=== PATIENT | male | born 1990 | race Caucasian/White ===

== ENCOUNTER 2023-05-04 14:18 | Outpatient (OUT) | payer OTHER, SELFPAY ==
[2023-05-04 14:46] LABS: Basophils Absolute Auto 0.1 10^3/uL (0.0-0.1); Basophils Percent Auto 0.8 % (0.2-2.0); Eosinophils Absolute Auto 0.2 10^3/uL (0.0-0.7); Eosinophils Percent Auto 1.7 % (0.9-7.0); Hematocrit 41.7 % (42.0-54.0); Hemoglobin 14.1 g/dL (14.0-18.0); Immature Granulocytes Abs Auto 0.03 10^3/uL (0.00-0.03); Immature Granulocytes Pct Auto 0.3 % (0.0-0.5); Lymphocytes Absolute Auto 2.2 10^3/uL (1.2-3.8); Lymphocytes Percent Auto 22.5 % (20.5-60.0); Mean Corpuscular HGB Conc 33.8 g/dL (29.9-35.2); Mean Corpuscular Hemoglobin 29.1 pg (25.9-34.0); Mean Corpuscular Volume 86.2 fL (80.0-94.0); Mean Platelet Volume 11.4 fL (9.5-13.5); Monocytes Percent Auto 10.7 % (1.7-12.0); Neutrophils Absolute Auto 6.2 10^3/uL (1.4-6.5); Platelet Count 219 10^3/uL (150-450); Red Blood Count 4.84 10^6/uL (4.70-6.10); Red Cell Distribution Width 12.9 % (11.0-15.0); White Blood Count 9.7 10^3/uL (4.0-11.0)
[2023-05-04 14:55] LABS: Erythrocyte Sedimentation Rate 13 mm/hr (<=15)
[2023-05-04 15:05] LABS: Alanine Aminotransferase 34 U/L (16-63); Albumin Globulin Ratio 0.8; Albumin Level 3.6 g/dL (3.4-5.0); Alkaline Phosphatase 72 U/L (46-116); Anion Gap 12.3; Aspartate Amino Transferase 44 U/L (15-37); BUN Creatinine Ratio 17.2; Bilirubin Total 0.9 mg/dL (0.2-1.0); Calcium 9.1 mg/dL (8.5-10.1); Carbon Dioxide 24.9 mmol/L (21.0-32.0); Chloride 104 mmol/L (98-107); Estimated GFR (African America >60 (>=60); Estimated GFR (Non-African Ame >60 (>=60); Globulin 4.3 g/dL; Glucose 94 mg/dL (74-106); Potassium 4.2 mmol/L (3.5-5.1); Sodium 137 mmol/L (136-145); Total Protein 7.9 g/dL (6.4-8.2)
[2023-05-05 07:08] LABS: C-Reactive Protein, Cardiac 5.55 mg/L (0.00-3.00)
== END 2023-05-04 14:19 ==
LOC: LAB 14:18
PROVIDERS: PCP Family Medicine
DX: K52.9 Noninfective gastroenteritis and colitis, unspecified (principal)
CPT/HCPCS: 36415; 80053; 85025; 85652; 86140

== ENCOUNTER 2024-08-22 08:57 | Outpatient (OUT) | payer OTHER, SELFPAY ==
[2024-08-22 09:38] LABS: Basophils Absolute Auto 0.1 10^3/uL (0.0-0.1); Basophils Percent Auto 0.7 % (0.2-2.0); Eosinophils Absolute Auto 0.2 10^3/uL (0.0-0.7); Eosinophils Percent Auto 3.2 % (0.9-7.0); Hematocrit 42.5 % (42.0-54.0); Immature Granulocytes Abs Auto 0.01 10^3/uL (0.00-0.03); Immature Granulocytes Pct Auto 0.1 % (0.0-0.5); Lymphocytes Absolute Auto 1.8 10^3/uL (1.2-3.8); Mean Corpuscular HGB Conc 32.9 g/dL (29.9-35.2); Mean Corpuscular Hemoglobin 28.7 pg (25.9-34.0); Mean Corpuscular Volume 87.1 fL (80.0-94.0); Mean Platelet Volume 10.5 fL (9.5-13.5); Monocytes Absolute Auto 0.6 10^3/uL (0.3-0.8); Monocytes Percent Auto 8.7 % (1.7-12.0); Neutrophils Absolute Auto 4.5 10^3/uL (1.4-6.5); Neutrophils Percent Auto 62.3 % (43.0-75.0); Platelet Count 200 10^3/uL (150-450); Red Blood Count 4.88 10^6/uL (4.70-6.10); Red Cell Distribution Width 13.1 % (11.0-15.0); White Blood Count 7.2 10^3/uL (4.0-11.0)
[2024-08-22 10:20] LABS: Alanine Aminotransferase 53 U/L (16-63); Albumin Globulin Ratio 0.9; Albumin Level 3.5 g/dL (3.4-5.0); Alkaline Phosphatase 62 U/L (46-116); Aspartate Amino Transferase 40 U/L (15-37); BUN Creatinine Ratio 10.2; Calcium 8.9 mg/dL (8.5-10.1); Carbon Dioxide 23.8 mmol/L (21.0-32.0); Chloride 103 mmol/L (98-107); Estimated GFR (African America >60 (>=60 mL/min/1.73m^2); Estimated GFR (Non-African Ame >60 (>=60 mL/min/1.73m^2); Globulin 3.7 g/dL; Glucose 90 mg/dL (74-106); Potassium 3.8 mmol/L (3.5-5.1); Sodium 136 mmol/L (136-145); Total Protein 7.2 g/dL (6.4-8.2)
[2024-08-22 10:36] LABS: Erythrocyte Sedimentation Rate 26 mm/hr (<=15)
[2024-08-23 05:12] LABS: HBsAg Screen Negative (Negative); Hep B Core Ab, Tot Negative (Negative)
[2024-08-24 10:09] LABS: QuantiFERON-TB Gold Plus Negative (Negative)
== END 2024-08-22 08:58 | disposition home or self-care (01) ==
LOC: LAB 09:00
PROVIDERS: PCP Family Medicine
DX: K50.90 Crohn's disease, unspecified, without complications (principal)
CPT/HCPCS: 36415; 80053; 85025; 85652; 86140; 86480; 86704; 87340

== ENCOUNTER 2025-06-13 16:00 | Outpatient (OUT) | payer OTHER, SELFPAY ==
--- OUTSIDE RECORDS SUMMARY | 2024-08-22 16:49 | XMS_ITS ---
Author Organization The [facility] in [place] Address [address] [place] [address] Care Team Providers Care Seasonal Clerk Name Role Phone José Miguel Bynum Primary Care Provider REASON FOR VISIT review labs Encounters Encounter Location Date Provider Diagnosis [address] [address] 08/22/2024 José Miguel Bynum Plan Of Treatment No Information Progress Notes * Kvng RICHMONDDOB:[birth year] (34 yo M)Acc No.[id number]:08/22/2024 Patient: Robyn Kvng DOVE :1990 A ge:34 Y S ex:Male Address:[facility] [place] [address] [address] * true * Date: Generated for Printi ng/Faxing/eTransmitting on: 0 06/13/2025 04:03 PM EDT
--- OUTSIDE RECORDS SUMMARY | 2024-08-24 17:34 | XMS_ITS ---
Author Organization The [facility] in [place] Address [address] [place] [address] Care Team Providers Care Hospital Technician Name Role Phone José Miguel Bynum Primary Care Provider REASON FOR VISIT labs Encounters Encounter Location Date Provider Diagnosis [address] [address] 08/24/2024 José Miguel Byunm Plan Of Treatment No Information Progress Notes * Kvng RICHMONDDOB:[birth year] (34 yo M)Acc No.[id number]:08/24/2024 Patient: Kvng SALCIDO :1990 A ge:34 Y S ex:Male Address:[facility] [address] * true * Date: Generated for Printi ng/Faxing/eTransmitting on: 0 06/13/2025 04:03 PM EDT
--- OUTSIDE RECORDS SUMMARY | 2025-06-13 16:03 | XMS_ITS | Encounter Summary ---
Author Organization [facility] Address [address] [place], [place] [id number] Care Team Providers Care Railroad Car Loader Name Role Phone Celestine Bynum MD Primary Care Provider [phone] Source Comments In the event this information is protected by the Federal Confidentiality of Alcohol and Drug AbusePatient Records regulations: The Federal rules restrict any use of the information to criminally investigate or prosecute any alcohol or drug abuse patient.[facility] Encounter Details Date Type Department Care Team (Late st Contact Info) Description 01/21/2024 Get Medical Advice Gastroenterology [address] [place] [address] [place] [address] [place] [address] Persistent Chron s symptoms Social History Tobacco Use Types Packs/Day Years Used Date Smoking Tobacco: Former Cigarettes Smokeless Tobacco: Never Alcohol Use Standard Drinks/Week Comments Yes 0 (1 standard drink = 0.6 oz pur e alcohol) social Area Deprivation Index Answer Date Lui rded National Score (1-100), lower number is lower ri sk 64 07/31/2023 State Score (1-10), lower number is lower risk 4 07/31/2023 Data from: https://www.neighborhoodatlas.medicine.[facility].edu/. Last address used for calculation [address] 07/31/2023 Sex and Gender Information Value Date Recorded Sex Assigned at Not on file Legal Sex Male 2:39 PM EDT Gender Identity Not on file Sexual Orientation Straight 07/31/2023 2: 31 PM EDT documented as of this encounter Plan of Treatment Not on file documented as of this encounter Visit Diagnoses Not on filedocumented in this encounter Care Teams Railroad Car Loader Relationship Specialty Start Date End Date Celestine Bynum MD [address] [id number] PCP - General Family Medicine 05/02/23 documented as of this encounter
--- OUTSIDE RECORDS SUMMARY | 2025-06-13 16:03 | XMS_ITS | Patient Health Record ---
Author Organization The [facility] in [place] Address [address] [place] [address] Care Team Providers Care Mechanical Process Engineer Name Role Phone José Miguel Bynum Primary Care Provider [phone] Results Component Value Reference Range Notes CBC AUTO DIFF Reviewed date:08/22/2024 08:51:47 PM Interpretation: Performing Lab: Notes/Report: [facility] [place] , White Blood Count 7.2 4.0-11.0 10 3/uL Red Blood Count 4.88 4.70-6.10 10 6/uL Hemoglobin 14.0 14.0-18.0 g/dL Hematocrit 42.5 42.0-54.0 % Mean Corpuscular Volume 87.1 80.0-94.0 fL Mean Corpuscular Hemoglobin 28.7 25.9-34.0 pg Mean Corpuscular HGB Conc 32.9 29.9-35.2 g/dL Red Cell Distribution Width 13.1 11.0-15.0 % Platelet Count 200 150-450 10 3/uL Mean Platelet Volume 10.5 9.5-13.5 fL Neutrophils Percent Auto 62.3 43.0-75.0 % Lymphocytes Percent Auto 25.0 20.5-60.0 % Monocytes Percent Auto 8.7 1.7-12.0 % Eosinophils Percent Auto 3.2 0.9-7.0 % Basophils Percent Auto 0.7 0.2-2.0 % Immature Granulocytes Pct Auto 0.1 0.0-0.5 % Neutrophils Absolute Auto 4.5 1.4-6.5 10 3/uL Lymphocytes Absolute Auto 1.8 1.2-3.8 10 3/uL Monocytes Absolute Auto 0.6 0.3-0.8 10 3/uL Eosinophils Absolute Auto 0.2 0.0-0.7 10 3/uL Basophils Absolute Auto 0.1 0.0-0.1 10 3/uL Immature Granulocytes Abs Auto 0.01 0.00-0.03 10 3/uL Performing Lab: see note - [facility] CRP Reviewed date:08/22/2024 08:51:47 PM Interpretation: Performing Lab: Notes/Report: [facility] , C Reactive Protein 0.50 <=0.50 mg/dL Performing Lab: see note - [facility] PROF 14(COMP METB) Reviewed date:08/22/2024 08:51:47 PM Interpretation: Performing Lab: Notes/Report: [facility] [place] , Sodium 136 136-145 mmol/L Potassium 3.8 3.5-5.1 mmol/L Chloride 103 98-107 mmol/L Carbon Dioxide 23.8 21.0-32.0 mmol/L Anion Gap 13.0 Glucose 90 74-106 mg/dL Blood Urea Nitrogen 9.0 7.0-18.0 mg/dL Creatinine 0.88 0.70-1.30 mg/dL Estimated GFR ( Keira >60 >=60 mL/mi n/1.73m 2 Estimated GFR (Non- Licha >60 >=60 mL/mi n/1.73m 2 BUN Creatinine Ratio 10.2 Calcium 8.9 8.5-10.1 mg/dL Bilirubin Total 1.0 0.2-1.0 mg/dL Aspartate Amino Transferase 40 15-37 U/L Alanine Aminotransferase 53 16-63 U/L Alkaline Phosphatase 62 46-116 U/L Total Protein 7.2 6.4-8.2 g/dL Albumin Level 3.5 3.4-5.0 g/dL Globulin 3.7 Albumin Globulin Ratio 0.9 Performing Lab: see note - [facility] Erythrocyte Sedimentation Ra te Reviewed date:08/22/2024 08:51:47 PM Interpretation: Performing Lab: Notes/Report: [facility] , Erythrocyte Sedimentation Rate 26 <=15 mm/hr Performing Lab: see note - [facility] HBsAg Screen Reviewed date:08/24/2024 09:35:49 PM Interpretation: Performing Lab: Notes/Report: [facility] , HBsAg Screen Negative Negative Performing Lab: see note LC - [facility] QuantiFERON-TB Gold Plus Reviewed date:08/24/2024 09:35:49 PM Interpretation: Performing Lab: Notes/Report: [facility] , QuantiFERON Incubation . Incubation performed. Reference Range: . QuantiFERON-TB Gold Plus Negative Negative Performed at: [facility] individuals should be considered for additional testing IU/mL. Infection with M tuberculosis is unlikely, but high risk (ATS/IDSA/CDC Clinical Practice Guidelines, 2017). The [address] [place] [id number] Shear Helper: Phi Jessica PhD, Phone: [phone] Chemiluminescence immunoassay methodology No response to M tuberculosis antigens detected. reference range is an Antigen minus Nil result of <0.35 QuantiFERON Criteria Comment . intended for use in conjunction with risk assessment, subtracting the Nil value from either TB antigen (Ag) radiography, and other medical and diagnostic evaluations. QuantiFERON-TB Gold Plus is a qualitative indirect test for value. The Mitogen tube serves as a control for the test. M tuberculosis infection (including disease) and is The QuantiFERON-TB Gold Plus result is determined by QuantiFERON TB1 Ag Value 0.03 . IU/mL QuantiFERON TB2 Ag Value 0.05 . IU/mL QuantiFERON Nil Value 0.02 . IU/mL QuantiFERON Mitogen Value >10.00 . IU/mL Performing Lab: see note - [facility] Hep B Core Ab, Tot Reviewed date:08/24/2024 09:35:49 PM Interpretation: Performing Lab: Notes/Report: [facility] , Hep B Core Ab, Tot Negative Negative [address] [place] [id number] Performed at: [facility] Shear Helper: Phi Jessica PhD, Phone: [phone] Performing Lab: see note - [facility] Reason For Referral No Information Encounters Encounter Location Date Provider Diagnosis [facility] [address] [place] [address] 08/22/2024 José Miguel Bynum [facility] [address] [place] [address] 08/24/2024 José Miguel Bynum Plan Of Treatment No Information
--- OUTSIDE RECORDS SUMMARY | 2025-06-13 16:03 | XMS_ITS | Encounter Summary ---
Author Organization [facility] Address [address] [place], [place] [id number] Care Team Providers Care Temperature Inspector Name Role Phone Celestine Bynum MD Primary Care Provider [phone] Source Comments In the event this information is protected by the Federal Confidentiality of Alcohol and Drug AbusePatient Records regulations: The Federal rules restrict any use of the information to criminally investigate or prosecute any alcohol or drug abuse patient.[facility] Reason for Visit * Reason Comments Orders Inflectra renewal an d SHANTI Kit Encounter Details Date Type Department Care Team (Late Contact Info) Description 06/12/2025 Telephone Gastroenterology [address] [place] [address] [place] [address] [place] [address] Orders (Inflectra renewal and SHANTI Kit) Social History Tobacco Use Types Packs/Day Years Used Date Smoking Tobacco: Former Cigarettes Smokeless Tobacco: Never Alcohol Use Standard Drinks/Week Comments Yes 0 (1 standard drink = 0.6 oz pur e alcohol) social Area Deprivation Index Answer Date Lui rded National Score (1-100), lower number is lower ri 64 07/31/2023 State Score (1-10), lower number is lower risk 4 07/31/2023 Data from: https://www.neighborhoodatlas.medicine.[facility].edu/. Last address used for calculation [address] 07/31/2023 Sex and Gender Information Value Date Recorded Sex Assigned at Not on file Legal Sex Male 2:39 PM EDT Gender Identity Not on file Sexual Orientation Straight 07/31/2023 2: 31 PM EDT documented as of this encounter Miscellaneous Notes * Telephone Encounter - Eleanor Fofana RN - 06/13/2025 3:34 PM EDT Fecal Renny was faxed (stool study) as well. Thanks, Eleanor Fofana RN * Telephone Encounter - Violeta Gaston - 06/13/2025 3:25 PM EDT Please confirm the Shanti Kit was also faxed over. Thank you, * Telephone Encounter - Eleanor Fofana RN - 06/13/2025 9:14 AM EDT Lab Requisites faxed to [phone] [facility] per pt request. Confirmation fax received. Thanks, Eleanor Fofana RN * Telephone Encounter - Cassie Mello MD - 06/12/2025 2:15 PM EDT Patient has TB test that was negative and scanned in Aug 2024 Why does he need a repeated one? Normal labs at that time I don't see hep B I'm sure all were done at the same time Please try to get before you ask the patient to repeat * Telephone Encounter - Eleanor Fofana RN - 06/12/2025 12:11 PM EDT Received paperwork yesterday evening, Will complete and fax to [facility], Explained to rep yesterday that this would need completed/ prescriber signature- and pt has incomplete labs. Dr. Mello, Please review and sign labs for TB hep, Other labs active. Thanks, Eleanor Fofana RN * Telephone Encounter - Ingris Hernández RN - 06/12/2025 12:04 PM EDT Beth Geovanny from [facility] is calling. She would like to know if orders were received for Inflectra renewal and SHANTI Kit. She needs the orders faxed back to [phone]. Please call her back at [phone]. Thank you, Ingris Hernández RN documented in this encounter Plan of Treatment Scheduled Orders Name Type Priority Associated Diagnoses Orde r Schedule BLOOD TB SCREEN Lab Routine Crohn's disease without complication, unspecified gastrointestinal tract location (HCC) Expected: 06/12/2025 (Approximate), Expires: 09/11/2025 HEPATITIS B CORE ANTIBODY TOTAL Lab Routine Crohn's disease without complication, unspecified gastrointestinal tract location (HCC) Expected: 06/12/2025 (Approximate), Expires: 09/11/2025 HEPATITIS B SURFACE ANTIGEN Lab Routine Crohn's disease without complication, unspecified gastrointestinal tract location (HCC) Expected: 06/12/2025 (Approximate), Expires: 09/11/2025 HEPATITIS B SURFACE ANTIBODY Lab Routine Crohn's disease without complication, unspecified gastrointestinal tract location (HCC) Expected: 06/12/2025 (Approximate), Expires: 09/11/2025 documented as of this encounter Visit Diagnoses Diagnosis Crohn's disease without complication, unspecified gastrointestinal tract location (HCC)- Primary documented in this encounter Care Teams Temperature Inspector Relationship Specialty Start Date End Date Celestine Bynum MD [address] [place] [address] PCP - General Family Medicine 05/02/23 documented as of this encounter
--- OUTSIDE RECORDS SUMMARY | 2025-06-13 16:03 | XMS_ITS | Clinical Summary ---
Author Organization [facility] Address [address] [place] [address] Care Team Providers Care Ship Self Defense System Mk1 Operator Name Role Phone Celestine Bynum MD Primary Care Provider [phone] Allergies No known active allergies Medications predniSONE (DELTASONE) 20 mg tablet Take 20 mg by mouth once daily. Active methocarbamol (ROBAXIN) 500 mg tablet Take 500 mg by mouth four times daily. Active Active Problems No known active problems Encounters Date Type Department Care Team Description 06/12/2025 Telephone Gastroenterology [address] [place] [address] Cassie Mello MD Orders (Inflectra renewal and SHANTI Kit) 06/06/2025 Patient Msg HOSP MAIN H060 [address] [place] [address] Provider, [facility] Sign up to manage your digestive symptoms in between visits, covered by insurance 05/02/2025 Telephone [facility] C [address] [place] [id number] Cassie Mello MD from Last 3 Months Family History Medical History Relation Comments Colon Cancer Maternal Grandfather Relation Status Comments Maternal Grandfather Social History Tobacco Use Types Packs/Day Years Used Date Smoking Tobacco: Former Cigarettes Smokeless Tobacco: Never Tobacco Cessation:Counseling Given: Not Answered Alcohol Use Standard Drinks/Week Comments Yes 0 (1 standard drink = 0.6 oz pur e alcohol) social Area Deprivation Index Answer Date Lui rded National Score (1-100), lower number is lower [facility] 64 07/31/2023 State Score (1-10), lower number is lower risk 4 07/31/2023 Data from: https://www.neighborhoodatlas.medicine.[facility].edu/. Last address used for calculation [address] 07/31/2023 Sex and Gender Information Value Date Recorded Sex Assigned at Not on file Legal Sex Male 2:39 PM EDT Gender Identity Not on file Sexual Orientation Straight 07/31/2023 2: 31 PM EDT Last Filed Vital Signs Vital Sign Reading Time Taken Comments Blood Pressure 116/75 07/31/2023 11:08 AM EDT Pulse 71 07/31/2023 11:08 AM EDT Temperature - - Respiratory Rate - - Oxygen Saturation - - Inhaled Oxygen Concentration - - Weight 143.8 kg (317 lb) 07/31/2023 11:08 AM EDT Height - - Body Mass Index - - Plan of Treatment Health Maintenance Due Date Last Done Comments Anxiety Screening 2009 Depression Screening 2009 HIV Screening 2009 Hepatitis C Screening 2009 DTaP,Tdap,Td Vaccine (7 - Td or Tdap) 04/14/2020 04/14/2010, 05/11/2007, 07/21/1995, Additional history exists Influenza Vaccine (#1) 2025 09/03/2019 Hepatitis B Vaccine Completed 11/15/2007, 06/15/2007, 05/11/2007 [facility] [place] [address] Care Teams Ship Self Defense System Mk1 Operator Relationship Specialty Start Date End Date Celestine Bynum MD [address] [place] [address] PCP - General Family Medicine 05/02/23
--- OUTSIDE RECORDS SUMMARY | 2025-06-13 16:03 | XMS_ITS | Clinical Summary ---
Author Organization [facility] [employer] Address [id number] [address] [place] [address] Care Team Providers Care Mig Welder Name Role Phone Celestine Bynum MD Primary Care Provider [phone] Allergies Active Allergy Reactions Criticality Noted Date Comments Hydrocodone-Acetaminophen Nausea 03/11/2021 Medications No known medications Social History Tobacco Use Types Packs/Day Years Used Date Smoking Tobacco: Some Days Vaping/E-cigarettes Smokeless Tobacco: Never Alcohol Use Standard Drinks/Week Comments Yes 0 (1 standard drink = 0.6 oz pur e alcohol) Childcare Answer Date Recorded Childcare Unknown 05/01/2019 Employment Answer Date Recorded Employment Unknown 05/01/2019 Sex and Gender Information Value Date Recorded Sex Assigned at Not on file Legal Sex Male 12:01 PM EDT Gender Identity Not on file Sexual Orientation Not on file Last Filed Vital Signs Vital Sign Reading Time Taken Comments Blood Pressure 128/74 03/11/2021 5:00 PM EDT Pulse 79 03/11/2021 5:00 PM EDT Temperature 37.1 C (98.7 F) 03/11/2021 4:56 PM EDT Respiratory Rate 17 03/11/2021 4:56 PM EDT Oxygen Saturation 100% 03/11/2021 5:00 PM EDT Inhaled Oxygen Concentration - - Weight 133.8 kg (295 lb) 03/11/2021 4:56 PM EDT Height 185.4 cm (6' 1 ) 03/11/2021 4:56 PM EDT Body Mass Index 38.92 03/11/2021 4:56 PM EDT Plan of Treatment Not on file Medical Devices Not on file Insurance [facility] Care Teams Mig Welder Relationship Specialty Start Date End Date Celestine Bynum MD PCP - General Family Medicine 03/11/21
[2025-06-13 16:32] LABS: Hematocrit 42.5 % (42.0-54.0); Hemoglobin 14.5 g/dL (14.0-18.0); Immature Granulocytes Abs Auto 0.02 10^3/uL (0.00-0.03); Immature Granulocytes Pct Auto 0.2 % (0.0-0.5); Lymphocytes Absolute Auto 2.3 10^3/uL (1.2-3.8); Mean Corpuscular HGB Conc 34.1 g/dL (29.9-35.2); Mean Corpuscular Hemoglobin 29.8 pg (25.9-34.0); Mean Corpuscular Volume 87.4 fL (80.0-94.0); Platelet Count 218 10^3/uL (150-450); Red Blood Count 4.86 10^6/uL (4.70-6.10); White Blood Count 8.3 10^3/uL (4.0-11.0)
[2025-06-13 17:41] LABS: Alanine Aminotransferase 93 U/L (16-63); Albumin Globulin Ratio 0.7; Albumin Level 3.3 g/dL (3.4-5.0); Alkaline Phosphatase 74 U/L (46-116); Anion Gap 8.1; Aspartate Amino Transferase 36 U/L (15-37); Blood Urea Nitrogen 11.0 mg/dL (7.0-18.0); Calcium 9.5 mg/dL (8.5-10.1); Carbon Dioxide 31.1 mmol/L (21.0-32.0); Chloride 104 mmol/L (98-107); Estimated GFR (African America >60 (>=60 mL/min/1.73m^2); Estimated GFR (Non-African Ame >60 (>=60 mL/min/1.73m^2); Globulin 4.8 g/dL; Glucose 111 mg/dL (74-106); Potassium 4.2 mmol/L (3.5-5.1); Sodium 139 mmol/L (136-145); Total Protein 8.1 g/dL (6.4-8.2)
== END 2025-06-13 16:01 | disposition home or self-care (01) ==
LOC: LAB 16:00
PROVIDERS: PCP Family Medicine
DX: K50.90 Crohn's disease, unspecified, without complications (principal)
CPT/HCPCS: 36415; 80053; 85025; 85652; 86140; 86317; 86704; 87340

== ENCOUNTER 2025-06-20 18:16 | Outpatient (REF) | payer OTHER, SELFPAY ==
--- OUTSIDE RECORDS SUMMARY | 2024-08-22 16:49 | XMS_ITS ---
Author Organization The [facility] in [place] Address [address] [place] [address] Care Team Providers Care Master Ocean Yacht Name Role Phone José Miguel Bynum Primary Care Provider REASON FOR VISIT review labs Encounters Encounter Location Date Provider Diagnosis [address] [address] 08/22/2024 José Miguel Bynum Plan Of Treatment No Information Progress Notes * Kvng RICHMONDDOB:[birth year] (34 yo M)Acc No.[id number]:08/22/2024 Patient: Robyn Kvng DOVE :1990 A ge:34 Y S ex:Male Address:[facility] [place] [address] * true * Date: Generated for Victorianoi ng/Falanceg/eTransmitting on: 0 06/21/2025 06:51 AM EDT
--- OUTSIDE RECORDS SUMMARY | 2024-08-24 17:34 | XMS_ITS ---
Author Organization The [facility] in [place] Address [address] [place] [address] Care Team Providers Care Aviation Operations Specialist Name Role Phone José Miguel Bynum Primary Care Provider REASON FOR VISIT labs Encounters Encounter Location Date Provider Diagnosis [address] [address] 08/24/2024 José Miguel Bynum Plan Of Treatment No Information Progress Notes * Kvng RICHMONDDOB:[birth year] (34 yo M)Acc No.[id number]:08/24/2024 Patient: Kvng SALCIDO :1990 A ge:34 Y S ex:Male Address:[facility] [place] [address] [address] * true * Date: Generated for Printi ng/Faxing/eTransmitting on: 0 06/21/2025 06:51 AM EDT
--- OUTSIDE RECORDS SUMMARY | 2025-06-21 06:51 | XMS_ITS | Patient Health Record ---
Author Organization [facility] in [place] Address [address] [place] [address] Care Team Providers Care Accountant Property Name Role Phone José Miguel Bynum Primary Care Provider Results Component Value Reference Range Notes CBC AUTO DIFF Reviewed date:08/22/2024 08:51:47 PM Interpretation: Performing Lab: Notes/Report: [facility] , White Blood Count 7.2 4.0-11.0 10 [...] 10 3/uL Performing Lab: see note - [facility] LB QuantiFERON-TB Gold Plus Reviewed date:08/24/2024 09:35:49 PM Interpretation: Performing Lab: Notes/Report: [facility] , QuantiFERON Incubation . Incubation performed. Reference Range: . QuantiFERON-TB Gold Plus Negative Negative No response to M tuberculosis antigens detected. Infection with M tuberculosis is unlikely, but high risk individuals should be considered for additional testing (ATS/IDSA/CDC Clinical Practice Guidelines, 2017). The reference range is an Antigen minus Nil result of <0.35 IU/mL. Chemiluminescence immunoassay methodology Performed at: [facility] [employer] [id number] Roping Machine Tender: Phi Jessica PhD, Phone: [phone] QuantiFERON Criteria Comment . QuantiFERON-TB Gold Plus is a qualitative indirect test for M tuberculosis infection (including disease) and is intended for use in conjunction with risk assessment, radiography, and other medical and diagnostic evaluations. The QuantiFERON-TB Gold Plus result is determined by subtracting the Nil value from either TB antigen (Ag) value. The Mitogen tube serves as a control for the test. QuantiFERON TB1 Ag Value 0.03 . IU/mL QuantiFERON TB2 Ag Value 0.05 . IU/mL QuantiFERON Nil Value 0.02 . IU/mL QuantiFERON Mitogen Value >10.00 . IU/mL Performing Lab: see note - [facility] LB CBC AUTO DIFF Reviewed date:06/15/2025 06:17:15 PM Interpretation: Performing Lab: Notes/Report: [facility] , White Blood Count 8.3 4.0-11.0 10 3/uL Red Blood Count 4.86 4.70-6.10 10 6/uL Hemoglobin 14.5 14.0-18.0 g/dL Hematocrit 42.5 42.0-54.0 % Mean Corpuscular Volume 87.4 80.0-94.0 fL Mean Corpuscular Hemoglobin 29.8 25.9-34.0 pg Mean Corpuscular HGB Conc 34.1 29.9-35.2 g/dL Red Cell Distribution Width 13.2 11.0-15.0 % Platelet Count 218 150-450 10 3/uL Mean Platelet Volume 11.6 9.5-13.5 fL Neutrophils Percent Auto 60.5 43.0-75.0 % Lymphocytes Percent Auto 27.7 20.5-60.0 % Monocytes Percent Auto 8.7 1.7-12.0 % Eosinophils Percent Auto 2.3 0.9-7.0 % Basophils Percent Auto 0.6 0.2-2.0 % Immature Granulocytes Pct Auto 0.2 0.0-0.5 % Neutrophils Absolute Auto 5.0 1.4-6.5 10 3/uL Lymphocytes Absolute Auto 2.3 1.2-3.8 10 3/uL Monocytes Absolute Auto 0.7 0.3-0.8 10 3/uL Eosinophils Absolute Auto 0.2 0.0-0.7 10 3/uL Basophils Absolute Auto 0.1 0.0-0.1 10 3/uL Immature Granulocytes Abs Auto 0.02 0.00-0.03 10 3/uL Performing Lab: see note ML - [facility] LB CRP Reviewed date:06/15/2025 06:17:15 PM Interpretation: Performing Lab: Notes/Report: [facility] , C Reactive Protein <0.50 <=0.50 mg/dL Performing Lab: see note ML - [facility] LB PROF 14(COMP METB) Reviewed date:06/15/2025 06:17:15 PM Interpretation: Performing Lab: Notes/Report: [facility] , Sodium 139 136-145 mmol/L Potassium 4.2 3.5-5.1 mmol/L Chloride 104 98-107 mmol/L Carbon Dioxide 31.1 21.0-32.0 mmol/L Anion Gap 8.1 Glucose 111 74-106 mg/dL Blood Urea Nitrogen 11.0 7.0-18.0 mg/dL Creatinine 0.75 0.70-1.30 mg/dL Estimated GFR ( Keira >60 >=60 mL/mi n/1.73m 2 Estimated GFR (Non- Licha >60 >=60 mL/mi n/1.73m 2 BUN Creatinine Ratio 14.7 Calcium 9.5 8.5-10.1 mg/dL Bilirubin Total 0.6 0.2-1.0 mg/dL Aspartate Amino Transferase 36 15-37 U/L Alanine Aminotransferase 93 16-63 U/L Alkaline Phosphatase 74 46-116 U/L Total Protein 8.1 6.4-8.2 g/dL Albumin Level 3.3 3.4-5.0 g/dL Globulin 4.8 Albumin Globulin Ratio 0.7 Performing Lab: see note ML - [facility] Erythrocyte Sedimentation Ra te Reviewed date:06/15/2025 06:17:15 PM Interpretation: Performing Lab: Notes/Report: [facility] , Erythrocyte Sedimentation Rate 19 <=15 mm/hr Performing Lab: see note - [facility] LB HBsAg Screen Reviewed date:06/15/2025 06:17:15 PM Interpretation: Performing Lab: Notes/Report: [facility] , HBsAg Screen Negative Negative Performing Lab: see note - [facility] LB Hepatitis B Surf Ab Quant Reviewed date:06/15/2025 06:17:15 PM Interpretation: Performing Lab: Notes/Report: [facility] , Hepatitis B Surf Ab Quant <3.5 Immunity>10 mIU /mL Status of Immunity Anti-HBs Level Inconsistent with Immunity 0.0 - 10.0 Consistent with Immunity >10.0 Performing Lab: see note - [facility] LB Hep B Core Ab, Tot Reviewed date:06/15/2025 06:17:15 PM Interpretation: Performing Lab: Notes/Report: [facility] , Hep B Core Ab, Tot Negative Negative Performed at: [address] [id number] Roping Machine Tender: Phi Jessica PhD, Phone: [phone] Performing Lab: see note - [facility] Hep B Core Ab, Tot Reviewed date:08/24/2024 09:35:49 PM Interpretation: Performing Lab: Notes/Report: [facility] , Hep B Core Ab, Tot Negative Negative Performed at: [address] [id number] Roping Machine Tender: Phi Jessica PhD, Phone: [phone] [facility]forming [facility] H[facility] Reviewed date:08/24/2024 09:35:49 PM Interpretation: Performing Lab: Notes/Report: [facility] , HBsAg Screen Negative Negative Performing Lab: see note LC - [facility] LB Erythrocyte Sedimentation Ra te Reviewed date:08/22/2024 08:51:47 PM Interpretation: Performing Lab: Notes/Report: [facility] , Erythrocyte Sedimentation Rate 26 <=15 mm/hr Performing Lab: see note ML - [facility] PROF 14(COMP METB) Reviewed date:08/22/2024 08:51:47 PM Interpretation: Performing Lab: Notes/Report: [facility] , Sodium 136 136-145 mmol/L Potassium 3.8 [...] Globulin Ratio 0.9 Performing Lab: see note ML - [facility] CRP Reviewed date:08/22/2024 08:51:47 PM Interpretation: Performing Lab: Notes/Report: [facility] , C Reactive Protein 0.50 <=0.50 mg/dL Performing Lab: see note ML - [facility] Reason For Referral No Information Encounters Encounter Location Date Provider Diagnosis [facility] [address] [place] [address] 08/22/2024 José Miguel Bynum [facility] [address] [place] [address] 08/24/2024 José Miguel Bynum [facility] [address] [facility] [place] [address] 06/15/2025 José Miguel Bynum Plan Of Treatment No Information
--- OUTSIDE RECORDS SUMMARY | 2025-06-21 06:51 | XMS_ITS | Encounter Summary ---
Author Organization [facility] Address [address] [place], [place] [id number] Care Team Providers Care Prefitter Doors Name Role Phone Celestine Bynum MD Primary Care Provider [phone] Source Comments In the event this information is protected by the Federal Confidentiality of Alcohol and Drug AbusePatient Records regulations: The Federal rules restrict any use of the information to criminally investigate or prosecute any alcohol or drug abuse patient.[facility] Reason for Visit * Reason Comments Orders Inflectra renewal an d SHANTI Kit Encounter Details Date Type Department Care Team (Late Contact Info) Description 06/12/2025 Telephone Gastroenterology [address] [place] [address] [place] [address] [place] [id number] Orders (Inflectra renewal and SHANTI Kit) Social [...] is lower risk 4 07/31/2023 Data from: https://www.neighborhoodatlas.medicine.[facility]/. Last address used for calculation [address] 07/31/2023 Sex and Gender Information Value Date Recorded Sex Assigned at Not on file Legal Sex Male 2:39 PM EDT Gender Identity Not on file Sexual Orientation Straight 07/31/2023 2: 31 PM EDT documented as of this encounter Miscellaneous Notes * Telephone Encounter - Ingris Hernández RN - 06/19/2025 3:59 PM EDT Orders received, signed by Dr. Mello and faxed to [facility]. Ingris Hernández RN * Telephone Encounter - Ana Dinh LPN - 06/19/2025 3:46 PM EDT Bonnie CASILLAS from [facility] calling regarding SHANTI kit orders. Bonnie states SHANTI orders were faxed to the office a few days ago. Patient is scheduled to have infusion on Saturday 06/23. Bonnie CASILLAS states if SHANTI orders are not received by tomorrow patient will need to be cancelled for Mondays infusion. Bonnie CASILLAS will refax SHANTI kit orders to the office today. Bonnie CASILLAS # [phone] Fax # [phone] Please see Ingris CASILLAS message from 06/12/25. Thank You Ana Dinh LPN * Addendum Note - Cassie Mello MD - 06/17/2025 3:57 PM EDTAddended by: CASSIE MELLO on: 06/17/2025 03:57 PM Modules accepted: Orders * Telephone Encounter - Cassie Mello MD - 06/17/2025 3:57 PM EDT Thanks * Addendum Note - Eleanor Fofana RN - 06/17/2025 1:36 PM EDTAddended by: ELEANOR FOFANA on: 06/17/2025 01:36 PM Modules accepted: Orders * Telephone Encounter - Eleanor Fofana RN - 06/17/2025 1:33 PM EDT Images from the original note were not included. TB up to date in scanned docs Reviewed previously- Awaiting up dated TB, pt stated he may wait until next lab work is due for completion. Eleanor Miller RN * Telephone Encounter - Cassie Mello MD - 06/17/2025 1:26 PM EDT Noted I don't see TB? Repeat labs in 6 months Hepatitis B and TB in one year * Telephone Encounter - Eleanor Fofana RN - 06/17/2025 10:04 AM EDT Lab results received via fax from [facility] DOS 06-13-25 Dr. Mello please review and sign abnormal results, Full doc submitted for scan in Eleanor Miller RN CBC WNL CMP GLUC 111 H ALT 93 H ALBUMIN 3.3 L ESR 19 H HEP B SURG <3.5 L HEP B CORE NEG HBsAG SCRN NEG * Telephone Encounter - Eleanor Fofana RN - 06/13/2025 3:34 PM EDT Fecal Renny was faxed (stool study) as well. Thanks, Eleanor Fofana RN * Telephone Encounter - Violeta Gaston - 06/13/2025 3:25 PM EDT Please confirm the Shanti Kit was also faxed over. Thank you, * Telephone Encounter - Eleanor Fofana RN - 06/13/2025 9:14 AM EDT Lab Requisites faxed to [phone] [facility] per pt request. Confirmation fax [...] yesterday evening, Will complete and fax to [facility], Explained to rep yesterday that this would need completed/ prescriber signature- and pt has incomplete labs. Dr. Mello, Please review and sign labs for TB hep, Other labs active. Thanks, Eleanor Fofana RN * Telephone Encounter - Ingris Hernández RN - 06/12/2025 12:04 PM EDT Beth Small from [facility] is calling. She would like to know if orders were received for Inflectra renewal and SHANTI Kit. She needs the orders faxed back to [phone]. Please call her back at [phone]. Thank you, Ingris Hernández, RN documented in this encounter Plan of [...] location (HCC) Expected: 06/12/2025 (Approximate), Expires: 09/11/2025 C-REACTIVE PROTEIN Lab Routine Crohn's disease without complication, unspecified gastrointestinal tract location (HCC) Expected: 12/18/2025 (Approximate), Expires: 03/19/2026 COMPREHENSIVE METABOLIC PANEL Lab Routine Crohn's disease without complication, unspecified gastrointestinal tract location (HCC) Expected: 12/18/2025 (Approximate), Expires: 03/19/2026 COMPLETE BLOOD COUNT AND DIFFERENTIAL Lab Routine Crohn's disease without complication, unspecified gastrointestinal tract location (HCC) Expected: 12/18/2025 (Approximate), Expires: 03/19/2026 SEDIMENTATION RATE, WESTERGREN Lab Routine Crohn's disease without complication, unspecified gastrointestinal tract location (HCC) Expected: 12/18/2025 (Approximate), Expires: 03/19/2026 documented as of this encounter Visit Diagnoses Diagnosis Crohn's disease without complication, unspecified gastrointestinal tract location (HCC)- Primary documented in this encounter Care Teams Prefitter Doors Relationship Specialty Start Date End Date Celestine Bynum MD [address] [place] [address] PCP - General Family Medicine 05/02/23 documented as of this encounter
--- OUTSIDE RECORDS SUMMARY | 2025-06-21 06:51 | XMS_ITS | Encounter Summary ---
Author Organization [facility] Address [address] [place] [address] Care Team Providers Care Movie Operator Name Role Phone Celestine Bynum MD Primary Care Provider [phone] Source Comments In the event this information is protected by the Federal Confidentiality of Alcohol and Drug AbusePatient Records regulations: The Federal rules restrict any use of the information to criminally investigate or prosecute any alcohol or drug abuse patient.[facility] Encounter Details Date Type Department Care Team (Late st Contact Info) Description 06/06/2025 Patient Msg HOSP MAIN H060 [address] [place] [address] Provider, [facility] Sign up to manage your digestive symptoms in between visits, covered by insurance Social History Tobacco Use Types Packs/Day Years Used Date Smoking Tobacco: Former Cigarettes Smokeless Tobacco: Never Alcohol Use Standard Drinks/Week Comments Yes 0 (1 standard drink = 0.6 oz pur e alcohol) social Area Deprivation Index Answer Date Lui rded National Score (1-100), lower number is lower ri sk 64 07/31/2023 State Score (1-10), lower number is lower risk 4 07/31/2023 Data from: https://www.neighborhoodatlas.medicine.[facility].edu/. Last address used for calculation [address] 07/31/2023 Sex and Gender Information Value Date Recorded Sex Assigned at Not on file Legal Sex Male 2:39 PM EDT Gender Identity Not on file Sexual Orientation Straight 07/31/2023 2 :31 PM EDT documented as of this encounter Plan of Treatment Not on file documented as of this encounter Visit Diagnoses Not on filedocumented in this encounter Care Teams Movie Operator Relationship Specialty Start Date End Date Celestine Bynum MD [address] [place] [address] PCP - General Family Medicine 05/02/23 documented as of this encounter
--- OUTSIDE RECORDS SUMMARY | 2025-06-21 06:52 | XMS_ITS | Encounter Summary ---
Author Organization [facility] Address [address] [place], [place] [id number] Care Team Providers Care Flatbed Company Driver Name Role Phone Celestine Bynum MD Primary Care Provider [phone] Source Comments In the event this information is protected by the Federal Confidentiality of Alcohol and Drug AbusePatient Records regulations: The Federal rules restrict any use of the information to criminally investigate or prosecute any alcohol or drug abuse patient.[facility] Encounter Details Date Type Department Care Team (Late st Contact Info) Description 01/21/2024 Get Medical Advice Gastroenterology [address] [place] [address] [place] [address] [place] [phone] Persistent Chron s symptoms Social History Tobacco [...] is lower risk 4 07/31/2023 Data from: https://www.neighborhoodatlas.medicine.[facility].edu/. Last address used for calculation [...] on filedocumented in this encounter Care Teams Flatbed Company Driver Relationship Specialty Start Date End Date Celestine Bynum MD [address] [place] [id number] PCP - General Family Medicine 05/02/23 documented as of this encounter
--- OUTSIDE RECORDS SUMMARY | 2025-06-21 06:52 | XMS_ITS | CCD ---
Author Organization [facility] Providers Care Visual Designer Name Role Phone Elkin Dial Unavailable [phone] MD Elkin Dial Attending Provider [phone] MD Julio César Bynum Primary Care Provider [phone] IMANI, DR GUTIERREZ Attending Unavailable NILL, DR GUTIERREZ Admitting Unavailable ALVIN, LENNY Consulting Unavailable LENNY ESQUIVEL Attending Unavailable LENNY ESQUIVEL Admitting Unavailable YIN, DR ANGELA Primary Care Unavailable YIN, DR ANGELA Primary Care Unavailable YIN, DR AGNELA Attending Unavailable HOJaye, DR ANGELA Admitting Unavailable NILL, DR GUTIERREZ Attending Unavailable NILL, DR GUTIERREZ Admitting Unavailable KERMITY, DR ANGELA Primary Care Unavailable NILL, DR GUTIERREZ Consulting Unavailable NILL, DR GUTIERREZ Attending Unavailable NILL, DR GUTIERREZ Admitting Unavailable ROJELIO GUZMAN Consulting Unavailable DIANA TRINH Consulting Unavailable GAUTAM DOS SANTOS Attending Unavailable GAUTAM DOS SANTOS Admitting Unavailable YIN, DR ANGELA Primary Care Unavailable JUDD EPSTEIN Consulting Unavailable YIN, DR ANGELA Consulting Unavailable YIN, DR ANGELA Primary Care Unavailable YIN, DR ANGELA Attending Unavailable YIN, DR ANGELA Admitting Unavailable ZIEBER, DR MONO Pereyra Consulting Unavailable YIN, DR ANGELA Consulting Unavailable YIN, DR ANGELA Primary Care Unavailable YIN, DR ANGELA Attending Unavailable YIN, DR ANGELA Admitting Unavailable NILL, DR GUTIERREZ Consulting Unavailable YIN, DR ANGELA Primary Care Unavailable NILL, DR GUTIERREZ Attending Unavailable NILL, DR GUTIERREZ Admitting Unavailable JAYA, DR Des Pereyra Consulting Unavailable YIN, DR ANGELA Primary Care Unavailable JAYA, DR Des Pereyra Attending Unavailable JAYA, DR Des Pereyra Admitting Unavailable JAYA, DR Des Pereyra Consulting Unavailable YIN, DR ANGELA Primary Care Unavailable JAYA, DR Des Pereyra Attending Unavailable JAYA, DR Des Pereyra Admitting Unavailable YIN, DR ANGELA Consulting Unavailable YIN, DR ANGELA Attending Unavailable YIN, DR ANGELA Admitting Unavailable JAYA, DR Des Pereyra Consulting Unavailable YIN, DR ANGELA Primary Care Unavailable JAYA, DR Des Pereyra Attending Unavailable JAYA, DR Des Pereyra Admitting Unavailable YIN, DR ANGELA Primary Care Unavailable JAYA, DR Des Pereyra Attending Unavailable JAYA, DR Des Pereyra Admitting Unavailable JAYA, DR Des Pereyra Attending Unavailable JAYA, DR Des Pereyra Admitting Unavailable JAYA, DR Des Pereyra Attending Unavailable JAYA, DR Des Pereyra Admitting Unavailable Julio César Bynum MD Primary Care Provider [phone] MD Mario Mello Attending Provider [phone] Mario Mello Attending Unavailable Mar, Metzger Admitting Unavailable NO FAMILY, PHYSICIAN Primary Care Unavailable JULIO CÉSAR BYNUM Primary Care Unavailable ROSELINE MELLOA Referring Unavailable JULIO CÉSAR BYNUM Primary Care Unavailable MAR, NOMKamran Referring Unavailable ROSELINE MELLOA Referring Unavailable JULIO CÉSAR BYNUM Primary Care Unavailable Julio César Bynum MD Primary Care Provider [phone] JULIO CÉSAR BYNUM Primary Care Unavailable MARIO MELLO Attending Unavailable Allergies Allergy Classification Reported Allergen(s) Allergy Type Date of Onset Reaction(s) Facility (6 sources) Acetaminophen / HYDROcodone Drug Allergy stomach upset [facility] Other (2 sources) HYDROcodone Drug Allergy [facility] Repository Medications Current Medications Medication Drug Class(es) Dates Sig (Normalized) Sig (Original) acetaminophen 325 mg / oxyCODONE hydrochloride 5 mg oral tablet (3 sources) Opioid Agonist Start: 07-11-2022 take 1 tablet by mouth every six hours Oxycodone-Acetami nophen Active 1 TAB PO Q6H July 11, 2022 12:00am Start: 07-11-2022 take 1 tablet by troy th every six hours Oxycodone-Acetaminophen Active 1 TAB PO Q6H July 11, 2022 12:00am balsalazide disodium 750 mg oral capsule (9 sources) Aminosalicylate Start: 07-11-2022 take 2250 mg by mouth three times daily Balsalazide Active 2250 MG PO Three times daily July 11, 2022 12:00am Start: 07-11-2022 take 2250 mg by mout h three times daily Balsalazide Active 2250 MG PO Three times daily July 11, 2022 12:00am Start: 03-03-2022 take 3 capsules by m outh every eight hours Balsalazide Disodium 750 MG 3 capsules Orally tid for 30 day(s) Feb, Active dicyclomine hydrochloride 20 mg oral tablet (6 sources) Anticholinergic Start: 07-11-2022 take 20 mg by mouth four times daily Dicyclomine Active 20 MG PO Four times daily July 11, 2022 12:00am Start: 07-11-2022 take 20 mg by mouth four times daily Dicyclomine Active 20 MG PO Four times daily July 11, 2022 12:00am Start: 07-11-2022 take 20 mg by mouth four times daily Dicyclomine Active 20 MG PO Four times daily 120 July 11, 2022 12:00am enteric contrast (will be provided with radiology test) (1 source) Start: 07-31-2023 End: 08-01-2023 enteric contrast (will be provided with radiology test) Indications: Crohn's disease without complication, unspecified gastrointestinal tract location (HCC) For CT ENTEROGRAPHY W IVCON order Administer, As Directed One Time Only, via Oral, Rectal, both Oral and Rectal, Enteric Tube, Stoma or Indwelling Catheter, Enteric Contrast as designated per enteric contrast guidelines. 1 Each 0 07/31/2023 08/01/2023 Active Comment on above: For CT ENTEROGRAPHY W IVCON order Administer, As Directed One Time Only, via Oral, Rectal, both Oral and Rectal, Enteric Tube, Stoma or Indwelling Catheter, Enteric Contrast as designated per enteric contrast guidelines. iv contrast (will be provided with radiology test) (1 source) Start: 07-31-2023 End: 08-01-2023 iv contrast (will be provided with radiology test) Indications: Crohn's disease without complication, unspecified gastrointestinal tract location (HCC) CT Enterography W Inject, intravenously, once for 1 dose.No IV access, insert saline lock prior to the beginning of sedation, infusion, injection of imaging exam. Discontinue saline lock post exam. If Pt. has a central line or IVAD, may access for administration according to line specific nursing protocol. Once exam is complete flush line and de-access according to line specific nursing protocol in the CT contrast administration guidelines link. 1 Each 0 07/31/2023 08/01/2023 Active Comment on above: CT Enterography W In ject, intravenously, once for 1 dose.No IV access, insert saline lock prior to the beginning of sedation, infusion, injection of imaging exam. Discontinue saline lock post exam. If Pt. has a central line or IVAD, may access for administration according to line specific nursing protocol. Once exam is complete flush line and de-access according to line specific nursing protocol in the CT contrast administration guidelines link. methocarbamol 750 mg oral tablet (20 sources) Muscle Relaxant Start: 07-11-2022 take 750 mg by mouth once daily Methocarbamol Active 750 MG PO Daily July 11, 2022 12:00am Start: 07-11-2022 take 750 mg by mouth once daily Methocarbamol Active 750 MG PO Daily July 11, 2022 12:00am take 1 tablet by troy th four times daily methocarbamol (ROBAXIN) 500 mg tablet Take 500 mg by mouth four times daily. Active take 1 tablet by troy th once daily Methocarbamol 750 MG take 1 tablet by mouth once daily Oral for 30 Days Active Comment on above: Take 500 mg by mouth four times daily. Multivitamin preparation (6 sources) Multivitamin Act yehuda predniSONE 10 mg oral tablet (20 sources) Start: 07-11-2022 take 10 mg by mouth once daily Prednisone Active 10 MG PO Daily July 11, 2022 12:00am Start: 07-11-2022 take 40 mg by mouth once daily Prednisone Active 40 MG PO Daily 180 90 July 11, 2022 12:00am Start: 07-11-2022 take 10 mg by mouth once daily Prednisone Active 10 MG PO Daily July 11, 2022 12:00am Start: 07-11-2022 take 40 mg by mouth once daily Prednisone Active 40 MG PO Daily 180 90 July 11, 2022 12:00am Start: 06-17-2022 predniSONE 10 MG 8 tabs day one then decrease by 1 tablet until finished. Orally Once a day for 8 days May, Not-Taking take 1 tablet by troy th once daily predniSONE (DELTASONE) 20 mg tablet Take 20 mg by mouth once daily. Active Comment on above: Take 20 mg by mouth once daily. Completed/Discontinued Medications Medication Drug Class(es) Dates Sig (Normalized) Sig (Original) hydrocortisone acetate 25 mg rectal suppository (3 sources) Corticosteroid Start: 07-13-2022 Hydrocortisone Acetate 25 MG 1 suppository Rectal Twice a day for 14 day(s) Jun, Not-Taking hydrocortisone acetate 10 mg/ml / pramoxine hydrochloride 10 mg/ml rectal cream (2 sources) Corticosteroid Start: 07-26-2022 Analpram-HC 1-1 % 1 application Externally two times a day for 14 days Jul, Not-Taking pramoxine hydrochloride 10 mg/ml rectal foam (2 sources) Start: 07-22-2022 Proctofoam 1 % as directed Externally TWICE A DAY for 21 DAYS Jul, Not-Taking Problems Active Problems Problem Classification Problem Date Documented Da te Episodic/Chronic Abdominal pain (6 sources) Abdominal pain; Translations: [Unspecified abdominal pain] Onset: 06-16-2022 Resolved: 06-16-2022 Episodic Acute bronchitis (4 sources) Acute bronchitis, unspecified; Translations: [ACUTE BRONCHITIS UNSPECIFIED] Onset: 09-28-2022 Episodic Anal and rectal conditions (4 sources) Rectal pain; Translations: [Other specified diseases of anus and rectum] Onset: 09-07-2022 Episodic Gastrointestinal hemorrhage (11 sources) Rectal hemorrhage; Translations: [Hemorrhage of anus and rectum] Onset: 06-16-2022 Resolved: 06-16-2022 Episodic Noninfectious gastroenteritis (4 sources) Eosinophilic colitis; 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: 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-2022 Chronic Noninfectious gastroenteritis (19 sources) Colitis; Translations: [Noninfective gastroenteritis and colitis, unspecified] Onset: 03-03-2022 Resolved: 03-03-2022 Episodic Other gastrointestinal disorders (5 sources) Diarrhea; Translations: [Diarrhea, unspecified] Episodic Other nutritional; endocrine; and metabolic disorders (1 source) Morbid (severe) obesity due to excess calories; Translations: [MORBID SEVERE OBES D/T EXCESS SIDNEY] Onset: 12-19-2021 Chronic Other nutritional; endocrine; and metabolic disorders (1 source) Body mass index (BMI) 40.0-44.9, adult; Translations: [BODY MASS INDEX BMI 40.0-44.9 ADULT] Onset: 12-19-2021 Chronic Regional enteritis and ulcerative colitis (7 sources) Crohn's disease; Translations: [Crohn's disease, unspecified, without complications] Onset: 07-31-2023 07-31-2023 Chronic Residual codes; unclassified (1 source) Sleep apnea, unspecified; Translations: [SLEEP APNEA UNSPECIFIED] Onset: 12-19-2021 Chronic Spondylosis; intervertebral disc disorders; other back problems (4 sources) Other intervertebral disc displacement, lumbar region; Translations: [OTH IV DISC DISPLACEMENT LUMBAR RGN] Onset: 05-27-2022 Chronic Unclassified (3 sources) CONTACT W/AND (SUSP) EXPOS COVID-19; Translations: [CONTACT W/AND (SUSP) EXPOS COVID-19] Onset: 10-23-2021 Unclassified (3 sources) LOW BACK PAIN, UNSPECIFIED; Translations: [LOW BACK PAIN, UNSPECIFIED] Onset: 06-07-2022 Viral infection (1 source) COVID-19; Translations: [COVID-19] Onset: 10-23-2021 Past or Other Problems Problem Classification Problem Date Documented Da te Episodic/Chronic Other aftercare (1 source) Other petroleum terminal plant operator (current) drug therapy; Translations: [OT CORRUGATOR HELPER CURRENT DRUG THERAPY] Onset: 06-29-2022 Episodic Other gastrointestinal disorders (1 source) Diarrhea, unspecified Onset: 06-16-2022 Resolved: 06-16-2022 Episodic Other gastrointestinal disorders (4 sources) Change in bowel habit; Translations: [CHANGE IN BOWEL HABIT] Onset: 12-07-2021 Episodic Other nervous system disorders (3 sources) Anesthesia of skin; Translations: [ANESTHESIA OF SKIN] Onset: 04-23-2022 Episodic Screening and history of mental health and substance abuse codes (1 source) Personal history of nicotine dependence; Translations: [PERSONAL HISTORY OF NICOTINE DEPEND] Onset: 12-19-2021 Episodic Spondylosis; intervertebral disc disorders; other back problems (1 source) Lumbago with sciatica, right side; Translations: [LUMBAGO WITH SCIATICA RIGHT SIDE] Onset: 04-26-2022 Episodic Unclassified (1 source) LOW BACK PAIN, UNSPECIFIED; Translations: [LOW BACK PAIN, UNSPECIFIED] Onset: 06-06-2022 Unclassified (1 source) CONTACT W/AND (SUSP) EXPOS COVID-19; Translations: [CONTACT W/AND (SUSP) EXPOS COVID-19] Onset: 10-19-2021 Results Test Name Value Interpretation Reference Range Facility Shannan 06-12-2025 CNPN Telephone ([facility]) BASILIOLATRICE ([id number]) 1990 M Date Time Provider Department 06/12/25 MARIO MELLO During your visit today, we recorded the following information about you: Ingris Hernández RN 06/12/2025 12:09 PM Signed Beth Small from [facility] is calling. She would like to know if orders were received for Inflectra renewal and SHANTI Kit. She needs the orders faxed back to [phone]. Please call her back at [phone]. Thank you, SONJA Rosario Kaytee, RN 06/12/2025 12:20 PM Signed Received paperwork yesterday evening, Will complete and fax to [facility], Explained to rep yesterday that this would need completed/ prescriber signature- and pt has incomplete labs. Dr. Mello, Please review and sign labs for TB hep, Other labs active. Thanks, SONJA Ramsey Noma, MD 06/12/2025 2:18 PM Signed Patient has TB test that was negative and scanned in Aug 2024 Why does he need a repeated one? Normal labs at that time I don't see hep B I'm sure all were done at the same time Please try to get before you ask the patient to repeat Eleanor Fofana RN 06/13/2025 9:17 AM Signed Lab Requisites faxed to [phone] [facility] per pt request. Confirmation fax received. Thanks, Eleanor Fofana RN Violeta Gaston 06/13/2025 3:26 PM Signed Please confirm the Shanti Kit was also faxed over. Thank you, Eleanor Fofana RN 06/13/2025 3:34 PM Signed Fecal Sidney was faxed (stool study) as well. Eleanor Miller RN Callahan, Kaytee, RN 06/17/2025 10:08 AM Signed Lab results received via fax from [facility] DOS 06-13-25 Dr. eMllo please review and sign abnormal results, Full doc submitted for scan in Eleanor Miller RN CBC WNL CMP GLUC 111 H ALT 93 H ALBUMIN 3.3 L ESR 19 H HEP B SURG <3.5 L HEP B CORE NEG HBsAG SCRN NEG Mario Mello MD 06/17/2025 1:27 PM Signed Noted I don't see TB? Repeat labs in 6 months Hepatitis B and TB in one year Eleanor Fofana RN 06/17/2025 1:35 PM Signed TB up to date in scanned docs Reviewed previously- Awaiting up dated TB, pt stated he may wait until next lab work is due for completion. Thanks, SONJA Ramsey Kaytee, RN 06/17/2025 1:36 PM Signed Addended by: ELEANOR FOFANA on: 06/17/2025 01:36 PM Modules accepted: Orders Mario Mello MD 06/17/2025 3:57 PM Signed Mario Mccray MD 06/17/2025 3:57 PM Signed Addended by: MARIO MELLO on: 06/17/2025 03:57 PM Modules accepted: Orders Allergies As of Date: 06/12/2025 (No Known Allergies) Date Reviewed: 08/18/2023 Reviewed by: Orquidea Grady RN - Fully Assessed Reason for Visit: Orders [681] Cmt: Inflectra renewal and SHANTI Kit Primary Visit Diagnosis:Crohn's disease without complication, unspecified gastrointestinal tract location (HCC) [K50.90] Order(s):BLOOD TB SCREEN [SQINFTBP] Order #: [id number] FUTURE HEPATITIS B CORE ANTIBODY TOTAL [SQAHBCOT] Order #: [id number] FUTURE HEPATITIS B SURFACE ANTIGEN [SQHBSAG] Order #: [id number] FUTURE HEPATITIS B SURFACE ANTIBODY [SQAHBSAG] Order #: [id number] FUTURE C-REACTIVE PROTEIN [SQCRP] Order #: [id number] FUTURE COMPREHENSIVE METABOLIC PANEL [SQCMP] Order #: [id number] FUTURE COMPLETE BLOOD COUNT AND DIFFERENTIAL [SQCBCDIF] Order #: [id number] FUTURE SEDIMENTATION RATE, WESTERGREN [SQWSR] Order #: [id number] FUTURE Prescriptions as of 06/18/2025 - predniSONE (DELTASONE) 20 mg tablet Take 20 mg by mouth once daily. - methocarbamol (ROBAXIN) 500 mg tablet Take 500 mg by mouth four times daily. Problem List As Of Date: 06/12/2025 (None) Encounter Status:Closed by ELEANOR FOFANA on 06/12/25 [facility] 05-02-2025 [facility] Telephone ([facility]) LATRICE RICHMOND ([id number]) 1990 M Date Time Provider Department 05/02/25 MARIO MELLO [facility] During your visit today, we recorded the following information about you: Eleanor Fofana RN 05/02/2025 2:40 PM Signed [facility] called in Pt Due for Inflectra on 05-15-25 Pt having breakthrough symptoms, Asking to Infuse early on 05-05-25 Direct call back to approve request [phone] Attempted to call pt, M to c/b out office to discuss symptoms further, Eleanor Miller RN Callahan, Kaytee, RN 05/05/2025 10:26 AM Signed Called received from [facility], Asking for update regarding pt req of early infusion d/t breakthrough symptoms, Notified that the pt was attempted to be reached to discuss symptoms, MYC message was also sent. Need to triage pt first for SS Rep stated that they will also prompt the pt to call into the office. Attempted to call pt, Second attempt, LVM to c/b the office to discuss symptoms. Eleanor Miller RN Callahan, Kaytee, RN 05/05/2025 12:11 PM Signed Pt currently on Inflectra, Crohn's disease without complication, unspecified gastrointestinal tract location (HCC) Past due for labs, Increased symptoms per incoming call from [facility] nurse, however nurse could not give details to what symptoms other than the pt stated severe breakthrough symptoms. Second incoming call received today from [facility], requesting earlier infusion for pt, Declined at this time as Pt needs triaged for specifity of symptoms and is due for labs. Second attempt to call pt, LVM. Dr. Mello, Added orders for INFLMB Serum, Fecal sidney, and routine labs. If agree, Please review and sign./ Eleanor Miller RN Callahan, Kaytee, RN 05/05/2025 12:11 PM Signed Addended by: ELEANOR FOFANA on: 05/05/2025 12:11 PM Modules accepted: Orders Mario Mello MD 05/06/2025 3:38 PM Signed Will not change treatment plan until patient return RN call an get ordered labs and stool studies done Mario Mello MD 05/06/2025 3:38 PM Signed Addended by: AMRIO MELLO on: 05/06/2025 03:38 PM Modules accepted: Eleanor Hinds RN 05/07/2025 10:06 AM Signed Third attempt to call pt, Phone number left for call back. Eleanor Miller RN Allergies As of Date: 05/02/2025 (No Known Allergies) Date Reviewed: 08/18/2023 Reviewed by: Orquidea Grady RN - Fully Assessed Primary Visit Diagnosis:Crohn's disease without complication, unspecified gastrointestinal tract location (HCC) [K50.90] Order(s):C-REACTIVE PROTEIN [SQCRP] Order #: [id number] FUTURE COMPREHENSIVE METABOLIC PANEL [SQCMP] Order #: [id number] FUTURE COMPLETE BLOOD COUNT AND DIFFERENTIAL [SQCBCDIF] Order #: [id number] FUTURE SEDIMENTATION RATE, WESTERGREN [SQWSR] Order #: [id number] FUTURE CALPROTECTIN,FECAL [SQCALPRO] Order #: [id number] FUTURE INFLIXIMAB, SERUM [SQINFLIX] Order #: [id number] FUTURE CLOSTRIDIUM DIFFICILE TOXIN BY PCR [SQCDPCR] Order #: [id number]. #:[id number] Prescriptions as of 05/07/2025 - predniSONE (DELTASONE) 20 mg tablet Take 20 mg by mouth once daily. - methocarbamol (ROBAXIN) 500 mg tablet Take 500 mg by mouth four times daily. Problem List As Of Date: 05/02/2025 (None) Encounter Status:Closed by ELEANOR FOFANA on 05/02/25 [address] [facility] [address] ENTEROGRAPHY W IVCONon CT ENTEROGRAPHY W IVCON * * *Final Report* * * DATE OF EXAM: Aug 18 2023 4:18PM [facility] 0545 - CT ENTEROGRAPHY W IVCON / PROCEDURE REASON: multiple diagnoses * * * * Physician Interpretation * * * * EXAM: CT ENTEROGRAPHY W IVCON (ABDOMEN AND PELVIS CT WITH INTRAVENOUS CONTRAST; ORAL CONTRAST WITH NEGATIVE ORAL CONTRAST) EXAM DATE: 08/18/2023 4:18 PM CLINICAL HISTORY: Crohn's disease COMPARISON: None. TECHNIQUE: CT scan of the abdomen and pelvis was performed with contrast as below. The data was reformatted into coronal and sagittal projections. CT imaging was performed after administration of following contrast: 1) IV 100 ml of Omnipaque 350 2) Oral [address] Dose-Length Product (DLP): 1361 mGy*cm CT Dose Reduction Employed: Yes RESULT: GI Tract: There is good distention of most of the small bowel by oral contrast material. Small Bowel: There is no bowel dilatation or abnormal bowel wall thickening. No abnormal enhancing mucosa is seen. The terminal ileum is visualized and is normal in appearance. Colon: Colon is normal in caliber. No abnormal enhancing mucosa is seen. Strictures: No areas of stricture identified. Fistulae/Sinus Tracts: No fistula or sinus tract is identified. Abscesses: No abnormal fluid collection is identified to suggest abscess. Abdomen and Pelvis: The visualized portions of the liver and spleen are normal. No pancreatic lesion is seen. No adrenal mass is present. Punctate bilateral peripelvic renal calculi without hydronephrosis. There is no intrahepatic biliary dilatation. The common bile duct is normal in course and caliber. The visualized portions of the pancreatic duct are normal. The gallbladder is normal in appearance. There is no abnormal mass or lymphadenopathy. No abnormal fluid collection is present. There is no ascites. Laborer Livestock (topogram) images: Unremarkable. IMPRESSION: Normal CT enterography. Punctate nonobstructing bilateral renal calculi. First Helper: AIME Transcribe Date/Time: Aug 21 2023 4:22P Dictated by : SHWETHA EDUARDO MD This examination was interpreted and the report reviewed and electronically signed by: SHWETHA EDUARDO MD on Aug 21 2023 4:24PM EST [id number] Normal [facility] NURSING PROGon 08-18-2023 NURSING PROG HNO ID: [id number] Author: Orquidea Grady RN Service: Nursing Author Type: Registered Nurse Type: Nursing Progress Note Filed: 08/18/2023 3:25 PM Note Text: Radiology Service Progress Note DATE OF SERVICE: August 18, 2023 TIME: 3:05 PM PATIENT WEIGHT: 317LBS PATIENT IDENTITY VERIFICATION COMPLETED USING TWO (2) STANDARD IDENTIFIERS: Name and Date of confirmed by patient verbally and Name and Date of confirmed by identification band. FALL SCREENING: Has the patient had 2 falls in the last year or 1 fall with injury or currently using an Ambulatory Assistive Device (Walker, Cane, Wheelchair, Crutches, etc.)? No PATIENT GENDER DATA: Male ALLERGIES: Reviewed and unchanged CONTRAST ALLERGY: No EXAM: CT -CONTRAST INDUCED NEPHROPATHY RISK FACTORS: Not applicable CREATININE: Creatinine Date Value Ref Range Status 07/31/2023 0.74 0.73 - 1.22 mg/dL Final Estimated Glomerular Filtration Rate Date Value Ref Range Status 07/31/2023 123 >=60 mL/min/1.73m? Final Comment: Estimated Glomerular Filtration Rate (eGFR) is calculated using the 2020 CKD-EPI creatinine equation. This equation utilizes serum creatinine, sex, and age as parameters. The creatinine assay has traceable calibration to isotope dilution-mass spectrometry. Refer to KDIGO guidelines for clinical interpretation. In patients with unstable renal function, e.g. those with acute kidney injury, the eGFR may not accurately reflect actual GFR. P.O.C.T. RESULTS: N/A August 18, 2023 TREATMENT: N/A and No Hydration needed. IV SITE: Ambulatory: A peripheral IV was started in the Left forearm with a Angio cath: 22 gauge. IV SITE APPEARANCE: Clean,Dry and Intact SIGNATURE: Orquidea Grady RN PATIENT NAME: Latrice Richmond DATE: August 18, 2023 TIME: 3:05 PM [facility] Calprotectin, Fecalon 2022 Calprotectin, Fecal 861 High 0-120 [facility] Comment on above: Result Comment: Re sults verified by repeat testing Concentration Interpretation Follow-Up < 5 - 50 ug/g Normal None >50 -120 ug/g Borderline Re-evaluate in 4-6 weeks >120 ug/g Abnormal Repeat as clinically indicated Performed at: [facility] [id number] Professor Of Pathology: Cierra Bell MD, Phone: [phone] PERFORMED BY: [place] [address] PATHOLOGIST [employer]GERS AND ACQUISITIONS MANAGER KURT TONG M.D. Performed By: #### C DT #### [address] #### CALPROTECT #### [facility] , Clostridioides difficile tox in B tcdB gene [Presence] in Stool by ZEESHAN with probe deteOrdered By: Mario Mello on 08-03-2023 C. difficile toxin B tcdB gene ZEESHAN+probe Ql (Stl) Negative Negative [facility] Comment on above: Testing performed by RT-PCR Clostridium Difficileon 07-21 Clostridium Difficile Negative Normal Negative [facility] Comment on above: Result Comment: Test ing performed by RT-PCR PERFORMED BY: [place] [address] PATHOLOGIST [employer] MANAGER KURT TONG M.D. Performed By: #### C DT #### [address] [place] [address] [place] #### CALPROTECT #### [facility] , BLOOD TB SCREENon 07-31-2023 M. tuberculosis tuberculin stim IFN-g Ql (Bld) Negative Normal [facility] Comment on above: Order Comment: Speci myron Type: BLOOD SPECIMEN Ordering Facility: [facility] Address: [address] [place] [address] Performed By: #### I NFTBP #### [facility] CLIA [id number] [address] MITOGEN MINUS NIL >9.99 Normal >=0.50 [facility] Comment on above: Order Comment: Perlai myron Type: BLOOD SPECIMEN Ordering Facility: [facility] Address: [address] [place] [address] Performed By: #### I NFTBP #### [facility] CLIA [id number] [address] [place] [address] TB GAMMA INTERPRETATION Infection with M. tuberculosis complex is unlikely. If latent tuberculosis infection is highly suspected, a negative result does not rule out the infection. Specimens from immunocompromised patients and those <5 years of age may show false negative results. In case of a contact investigation, please repeat 8-12 weeks after a known exposure. Normal [facility] Comment on above: Order Comment: Speci myron Type: BLOOD SPECIMEN Ordering Facility: [facility] Address: [address] [place], [place] [address] Performed By: #### I NFTBP #### [facility] CLIA [id number] [address] TB NIL 0.01 IU/mL Normal <=8.00 [facility] Comment on above: Order Comment: Gerardo sanches Type: BLOOD SPECIMEN Ordering Facility: [facility] Address: [address] [place] [address] Performed By: #### I NFTBP #### [facility] CLIA [id number] [address] [place] [address] [place] TB1 AG MINUS NIL 0.01 IU/mL Normal <0.35 [facility] Comment on above: Order Comment: Speci men Type: BLOOD SPECIMEN Ordering Facility: [facility] Address: [address] [address] Performed By: #### I NFTBP #### [facility] CLIA [id number] [address] [place] [address] [place] TB2 AG MINUS NIL 0.00 IU/mL Normal <0.35 [facility] Comment on above: Order Comment: Speci men Type: BLOOD SPECIMEN Ordering Facility: [facility] Address: [address] [address] Performed By: #### I NFTBP #### [facility] CLIA [id number] [facility] [place] C-REACTIVE PROTEIN (CRP)on 0 07-31-2023 CRP [Mass/Vol] 1.0 mg/dL High <0.9 mg/dL [facility] CBC W Auto Differential pane l (Bld)on 07-31-2023 Basophils (Bld) [#/Vol] 0.06 10*3/uL Normal <0.11 [facility] Comment on above: Order Comment: Speci men Type: BLOOD SPECIMEN Ordering Facility: [facility] Address: [address] Performed By: #### 5 7021-8 #### [facility] CLIA [id number] [address] [place] [address] [place] Basophils/100 WBC (Bld) 0.6 % Normal [facility] Comment on above: Order Comment: Speci men Type: BLOOD SPECIMEN Ordering Facility: [facility] Address: [address] Performed By: #### 5 7021-8 #### [facility] CLIA [id number] [address] [place] [address] [place] Differential cell count method Nom (Bld) Auto Normal [facility] Comment on above: Order Comment: Speci men Type: BLOOD SPECIMEN Ordering Facility: [facility] Address: [address] [address] Performed By: #### 5 7021-8 #### [facility] CLIA [id number] [address] [place] [address] [place] Eosinophils (Bld) [#/Vol] 0.14 10*3/uL Normal <0.46 [facility] Comment on above: Order Comment: Speci men Type: BLOOD SPECIMEN Ordering Facility: [facility] Address: [address] [address] Performed By: #### 5 7021-8 #### [facility] [place] [id number] [address] [place] Eosinophils/100 WBC (Bld) 1.4 % Normal [facility] Comment on above: Order Comment: Speci men Type: BLOOD SPECIMEN Ordering Facility: [facility] Address: [address] [address] Performed By: #### 5 7021-8 #### [facility] IA [id number] [address] [place] [address] [place] Erythrocyte distribution width (RBC) [Ratio] 13.3 % Normal 11.5-15.0 [facility] Comment on above: Order Comment: Speci men Type: BLOOD SPECIMEN Ordering Facility: [facility] Address: [address] Performed By: #### 5 7021-8 #### [facility] CLIA [id number] [place] Hematocrit (Bld) [Volume fraction] 40.5 % Normal 39.0-51.0 [facility] Comment on above: Order Comment: Speci men Type: BLOOD SPECIMEN Ordering Facility: [facility] Address: [address] [address] Performed By: #### 5 7021-8 #### [facility] CLIA [id number] [address] [address] [id number] [place] Hemoglobin (Bld) [Mass/Vol] 12.7 g/dL Low 13.0-17.0 [facility] Comment on above: Order Comment: Speci men Type: BLOOD SPECIMEN Ordering Facility: [facility] Address: [address] [address] Performed By: #### 5 7021-8 #### [facility] CLIA [id number] [address] [place] [address] [place] Immature granulocytes (Bld) [#/Vol] 0.05 10*3/uL Normal <0.10 [facility] Comment on above: Order Comment: Speci men Type: BLOOD SPECIMEN Ordering Facility: [facility] Address: [address] [address] Performed By: #### 5 7021-8 #### [facility] CLIA [id number] [address] [place] Immature granulocytes/100 WBC (Bld) 0.5 % Normal [facility] Comment on above: Order Comment: Speci men Type: BLOOD SPECIMEN Ordering Facility: [facility] Address: [address] [address] Performed By: #### 5 7021-8 #### [facility] IA [id number] [address] [place] [address] [place] Lymphocytes (Bld) [#/Vol] 2.35 10*3/uL Normal 1.00-4.00 [facility] Comment on above: Order Comment: Speci men Type: BLOOD SPECIMEN Ordering Facility: [facility] Address: [address] [address] Performed By: #### 5 7021-8 #### [facility] CLIA [id number] [address] [place] [address] [place] Lymphocytes/100 WBC (Bld) 23.7 % Normal [facility] Comment on above: Order Comment: Speci men Type: BLOOD SPECIMEN Ordering Facility: [facility] Address: [address] [address] Performed By: #### 5 7021-8 #### [facility] IA [id number] [address] [place] [address] [place] MCH (RBC) [Entitic mass] 28.1 pg Normal 26.0-34.0 [facility] Comment on above: Order Comment: Speci men Type: BLOOD SPECIMEN Ordering Facility: [facility] Address: [address] [address] Performed By: #### 5 7021-8 #### [facility] IA [id number] [place] [address] [place] MCHC (RBC) [Mass/Vol] 31.4 g/dL Normal 30.5-36.0 [facility] Comment on above: Order Comment: Speci men Type: BLOOD SPECIMEN Ordering Facility: [facility] Address: [address] [place] [address] Performed By: #### 5 7021-8 #### [facility] IA [id number] [address] [place] [address] [place] MCV (RBC) [Entitic vol] 89.6 fL Normal 80.0-100.0 [facility] Comment on above: Order Comment: Speci men Type: BLOOD SPECIMEN Ordering Facility: [facility] Address: [address] [place] [address] Performed By: #### 5 7021-8 #### [facility] IA [id number] [address] [place] [address] [place] Monocytes (Bld) [#/Vol] 1.00 10*3/uL High <0.87 [facility] Comment on above: Order Comment: Speci men Type: BLOOD SPECIMEN Ordering Facility: [facility] Address: [address] [place], [place] [address] Performed By: #### 5 7021-8 #### [facility] IA [id number] [place] [address] [place] Monocytes/100 WBC (Bld) 10.1 % Normal [facility] Comment on above: Order Comment: Speci men Type: BLOOD SPECIMEN Ordering Facility: [facility] Address: [address] [address] Performed By: #### 5 7021-8 #### [facility] IA [id number] [address] [place] [address] [place] Neutrophils (Bld) [#/Vol] 6.33 10*3/uL Normal 1.45-7.50 [facility] Comment on above: Order Comment: Speci men Type: BLOOD SPECIMEN Ordering Facility: [facility] Address: [address] [address] Performed By: #### 5 7021-8 #### [facility] IA [id number] [address] [place] [address] [place] Neutrophils/100 WBC (Bld) 63.7 % Normal [facility] Comment on above: Order Comment: Speci men Type: BLOOD SPECIMEN Ordering Facility: [facility] Address: [address] [address] Performed By: #### 5 7021-8 #### [facility] IA [id number] [address] [place] [address] [place] Nucleated RBC (Bld) [#/Vol] 10*3/uL Normal <0.01 [facility] Comment on above: Order Comment: Speci men Type: BLOOD SPECIMEN Ordering Facility: [facility] Address: [address] [address] Performed By: #### 5 7021-8 #### [facility] IA [id number] [address] [place] [address] [place] Nucleated RBC/100 WBC (Bld) [Ratio] 0.0 /100 WBC Normal [facility] Comment on above: Order Comment: Speci men Type: BLOOD SPECIMEN Ordering Facility: [facility] Address: [address] [address] Performed By: #### 5 7021-8 #### [facility] IA [id number] [address] [place] [address] [place] Platelet mean volume (Bld) [Entitic vol] 11.1 fL Normal 9.0-12.7 [facility] Comment on above: Order Comment: Speci men Type: BLOOD SPECIMEN Ordering Facility: [facility] Address: [address] [address] Performed By: #### 5 7021-8 #### [facility] CLIA [id number] [address] [place] [address] [place] Platelets (Bld) [#/Vol] 241 10*3/uL Normal 150-400 [facility] Comment on above: Order Comment: Speci men Type: BLOOD SPECIMEN Ordering Facility: [facility] Address: [address] [address] Performed By: #### 5 7021-8 #### [facility] IA [id number] [address] [place] [address] [place] RBC (Bld) [#/Vol] 4.52 10*6/uL Normal 4.20-6.00 [facility] Comment on above: Order Comment: Speci men Type: BLOOD SPECIMEN Ordering Facility: [facility] Address: [address] [address] Performed By: #### 5 7021-8 #### [facility] IA [id number] [address] [place] [address] [place] WBC (Bld) [#/Vol] 9.93 10*3/uL Normal 3.70-11.00 [facility] Comment on above: Order Comment: Speci men Type: BLOOD SPECIMEN Ordering Facility: [facility] Address: [address] Performed By: #### 5 7021-8 #### [facility] CLIA [id number] [address] [place] [address] [place] Basophils (Bld) [#/Vol] 0.06 10*3/uL <0.11 k/uL [facility] Basophils/100 WBC (Bld) 0.6 % [facility] Differential cell count method Nom (Bld) Auto [facility] Eosinophils (Bld) [#/Vol] 0.14 10*3/uL <0.46 k/uL [facility] Eosinophils/100 WBC (Bld) 1.4 % [facility] Erythrocyte distribution width (RBC) [Ratio] 13.3 % 11.5 - 15.0 % [facility] Hematocrit (Bld) [Volume fraction] 40.5 % 39.0 - 51.0 % [facility] Hemoglobin (Bld) [Mass/Vol] 12.7 g/dL Low 13.0 - 17.0 g/dL [facility] Immature granulocytes (Bld) [#/Vol] 0.05 10*3/uL <0.10 k/uL [facility] Immature granulocytes/100 WBC (Bld) 0.5 % [facility] Lymphocytes (Bld) [#/Vol] 2.35 10*3/uL 1.00 - 4.00 k/uL [facility] Lymphocytes/100 WBC (Bld) 23.7 % [facility] MCH (RBC) [Entitic mass] 28.1 pg 26.0 - 34.0 pg [facility] MCHC (RBC) [Mass/Vol] 31.4 g/dL 30.5 - 36.0 g/dL [facility] MCV (RBC) [Entitic vol] 89.6 fL 80.0 - 100.0 fL [facility] Monocytes (Bld) [#/Vol] 1.00 10*3/uL High <0.87 k/uL [facility] Monocytes/100 WBC (Bld) 10.1 % [facility] Neutrophils (Bld) [#/Vol] 6.33 10*3/uL 1.45 - 7.50 k/uL [facility] Neutrophils/100 WBC (Bld) 63.7 % [facility] Nucleated RBC (Bld) [#/Vol] <0.01 k/uL [facility] Nucleated RBC/100 WBC (Bld) [Ratio] 0.0 /100 WBC [facility] Platelet mean volume (Bld) [Entitic vol] 11.1 fL 9.0 - 12.7 fL [facility] Platelets (Bld) [#/Vol] 241 10*3/uL 150 - 400 k/uL [facility] RBC (Bld) [#/Vol] 4.52 10*6/uL 4.20 - 6.0 0 m/uL [facility] WBC (Bld) [#/Vol] 9.93 10*3/uL 3.70 - 11. 00 k/uL [facility] CRP SerPl-mCncon 07-31-2023 CRP [Mass/Vol] 1.0 mg/dL High <0.9 [facility] Comment on above: Order Comment: Speci men Type: BLOOD SPECIMEN Ordering Facility: [facility] Address: [address] [address] Performed By: #### 2 4323-06, 1988-03 #### [facility] CLIA [id number] [address] [place] [address] [facility] Comprehensive metabolic 2000 panelon 07-31-2023 Albumin [Mass/Vol] 4.0 g/dL Normal 3.9-4.9 [facility] Comment on above: Order Comment: Speci men Type: BLOOD SPECIMEN Ordering Facility: [facility] Address: [address] [address] Performed By: #### 2 4323-06, 1988-03 #### [facility] CLIA [id number] [address] [place] [address] [place] ALP [Catalytic activity/Vol] 63 U/L Normal 38-113 [facility] Comment on above: Order Comment: Speci men Type: BLOOD SPECIMEN Ordering Facility: [facility] Address: [address] [address] Performed By: #### 2 4323-06, 1988-03 #### [facility] CLIA [id number] [address] [place] [address] [place] [facility] ALT [Catalytic activity/Vol] 19 U/L Normal 10-54 [facility] Comment on above: Order Comment: Speci men Type: BLOOD SPECIMEN Ordering Facility: [facility] Address: [address] Performed By: #### 2 4323-06, 1988-03 #### [facility] CLIA [id number] [address] [place] [address] [place] Anion gap [Moles/Vol] 8 mmol/L Low 9-18 [facility] Comment on above: Order Comment: Speci men Type: BLOOD SPECIMEN Ordering Facility: [facility] Address: [address] Performed By: #### 2 4323-06, 1988-03 #### [facility] CLIA [id number] [address] [place] [address] [place] AST [Catalytic activity/Vol] 21 U/L Normal 14-40 [facility] Comment on above: Order Comment: Speci men Type: BLOOD SPECIMEN Ordering Facility: [facility] Address: [address] Performed By: #### 2 4323-06, 1988-03 #### [facility] CLIA [id number] [address] [place] [address] [place] Bilirubin [Mass/Vol] 0.5 mg/dL Normal 0.2-1.3 [facility] Comment on above: Order Comment: Speci men Type: BLOOD SPECIMEN Ordering Facility: [facility] Address: [address] [place] [address] Performed By: #### 2 4323-06, 1988-03 #### [facility] CLIA [id number] [address] [place] [address] [place] Calcium [Mass/Vol] 9.3 mg/dL Normal 8.5-10.2 [facility] Comment on above: Order Comment: Speci men Type: BLOOD SPECIMEN Ordering Facility: [facility] Address: [address] [place] [address] Performed By: #### 2 4323-06, 1988-03 #### [facility] CLIA [id number] [address] [place] [address] [place] Chloride [Moles/Vol] 106 mmol/L High 97-105 [facility] Comment on above: Order Comment: Speci men Type: BLOOD SPECIMEN Ordering Facility: [facility] Address: [address] [place] [address] Performed By: #### 2 4323-06, 1988-03 #### [facility] CLIA [id number] [address] [place] [address] [place] CO2 [Moles/Vol] 26 mmol/L Normal 22-30 [facility] Comment on above: Order Comment: Speci men Type: BLOOD SPECIMEN Ordering Facility: [facility] Address: [address] [address] Performed By: #### 2 4323, 1988-03 #### [facility] CLIA [id number] [address] [place] [address] [place] Creatinine [Mass/Vol] 0.74 mg/dL Normal 0.73-1.22 [facility] Comment on above: Order Comment: Speci men Type: BLOOD SPECIMEN Ordering Facility: [facility] Address: [address] Performed By: #### 2 4323, 1988-03 #### [facility] CLIA [id number] STATES OF [facility] Creatinine and Glomerular filtration rate.predicted panel (S/P/Bld) 123 mL/min/1.73m??? Normal >=60 [facility] Comment on above: Order Comment: Speci men Type: BLOOD SPECIMEN Ordering Facility: [facility] Address: [address] [place] [address] Result Comment: Bri mated Glomerular Filtration Rate (eGFR) is calculated using the 2020 CKD-EPI creatinine equation. This equation utilizes serum creatinine, sex, and age as parameters. The creatinine assay has traceable calibration to isotope dilution-mass spectrometry. Refer to KDIGO guidelines for clinical interpretation. In patients with unstable renal function, e.g. those with acute kidney injury, the eGFR may not accurately reflect actual GFR. Performed By: #### 2 4323, 1988-03 #### [facility] CLIA [id number] [address] [place] [address] [place] Glucose [Mass/Vol] 87 mg/dL Normal 74-99 [facility] Comment on above: Order Comment: Speci men Type: BLOOD SPECIMEN Ordering Facility: [facility] Address: [address] Result Comment: The [place] [employer] (ADA) provides guidance for cutoff values for fasting glucose and random glucose. The ADA defines fasting as no caloric intake for at least 8 hours. Fasting plasma glucose results between 100 to 125 mg/dL indicate increased risk for diabetes (prediabetes). Fasting plasma glucose results greater than or equal to 126 mg/dL meet the criteria for diagnosis of diabetes. In the absence of unequivocal hyperglycemia, results should be confirmed by repeat testing. In a patient with classic symptoms of hyperglycemia or hyperglycemic crisis, random plasma glucose results greater than or equal to 200 mg/dL meet the criteria for diagnosis of diabetes. Reference: Standards of Medical Care in Diabetes 2016, [place] [employer]. Diabetes Care. 2016.39(Suppl 1). Performed By: #### 2 4323-06, 1988-03 #### [facility] CLIA [id number] [address] [place] [address] [place] Potassium [Moles/Vol] 3.9 mmol/L Normal 3.7-5.1 [facility] Comment on above: Order Comment: Gerardo sanches Type: BLOOD SPECIMEN Ordering Facility: [facility] Address: [address] [place] [address] Performed By: #### 2 4323-06, 1988-03 #### [facility] CLIA [id number] [address] [place] [address] [place] Protein [Mass/Vol] 7.2 g/dL Normal 6.3-8.0 [facility] Comment on above: Order Comment: Gerardo sanches Type: BLOOD SPECIMEN Ordering Facility: [facility] Address: [address] [place] [address] Performed By: #### 2 4323-06, 1988-03 #### [facility] CLIA [id number] [address] [place] [address] [place] Sodium [Moles/Vol] 140 mmol/L Normal 136-144 [facility] Comment on above: Order Comment: Gerardo sanches Type: BLOOD SPECIMEN Ordering Facility: [facility] Address: [address] [place] [address] Performed By: #### 2 4323-06, 1988-03 #### [facility] CLIA [id number] [address] [facility] [place] [address] [place] Urea nitrogen [Mass/Vol] 13 mg/dL Normal 9-24 [facility] Comment on above: Order Comment: Speci men Type: BLOOD SPECIMEN Ordering Facility: [facility] Address: [facility] [place] [address] Performed By: #### 2 4323-8, 1988-03 #### [facility] CLIA [id number] [address] [facility]. [address] [place] Albumin [Mass/Vol] 4.0 g/dL 3.9 - 4.9 g/dL [facility] ALP [Catalytic activity/Vol] 63 U/L 38 - 113 U/L [facility] ALT [Catalytic activity/Vol] 19 U/L 10 - 54 U/L [facility] Anion gap [Moles/Vol] 8 mmol/L Low 9 - 18 mmol/L [facility] AST [Catalytic activity/Vol] 21 U/L 14 - 40 U/L [facility] Bilirubin [Mass/Vol] 0.5 mg/dL 0.2 - 1 .3 mg/dL [facility] Calcium [Mass/Vol] 9.3 mg/dL 8.5 - 10. 2 mg/dL [facility] Chloride [Moles/Vol] 106 mmol/L High 97 - 10 5 mmol/L [facility] CO2 [Moles/Vol] 26 mmol/L 22 - 30 mmol/L [facility] Creatinine [Mass/Vol] 0.74 mg/dL 0.73 - 1.22 mg/dL [facility] Estimated Glomerular Filtration Rate 123 mL/min/1.73m >=60 mL/min/1.73m [facility] Glucose [Mass/Vol] 87 mg/dL 74 - 99 mg/dL [facility] [facility] Potassium [Moles/Vol] 3.9 mmol/L 3.7 - 5.1 mmol/L [facility] Protein [Mass/Vol] 7.2 g/dL 6.3 - 8.0 g/dL [facility] Sodium [Moles/Vol] 140 mmol/L 136 - 144 mmol/L [facility] Urea nitrogen [Mass/Vol] 13 mg/dL 9 - 24 mg/dL [facility] ESR Westergren method (Bld) [Velocity]on 07-31-2023 ESR (Bld) [Velocity] 32 mm/h High 0 - 15 mm/hr [facility] ESR (Bld) [Velocity] 32 mm/h High 0-15 [facility] Comment on above: Order Comment: Speczaki sanches Type: BLOOD SPECIMEN Ordering Facility: [facility] Address: [address] [place] [address] Performed By: #### 4 537-7 #### [facility] CLIA [id number] [facility] [place] [address] [place] HBV core Ab Ser Qlon 023 HBV core Ab Ql (S) Negative Normal Negative [facility] Comment on above: Order Comment: Speczaki sanches Type: BLOOD SPECIMEN Ordering Facility: [facility] Address: [address] [place] [address] Result Comment: No e vidence of current or past infection with Hepatitis B virus. Should recent infection be suspected, repeat testing may be considered 3-4 weeks after this draw. Performed By: #### 5 195-3, 85815-7, 90848-4 #### [facility] CLIA [id number] [address] [place] [address] [place] HBV surface Ab Ql (S)on 07-21 HBV surface Ab Qn (S) [facility] HBV surface Ab Qn (S) <8.00 Normal [facility] Comment on above: Order Comment: Speci men Type: BLOOD SPECIMEN Ordering Facility: [facility] Address: [address] [place] [address] Result Comment: <8 m IU/mL: No serological evidence of immunity to Hepatitis B Virus. >/= 8 to <12 mIU/mL: No serological evidence of immunity to Hepatitis B Virus. >/= 12 mIU/mL: Consistent with serological evidence of immunity to Hepatitis B Virus. Performed By: #### 5 195-3, 48455-6, 24300-8 #### [facility] CLIA [id number] [facility] [place] [address] [place] HBV surface Ab Ser Qlon 07-21 HBV surface Ab Ql (S) Negative Normal [facility] Comment on above: Order Comment: Speci men Type: BLOOD SPECIMEN Ordering Facility: [facility] Address: [address] [place], [place] [id number] Result Comment: No s erological evidence of immunity to Hepatitis B Virus. Performed By: #### 5 195-3, 96926-8, 02201-0 #### [facility] CLIA [id number] [address] [place] [address] HBV surface Ag Ser Qlon 07-21 HBV surface Ag Ql (S) Negative Normal Negative [facility] Comment on above: Order Comment: Speci men Type: BLOOD SPECIMEN Ordering Facility: [facility] Address: [address] [place], [place] [id number] Performed By: #### 5 195-3, 61030-0, 46941-9 #### [facility] CLIA [id number] [address] [place] [address] HEP B CORE AB TOTALon 2022 HBV core Ab Ql (S) Negative Negative [facility] HEP B SURF ABon 07-31-2023 HBV surface Ab Ql (S) Negative [facility] HEP B SURF AG SCRNon 023 HBV surface Ag Ql (S) Negative Negative [facility] Covid-19 PCR (CVDTB)on SARS-CoV-2 (COVID-19) RNA ZEESHAN+probe Ql (Unsp spec) Not detected Normal NOT DETECTED [facility] Comment on above: Result Comment: This test is not yet approved or cleared by the [place] FDA. When there are no FDA-approved or cleared tests available, and other criteria are met, FDA can make tests available under an emergency access mechanism called an Emergency Use Authorization (EUA). The EUA for this test is supported by the [place] of Health and Human Service's (HHS's) declaration that circumstances exist to justify the emergency use of in vitro diagnostics for the detection and/or diagnosis of the virus that causes COVID-19. This EUA will remain in effect (meaning this test can be used) for the duration of the COVID-19 declaration justifying emergency of IVDs, unless it is terminated or revoked by FDA (after which the test may no longer be used). When diagnostic testing is negative, the possibility of a false negative should be considered in the context of a patient's recent exposures and the presence of clinical signs and symptoms consistent with SARS-CoV-2. Performed By: #### O VAPE #### [facility] [address] [place] [address] Dr. Flaquita Hernandez INFLUENZA A AND B AGon 09-28 INFLUANE SEE BELOW Normal [facility] Comment on above: Result Comment: Nega tive for Flu A protein angiten. Infection due to Flu A cannot be ruled out. Flu A angiten in the sample may be below the detection limit of the test. Performed By: #### I NFLUAB #### [facility] [address] [place] [address] Dr. Flaquita Hernandez INFLUBNEGH SEE BELOW Normal [facility] Comment on above: Result Comment: Nega tive for Flu B protein antigen. Infection due to Flu B cannot be ruled out. Flu B antigen in the sample may be below the detection limit of the test. Performed By: #### I NFLUAB #### [facility] [address] [place] [address] Dr. Flaquita Hernandez INFLUENZA A AG Negative Normal NEGATIVE SEE COMMENT [facility] Comment on above: Performed By: #### I NFLUAB #### [facility] [address] [place] [address] Dr. Flaquita Hernandez INFLUENZA B AG Negative Normal NEGATIVE SEE COMMENT [facility] Comment on above: Performed By: #### I NFLUAB #### [facility] [address] [place] [address] Dr. Flaquita Hernandez INTERNAL CONTROLS Within Normal Limits Normal Wi thin Normal Limits [facility] Comment on above: Performed By: #### I NFLUAB #### [facility] [address] [place] [address] Dr. Flaquita Hernandez QUANTIFERON TB GOLD PLUSon 1 QuantiFERON Criteria Comment Normal [facility] Comment on above: Result Comment: Miko tiFERON-TB Gold Plus is a qualitative indirect test for M tuberculosis infection (including disease) and is intended for use in conjunction with risk assessment, radiography, and other medical and diagnostic evaluations. The QuantiFERON-TB Gold Plus result is determined by subtracting the Nil value from either TB antigen (Ag) value. The Mitogen tube serves as a control for the test. Performed By: #### Q NTTB #### [facility] [address] [place] [address] Dr. Flaquita Hernandez QuantiFERON Incubation Incubation performed. Normal [facility] Comment on above: Performed By: #### Q NTTB #### [facility] [address] [place] [address] Dr. Flaquita Hernandez QuantiFERON Mitogen Value >10.00 Normal [facility] Comment on above: Performed By: #### Q NTTB #### [facility] [address] [place] [address] Dr. Flaquita Hernandez QuantiFERON Nil Value 0.02 IU/mL Normal [facility] Comment on above: Performed By: #### Q NTTB #### [facility] [address] [place] [address] Dr. Flaquita Hernandez QuantiFERON TB1 Ag Value 0.02 IU/mL Normal [facility] Comment on above: Performed By: #### Q NTTB #### [facility] [address] [place] [address] Dr. Flaquita Hernandez QuantiFERON TB2 Ag Value 0.03 IU/mL Normal [facility] Comment on above: Performed By: #### Q NTTB #### [facility] [address] [place] [address] Dr. Flaquita Hernandez QuantiFERON-TB Gold Plus Negative Normal Negative [facility] Comment on above: Result Comment: No r esponse to M tuberculosis antigens detected. Infection with M tuberculosis is unlikely, but high risk individuals should be considered for additional testing (ATS/IDSA/CDC Clinical Practice Guidelines, 2017). The reference range is an Antigen minus Nil result of <0.35 IU/mL. Chemiluminescence immunoassay methodology Performed By: #### Q NTTB #### [facility] [address] [address] [address] Flaquita Hernandez HEP B SURFACE AGon 2 HBsAg Screen Negative Normal Negative [facility] Comment on above: Performed By: #### H EPBSUR #### [facility] [address] [address] [address] Flaquita Hernandez BOWEL DISORDERS EVALUATION R ULE-OUT CASCon 07-11-2022 Atypical pANCA Negative Normal Negative [facility] Comment on above: Performed By: #### O VAPE #### [facility] [address] [address] [address] Flaquita Hernandez Note: Comment Normal [facility] Comment on above: Result Comment: Sugg estive of Crohn's disease. Subsequent testing with the Crohn's Disease Prognostic Profile (327308) that includes antiglycan antibodies AMCA, ALCA, ACCA, and Manda may aid in the differentiation of clinical forms of CD and prognosis of disease progression. Performed By: #### O VAPE #### [facility] [address] [address] [address] Flaquita Hernandez Saccharomyces Cer. IgG 43.0 Units Critically high 0.0-24.9 [facility] Comment on above: Result Comment: Nega tive <20.0 Equivocal 20.1 - 24.9 Positive >or= 25.0 Performed By: #### O VAPE #### [facility] [address] [address] [address] Flaquita Hernandez tTG/DGP SCR Negative Normal Negative [facility] Comment on above: Performed By: #### O VAPE #### [facility] [address] [place] [address] Dr. Flaquita Hernandez LACTOFERRIN FECAL QUANTon Lactoferrin, Fecal, Quant. 33.88 ug/mL(g) Critically high 0.00-7.24 [facility] Comment on above: Result Comment: Re sults verified by repeat testing . Baseline (normal) 0.00 - 7.24 Elevated >7.24 . An elevated result is indicative of the presence of fecal lactoferrin, a marker of intestinal inflammation. A normal result does not exclude the presence of intestinal inflammation. The test can be used as an in vitro diagnostic aid to distinguish patients with active inflammatory bowel disease (IBD) from those with non-inflammatory irritable bowel syndrome (IBS). Performed By: #### E RUR #### [facility] [address] [address] [address] Flaquita Hernandez COVID-19 SOFIAOrdered By: Bettye Dial on 07-07-2022 SARS-CoV+SARS-CoV-2 (COVID-19) Ag IA.rapid Ql (Resp) Negative Negative [facility] Comment on above: This is a duplicate [place] SARS Antigen (XIN) result to be used for statistical tracking purpose only. No Panel InformationOrdered By: Elkin Dial on 07-07-2022 SARS Antigen (LFIA) [facility] CRPon 2022 CRP 0.5 mg/dL Normal <=1.0 [facility] Comment on above: Performed By: #### O VAPE #### [facility] [address] [address] [address] Flaquita Hernandez PROF 14(COMP METB)on 022 Albumin [Mass/Vol] 3.6 g/dL Normal 3.4-5.0 [facility] Comment on above: Performed By: #### O VAPE #### [facility] [address] [place] [address] Dr. Flaquita Hernandez Albumin/Globulin [Mass ratio] 0.9 {ratio} Normal [facility] Comment on above: Performed By: #### O VAPE #### [facility] [address] [place] [address] Dr. Flaquita Hernandez ALP [Catalytic activity/Vol] 61 U/L Normal 46-116 [facility] Comment on above: Performed By: #### O VAPE #### [facility] [address] [place] [address] Dr. Flaquita Hernandez ALT [Catalytic activity/Vol] 18 U/L Normal 16-63 [facility] Comment on above: Performed By: #### O VAPE #### [facility] [address] [address] [address] Flaquita Hernandez Anion gap [Moles/Vol] 12.6 mmol/L Normal [facility] Comment on above: Performed By: #### O VAPE #### [facility] [address] [place] [address] Dr. Flaquita Hernandez AST [Catalytic activity/Vol] 6 U/L Critically low 15-37 [facility] Comment on above: Performed By: #### O VAPE #### [facility] [address] [address] [address] Flaquita Hernandez Bilirubin [Mass/Vol] 0.7 mg/dL Normal 0.2-1.0 [facility] Comment on above: Performed By: #### O VAPE #### [facility] [address] [place] [address] Dr. Flaquita Hernanedz Calcium [Mass/Vol] 9.0 mg/dL Normal 8.5-10.1 [facility] Comment on above: Performed By: #### O VAPE #### [facility] [address] [place] [address] Dr. Flaquita Hernandez Chloride [Moles/Vol] 102 mmol/L Normal 98-107 [facility] Comment on above: Performed By: #### O VAPE #### [facility] [address] [place] [address] Dr. Flaquita Hernandez CO2 [Moles/Vol] 27.2 mmol/L Normal 21.0-32.0 [facility] Comment on above: Performed By: #### O VAPE #### [facility] [address] [place] [address] Dr. Flaquita Hernandez Creatinine [Mass/Vol] 0.83 mg/dL Normal 0.70-1.30 [facility] Comment on above: Performed By: #### O VAPE #### [facility] [address] [place] [address] Dr. Flaquita Hernanedz EGFR-AF MONTSERRATIAN Normal >=60 [facility] Comment on above: Performed By: #### O VAPE #### [facility] [address] [place] [address] Dr. Flaquita Hernandez EGFR-NON AF MONTSERR[place]IAN Normal >=60 [facility] Comment on above: Performed By: #### O VAPE #### [facility] [address] [place] [address] Dr. Flaquita Hernandez Globulin (S) [Mass/Vol] 3.9 g/dL Normal [facility] Comment on above: Performed By: #### O VAPE #### [facility] [address] [place] [address] Dr. Flaquita Hernandez Glucose [Mass/Vol] 90 mg/dL Normal 74-106 [facility] Comment on above: Performed By: #### O VAPE #### [facility] [address] [place] [address] Dr. Flaquita Hernandez Potassium [Moles/Vol] 3.8 mmol/L Normal 3.5-5.1 [facility] Comment on above: Performed By: #### O VAPE #### [facility] [address] [place] [address] Dr. Flaquita Hernandez Protein [Mass/Vol] 7.5 g/dL Normal 6.4-8.2 [facility] Comment on above: Performed By: #### O VAPE #### [facility] [address] [place] [address] Dr. Flaquita Hernandez Sodium [Moles/Vol] 138 mmol/L Normal 136-145 [facility] Comment on above: Performed By: #### O VAPE #### [facility] [address] [place] [address] Dr. Flaquita Hernandez Urea nitrogen [Mass/Vol] 15.0 mg/dL Normal 7.0-18.0 [facility] Comment on above: Performed By: #### O VAPE #### [facility] [address] [place] [address] Dr. Flaquita Hernandez Urea nitrogen/Creatinine [Mass ratio] 18.1 mg/mg Normal [facility] Comment on above: Performed By: #### O VAPE #### [facility] [address] [place] [address] Dr. Flaquita Hernandez SED RATE [facility] 2021 SED RATE 41 mm/hr Critically high <=15 [facility] Comment on above: Performed By: #### S EDR #### [facility] [address] [place] [address] Dr. Flaquita Hernandez CBC AUTO DIFFon 06-27-2022 BASO # 0.1 103/ul Normal 0.0-0.1 [facility] Comment on above: Performed By: #### E RUR #### [facility] [address] [place] [address] Dr. Flaquita Hernandez Basophils/100 WBC (Bld) 0.5 % Normal 0.2-2.0 [facility] Comment on above: Performed By: #### E RUR #### [facility] [address] [place] [address] Dr. Flaquita Hernandez EO # 0.2 103/ul Normal 0.0-0.7 [facility] Comment on above: Performed By: #### E RUR #### [facility] [address] [place] [address] Dr. Flaquita Hernandez Eosinophils/100 WBC (Bld) 1.5 % Normal 0.9-7.0 [facility] Comment on above: Performed By: #### E RUR #### [facility] [address] [place] [address] Dr. Flaquita Hernandez Erythrocyte distribution width (RBC) [Ratio] 15.1 % Critically high 11.0-15.0 [facility] Comment on above: Performed By: #### E RUR #### [facility] [address] [place] [address] Dr. Flaquita Hernandez Hematocrit (Bld) [Volume fraction] 41.9 % Critically low 42.0-54.0 [facility] Comment on above: Performed By: #### E RUR #### [facility] [address] [place] [address] Dr. Flaquita Hernandez Hemoglobin (Bld) [Mass/Vol] 13.4 g/dL Critically low 14.0-18.0 [facility] Comment on above: Performed By: #### E RUR #### [facility] [address] [place] [address] Dr. Flaquita Hernandez IG # 0.06 10e3/ul Critically high 0.00-0.[address] [facility] Comment on above: Performed By: #### E RUR #### [facility] [address] [place] [address] Dr. Flaquita Hernandez IG % 0.5 % Normal 0.0-0.5 [facility] Comment on above: Performed By: #### E RUR #### [facility] [address] [place] [address] Dr. Flaquita Hernandez LYMPH # 2.0 103/ul Normal 1.2-3.8 [facility] Comment on above: Performed By: #### E RUR #### [facility] [address] [place] [address] Dr. Flaquita Hernandez Lymphocytes/100 WBC (Bld) 15.0 % Critically low 20.5-60.0 [facility] Comment on above: Performed By: #### E RUR #### [facility] [address] [place] [address] Dr. Flaquita Hernandez MANUAL DIFF REQ NO Normal [facility] Comment on above: Performed By: #### E RUR #### [facility] [address] [place] [address] Dr. Flaquita Hernandez MCH (RBC) [Entitic mass] 27.1 pg Normal 25.9-34.0 [facility] Comment on above: Performed By: #### E RUR #### [facility] [address] [place] [address] Dr. Flaquita Hernandez MCHC (RBC) [Mass/Vol] 32.0 g/dL Normal 29.9-35.2 [facility] Comment on above: Performed By: #### E RUR #### [facility] [address] [place] [address] Dr. Flaquita Hernandez MCV (RBC) [Entitic vol] 84.6 fL Normal 80.0-94.0 [facility] Comment on above: Performed By: #### E RUR #### [facility] [address] [address] [address] Flaquita Hernandez MONO # 1.2 103/ul Critically high 0.3-0.8 [facility] Comment on above: Performed By: #### E RUR #### [facility] [address] [place] [address] Dr. Flaquita Hernandez Monocytes/100 WBC (Bld) 9.0 % Normal 1.7-12.0 [facility] Comment on above: Performed By: #### E RUR #### [facility] [address] [place] [address] Dr. Flaquita Hernandez NEUT # 9.6 103/ul Critically high 1.4-6.5 [facility] Comment on above: Performed By: #### E RUR #### [facility] [address] [place] [address] Dr. Flaquita Hernandez Neutrophils/100 WBC (Bld) 73.5 % Normal 43.0-75.0 [facility] Comment on above: Performed By: #### E RUR #### [facility] [address] [place] [address] Dr. Flaquita Hernandez Platelet mean volume (Bld) [Entitic vol] 10.9 fL Normal 9.5-13.5 [facility] Comment on above: Performed By: #### E RUR #### [facility] [address] [place] [address] Dr. Flaquita Hernandez PLT 265 103/ul Normal 150-450 [facility] Comment on above: Performed By: #### E RUR #### [facility] [address] [place] [address] Dr. Flaquita Hernandez RBC 4.95 106/ul Normal 4.70-6.10 [facility] Comment on above: Performed By: #### E RUR #### [facility] [address] [place] [address] Dr. Flaquita Hernandez WBC 13.1 103/ul Critically high 4.0-11.0 [facility] Comment on above: Performed By: #### E RUR #### [facility] [address] [place] [address] Dr. Flaquita Hernandez CRPon 06-27-2022 CRP 1.2 mg/dL Critically high <=1.0 [facility] Comment on above: Performed By: #### C RP #### [facility] [address] [place] [address] ABD/PELV W CONon 06-27-[address] ABD/PELV W CON EXAMINATION: CT ABD/PELV W CON HISTORY: Colitis COMPARISON: None. TECHNIQUE: Images of the abdomen and pelvis obtained with IV contrast. Dose reduction techniques were achieved by using automated exposure control and/or adjustment of mA and/or kV according to patient size and/or use of iterative reconstruction technique. FINDINGS: Lung bases are clear. No adrenal mass or adenopathy. No obstructive uropathy. Gallbladder is decompressed. Portal vein is patent. Aorta is normal caliber. No bowel obstruction or inflammation. No pneumatosis or pneumoperitoneum. Normal appendix. No pelvic adenopathy or ascites. Prostate and bladder are age-appropriate. No significant inguinal hernia. No acute bony abnormality. IMPRESSION: Negative study. Electronically authenticated by: JUDD EPSTEIN Date: 2022-06-27 19:26 Normal [facility] URINE PROFILEon 2 Bilirubin Ql (U) Negative Normal NEGATIVE [facility] Comment on above: Performed By: #### E RUR #### [facility] [address] [place] [address] Dr. Flaquita Hernandez Clarity (U) CLEAR Normal CLEAR [facility] Comment on above: Performed By: #### E RUR #### [facility] [address] [place] [address] Dr. Flaquita Hernandez Color (U) YELLOW Normal YELLOW [facility] Comment on above: Performed By: #### E RUR #### [facility] [address] [place] [address] Dr. Flaquita BORJAS A micrscopic examination will be performed if indicated. Normal [facility] Comment on above: Performed By: #### E RUR #### [facility] [address] [place] [address] Dr. Flaquita Hernandez Glucose Ql (U) Negative Normal NEGATIVE [facility] Comment on above: Performed By: #### E RUR #### [facility] [address] [place] [address] Dr. Flaquita Hernandez Hemoglobin Ql (U) Negative Normal NEGATIVE [facility] Comment on above: Performed By: #### E RUR #### [facility] [address] [place] [address] Dr. Flaquita Hernandez Ketones Ql (U) Negative Normal NEGATIVE [facility] Comment on above: Performed By: #### E RUR #### [facility] [address] [place] [address] Dr. Flaquita Hernandez LEUKOCYTES Negative Normal NEGATIVE [facility] Comment on above: Performed By: #### E RUR #### [facility] [address] [place] [address] Dr. Flaquita Hernandez Nitrite Ql (U) Negative Normal NEGATIVE [facility] Comment on above: Performed By: #### E RUR #### [facility] [address] [place] [address] Dr. Flaquita Hernandez pH (U) 6.5 [pH] Normal 5-9 [facility] [facility] Comment on above: Performed By: #### E RUR #### [facility] [address] [place] [address] Dr. Flaquita Hernandez SPEC GRAVITY 1.015 Normal 1.005-<=1.025 [facility] Comment on above: Performed By: #### E RUR #### [facility] [address] [place] [address] Dr. Flaquita Hernandez UA PROTEIN Negative Normal NEGATIVE/ TRACE [facility] Comment on above: Performed By: #### E RUR #### [facility] [address] [place] [address] Dr. Flaquita Hernandez UR MICRO IND NOT INDICATED Normal [facility] Comment on above: Performed By: #### E RUR #### [facility] [address] [place] [address] Dr. Flaquita Hernandez Urobilinogen Qn (U) 0.2 {Marcellus'U}/dL Normal 0.2 - 1. 0 [facility] Comment on above: Performed By: #### E RUR #### [facility] [address] [place] [address] Dr. Flaquita Hernandez LACTATE/LACTIC ACIDon 2021 Lactate [Moles/Vol] 0.9 mmol/L Normal 0.4-1.9 [facility] Comment on above: Performed By: #### O VAPE #### [facility] [address] [place] [address] Dr. Flaquita Hernandez PROF 14(COMP METB)on 022 Albumin [Mass/Vol] 3.6 g/dL Normal 3.4-5.0 [facility] Comment on above: Performed By: #### E RUR #### [facility] [address] [place] [address] Dr. Flaquita Hernandez Albumin/Globulin [Mass ratio] 0.9 {ratio} Normal [facility] Comment on above: Performed By: #### E RUR #### [facility] [address] [place] [address] Dr. Flaquita Hernandez ALP [Catalytic activity/Vol] 68 U/L Normal 46-116 [facility] Comment on above: Performed By: #### E RUR #### [facility] [address] [place] [address] Dr. Flaquita Hernandez ALT [Catalytic activity/Vol] 17 U/L Normal 16-63 [facility] Comment on above: Performed By: #### E RUR #### [facility] [address] [place] [address] Dr. Flaquita Hernandez Anion gap [Moles/Vol] 12.0 mmol/L Normal [facility] Comment on above: Performed By: #### E RUR #### [facility] [address] [place] [address] Dr. Flaquita Hernandez AST [Catalytic activity/Vol] 8 U/L Critically low 15-37 [facility] Comment on above: Performed By: #### E RUR #### [facility] [address] [place] [address] Dr. Flaquita Hernandez Bilirubin [Mass/Vol] 0.7 mg/dL Normal 0.2-1.0 [facility] Comment on above: Performed By: #### E RUR #### [facility] [address] [place] [address] Dr. Flaquita Hernandez Calcium [Mass/Vol] 8.7 mg/dL Normal 8.5-10.1 [facility] Comment on above: Performed By: #### E RUR #### [facility] [address] [place] [address] Dr. Flaquita Hernandez Chloride [Moles/Vol] 103 mmol/L Normal 98-107 [facility] Comment on above: Performed By: #### E RUR #### [facility] [address] [place] [address] Dr. Flaquita Hernandez CO2 [Moles/Vol] 26.9 mmol/L Normal 21.0-32.0 [facility] Comment on above: Performed By: #### E RUR #### [facility] [address] [place] [address] Dr. Flaquita Hernandez Creatinine [Mass/Vol] 0.75 mg/dL Normal 0.70-1.30 [facility] Comment on above: Performed By: #### E RUR #### [facility] [address] [place] [address] Dr. Flaquita Hernandez EGFR-AF MONTSERRATIAN >60 Normal >=60 [facility] Comment on above: Performed By: #### E RUR #### [facility] [address] [place] [address] Dr. Flaquita Hernandez EGFR-NON AF MONTSERRATIAN >60 Normal >=60 [facility] Comment on above: Performed By: #### E RUR #### [facility] [address] [place] [address] Dr. Flaquita Hernandez Globulin (S) [Mass/Vol] 3.9 g/dL Normal [facility] Comment on above: Performed By: #### E RUR #### [facility] [address] [place] [address] Dr. Flaquita Hernandez Glucose [Mass/Vol] 103 mg/dL Normal 74-106 [facility] Comment on above: Performed By: #### E RUR #### [facility] [address] [address] [address] Flaquita Hernandez Potassium [Moles/Vol] 3.9 mmol/L Normal 3.5-5.1 [facility] Comment on above: Performed By: #### E RUR #### [facility] [address] [address] [address] Flaquita Hernandez Protein [Mass/Vol] 7.5 g/dL Normal 6.4-8.2 [facility] Comment on above: Performed By: #### E RUR #### [facility] [address] [address] [address] Flaquita Hernandez Sodium [Moles/Vol] 138 mmol/L Normal 136-145 [facility] Comment on above: Performed By: #### E RUR #### [facility] [address] [address] [address] Flaquita Hernandez Urea nitrogen [Mass/Vol] 11.0 mg/dL Normal 7.0-18.0 [facility] Comment on above: Performed By: #### E RUR #### [facility] [address] [address] [address] Flaquita Hernandez Urea nitrogen/Creatinine [Mass ratio] 14.7 mg/mg Normal [facility] Comment on above: Performed By: #### E RUR #### [facility] [address] [address] [address] Flaquita Hernandez PROTIMEon 06-27-2022 INR Coag (PPP) [Relative time] 0.95 {INR} Normal [facility] Comment on above: Performed By: #### E RUR #### [facility] [address] [address] [address] Flaquita Hernandez INR GUIDELINES SEE BELOW Normal [facility] Comment on above: Result Comment: ÁNGEL RED INR: 2.0 - 3.0 CONDITIONS NOT LISTED BELOW 2.5 - 3.5 FOR PROSTHETIC HEART VALVE REPLACEMENT 2.5 - 3.5 RECURRENT THROMBOSIS Performed By: #### E RUR #### [facility] [address] [place], [place] [id number] Dr. Flaquita Hernandez PT Coag (PPP) [Time] 10.3 s Normal 9.0-11.6 [facility] Comment on above: Performed By: #### E RUR #### [facility] [address] [place] [address] Dr. Flaquita Hernandez PTTon 06-27-2022 aPTT Coag (Bld) [Time] 26.5 s Normal 22.3-36.2 [facility] Comment on above: Performed By: #### E RUR #### [facility] [address] [place] [address] Dr. Flaqu[facility] mm/hr Critically high <=15 [facility] Comment on above: Performed By: #### E RUR #### [facility] [address] [place] [address] Dr. Flaquita Hernandez MRI LSPINE WO CONon 05-27-20 MRI LSPINE WO CON EXAMINATION: MRI LSPINE WO CON HISTORY: Prolapsed lumbar intervertebral disc ; chronic lumbar pain with new onset right leg pain and left leg pain and numbness COMPARISON: No relevant comparison available. TECHNIQUE: A variety of imaging planes and parameters were utilized for visualization of suspected pathology. FINDINGS: For the purposes of numbering, sagittal T2 image # 8 extends from the T11 vertebral body superiorly to the S2-S3 level inferiorly. PARASPINAL AREA: Normal with no visible mass. BONES: No fracture, pars defect, or osseous lesion. CORD/CAUDA EQUINA: Normal caliber, contour, and signal intensity. DISC LEVELS: 12-L1: No significant disc/facet abnormality, spinal stenosis, or foraminal stenosis. L1-L2: Early degenerative disc disease is present without focal protrusion or neural impingement. L2-L3: No significant disc/facet abnormality, spinal stenosis, or foraminal stenosis. L3-L4: No significant disc/facet abnormality, spinal stenosis, or foraminal stenosis. L4-L5: No significant disc/facet abnormality, spinal stenosis, or foraminal stenosis. L5-S1: No significant disc/facet abnormality, spinal stenosis, or foraminal stenosis. IMPRESSION: 1. No significant central canal or foraminal narrowing, more suspicious findings to account for patient's symptoms. 2. L1-L2 mild degenerative disc disease. Electronically authenticated by: MONO TAN Date: 2022-05-27 16:15 Normal [facility] CBC AUTO DIFFon 04-23-2022 BASO # 0.1 103/ul Normal 0.0-0.1 [facility] Comment on above: Performed By: #### C BC #### [facility] [address] [place] [address] Dr. Flaquita Hernandez Basophils/100 WBC (Bld) 0.6 % Normal 0.2-2.0 [facility] Comment on above: Performed By: #### C BC #### [facility] [address] [place] [address] Dr. Flaquita Hernandez EO # 0.2 103/ul Normal 0.0-0.7 [facility] Comment on above: Performed By: #### C BC #### [facility] [address] [place] [address] Dr. Flaquita Hernandez Eosinophils/100 WBC (Bld) 2.1 % Normal 0.9-7.0 [facility] Comment on above: Performed By: #### C BC #### [facility] [address] [place] [address] Dr. Flaquita Hernandez Erythrocyte distribution width (RBC) [Ratio] 14.2 % Normal 11.0-15.0 [facility] Comment on above: Performed By: #### C BC #### [facility] [address] [place] [address] Dr. Flaquita Hernandez Hematocrit (Bld) [Volume fraction] 39.1 % Critically low 42.0-54.0 [facility] Comment on above: Performed By: #### C BC #### [facility] [address] [place] [address] Dr. Flaquita Hernandez Hemoglobin (Bld) [Mass/Vol] 12.6 g/dL Critically low 14.0-18.0 [facility] Comment on above: Performed By: #### C BC #### [facility] [address] [place] [address] Dr. Flaquita Hernandez IG # 0.03 10e3/ul Normal 0.00-0.03 [facility] Comment on above: Performed By: #### C BC #### [facility] [address] [place] [address] Dr. Flaquita Hernandez IG % 0.3 % Normal 0.0-0.5 [facility] Comment on above: Performed By: #### C BC #### [facility] [address] [place] [address] Dr. Flaquita Hernandez LYMPH # 2.3 103/ul Normal 1.2-3.8 [facility] Comment on above: Performed By: #### C BC #### [facility] [address] [place] [address] Dr. Flaquita Hernandez Lymphocytes/100 WBC (Bld) 21.4 % Normal 20.5-60.0 [facility] Comment on above: Performed By: #### C BC #### [facility] [address] [place] [address] Dr. Flaquita Hernandez MANUAL DIFF REQ NO Normal [facility] Comment on above: Performed By: #### C BC #### [facility] [address] [place] [address] Dr. Flaquita Hernandez MCH (RBC) [Entitic mass] 27.2 pg Normal 25.9-34.0 [facility] Comment on above: Performed By: #### C BC #### [facility] [address] [place] [address] Dr. Flaquita Hernandez MCHC (RBC) [Mass/Vol] 32.2 g/dL Normal 29.9-35.2 [facility] Comment on above: Performed By: #### C BC #### [facility] [address] [place] [address] Dr. Flaquita Hernandez MCV (RBC) [Entitic vol] 84.4 fL Normal 80.0-94.0 [facility] Comment on above: Performed By: #### C BC #### [facility] [address] [place] [address] Dr. Flaquita Hernandez MONO # 0.9 103/ul Critically high 0.3-0.8 [facility] Comment on above: Performed By: #### C BC #### [facility] [address] [address] [address] Flaquita Hernandez Monocytes/100 WBC (Bld) 8.3 % Normal 1.7-12.0 [facility] Comment on above: Performed By: #### C BC #### [facility] [address] [address] [address] Flaquita Hernandez NEUT # 7.1 103/ul Critically high 1.4-6.5 [facility] Comment on above: Performed By: #### C BC #### [facility] [address] [address] [address] Flaquita Hernandez Neutrophils/100 WBC (Bld) 67.3 % Normal 43.0-75.0 [facility] Comment on above: Performed By: #### C BC #### [facility] [address] [place] [address] Dr. Flaquita Hernandez Platelet mean volume (Bld) [Entitic vol] 10.9 fL Normal 9.5-13.5 [facility] Comment on above: Performed By: #### C BC #### [facility] [address] [place] [address] Dr. Flaquita Hernandez PLT 290 103/ul Normal 150-450 [facility] Comment on above: Performed By: #### C BC #### [facility] [address] [place] [address] Dr. Flaquita Hernandez RBC 4.63 106/ul Critically low 4.70-6.10 [facility] Comment on above: Performed By: #### C BC #### [facility] [address] [place] [address] Dr. Flaquita Hernandez WBC 10.6 103/ul Normal 4.0-11.0 [facility] Comment on above: Performed By: #### C BC #### [facility] [address] [place] [address] Dr. Flaquita Hernandez CRPon 04-23-2022 CRP 1.8 mg/dL Critically high <=1.0 [facility] Comment on above: Performed By: #### O VAPE #### [facility] [address] [place] [address] Dr. Flaquita Hernandez ER URINE PROFILEon 2 Bilirubin Ql (U) Negative Normal NEGATIVE [facility] Comment on above: Performed By: #### E RUR #### [facility] [address] [place] [address] Dr. Flaquita Hernandez Clarity (U) CLEAR Normal CLEAR [facility] Comment on above: Performed By: #### E RUR #### [facility] [address] [place] [address] Dr. Flaquita Hernandez Color (U) YELLOW Normal YELLOW [facility] Comment on above: Performed By: #### E RUR #### [facility] [address] [place] [address] Dr. Flaquita BORJAS A micrscopic examination will be performed if indicated. Normal [facility] Comment on above: Performed By: #### E RUR #### [facility] [address] [place] [address] Dr. Flaquita Hernandez Glucose Ql (U) Negative Normal NEGATIVE [facility] Comment on above: Performed By: #### E RUR #### [facility] [address] [place] [address] Dr. Flaquita Hernandez Hemoglobin Ql (U) Negative Normal NEGATIVE [facility] Comment on above: Performed By: #### E RUR #### [facility] [address] [place] [address] Dr. Flaquita Hernandez Ketones Ql (U) Negative Normal NEGATIVE [facility] Comment on above: Performed By: #### E RUR #### [facility] [address] [place] [address] Dr. Flaquita Hernandez LEUKOCYTES Negative Normal NEGATIVE [facility] Comment on above: Performed By: #### E RUR #### [facility] [address] [place] [address] Dr. Flaquita Hernandez Nitrite Ql (U) Negative Normal NEGATIVE [facility] Comment on above: Performed By: #### E RUR #### [facility] [address] [place] [address] Dr. Flaquita Hernandez pH (U) 5.5 [pH] Normal 5-9 [facility] Comment on above: Performed By: #### E RUR #### [facility] [address] [place] [address] Dr. Flaquita Hernandez SPEC GRAVITY 1.030 Abnormal 1.005-<=1.025 [facility] Comment on above: Performed By: #### E RUR #### [facility] [address] [place] [address] Dr. Flaquita Hernandez UA PROTEIN Negative Normal NEGATIVE/ TRACE [facility] Comment on above: Performed By: #### E RUR #### [facility] [address] [place] [address] Dr. Flaquita Hernandez UR MICRO IND NOT INDICATED Normal [facility] Comment on above: Performed By: #### E RUR #### [facility] [address] [place] [address] Dr. Flaquita Hernandez Urobilinogen Qn (U) 0.2 {Marcellus'U}/dL Normal 0.2 - 1. 0 [facility] Comment on above: Performed By: #### E RUR #### [facility] [address] [place] [address] Dr. Flaquita Hernandez PROF 14(COMP METB)on 022 Albumin [Mass/Vol] 3.5 g/dL Normal 3.4-5.0 [facility] Comment on above: Performed By: #### O VAPE #### [facility] [address] [place] [address] Dr. Flaquita Hernandez Albumin/Globulin [Mass ratio] 0.8 {ratio} Normal [facility] Comment on above: Performed By: #### O VAPE #### [facility] [address] [place] [address] Dr. Flaquita Hernandez ALP [Catalytic activity/Vol] 62 U/L Normal 46-116 [facility] Comment on above: Performed By: #### O VAPE #### [facility] [address] [place] [address] Dr. Flaquita Hernandez ALT [Catalytic activity/Vol] 20 U/L Normal 16-63 [facility] Comment on above: Performed By: #### O VAPE #### [facility] [address] [address] [address] Flaquita Hernandez Anion gap [Moles/Vol] 14.4 mmol/L Normal [facility] Comment on above: Performed By: #### O VAPE #### [facility] [address] [address] [address] Flaquita Hernandez AST [Catalytic activity/Vol] 11 U/L Critically low 15-37 [facility] Comment on above: Performed By: #### O VAPE #### [facility] [address] [place] [address] Dr. Flaquita Hernandez Calcium [Mass/Vol] 8.8 mg/dL Normal 8.5-10.1 [facility] Comment on above: Performed By: #### O VAPE #### [facility] [address] [address] [address] Flaquita Hernandez Chloride [Moles/Vol] 103 mmol/L Normal 98-107 [facility] Comment on above: Performed By: #### O VAPE #### [facility] [address] [place] [address] Dr. Flaquita Hernandez CO2 [Moles/Vol] 25.5 mmol/L Normal 21.0-32.0 [facility] Comment on above: Performed By: #### O VAPE #### [facility] [address] [place] [address] Dr. Flaquita Hernandez Creatinine [Mass/Vol] 0.87 mg/dL Normal 0.70-1.30 [facility] Comment on above: Performed By: #### O VAPE #### [facility] [address] [place] [address] Dr. Flaquita Hernandez EGFR-AF MONTSERRATIAN >60 Normal >=60 [facility] Comment on above: Performed By: #### O VAPE #### [facility] [address] [place] [address] Dr. Flaquita Hernandez EGFR-NON AF MONTSERRATIAN >60 Normal >=60 [facility] Comment on above: Performed By: #### O VAPE #### [facility] [address] [address] [address] Flaquita Hernandez Globulin (S) [Mass/Vol] 4.6 g/dL Normal [facility] Comment on above: Performed By: #### O VAPE #### [facility] [address] [address] [address] Flaquita Hernandez Glucose [Mass/Vol] 88 mg/dL Normal 74-106 [facility] Comment on above: Performed By: #### O VAPE #### [facility] [address] [address] [address] Flaquita Hernandez Potassium [Moles/Vol] 3.9 mmol/L Normal 3.5-5.1 [facility] Comment on above: Performed By: #### O VAPE #### [facility] [address] [place] [address] Dr. Flaquita Hernandez Protein [Mass/Vol] 8.1 g/dL Normal 6.4-8.2 [facility] Comment on above: Performed By: #### O VAPE #### [facility] [address] [place] [address] Dr. Flaquita Hernandez Sodium [Moles/Vol] 139 mmol/L Normal 136-145 [facility] Comment on above: Performed By: #### O VAPE #### [facility] [address] [address] [address] Flaquita Hernandez Urea nitrogen [Mass/Vol] 7.0 mg/dL Normal 7.0-18.0 [facility] Comment on above: Performed By: #### O VAPE #### [facility] [address] [address] [address] Falquita Hernandez Urea nitrogen/Creatinine [Mass ratio] 8.0 mg/mg Normal [facility] Comment on above: Performed By: #### O VAPE #### [facility] [address] [address] [address] Flaquita Hernandez SED RATE [facility] 2021 SED RATE 59 mm/hr Critically high <=15 [facility] Comment on above: Performed By: #### S EDR #### [facility] [address] [address] [address] Flaquita Hernandez Consultation Noteon 03-25-20 Consultation Note [id number] Normal [facility] General Surgery Office/Clini c Noteon 01-10-2022 General Surgery Office/Clinic Note Chief Complaint post operative follow up HPI Staff 9 day post operative follow up post colonoscopy with multiple biopsies. 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 Review of Systems ROS - Provider Constitutional: no fever, no sweats, no weight loss. Eyes: no glasses, no blurred vision, no visual loss. ENMT: no dentures, no hoarseness, no swallowing difficulties, no hearing loss, no ear infection(s), no nose bleeds. Cardiovascular: normal blood pressure, no chest pain, regular heartbeat, no heart murmur. Respiratory: no shortness of breath, no cough, no asthma, no wheezing. Gastrointestinal: no nausea, no vomiting, yes diarrhea, no constipation, no blood in stool, no change in bowel habits, yes abdominal pain, no hepatitis. Genitourinary: no kidney stones, no urine infection, no dysuria. Musculoskeletal: no pain, no weakness. Skin: no changing moles, no rash, no skin lumps. Neurologic: no seizures, no epilepsy, no headache. Psychiatric: no emotional or psychiatric problem. Heme/Lymph: no bleeding problems, no anemia, no blood clots, no transfusions. Allergy/Immunologic: no swollen lymph nodes/glands, no IV drug abuse. Other: Additional ROS info: Except as noted in the above Review of Systems and in the History of Present Illness, all other systems have been reviewed and are negative or noncontributory. Physical Exam Vitals & Measurements T: 36.4 ?C(Temporal Artery) Assessment/Plan 1. 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 Follow-up No qualifying data available Problem List/Past Medical History Ongoing BMI 40.0-44.9, adult Change in bowel habits Eosinophilic colitis Hematochezia Irritable bowel syndrome with diarrhea Lumbar disc herniation Rectal bleeding Historical No qualifying data Procedure/Surgical History Colonoscopy (12/08/2021), Extraction of wisdom tooth, Tonsillectomy and adenoidectomy, Wedge resection of ingrown toenail. Medications Bentyl 10 mg Cap, 10 mg= 1 cap(s), Oral, q6hr, PRN, 1 refills Naprosyn 500 mg Tab, 500 mg= 1 tab(s), Oral, BID, PRN Allergies HYDROcodone (Stomach upset) Social History Alcohol Current, Beer, 1-2 times per week, 11/23/2021 Substance Abuse - Denies Substance Abuse, 11/23/2021 Tobacco Former smoker, quit more than 30 days ago Tobacco Use:. Smokeless tobacco user within last 30 days Smokeless Tobacco Use:. Cigarettes, Vaping, Started age 17.0 Years., 11/23/2021 Family History Bipolar: Sister. Hypertension: Mother. Irritable bowel syndrome: Mother. Normal [facility] Comment on above: Result Comment: Elec tronically Signed By: IMANI SEARS, Matt Newberry\Date and Time Signed: 01/10/22 16:58 EST Lab Reportson 01-10-2022 Lab Reports [id number]:127 Normal [facility] OVA AND PARASITE EXAMINATION on 01-07-2022 Ova + Parasite Exam Final report Normal [facility] Comment on above: Result Comment: Thes e results were obtained using wet preparation(s) and trichrome stained smear. This test does not include testing for Cryptosporidium parvum, Cyclospora, or Microsporidia. Performed By: #### O VAPE #### [facility] [address] [place] [address] Dr. Flaquita Hernandez Result 1 Comment Normal [facility] Comment on above: Result Comment: No o va, cysts, or parasites seen. . One negative specimen does not rule out the possibility of a parasitic infection. Performed By: #### O VAPE #### [facility] [address] [place] [address] Dr. Flaquita Hernandez Lab Reportson 01-05-2022 Lab Reports [id number]:127 Normal [facility] GI PANEL (PCR)on 01-01-2022 Adenovirus F 40/41 Not detected Normal NOT DETECTED [facility] Comment on above: Performed By: #### O VAPE #### [facility] [address] [place] [address] Dr. Flaquita Hernandez Astrovirus Not detected Normal NOT DETECTED [facility] Comment on above: Performed By: #### O VAPE #### [facility] [address] [place] [address] Dr. Flaquita Hernandez C. Diff toxin A/B Not detected Normal NOT DETECTED [facility] Comment on above: Performed By: #### O VAPE #### [facility] [address] [place] [address] Dr. Flaquita Hernandez Campylobacter Not detected Normal NOT DETECTED [facility] Comment on above: Performed By: #### O VAPE #### [facility] [address] [place] [address] Dr. Flaquita Hernandez Cryptosporidium Not detected Normal NOT DETECTED [facility] Comment on above: Performed By: #### O VAPE #### [facility] [address] [place] [address] Dr. Flaquita Hernandez Cyclos. Cayetanensis Not detected Normal NOT DETECTED [facility] Comment on above: Performed By: #### O VAPE #### [facility] [address] [place] [address] Dr. Flaquita Hernandez E. Coli O157 Not Applicable Normal Not Applicable [facility] Comment on above: Performed By: #### O VAPE #### [facility] [address] [place] [address] Dr. Flaquita Hernandez E. histolytica Not detected Normal NOT DETECTED [facility] Comment on above: Performed By: #### O VAPE #### [facility] [address] [place] [address] Dr. Flaquita Hernandez EAEC Not detected Normal NOT DETECTED [facility] Comment on above: Performed By: #### O VAPE #### [facility] [address] [place] [address] Dr. Flaquita Hernandez EIEC Not detected Normal NOT DETECTED [facility] Comment on above: Performed By: #### O VAPE #### [facility] [address] [place] [address] Dr. Flaquita Hernandez EPEC Not detected Normal NOT DETECTED [facility] Comment on above: Performed By: #### O VAPE #### [facility] [address] [place] [address] Dr. Flaquita Hernandez ETEC Not detected Normal NOT DETECTED [facility] Comment on above: Performed By: #### O VAPE #### [facility] [address] [place] [address] Dr. Flaquita Hernandez G. Lamblia Not detected Normal NOT DETECTED [facility] Comment on above: Performed By: #### O VAPE #### [facility] [address] [place] [address] Dr. Flaquita GIRON CONTROLS PASSED Normal [facility] Comment on above: Performed By: #### O VAPE #### [facility] [address] [place] [address] Dr. Flaquita CROOKS EMILIE HEADER GI PANEL BACTERIA Normal [facility] Comment on above: Performed By: #### O VAPE #### [facility] [address] [place] [address] Dr. Flaquita KAY ECOLI GI PANEL DIARRHEAGENIC E.COLI / SHIGELLA Normal [facility] Comment on above: Performed By: #### O VAPE #### [facility] [address] [place] [address] Dr. Flaquita KAY INFO SEE BELOW Normal [facility] Comment on above: Result Comment: EAEC - Enteroaggregative E. Coli EPEC- Enteropathogenic E. Coli ETEC- Enterotoxigenic E. Coli lt/st STEC- Shigella-like toxin-producing E. Coli stx1/stx2 EIEC- Shigella/Enteroinvasive E. Coli Performed By: #### O VAPE #### [facility] [address] [place] [address] Dr. Flaquita KAY PARASITES GI PANEL PARASITES Normal [facility] Comment on above: Performed By: #### O VAPE #### [facility] [address] [place] [address] Dr. Flaquita KAY VIRUS GI PANEL VIRUSES Normal [facility] Comment on above: Performed By: #### O VAPE #### [facility] [address] [place] [address] Dr. Flaquita Hernandez Norovirus GI/GII Not detected Normal NOT DETECTED [facility] Comment on above: Performed By: #### O VAPE #### [facility] [address] [place] [address] Dr. Flaquita Hernandez P. Shigelloides Not detected Normal NOT DETECTED [facility] Comment on above: Performed By: #### O VAPE #### [facility] [address] [place] [address] Dr. Flaquita Hernandez Rotavirus A Not detected Normal NOT DETECTED [facility] Comment on above: Performed By: #### O VAPE #### [facility] [address] [place] [address] Dr. Flaquita Hernandez Salmonella Not detected Normal NOT DETECTED [facility] Comment on above: Performed By: #### O VAPE #### [facility] [address] [place] [address] Dr. Flaquita Hernandez Sapovirus Not detected Normal NOT DETECTED [facility] Comment on above: Performed By: #### O VAPE #### [facility] [address] [place] [address] Dr. Flaquita Hernandez STEC Not detected Normal NOT DETECTED [facility] Comment on above: Performed By: #### O VAPE #### [facility] [address] [place] [address] Dr. Flaquita Hernandez Vibrio Not detected Normal NOT DETECTED [facility] Comment on above: Performed By: #### O VAPE #### [facility] [address] [address] [address] Flaquita Hernandez Vibrio Cholera Not detected Normal NOT DETECTED [facility] Comment on above: Performed By: #### O VAPE #### [facility] [address] [address] [address] Flaquita Hernandez Y. Enterocolitica Not detected Normal NOT DETECTED [facility] Comment on above: Performed By: #### O VAPE #### [facility] [address] [address] [address] Flaquita Hernandez Ambulatory Visit Summaryon 0 12-17-2021 Ambulatory Visit Summary LATRICE RICHMOND :1990 Visit Date:12/17/2021 Ambulatory Visit Instructions Your Diagnosis Eosinophilic colitis Your Care Team Attending Physician - IMANI SEARS, Matt Pereyra Primary Care Physician - Yin SEARS, Julio César This Is Your Medications List naproxen (Naprosyn 500 mg Tab) Procedures Performed Colonoscopy (12/08/2021), Extraction of wisdom tooth, Tonsillectomy and adenoidectomy, Wedge resection of ingrown toenail. Discharge Vitals Temperature (Temporal Artery) 36.4 ?C Medications What How Much When Instructions Unchanged naproxen (Naprosyn 500 mg Tab) 1 Tablets By Mouth 2 times a day as needed for Pain Allergies HYDROcodone (Stomach upset) Problems Ongoing - Any problem that you are currently receiving treatment for. BMI 40.0-44.9, adult Change in bowel habits Eosinophilic colitis Hematochezia Irritable bowel syndrome with diarrhea Lumbar disc herniation Rectal bleeding Normal [facility] Outside Colonoscopyon 2021 Outside Colonoscopy [id number]:127 Normal [facility] Pathology Noteon 12-17-2021 Pathology Note [id number] .[id number]:127 Normal [facility] November 26, 2021 Julio César Bynum, [address] [address] [address] [place] [address] Re: LATRICE RICHMOND Date of : 1990 Thank you for your referral of Latrice Richmond who was seen on consultation on 11/23/2021 for diarrhea with mucus and blood. A colonoscopy is planned for further evaluation. I have enclosed my consultation letter for your review. I will be happy to follow Latrice. Sincerely, Matt Claudio MD General Surgery Normal [facility] Consent for Procedure/Surger yon 11-24-2021 Consent for Procedure/Surgery [id number] .[id number]:127 Normal [facility] Ambulatory Clinical Summaryo n 11-23-2021 Ambulatory Clinical Summary {[id number]}CD:[id number] Normal [facility] Physician Referralon 021 Physician Referral [id number] .[id number]:127 Normal [facility]22 SARS-CoV-2 (COVID-19) RNA ZEESHAN+probe Ql (Unsp spec) Detected Critically abnormal NOT DETECTED [facility] Comment on above: Result Comment: This test is not yet approved or cleared by the [place] FDA. When there are no FDA-approved or cleared tests available, and other criteria are met, FDA can make tests available under an emergency access mechanism called an Emergency Use Authorization (EUA). The EUA for this test is supported by the [place] of Health and Human Service's (HHS's) declaration that circumstances exist to justify the emergency use of in vitro diagnostics for the detection and/or diagnosis of the virus that causes COVID-19. This EUA will remain in effect (meaning this test can be used) for the duration of the COVID-19 declaration justifying emergency of IVDs, unless it is terminated or revoked by FDA (after which the test may no longer be used). Performed By: #### C VDTB #### [facility] [address] [place] [address] Dr. Flaquita Hernandez Vital Signs Date Time Vital Sign Value Performing Clinician Facility 07-31-2023 11:08-0400 Body weight 143.79 kg Mario Mello MD Work Phone: [facility] 07-31-2023 11:08-0400 Diastolic blood pressure 75 mm[Hg] Mario Mello MD Work Phone: [facility] 07-31-2023 11:08-0400 Heart rate 71 /min Mario Mello MD Work Phone: [facility] 07-31-2023 11:08-0400 Systolic blood pressure 116 mm[Hg] Mario Mello MD Work Phone: [facility] 05-04-2023 13:00-0400 Body height 185.42 cm Elkin Dial Other [employer] Other 05-04-2023 13:00-0400 Body mass index (BMI) [Ratio] 42.21 kg/m2 Elkin Dial Other [employer] Other 05-04-2023 13:00-0400 Body weight 145.15 kg Elkin Dial Other [employer] Other 05-04-2023 13:00-0400 Diastolic blood pressure 74 mm[Hg] Elkin Dial Other [employer] Other 05-04-2023 13:00-0400 Systolic blood pressure 129 mm[Hg] Elkin Dial Other [employer] Other 07-11-2022 13:54-0400 Diastolic blood pressure 66 mm[Hg] MD Elkin Dial Work Phone: [facility] 07-11-2022 13:54-0400 Heart rate 79 /min MD Elkin Dial Work Phone: [facility] 07-11-2022 13:54-0400 Respiratory rate 16 /min MD Elkin Dial Work Phone: [facility] 07-11-2022 13:54-0400 SaO2% (BldA) [Mass fraction] 97 % MD Elkin Dial Work Phone: [facility] 07-11-2022 13:54-0400 Systolic blood pressure 103 mm[Hg] MD Elkin Dila Work Phone: [facility] 07-11-2022 11:59-0400 Body height 185.42 cm MD Elkin Dial Work Phone: [facility] 07-11-2022 11:59-0400 Body temperature 99.5 [degF] MD Elkin Dial Work Phone: [facility] 07-11-2022 11:59-0400 Body weight 136.07 kg MD Elkin Dial Work Phone: [facility] 03-03-2022 16:15-0400 Body height 185.42 cm Elkin Dial Other [employer] [facility] [employer] Other 03-03-2022 16:15-0400 Body mass index (BMI) [Ratio] 40.9 kg/m2 Elkin Dial Other [employer] Other 03-03-2022 16:15-0400 Body weight 140.62 kg Elkin Dial Other [facility] [employer] Other Encounters Encounter Date Encounter Type Care Provider Facility Start: 06-12-2025 End: 06-12-2025 Telephone encounter Mario Mello MD Work Phone: Gastroenterology Comment on above: Orders (Inflectra re newal and SHANTI Kit) Start: 05-02-2025 End: 05-02-2025 Telephone encounter Mario Mello MD Work Phone: [facility] Start: 08-28-2024 End: 08-29-2024 Get Medical Advice Mario Mello MD Work Phone: Gastroenterology Comment on above: Lab Results / Infusi on orders Start: 08-23-2024 End: 08-23-2024 ambulatory Mario Mello MD Work Phone: Gastroenterology Comment on above: Crohn's disease with out complication, unspecified gastrointestinal tract location (HCC) (Primary Dx) Start: 08-23-2024 End: 08-23-2024 Telemedicine consultation with patient Mario Mello MD Work Phone: Gastroenterology Start: 08-01-2024 End: 08-01-2024 ambulatory Mario Mello MD Work Phone: Gastroenterology Comment on above: Need to reschedule Start: 04-29-2024 Telephone encounter Mario dumont MD Work Phone: Gastroenterology Comment on above: Orders Start: 01-04-2024 Telephone encounter Mario dumont MD Work Phone: Gastroenterology Comment on above: Patient Update (Pt n eeds to reschedule Inflectra infusion for one week out) Start: 08-22-2023 Telephone encounter Mario dumont MD Work Phone: Gastroenterology Comment on above: Results Start: 08-18-2023 ambulatory MARIO MELLO Facility:[facility] Start: 08-18-2023 End: 08-18-2023 Subsequent hospital visit by physician [facility] Work Phone: [facility] Radiology CT Scan Start: 08-03-2023 End: 08-03-2023 ambulatory Mario Mello Facility:[facility] Start: 08-03-2023 End: 08-03-2023 ambulatory MD Mario eMllo Work Phone: [facility] Work Phone: Start: 08-03-2023 End: 08-03-2023 Departed Referred MD Mario Mello Work Phone: [facility] [place] Work Phone: Start: 07-31-2023 End: 08-01-2023 ambulatory Mario Mello MD Work Phone: [facility] Start: 07-31-2023 End: 07-31-2023 Patient encounter procedure Mario Mello MD Work Phone: Gastroenterology Comment on above: Crohn's disease with out complication, unspecified gastrointestinal tract location (HCC) (Primary Dx); Crohn's disease with complication, unspecified gastrointestinal tract location (HCC) CT Enterography appo intment Start: 07-03-2023 Telephone encounter Mario dumont MD Work Phone: Gastroenterology Comment on above: Appointment Start: 05-04-2023 End: 05-04-2023 ambulatory Elkin Dial Other [employer] Other Start: 05-04-2023 Office outpatient vi sit 15 minutes Elkin Dial [facility] Start: 09-28-2022 End: 09-28-[address] JULIO CÉSAR BYNUM Facility:[facility] Start: 09-03-2022 End: 09-04-[address] Des DIAL Facility:[facility] Start: 07-16-[address] JULIO CÉSAR BYNUM Facility :[facility] Start: 07-12-2022 End: 07-12-2022 ambulatory Elkin Dial Other [employer] Other Start: 07-12-2022 Telephone encounter Elkin almonte [facility] Start: 07-11-2022 End: 07-11-2022 Admission to same day surgery center MD Elkin Dial Work Phone: [facility] Start: 07-07-2022 End: 07-07-2022 Patient encounter procedure MD Elkin Dial Work Phone: [facility] Start: 07-05-2022 End: 08-16-[address] Des DIAL Facility:[facility] Start: 2022 End: 07-05-[address] Des DIAL Facility:[facility] Start: 06-27-2022 End: 06-27-2022 ambulatory DIANA TRINH Facility:[facility] Start: 06-23-2022 End: 06-23-2022 ambulatory Elkin Dial Other [employer] Other Start: 06-23-2022 Telephone encounter Elkin almonte [facility] Start: 06-16-2022 End: 06-16-2022 ambulatory Eklin Dial Other [employer] Other Start: 06-16-2022 Telephone encounter Elkin almonte [facility] Start: 06-06-2022 End: 08-23-[address] JULIO CÉSAR BYNUM Facility:[facility] Start: 05-27-2022 End: 05-28-[address] JULIO CÉSAR BYNUM Facility:[facility] Start: 04-23-2022 End: 04-23-2022 ambulatory LENNY ESQUIVEL Facility:[facility] Start: 04-20-[address] Des DIAL Facili ty:[facility] Start: 03-08-[address] Des DIAL Facilzaki ty:[facility] Start: 03-03-2022 End: 03-03-2022 ambulatory Elkin Dial Other [employer] Other Start: 03-03-2022 Office outpatient ne w 45 minutes Elkin Dial [facility] Start: 01-01-2022 End: 01-02-[address] MATT CLAUDIO Facility:[facility] Start: 12-07-2021 End: 12-08-[address] JULIO CÉSAR BYNUM Facility:[facility] Start: 12-04-[address] MATT CLAUDIO Facilit y:[facility] Start: 11-30-[address] MATT CLAUDIO Facilit y:[facility] Start: 10-19-2021 End: 10-19-[address] JULIO CÉSAR BYNUM Facility:[facility] Procedures Date Procedure Procedure Detail Performing Clinician Start: 07-11-2022 Diagnostic endoscopi c examination on colon MD Elkin Dial Work Phone: SARS Antigen (LFIA) MD Aviva Dial Work Phone: Plan of Treatment Date Care Activity Detail Author Start: 2051 HEPATITIS B (1 of 3 - Risk 3-dose series) HEPATITIS B (1 of 3 - Risk 3-dose series) [facility] Start: 2051 Hepatitis B Vaccine (1 of 3 - Risk 3-dose series) Hepatitis B Vaccine (1 of 3 - Risk 3-dose series) [facility] Start: 07-21-2025 Influenza vaccination [facility] Start: 06-12-2025 End: 09-11-2025 BLOOD TB SCREEN BLOOD TB SCREEN Lab Routine Crohn's disease without complication, unspecified gastrointestinal tract location (HCC) Expected: 06/12/2025 (Approximate), Expires: 09/11/2025 [facility] Work Phone: Comment on above: Expected: 06/12/2025 (Approximate), Expi res: 09/11/2025 Start: 06-12-2025 End: 09-11-2025 Hepatitis B virus core Ab [Presence] in Serum HEPATITIS B CORE ANTIBODY TOTAL Lab Routine Crohn's disease without complication, unspecified gastrointestinal tract location (HCC) Expected: 06/12/2025 (Approximate), Expires: 09/11/2025 [facility] Comment on above: Expected: 06/12/2025 (Approximate), Expi res: 09/11/2025 Start: 06-12-2025 End: 09-11-2025 Hepatitis B virus surface Ab [Presence] in Serum HEPATITIS B SURFACE ANTIBODY Lab Routine Crohn's disease without complication, unspecified gastrointestinal tract location (HCC) Expected: 06/12/2025 (Approximate), Expires: 09/11/2025 [facility] Comment on above: Expected: 06/12/2025 (Approximate), Expi res: 09/11/2025 Start: 06-12-2025 End: 09-11-2025 Hepatitis B virus surface Ag [Presence] in Serum HEPATITIS B SURFACE ANTIGEN Lab Routine Crohn's disease without complication, unspecified gastrointestinal tract location (HCC) Expected: 06/12/2025 (Approximate), Expires: 09/11/2025 [facility] Comment on above: Expected: 06/12/2025 (Approximate), Expi res: 09/11/2025 Start: 08-23-2024 End: 08-23-2024 ambulatory 08/23/2024 9:[address] [facility] [address] [place] [address] [place] [address] [place] [id number] f/u Gastroenterology Comment on above: f/u Start: 07-21-2024 Covid-19 Vaccine () Covid-19 Vaccine () [facility] Start: 07-21-2024 Covid-19 Vaccine () Covid-19 Vaccine () [facility] Start: 07-21-2024 Influenza vaccination [facility] Start: 11-20-2023 Behavioral Health Screening Behavioral Health Screening [facility] Start: 11-20-2023 Depression Assessment Depression Assessment [facility] Start: 07-31-2023 End: 09-30-2023 BLOOD TB SCREEN [facility] Work Phone: Comment on above: Expected: 07/31/2023, Expires: 3 Start: 07-21-2023 Covid-19 Vaccine ( season) Covid-19 Vaccine () [facility] Start: 07-21-2023 Influenza vaccination [facility] Start: 11-20-2022 DEPRESSION ASSESSMENT DEPRESSION ASSESSMENT [facility] Start: 07-11-2022 Diagnostic endoscopic examination on colon [facility] Colonoscopy Diagnostic (Not Applicable) [facility] Start: 07-11-2022 [facility] Work Phone: Start: 07-11-2022 End: 07-11-2022 Admission to same day surgery center [facility] Start: 04-14-2020 Urine microalbumin profile DTaP,Tdap,Td Vaccine (7 - Td or Tdap) [facility] Start: 2010 HEPATITIS A (1 of 2 - Risk 2-dose series) HEPATITIS A (1 of 2 - Risk 2-dose series) [facility] Start: 2010 Hepatitis A Vaccine (1 of 2 - Risk 2-dose series) Hepatitis A Vaccine (1 of 2 - Risk 2-dose series) [facility] Start: 2010 Urine microalbumin profile [facility] Start: 2009 Anxiety Screening Anxiety Screening [facility] Start: 2009 Depression Screening Depression Screening [facility] Start: 2009 HEPATITIS C SCREENING HEPATITIS C SCREENING [facility] Start: 2009 Hepatitis C screening Hepatitis C Screening [facility] Start: 2009 HIV SCREENING HIV SCREENING [facility] Start: 2009 HIV screening HIV Screening [facility] Start: 2009 MMR (1 of 2 - Risk 2-dose series) MMR (1 of 2 - Risk 2-dose series) [facility] Start: 2009 MMR Vaccine (1 of 2 - Risk 2-dose series) MMR Vaccine (1 of 2 - Risk 2-dose series) [facility] Start: 2001 Meningococcal B Vaccine: Consider Based On Risk (1 of 4 - Increased Risk) Meningococcal B Vaccine: Consider Based On Risk (1 of 4 - Increased Risk) [facility] Start: 2001 MENINGOCOCCAL B: Consider based on risk (1 of 4 - Increased Risk) MENINGOCOCCAL B: Consider based on risk (1 of 4 - Increased Risk) [facility] Start: 1997 Pneumococcal vaccination Pneumococcal Vaccine (1 of 2 - PCV) [facility] Start: 01-04-1992 COVID-19 VACCINE (#1) COVID-19 VACCINE (#1) [facility] Start: 1991 HEPATITIS B (1 of 3 - 3-dose series) HEPATITIS B (1 of 3 - 3-dose series) [facility] Calprotectin [Mass/mass] in Stool CALPROTECTIN,FECAL Lab Routine Crohn's disease without complication, unspecified gastrointestinal tract location (HCC) Ordered: 07/31/2023 [facility] Work Phone: Comment on above: Ordered: 07/31/2023 Clostridioides difficile toxin genes [Presence] in Stool by ZEESHAN with probe detection C. DIFFICILE PCR Lab Routine Crohn's disease without complication, unspecified gastrointestinal tract location (HCC) Ordered: 07/31/2023 [facility] Work Phone: Comment on above: Ordered: 07/31/2023 End: 08-29-2024 Ct abdomen & pelvis w/contrast material CT ENTEROGRAPHY W IVCON Radiology Routine Crohn's disease without complication, unspecified gastrointestinal tract location (HCC) Crohn's disease with complication, unspecified gastrointestinal tract location (HCC) 1 Occurrences starting 07/31/2023 until 08/29/2024 [facility] Work Phone: Comment on above: 1 Occurrences starting 07/31/2023 until 08/29/2024 Patient Education Colon Polyps C rohn's Disease (DC) [facility] Work Phone: [place] [facility] [facility] Immunizations Immunization Date Immunization Notes Care Provider Fa cili 09-03-2019 influenza virus vacc ine, unspecified formulation Mario Mello MD Work Phone: [facility] Payers Date Payer Category Payer Private Health Insurance [id number] 1991 Unknown [id number] 2.16.84 [id number] 1991 Unknown [id number] 2.16.84 [id number] 1991 Unknown [id number] 2.16.84 0.1.365022.3.579.2.593 1991 Unknown [id number] 2.16.84 0.1.238681.3.579.2.593 1991 Unknown [id number] 2.16.84 0.1.921896.3.579.2.593 1991 Unknown [id number] 2.16.84 0.1.509670.3.579.2.593 1991 Unknown [id number] 2.16.84 0.1.743444.3.579.2.593 1991 Unknown [id number] 2.16.84 0.1.600646.3.579.2.593 1991 Unknown [id number] 2.16.84 0.1.040199.3.579.2.593 1991 Unknown [id number] 2.16.84 0.1.982923.3.579.2.593 1991 Unknown [id number] 2.16.84 0.1.715125.3.579.2.593 1991 Unknown [id number] 2.16.84 0.1.108157.3.579.2.593 1991 Unknown [id number] 2.16.84 0.1.475775.3.579.2.593 1991 Unknown [id number] 2.16.84 0.1.952816.3.579.2.593 1991 Unknown [id number] 2.16.84 0.1.637190.3.579.2.593 1991 Unknown [id number] 2.16.84 0.1.145869.3.579.2.593 1959 Private Health Insurance [id number] 1959 Self-pay Unknown [id number] 2.16.8 [id number] Social History Date Type Detail Facility Start: 07-31-2023 Sex Assigned At [employer] Other Start: 07-11-2022 End: 07-31-2023 Tobacco smoking status WAIS Ex-smoker (finding) [facility] Start: 1990 Sex Assigned At Male [facility] Tobacco smoking stat [facility] Tobacco smoking consumption unknown [facility] Start: 1990 Sex Assigned At Not on file [facility] History of tobacco use Current smoker [facility] History of tobacco use Cigarette Smoker [facility] Start: 07-31-2023 Tobacco use and exposure Smokeless tobacco non-user [facility] Start: 07-31-2023 Alcohol intake Current drinker of alcohol (finding) [facility] Start: 07-31-2023 History of Social function [facility] National Score (1-10 0), lower number is lower risk 64 [facility] Start: 07-31-2023 Alcohol Comment social [facility] Start: 07-31-2023 Sexual orientation Heterosexual (finding) [facility] Goals Date Patient Goal Desired Activity /State Clinical Notes 11-23-2021 to 06-12-2025 Telephone Encounter - Mario Mello MD - 06/12/2025 2:15 PM EDTTelephone Encounter - Mario Mello MD - 06/12/2025 2:15 PM EDTTelephone Encounter - Eleanor Fofana RN - 06/12/2025 12:11 PM EDT Note Date & Type Note Facility 06-12-2025 Telephone encounter Note Patient has TB test that was negative and scanned in Aug 2024 Why does he need a repeated one? Normal labs at that time I don't see hep B I'm sure all were done at the same time Please try to get before you ask the patient to repeat [facility] 06-12-2025 Miscellaneous Notes Patient has TB test that was negative and scanned in Aug 2024 Why does he need a repeated one? Normal labs at that time I don't see hep B I'm sure all were done at the same time Please try to get before you ask the patient to repeat Received paperwork yesterday evening, Will complete and fax to [facility], Explained to rep yesterday that this would need completed/ prescriber signature- and pt has incomplete labs. Dr. Mello, Please review and sign labs for TB hep, Other labs active. Thanks, Eleanor Fofana RN Beth Small from [facility] is calling. She would like to know if orders were received for Inflectra renewal and SHANTI Kit. She needs the orders faxed back to [phone]. Please call her back at [phone]. Thank you, Ingris Hernández RN documented in this encounter [facility] 06-12-2025 Telephone encounter Note Received paperwork yesterday evening, Will complete and fax to [facility], Explained to rep yesterday that this would need completed/ prescriber signature- and pt has incomplete labs. Dr. Mello, Please review and sign labs for TB hep, Other labs active. Thanks, Eleanor Fofana RN [facility] 06-12-2025 Telephone encounter Note Beth michael [facility] is calling. She would like to know if orders were received for Inflectra renewal and SHANTI Kit. She needs the orders faxed back to [phone]. Please call her back at [phone]. Thank you, Ingris Hernández RN [facility] Work Phone: 05-02-2025 Telephone encounter Note [facility] called in Pt Due for Inflectra on 05-15-25 Pt having breakthrough symptoms, Asking to Infuse early on 05-05-25 Direct call back to approve request [phone] Attempted to call pt, LVM to c/b out office to discuss symptoms further, Thanks, Eleanor Fofana RN [facility] 05-02-2025 Miscellaneous Notes [facility] called in Pt Due for Inflectra on 05-15-25 Pt having breakthrough symptoms, Asking to Infuse early on 05-05-25 Direct call back to approve request [phone] Attempted to call pt, LVM to c/b out office to discuss symptoms further, Eleanor Miller RN documented in this encounter [facility] 08-29-2024 Telephone encounter Note Called and spoke with patient Assured orders were sent to [facility], and will reach out to [facility] for update. Called Rep at [facility] and verbalized that orders were received, and Rep stated that will call pt to schedule, Eleanor Mliler RN [facility] 08-29-2024 Miscellaneous Notes Called and spoke with patient Assured orders were sent to [facility], and will reach out to [facility] for update. Called Rep at [facility] and verbalized that orders were received, and Rep stated that will call pt to schedule, Eleanor Miller RN documented in this encounter [facility] 08-23-2024 History of Presen t illness Narrative Images from the original note were not included. VIRTUAL VISIT FOLLOW UP I had a virtual visit with Mr. Richmond today for follow up of Crohn's disease. UPDATED HISTORY: Last infliximab infusion was 8 weeks ago Was supposed to get infusion on Aug 15 This was put on hold due to lack of follow up and no labs are done for a year Baseline 1-2 bowel movements a day Currently he is having up to 6 bowel movements a day Mucous Increased gas No rectal bleeding Abdominal discomfort Low energy currently Patient got the labs done yesterday Past Clinical Work-up: 07-31-2023 ABELARDO ASSESSMENT/PLAN: 1. Crohn's disease without complication, unspecified gastrointestinal tract location (HCC) - ICD9: 555.9, ICD10: K50.90 (primary diagnosis) See above Start inflectra induction then 5mg/kg every 6 weeks if insurance approves - COMP METABOLIC PANEL - CBC + DIFF - C-REACTIVE PROTEIN (CRP) - SED RATE WESTERGREN - HEP B SURF AG SCRN - HEP B SURF AB - BLOOD TB SCREEN - HEP B CORE AB TOTAL - CT ENTEROGRAPHY W IVCON - IV CONTRAST (RADIOLOGY PROCEDURE) - ENTERIC CONTRAST (RADIOLOGY PROCEDURE) - CALPROTECTIN,FECAL - C. DIFFICILE PCR - Dermatology consult to evaluate the skin rash and for annual exam Get records from previous GI including labs and Colonoscopy with pathology Mario Mello MD [facility] CTE RESULT: GI Tract: There is good distention of most of the small bowel by oral contrast material. Small Bowel: There is no bowel dilatation or abnormal bowel wall thickening. No abnormal enhancing mucosa is seen. The terminal ileum is visualized and is normal in appearance. Colon: Colon is normal in caliber. No abnormal enhancing mucosa is seen. Strictures: No areas of stricture identified. Fistulae/Sinus Tracts: No fistula or sinus tract is identified. Abscesses: No abnormal fluid collection is identified to suggest abscess. (PT NEEDS UPDATED LABS- ORDERS ARE ACTIVE) Latest Ref Rng 07/31/2023 WBC 3.70 - 11.00 k/uL 9.93 RBC 4.20 - 6.00 m/uL 4.52 Hemoglobin 13.0 - 17.0 g/dL 12.7 (L) Hematocrit 39.0 - 51.0 % 40.5 MCV 80.0 - 100.0 fL 89.6 MCH 26.0 - 34.0 pg 28.1 MCHC 30.5 - 36.0 g/dL 31.4 RDW-CV 11.5 - 15.0 % 13.3 Platelet Count 150 - 400 k/uL 241 MPV 9.0 - 12.7 fL 11.1 Neut% % 63.7 Abs Neut (ANC) 1.45 - 7.50 k/uL 6.33 Lymph% % 23.7 Abs Lymph 1.00 - 4.00 k/uL 2.35 Audrain% % 10.1 Abs Audrain <0.87 k/uL 1.00 (H) Eosin% % 1.4 Abs Eosin <0.46 k/uL 0.14 Baso% % 0.6 Abs Baso <0.11 k/uL 0.06 Immature Gran % % 0.5 IMMATURE GRANS (ABS) <0.10 k/uL 0.05 NRBC /100 WBC 0.0 Absolute nRBC <0.01 k/uL <0.01 DTYPE Auto Protein, Total 6.3 - 8.0 g/dL 7.2 Albumin 3.9 - 4.9 g/dL 4.0 Calcium 8.5 - 10.2 mg/dL 9.3 Bilirubin, Total 0.2 - 1.3 mg/dL 0.5 Alkaline Phosphatase 38 - 113 U/L 63 AST 14 - 40 U/L 21 ALT 10 - 54 U/L 19 Glucose 74 - 99 mg/dL 87 BUN 9 - 24 mg/dL 13 Creatinine 0.73 - 1.22 mg/dL 0.74 Sodium 136 - 144 mmol/L 140 Potassium 3.7 - 5.1 mmol/L 3.9 Chloride 97 - 105 mmol/L 106 (H) CO2 22 - 30 mmol/L 26 Anion Gap 9 - 18 mmol/L 8 (L) eGFR >=60 mL/min/1.73m 123 TB Nil <=8.00 IU/mL 0.01 TB1 Ag minus Nil <0.35 IU/mL 0.01 TB2 Ag minus Nil <0.35 IU/mL 0.00 TB Result Negative Mitogen minus Nil >=0.50 IU/mL >9.99 TB Interpretation Infection with M. tuberculosis complex is unlikely. If latent tuberculosis infection is highly suspected, a negative result does not rule out the infection. Specimens from immunocompromised patients and those <5 years of age may show false negative results. In case of a contact investigation, please repeat 8-12 weeks after a known exposure. Hep B Surface Ab, Qual Negative Hep B Surf Ab Quant mIU/mL <8.00 CRP <0.9 mg/dL 1.0 (H) WSR 0 - 15 mm/hr 32 (H) Hep B Surface Ag Negative Negative Hep B Core Ab, Total Negative Negative No past medical history on file. PAST SURGICAL HISTORY Procedure Laterality Date COLONOSCOPY SCREENING EXTRACTION ERUPTED TOOTH/EXR TONSILLECTOMY & ADENOIDECTOMY <AGE 13 FAMILY HISTORY Problem Relation Age of Onset Colon Cancer Maternal Grandfather Social History Tobacco Use Smoking status: Former Types: Cigarettes Smokeless tobacco: Never Vaping Use Vaping status: current everyday user Substances: Nicotine Substance Use Topics Alcohol use: Yes Comment: social Drug use: Not Currently Current Outpatient Medications Medication Sig Dispense Refill predniSONE (DELTASONE) 20 mg tablet Take 20 mg by mouth once daily. methocarbamol (ROBAXIN) 500 mg tablet Take 500 mg by mouth four times daily. No current facility-administered medications for this visit. ALLERGIES No Known Allergies REVIEW OF SYSTEMS: Review of Systems: PAIN ASSESSMENT: Negative for pain, history of chronic pain, or current treatment for a chronic pain condition. GENERAL: positive for malaise new symptoms since missed the infusion HEENT: Negative for frequent or significant headaches, No changes in hearing or vision, no nose bleeds or other nasal problems NECK: Negative for goiter, pain or significant neck swelling RESPIRATORY: Negative for cough, hemoptysis, wheezing, COPD, dyspnea or shortness of breath CARDIOVASCULAR: Negative for chest pain, leg swelling, hypertension, CHF or palpitations GI: See HPI MUSCULOSKELETAL: joint pain or swelling and back pain PSYCH: Negative for sleep disturbance, mood disorder and recent psychosocial stressors. HEMATOLOGY/LYMPHOLOGY: Negative for prolonged bleeding, bruising easily or swollen nodes. ENDOCRINE: Positive for cold intolerance: NEURO: No history of headaches, syncope, paralysis, seizures or tremors The remainder of the review of systems is negative. PHYSICAL FINDINGS OF NOTE: General - Normal, healthy, cooperative, in no acute distress Able to interact verbally by video conference Psych - ORIENTATION: normal to time place, person and situation Mood/Affect: AFFECT AND MOOD: Normal Head/Neuro - Normal size and shape Facial appearance normal Pulmonary - respiratory effort normal Cardiovascular - patient describes extremities normal, warm, no cyanosis,no clubbing, and no edema Abdominal - Flat, Visible protrusions or hernias: No Incisions/scars: None, Areas of pain/tenderness: denies Skin - abnormal lesions not visualized Motor - patient seen sitting with Normal appearing strength and coordination REVIEWED ITEMS I reviewed the following available records: CTE 08/12 IMPRESSION: Normal CT enterography. Punctate nonobstructing bilateral renal calculi. ASSESSMENT/PLAN: 1. Crohn's disease without complication, unspecified gastrointestinal tract location (HCC) - ICD9: 555.9, ICD10: K50.90 diagnosed with Crohn's disease in [facility] about 3 years ago At that time, his main issues were fatigue, cold like symptoms, abdominal cramps, diarrhea 6-10 a day, rectal bleeding, nausea Had 3-4 colonoscopies since end of 2020 On inflectra every 8 weeks which was started Nov 2022 this was changed to every 6 weeks due to recurrent of symptoms by week 6 Missed his last infusion which was supposed to be on Aug 15 due to noncpliance with labs and was a no show for appointments Labs were done yesterday and all within normal Await Hep B and TB Will sign an order to resume infliximab Discussed the importance of having labs done twice a year while on biologics. Importance of compliance He showed understanding Mario Mello MD documented in this encounter [facility] 08-23-2024 Note HNO ID: [id number] Author: MARIO MELLO MD Service: ? Author Type: Physician Type: Progress Notes Filed: 08/23/2024 09:14 Note Text: VIRTUAL VISIT FOLLOW UP I had a virtual visit with Mr. Richmond today for follow up of Crohn's disease. UPDATED HISTORY: Last infliximab infusion was 8 weeks ago Was supposed to get infusion on Aug 15 This was put on hold due to lack of follow up and no labs are done for a year Baseline 1-2 bowel movements a day Currently he is having up to 6 bowel movements a day Mucous Increased gas No rectal bleeding Abdominal discomfort Low energy currently Patient got the labs done yesterday Past Clinical Work-up: 07-31-2023 ABELARDO ASSESSMENT/PLAN: 1. Crohn's disease without complication, unspecified gastrointestinal tract location (HCC) - ICD9: 555.9, ICD10: K50.90 (primary diagnosis) See above Start inflectra induction then 5mg/kg every 6 weeks if insurance approves - COMP METABOLIC PANEL - CBC + DIFF - C-REACTIVE PROTEIN (CRP) - SED RATE WESTERGREN - HEP B SURF AG SCRN - HEP B SURF AB - BLOOD TB SCREEN - HEP B CORE AB TOTAL - CT ENTEROGRAPHY W IVCON - IV CONTRAST (RADIOLOGY PROCEDURE) - ENTERIC CONTRAST (RADIOLOGY PROCEDURE) - CALPROTECTIN,FECAL - C. DIFFICILE PCR - Dermatology consult to evaluate the skin rash and for annual exam Get records from previous GI including labs and Colonoscopy with pathology Mario Mello MD [facility] CTE RESULT: GI Tract: There is good distention of most of the small bowel by oral contrast material. Small Bowel: There is no bowel dilatation or abnormal bowel wall thickening. No abnormal enhancing mucosa is seen. The terminal ileum is visualized and is normal in appearance. Colon: Colon is normal in caliber. No abnormal enhancing mucosa is seen. Strictures: No areas of stricture identified. Fistulae/Sinus Tracts: No fistula or sinus tract is identified. Abscesses: No abnormal fluid collection is identified to suggest abscess. (PT NEEDS UPDATED LABS- ORDERS ARE ACTIVE) Latest Ref Rng 07/31/2023 WBC 3.70 - 11.00 k/uL 9.93 RBC 4.20 - 6.00 m/uL 4.52 Hemoglobin 13.0 - 17.0 g/dL 12.7 (L) Hematocrit 39.0 - 51.0 % 40.5 MCV 80.0 - 100.0 fL 89.6 MCH 26.0 - 34.0 pg 28.1 MCHC 30.5 - 36.0 g/dL 31.4 RDW-CV 11.5 - 15.0 % 13.3 Platelet Count 150 - 400 k/uL 241 MPV 9.0 - 12.7 fL 11.1 Neut% % 63.7 Abs Neut (ANC) 1.45 - 7.50 k/uL 6.33 Lymph% % 23.7 Abs Lymph 1.00 - 4.00 k/uL 2.35 Audrain% % 10.1 Abs [place] <0.87 k/uL 1.00 (H) Eosin% % 1.4 Abs Eosin <0.46 k/uL 0.14 Baso% % 0.6 Abs Baso <0.11 k/uL 0.06 Immature Gran % % 0.5 IMMATURE GRANS (ABS) <0.10 k/uL 0.05 NRBC /100 WBC 0.0 Absolute nRBC <0.01 k/uL <0.01 DTYPE Auto Protein, Total 6.3 - 8.0 g/dL 7.2 Albumin 3.9 - 4.9 g/dL 4.0 Calcium 8.5 - 10.2 mg/dL 9.3 Bilirubin, Total 0.2 - 1.3 mg/dL 0.5 Alkaline Phosphatase 38 - 113 U/L 63 AST 14 - 40 U/L 21 ALT 10 - 54 U/L 19 Glucose 74 - 99 mg/dL 87 BUN 9 - 24 mg/dL 13 Creatinine 0.73 - 1.22 mg/dL 0.74 Sodium 136 - 144 mmol/L 140 Potassium 3.7 - 5.1 mmol/L 3.9 Chloride 97 - 105 mmol/L 106 (H) CO2 22 - 30 mmol/L 26 Anion Gap 9 - 18 mmol/L 8 (L) eGFR >=60 mL/min/1.73m? 123 TB Nil <=8.00 IU/mL 0.01 TB1 Ag minus Nil <0.35 IU/mL 0.01 TB2 Ag minus Nil <0.35 IU/mL 0.00 TB Result Negative Mitogen minus Nil >=0.50 IU/mL >9.99 TB Interpretation Infection with M. tuberculosis complex is unlikely. If latent tuberculosis infection is highly suspected, a negative result does not rule out the infection. Specimens from immunocompromised patients and those <5 years of age may show false negative results. In case of a contact investigation, please repeat 8-12 weeks after a known exposure. Hep B Surface Ab, Qual Negative Hep B Surf Ab Quant mIU/mL <8.00 CRP <0.9 mg/dL 1.0 (H) WSR 0 - 15 mm/hr 32 (H) Hep B Surface Ag Negative Negative Hep B Core Ab, Total Negative Negative No past medical history on file. PAST SURGICAL HISTORY Procedure Laterality Date COLONOSCOPY SCREENING EXTRACTION ERUPTED TOOTH/EXR TONSILLECTOMY AND ADENOIDECTOMY FAMILY HISTORY Problem Relation Age of Onset Colon Cancer Maternal Grandfather Social History Tobacco Use Smoking status: Former Types: Cigarettes Smokeless tobacco: Never Vaping Use Vaping status: current everyday user Substances: Nicotine Substance Use Topics Alcohol use: Yes Comment: social Drug use: Not Currently Current Outpatient Medications Medication Sig Dispense Refill predniSONE (DELTASONE) 20 mg tablet Take 20 mg by mouth once daily. methocarbamol (ROBAXIN) 500 mg tablet Take 500 mg by mouth four times daily. No current facility-administered medications for this visit. ALLERGIES No Known Allergies REVIEW OF SYSTEMS: Review of Systems: PAIN ASSESSMENT: Negative for pain, history of chronic pain, or current treatment for a chronic pain condition. GENERAL: positiv (more content not included)... [facility] 08-01-2024 Telephone encounter Note LVM for patient to contact [facility] to schedule. Thank you Haydee Smiley PSS [facility] 08-01-2024 Miscellaneous Notes LVM for patient to contact [facility] to schedule. Thank you Haydee Smiley PSS Schedulers, Pt needs scheduled with Felicia ORTIZ, Did not attend VV this morning with Dr. Mello, Pt informed needs labs completed (fax number to [facility] needed and pt stated that he will call the office with info or send via MY[facility]) And F/U OV needs completed Both criteria needs completed prior to renewing biologic, Pt non-compliant with follow up criteria to date. Eleanor Miller RN documented in this encounter [facility] 08-01-2024 Telephone encounter Note Schedulers, Pt needs scheduled with Felicia ORTIZ, Did not attend VV this morning with Dr. Mello, Pt informed needs labs completed (fax number to [facility] needed and pt stated that he will call the office with info or send via [facility]C) And F/U OV needs completed Both criteria needs completed prior to renewing biologic, Pt non-compliant with follow up criteria to date. Eleanor Miller RN [facility] 04-29-2024 Telephone encounter Note Received form/ order, Needs signed by Dr. Mello, When she returns from [facility], will send back via fax Eleanor Miller RN [facility] 04-29-2024 Miscellaneous Notes Received form/ order, Needs signed by Dr. Mello, When she returns from [employer], will send back via fax Eleanor Miller RN [facility] and were calling to confirm orders were received and requesting they be signed and faxed back to [phone]. Rep states if orders have not been received requesting a call back to [phone]. Gris Rae LPN documented in this encounter [facility] 04-29-2024 Telephone encounter Note Call received from Kina at [facility] stating they faxed over order and were calling to confirm orders were received and requesting they be signed and faxed back to [phone]. Rep states if orders have not been received requesting a call back to [phone]. Gris Rae LPN [facility] 01-04-2024 Miscellaneous Notes Pt called. He is due for his 3rd Inflectra infusion today. 2 hours ago he started having massive chills, body aches, headache, fatigue and a little difficulty breathing. Discussed with Dr. Mello. Pt to rescheduled for 1 week out and reassess. Pt notified of recommendations. Advised to call in 1 week if still having symptoms. Also advised to call his PCP. Pt verbalized understanding and agreed. Ingris Hernández, SONJA documented in this encounter [facility] 09-14-2023 Miscellaneous Notes [facility] appealing infusion denial. Letter signed and faxed back 07-11-[address] Elkin Dial Postoperative Dx- Granulomatous colitis. Path- Chronic active colitis with acute crypt abscess No dysplasia Sigmoid polyp= pseudopolyp ----- Message from Mario Mello MD sent at 08/22/2023 11:00 AM EDT ----- Hi Latrice, your CT enterography didn't show any inflammation in the small bowels or the colon No stricture No fistula No abscess Overall no active disease per this CT scan Small bilateral kidney stones Please Sana get me patient's last colonoscopy with path report to review documented in this encounter [facility] 08-18-2023 Note HNO ID: [id number] Author: Rubia Johnson RT(R) Service: Radiology Author Type: Technologist Type: Progress Notes Filed: 08/18/2023 4:14 PM Note Text: Radiology Service Progress Note PATIENT NAME: Latrice Richmond DATE OF SERVICE: August 18, 2023 TIME: 4:14 PM PATIENT IDENTITY VERIFICATION COMPLETED USING TWO (2) IDENTIFIERS: Name and Date of confirmed by patient verbally. FALL SCREENING: Has the patient had 2 falls in the last year or 1 fall with injury or currently using an Ambulatory Assistive Device (Walker, Cane, Wheelchair, Crutches, etc.)? No PATIENT GENDER DATA: Male PATIENT RELEVANT IMPLANT DATA REVIEWED: Not Applicable RADIOLOGY DEPARTMENT: CT; Exam(s) Completed: Abdomen/Pelvis PERIPHERAL IV DATA: Site assessment: Clean,Dry and Intact, Site disposition Discontinued SIGNED BY: RT Luli(R) August 18, 2023 4:14 PM [facility] 07-31-2023 History of Presen t illness Narrative Chief Compliant: Latrice Richmond, 33 year old male, presents in the office today at the request of Julio César Bynum for Crohns and IBD Flare. My final recommendations will be communicated back to the requesting physician by the way of the shared medical record, fax, or via US Mail. HPI: Latrice Richmond is a 33 year old male who presents for Crohn's disease Patient was diagnosed with Crohn's disease in [facility] about 1-2 years ago At that time, his main issues were fatigue, cold like symptoms, abdominal cramps, diarrhea 6-10 a day, rectal bleeding, nausea No weight loss Had 3-4 colonoscopies since end 2020 Last one was a year ago Patient is not sure if CD is large or small intestine or both Was initially treated with prednisone balsalazide without great improvement in his symptoms Insurance denied Humira and Entyvio and finally approved inflectra every 8 weeks which was started Nov 2022 Did great with infelctra All symptoms almost resolved Diarrhea resolved, rectal bleeding stopped, oral ulcers resolved all after the first infusion Finished the induction and once went to every 8 weeks Symptoms started recurring by week 6 Last infusion was in February Insurance required an updated office visit but he couldn't get in to see his GI on time Previous OV Previous Procedures: Previous Imaging: ALLERGIES Not on File No prescriptions on file. HISTORIES: No family history on file. No past medical history on file. No past surgical history on file. REVIEW OF SYSTEMS: General:Fatigue Respiratory: Negative for cough, hemoptysis, wheezing or shortness of breath Cardiovascular: Negative for chest pain, leg swelling or palpitations Gastrointestinal: See HPI Genitourinary: No history of dysuria, frequency or incontinence Musculoskeletal: Negative for joint pain or swelling, back pain or muscle pain Neurologic:Negative for focal numbness or weakness, headaches and dizziness or syncope. Skin:erythematous skin rash on face and scalp Psychiatric: Negative for sleep disturbance, mood disorder and recent psychosocial stressors. Hematologic/Lymph:Negative for prolonged bleeding, bruising easily or swollen nodes Endocrine: Negative for cold or heat intolerance, polyuria, polydipsia and goiter PHYSICAL EXAMINATION: There were no vitals taken for this visit. General appearance: Well appearing, alert, in no acute distress, well-hydrated, well nourished. Skin: Skin color, texture, turgor normal, no suspicious rashes or lesions Head: Normocephalic, no masses, lesions, tenderness or abnormalities Eyes: Anicteric sclera. Pupils are equally round and reactive to light. Extraocular movements are intact. Ears: External ears normal, canals clear Nose/Sinuses: Nares normal, septum midline, mucosa normal, no drainage or sinus tenderness Neck: Supple, no adenopathy; thyroid symmetric, normal size, no bruits Lungs: Lungs clear to auscultation. No wheezing, rhonchi, rales Heart: RRR without murmur, gallop, or rubs. No ectopy Abdomen: Normal abdominal exam, Abdomen soft, non-tender. Bowel sounds normal. No masses, organomegaly Extremities: No deformities, edema, skin discoloration, clubbing or cyanosis. Good capillary refill. Musculoskeletal: Negative Neuro: Negative. ASSESSMENT/PLAN: 1. Crohn's disease without complication, unspecified gastrointestinal tract location (HCC) - ICD9: 555.9, ICD10: K50.90 (primary diagnosis) See above Start inflectra induction then 5mg/kg every 6 weeks if insurance approves - COMP METABOLIC PANEL - CBC + DIFF - C-REACTIVE PROTEIN (CRP) - SED RATE WESTERGREN - HEP B SURF AG SCRN - HEP B SURF AB - BLOOD TB SCREEN - HEP B CORE AB TOTAL - CT ENTEROGRAPHY W IVCON - IV CONTRAST (RADIOLOGY PROCEDURE) - ENTERIC CONTRAST (RADIOLOGY PROCEDURE) - CALPROTECTIN,FECAL - C. DIFFICILE PCR - Dermatology consult to evaluate the skin rash and for annual exam Get records from previous GI including labs and Colonoscopy with pathology Mario Mello MD Follow Up: No follow-ups on file. documented in this encounter [facility] 07-03-2023 Miscellaneous Notes LVM to call to reschedule O/V with Dr. Mello that was cx'd on 08/21/2023. There are slots on hold for 08/07/23 1 José Miguel Hampton documented in this encounter [facility] 05-04-2023 Evaluation note Encounter Date Diagnosis Assessment Notes Apr, Colitis (ICD-10 - K52.9) Pt is currently on entyvio and will change to every 6 weeks to help control flare up, he is having bouts of diarrhea wiht blood labs ordered today [employer] [facility] Encounter Date Diagnosis Assessment Notes Treatment Notes Treatment Clinical Notes May, Abdominal pain (ICD-10 - R10.9) May, Rectal bleeding (ICD-10 - K62.5) May, Diarrhea (ICD-10 - R19.7) [employer] Other 04-14-2022 Evaluation note* Encounter Date Diagnosis Assessment Notes Treatment Notes Treatment Clinical Notes Feb, Colitis (ICD-10 - K52.9) Obtain images from colonoscopy performed by Dr. 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 POSTOPERATIVE DIAGNOSIS: Mild, diffuse colitis with small serrations throughout the colon. No bleeding. There was rectal sparing. PROCEDURE: Colonoscopy to cecum with multiple biopsies of the ascending, transverse, descending and sigmoid colon. ESTIMATED BLOOD LOSS: Less than 1 mL. INDICATIONS AND CONSENT: The patient is a 31-year-old male with history of bowel changes with frequent loose stools and some abdominal cramping as well as intermittent rectal bleeding. Indications, risks, benefits and alternatives of colonoscopy were explained, the risk of bleeding, colon perforation and anesthetic complications and all his questions were answered and informed consent obtained. PROCEDURE: The patient was brought to the operating room and placed in the left lateral decubitus position. Anesthesia was provided. Rectal exam was done with no masses or blood. The scope was then inserted into the anal canal under direct visualization and advanced with the aid of abdominal compression and advanced to the cecum. The cecum markings were clearly identified. There was noted to be good prep. upon withdrawal of the scope, mucosal surfaces were carefully examined. Within the ascending colon there was noted to be some small ulcerations, and also throughout the colon. Some were just small punctate dots. Multiple biopsies were obtained. These were noted diffusely throughout the colon with no significant rectal involvement. Multiple biopsies were obtained throughout the colon with cold biopsy forceps with good hemostasis. No mass, lesions or polyps. No significant diverticulosis. The scope was retroflexed in the anal canal, revealing some prominent rectal veins, no significant hemorrhoidal disease. The scope was then withdrawn. The patient tolerated the procedure well and was sent to the recovery room in good condition. CC: Family physician Electronically Authenticated and Edited by: Matt Claudio MD on 12/15/2021 06:03 PM [facility] Signed and Approved by: DR MATT CLAUDIO . 12/15/2021 18:03:00[facility]01-04-2022 NoteChief Complaint consultation for diarrhea HPI Staff 31 year old male presents on consultation from Dr. Bynum for diarrhea with mucus and blood for 1-2 years. Prescribed Xifaxan with decreased frequency of stools, not currently taking this. Stool is formed at this time but concerned that it is flat in shape. Intermittent rectal pain. Intermittent nausea, no vomiting. Never had stools studies. No previous colonoscopy. No family history of colon cancer. History of Present Illness 31 [address] male referred by Dr Bynum for rectal bleeding, change in bowel habits; 2 year h/o bowel problems, was loose up to 5 x /day, diagnosed as IBS; trial of Xifaxan with improvement in loose stools; now with decreased caliber of stools, episode of dark blood and clots with bm, intermittent episodes of hematochezia, usually once per week, no triggering events; no N/V; no abdominal pain or wt loss; no previous colonoscopy or abdominal operations; no asa, takes Naprosyn prn; no fmhx of GI malignancyor IBD. Review of Systems PHQ Score Initial Depression Screen Score: 0 ROS - Provider Constitutional: no fever, no sweats, no weight loss. Eyes: no glasses, no blurred vision, no visual loss. ENMT: no dentures, no hoarseness, no swallowing difficulties, no hearing loss, no ear infection(s),no nose bleeds. Cardiovascular: normal blood pressure, no chest pain, regular heartbeat, no heart murmur. Respiratory: no shortness of breath, no cough, no asthma, no wheezing. Gastrointestinal: no nausea, no vomiting, no diarrhea, no constipation, yes blood in stool, yes change in bowel habits, no abdominal pain, no hepatitis. Genitourinary: no kidney stones, no urine infection, no dysuria. Musculoskeletal: no pain, no weakness. Skin: no changing moles, no rash, no skin lumps. Neurologic: no seizures, no epilepsy, no headache. Psychiatric: no emotional or psychiatric problem. Heme/Lymph: no bleeding problems, no anemia, no blood clots, no transfusions. Allergy/Immunologic: no swollen lymph nodes/glands, no IV drug abuse. Other: Additional ROS info: Except as noted in the above Review of Systems and in the History of Present Illness, all other systems have been reviewed and are negative or noncontributory. Physical Exam Vitals & Measurements T: 36.7 ?C(Temporal Artery) HR: 76(Peripheral) RR: 16 BP: 112/70 HT: 185.42 cm HT: 185.4 cm WT: 138.9 kg WT: 138.9 kg BMI: 40.4 HEENT: normal conjunctiva, sclera clear, no scleral icterus, EOM intact, PERRLA, oral mucosa moist without lesions. Neck: trachea midline, no mass, symmetric, no thyromegaly or nodules, no adenopathy Respiratory: lungs CTA, respirations non labored. Cardiovascular: regular rate and rhythm, no murmur, no pedal edema or varicosities. Gastrointestinal: obese, soft, non distended, no tenderness, no masses, no palpable hernias, diastasis recti no, no hepatosplenomegaly; normal bs Lymphatic: no cervical adenopathy, Musculoskeletal: normal gait, digits and nails without infection, nodes, cyanosis, clubbing. Skin: no rashes, no lesions, no ulcers, no subcutaneous nodules, induration. Psychiatric/Neuro: oriented to time, place, person, judgement normal, affect appropriate for age, insight intact, no focal deficits. Tests: review of old records completed, Discussed surgical options, risks, and possible complications with patient. Assessment/Plan 1. Hematochezia (K92.1: Melena) plan colonoscopy under anesthesia for further evaluation, informed consent obtained. 2. Change in bowel habits (R19.4: Change in bowel habit) see # 1 3. Rectal bleeding (K62.5: Hemorrhage of anus and rectum) see # 1 4. BMI 40.0-44.9, adult (Z68.41: Body mass index [BMI] 40.0-44.9, adult) recommend diet and exercise Follow-up No qualifying data available Problem List/Past Medical History Ongoing BMI 40.0-44.9, adult Change in bowel habits Hematochezia Irritable bowel syndrome with diarrhea Lumbar disc herniation Rectal bleeding Historical No qualifying data Procedure/Surgical History Extraction of wisdom tooth, Tonsillectomy and adenoidectomy, Wedge resection of ingrown toenail. Medications Naprosyn 500 mg Tab, 500 mg= 1 tab(s), Oral, BID, PRN Allergies HYDROcodone (Stomach upset) Social History Alcohol Current, Beer, 1-2 times per week, 11/23/2021 Substance Abuse - Denies Substance Abuse, 11/23/2021 Tobacco Former smoker, quit more than 30 days ago Tobacco Use:. Smokeless tobacco user within last 30 days Smokeless Tobacco Use:. Cigarettes, Vaping, Started age 16.0 Years., 11/23/2021 Family History Bipolar: Sister. Hypertension: Mother. Irritable bowel syndrome: Mother.[facility]: Result Comment: Electronically Signed By: IMANI SEARS, Matt Umanzor.albin\Date and Time Signed: 11/23/21 16:23 ESTEvaluation noteNo InformationNosaint francis hospital & [facility] [employer] Other Evaluation note* Diagnosis Onset Date Resolution Status Colitis acute [facility] Work Phone: Evaluation note* Diagnosis Crohn's disease without complication, unspecified gastrointestinal tract location (HCC)- Primary Crohn's disease with complication, unspecified gastrointestinal tract location (HCC) documented in this encounter [facility] noteNo assessment information [facility] Work Phone: Evaluation note* Diagnosis Crohn's disease without complication, unspecified gastrointestinal tract location (HCC)- Primary [facility] Crohn's disease without complication, unspecified gastrointestinal tract location (HCC)- Primary documented in this encounter [facility] general Narrative - Reported* Type Description Date Surgical History wisdom teeth extraction Surgical History ingrown toe nail removal [employer] Other Summary Purpose Family History No Family History Records Found Relationship Condition Age at Onset Recorded Date/T tamia Not Specified Seizures Unknown Migraine headache Unknown Advance Directives No Advanced Directives Records Found Advance Directive Response Recorded Date/ Time Advance Directives No July 06, 2022 4:19pm Chief Complaint and Reason for Visit Chief Complaint Abdominal Pain, Diar diana, Rectal Pain Abdominal Pain, Diarrhea, Rectal Pain Reason for Visit Colitis Reason for Referral Specialty Diagnoses / Procedures Referred By Linda william Referred To Contact Dermatology Diagnoses Crohn's disease without complication, unspecified gastrointestinal tract location (HCC) Procedures [place] [address] [place] [address] Referral ID Status Reason Start Date Expiration Date Visits Requested Visits Authorized [id number] Ref Not Required PCP Requested Referral 07/31/2023 07/30/2024 1 1 Specialty Diagnoses / Procedures Referred By Linda william Referred To Contact CT IMAGING Diagnoses Crohn's disease without complication, unspecified gastrointestinal tract location (HCC) Crohn's disease with complication, unspecified gastrointestinal tract location (HCC) Procedures CT ENTEROGRAPHY W IVCON CT ABD & PEL[place] [address] [place] [address] Ct Imaging [facility] Referral ID Status Reason Start Date Expiration Date Visits Requested Visits Authorized [id number] Authorized Auto-Generat ed Referral 07/31/2023 08/29/2024 1 1 Additional Source Comments (unrecognized sect ion and content) No Status Records FoundNo Status Records FoundNo Status Records FoundNo Status Records FoundNo Status Records Found INFORMATION SOURCE (unrecogn ized section and content) DATE CREATED AUTHOR [facility]/20[facility] DATE CREATED AUTHOR 'S ORGANIZ ATION 10/02/2022 [facility] DATE CREATED AUTHOR AUTHOR'S ORGANIZ ATION 08/12/2023 [facility] DATE CREATED AUTHOR AUTHOR'S ORGANIZ ATION 08/25/2023 [facility] DATE CREATED AUTHOR AUTHOR'S ORGANIZ ATION 06/18/2025 [facility] REASON FOR VISIT (unrecogniz ed section and content) Reason Comments Appointment Reason Comments Crohns IBD Flare Reason Comments Results Specialty Diagnoses / Procedures Referred By Contac t Referred To Contact CT IMAGING Diagnoses Crohn's disease without complication, unspecified gastrointestinal tract location (HCC) Crohn's disease with complication, unspecified gastrointestinal tract location (HCC) Procedures CT ENTEROGRAPHY W IVCON CT ABD & PELVIS W/[place] [address] [place] [address] [place] [address] Referral ID Status Reason Start Date Expiration Date V isits Requested Visits Authorized [id number] Closed Auto-Generate d Referral 07/31/2023 08/29/2024 1 1 Reason Comments Patient Update Pt needs to reschedu le Inflectra infusion for one week out Reason Comments Recheck Reason Comments Orders Reason Comments Orders Inflectra renewal an d SHANTI Kit Care Teams (unrecognized sec tion and content) Team Status: Inactive Member Role Status Elkin Dial MD Attending Provider Active Julio César Bynum MD Primary Care Provider Active Team Status: Active Member Role Status Dates Julio César Bynum MD Primary Care Provider Active Visual Designer Relationship Specialty Start Date End Date Julio César Bynum MD [address] [place] [address] PCP - General Family Medicine 05/02/23 Visual Designer Relationship Specialty Start Date End Date Julio César Bynum MD [address] [place] [address] PCP - General Family Medicine 05/02/23 Visual Designer Relationship Specialty Start Date End Date Julio César Bynum MD [address] [place] [address] PCP - General Family Medicine 05/02/23 Team Status: Inactive Member Role Status Dates Mario Mello MD Attending Provider Active Visual Designer Relationship Specialty Start Date End Date Julio César Bynum MD [address] [facility] [place] [address] PCP - General Family Medicine 05/02/23 Visual Designer Relationship Specialty Start Date End Date Julio César Bynum MD [address] [facility] [place] [address] PCP - General Family Medicine 05/02/23 Visual Designer Relationship Specialty Start Date End Date Julio César Bynum MD [address] [place] [address] PCP - General Family Medicine 05/02/23 Visual Designer Relationship Specialty Start Date End Date Julio César Bynum MD [address] [place] [facility] [place] [address] PCP - General Family Medicine 05/02/23 Visual Designer Relationship Specialty Start Date End Date Julio César Bynum MD [address] [place] [facility] [place] [address] PCP - General Family Medicine 05/02/23 Visual Designer Relationship Specialty Start Date End Date Julio César Bynum MD [address] [place] [facility] [place] [address] PCP - General Family Medicine 05/02/23 Visual Designer Relationship Specialty Start Date End Date Julio César Bynum MD [address] [place] [address] PCP - General Family Medicine 05/02/23 Source Comments (unrecognize d section and content) In the event this informatio n is protected by the Federal Confidentiality of Alcohol and Drug Abuse Patient Records regulations: The Federal rules restrict any use of the information to criminally investigate or prosecute any alcohol or drug abuse patient.[facility] the event this information is protected by the Federal Confidentiality of Alcohol and Drug Abuse Patient Records regulations: The Federal rules restrict any use of the information to criminally investigate or prosecute any alcohol or drug abuse patient.[facility] the event this information is protected by the Federal Confidentiality of Alcohol and Drug Abuse Patient Records regulations: The Federal rules restrict any use of the information to criminally investigate or prosecute any alcohol or drug abuse patient.[facility] the event this information is protected by the Federal Confidentiality of Alcohol and Drug Abuse Patient Records regulations: The Federal rules restrict any use of the information to criminally investigate or prosecute any alcohol or drug abuse patient.[facility] Hospital[facility] the event this information is protected by the Federal Confidentiality of Alcohol and Drug Abuse Patient Records regulations: The Federal rules restrict any use of the information to criminally investigate or prosecute any alcohol or drug abuse patient.[facility] Hospital[facility] the event this information is protected by the Federal Confidentiality of Alcohol and Drug Abuse Patient Records regulations: The Federal rules restrict any use of the information to criminally investigate or prosecute any alcohol or drug abuse patient.[facility] Hospital[facility] the event this information is protected by the Federal Confidentiality of Alcohol and Drug Abuse Patient Records regulations: The Federal rules restrict any use of the information to criminally investigate or prosecute any alcohol or drug abuse patient.[facility] Hospital[facility] the event this information is protected by the Federal Confidentiality of Alcohol and Drug Abuse Patient Records regulations: The Federal rules restrict any use of the information to criminally investigate or prosecute any alcohol or drug abuse patient.[facility] Hospital[facility] the event this information is protected by the Federal Confidentiality of Alcohol and Drug Abuse Patient Records regulations: The Federal rules restrict any use of the information to criminally investigate or prosecute any alcohol or drug abuse patient.[facility] Hospital[facility] the event this information is protected by the Federal Confidentiality of Alcohol and Drug Abuse Patient Records regulations: The Federal rules restrict any use of the information to criminally investigate or prosecute any alcohol or drug abuse patient.[facility] Hospital[facility] the event this information is protected by the Federal Confidentiality of Alcohol and Drug Abuse Patient Records regulations: The Federal rules restrict any use of the information to criminally investigate or prosecute any alcohol or drug abuse patient.[facility] Hospital[facility] the event this information is protected by the Federal Confidentiality of Alcohol and Drug Abuse Patient Records regulations: The Federal rules restrict any use of the information to criminally investigate or prosecute any alcohol or drug abuse patient.[facility] Goals (unrecognized section and content) Goals may be documented in a n alternate section FOR RECORDS PERTAINING TO PATIENTS WHO ARE OR HAVE BEEN ENROLLED IN A CHEMICAL DEPENDENCY/SUBSTANCEABUSE PROGRAM, SOME INFORMATION MAY BE OMITTED. This clinical summary was aggregated from multiple sources. Caution should be exercised in using it in the provision of clinical care. This summary normalizes information from multiple sources, and as a consequence, information in this document may materially change the coding, format and clinical context of patient data. In addition, data may be omitted in some cases. CLINICAL DECISIONS SHOULD BE BASED ON THE PRIMARY CLINICAL RECORDS. [facility]. provides no warranty or guarantee of the accuracy or completeness of information in this document.
--- OUTSIDE RECORDS SUMMARY | 2025-06-21 06:52 | XMS_ITS | Clinical Summary ---
Author Organization [facility] Address [address] [place] [address] Care Team Providers Care Business Analysis Professional Name Role Phone Celestine Bynum MD Primary Care Provider [phone] Allergies No known active allergies Medications predniSONE (DELTASONE) 20 mg tablet Take 20 mg by mouth once daily. Active methocarbamol (ROBAXIN) 500 mg tablet Take 500 mg by mouth four times daily. Active Active Problems No known active problems Encounters Date Type Department Care Team Description 06/12/2025 Telephone Gastroenterology [address] [place] [address] Cassie Mello MD Orders (Inflectra renewal and SHANTI Kit) 06/06/2025 Patient Msg HOSP MAIN H060 [address] [place] [address] Provider, [facility]cf Sign up to manage your digestive symptoms in between visits, covered by insurance 05/02/2025 Telephone [facility] C [address] [place] [id number] Cassie Mello MD from Last 3 Months [...] National Score (1-100), lower number is [facility] 64 07/31/2023 State Score (1-10), lower number is lower risk 4 07/31/2023 Data from: https://[email or web address] Last address used for calculation [address] [...] B Vaccine Completed 11/15/2007, 06/15/2007, 05/11/2007 Insurance [facility] Care Teams Business Analysis Professional Relationship Specialty Start Date End Date Celestine Bynum MD [address] [place] [address] PCP - General Family Medicine 05/02/23
--- OUTSIDE RECORDS SUMMARY | 2025-06-21 06:52 | XMS_ITS | Clinical Summary ---
Author Organization [facility] Address [id number] [address] [place] [address] Care Team Providers Care Library Page Name Role Phone Celestine Bynum MD Primary Care Provider [phone] Allergies Active Allergy Reactions Criticality Noted Date [...] file Medical Devices Not on file Insurance [facility] Care Teams Library Page Relationship Specialty Start Date End Date Celestine Bynum MD PCP - General Family Medicine 03/11/21
[2025-06-24 08:08] LABS: Calprotectin, Fecal 59 ug/g (0-120)
== END 2025-06-20 18:17 | disposition home or self-care (01) ==
LOC: LAB 18:16
PROVIDERS: PCP Family Medicine
DX: K50.90 Crohn's disease, unspecified, without complications (principal)
CPT/HCPCS: 83993; 87493

== ENCOUNTER 2025-06-23 09:10 | Outpatient (OUT) | payer OTHER, SELFPAY ==
--- OUTSIDE RECORDS SUMMARY | 2025-06-23 09:12 | XMS_ITS | Encounter Summary ---
Author Organization [facility] Address [address] [place], [place] [id number] Care Team Providers Care Clothespin Drier Operator Name Role Phone Celestine Bynum MD Primary Care Provider [phone] Source Comments In the event this information is protected by the Federal Confidentiality of Alcohol and Drug AbusePatient Records regulations: The Federal rules restrict any use of the information to criminally investigate or prosecute any alcohol or drug abuse patient.[facility] Reason for Visit * Reason Comments Orders Inflectra renewal an d SHANTI Kit Encounter Details Date Type Department Care Team (Late Contact Info) Description 06/12/2025 Telephone Gastroenterology [address] [place] [address] [place] [address] [place] [phone] Orders (Inflectra renewal and SHANTI Kit) Social [...] risk 4 07/31/2023 Data from: https://www.neighborhoodatlas.medicine.[facility]/. Last address used for calculation [address] [...] signed by Dr. Mello and faxed to [facility]. Ingris Hernández RN * Telephone Encounter - Ana Dinh LPN - 06/19/2025 3:46 PM EDT Bonnie CASILLAS from [facility] calling regarding SHANTI kit orders. Bonnie states SHANTI orders were faxed to the office a few days ago. Patient is scheduled to have infusion on Saturday 06/23. Bonnie CASILLAS states if SHANTI orders are not received by tomorrow patient will need to be cancelled for Mondays infusion. Bonnie CASILLAS will refax SHANTI kit orders to the office today. Bonnie CASILLAS # [phone] Fax # [phone] Please see Ingris CASILLAS message from 06/12/25. [...] Lab results received via fax from [facility] DOS 06-13-25 Dr. Mello please review and [...] 9:14 AM EDT Lab Requisites faxed to [phone] [facility] per pt request. Confirmation fax received. Thanks, [...] yesterday evening, Will complete and fax to [facility], Explained to rep yesterday that this would need completed/ prescriber signature- and pt has incomplete labs. Dr. Mello, Please review and sign labs for TB hep, Other labs active. Thanks, Eleanor Fofana RN * Telephone Encounter - Ingris Hernández RN - 06/12/2025 12:04 PM EDT Beth Small from [facility] is calling. She would like to know if orders were received for Inflectra renewal and SHANTI Kit. She needs the orders faxed back to [phone]. Please call her back at [phone]. Thank you, Ingris Hernández, RN documented in [...] Primary documented in this encounter Care Teams Clothespin Drier Operator Relationship Specialty Start Date End Date Celestine Bynum MD [address] [place] [address] PCP - General Family Medicine 05/02/23 documented as of this encounter
--- OUTSIDE RECORDS SUMMARY | 2025-06-23 09:12 | XMS_ITS | Clinical Summary ---
Author Organization [facility] Address [address] [place] [address] Care Team Providers Care Algologist Name Role Phone Celestine Bynum MD Primary Care Provider [phone] Allergies No known active allergies Medications predniSONE (DELTASONE) 20 mg tablet Take 20 mg by mouth once daily. Active methocarbamol (ROBAXIN) 500 mg tablet Take 500 mg by mouth four times daily. Active Active Problems No known active problems Encounters Date Type Department Care Team Description 06/12/2025 Telephone Gastroenterology [address] [place] [address] Cassie Mello MD Orders (Inflectra renewal and SHANTI Kit) 06/06/2025 Patient Msg HOSP MAIN H060 [address] [place] [address] Provider, [facility] Sign up to manage your digestive symptoms in between visits, covered by insurance 05/02/2025 Telephone [facility] [address] [place] [id number] Cassie Mello MD from Last 3 Months [...] National Score (1-100), lower number is lower [facility] 64 07/31/2023 State Score (1-10), lower number is lower risk 4 07/31/2023 Data from: https://www.neighborhoodatlas.medicine.[facility].edu/. Last address used for calculation [...] B Vaccine Completed 11/15/2007, 06/15/2007, 05/11/2007 Insurance [facility] Care Teams Algologist Relationship Specialty Start Date End Date Celestine Bynum MD [address] [place] [address] PCP - General Family Medicine 05/02/23
--- OUTSIDE RECORDS SUMMARY | 2025-06-23 09:12 | XMS_ITS | Encounter Summary ---
Author Organization [facility] Address [address] [place], [place] [id number] Care Team Providers Care Warehouse Shipper Name Role Phone Celestine Bynum MD Primary Care Provider [phone] Source Comments In the event this information is protected by the Federal Confidentiality of Alcohol and Drug AbusePatient Records regulations: The Federal rules restrict any use of the information to criminally investigate or prosecute any alcohol or drug abuse patient.[facility] Encounter Details Date Type Department Care Team (Late st Contact Info) Description 01/21/2024 Get Medical Advice Gastroenterology [address] [place] [address] [place] [address] [place] [phone] Persistent Chron s symptoms Social History Tobacco [...] is lower risk 4 07/31/2023 Data from: https://www.neighborhoodatlas.medicine.[facility].edu/. Last address used for calculation [address] [...] on filedocumented in this encounter Care Teams Warehouse Shipper Relationship Specialty Start Date End Date Celestine Bynum MD [address] [place] [id number] PCP - General Family Medicine 05/02/23 documented as of this encounter
--- OUTSIDE RECORDS SUMMARY | 2025-06-23 09:12 | XMS_ITS | Clinical Summary ---
Author Organization [employer] [facility] [employer] Address [id number] [address] [place] [address] Care Team Providers Care Seismograph Computer Name Role Phone Celestine Bynum MD Primary Care Provider [phone] Allergies Active Allergy Reactions Criticality Noted Date [...] file Medical Devices Not on file Insurance [facility] Care Teams Seismograph Computer Relationship Specialty Start Date End Date Celestine Bynum MD PCP - General Family Medicine 03/11/21
== END 2025-06-23 09:11 | disposition home or self-care (01) ==
LOC: LAB 09:10
PROVIDERS: PCP Family Medicine
DX: K50.90 Crohn's disease, unspecified, without complications (principal)
CPT/HCPCS: 36415; 80230; 82397

== ENCOUNTER 2025-09-19 17:07 | Emergency (ER) | payer OTHER, SELFPAY ==
[2025-09-19 17:14] VITALS: BP 115/66; PULSE 84; TEMP 37.2; O2SAT 96; BMI 48.8
--- OUTSIDE RECORDS SUMMARY | 2025-09-19 17:53 | XMS_ITS | CCD ---
Author Organization [facility]ini[facility] Care Team Providers Care Chief I Dispatcher Name Role Phone [place] Unavailable MD El[place] Attending Provider [phone] MD Julio César Esqueda Primary Care Provider [phone] IMANI, DR GUTIERREZ Attending Unavailable NILL, DR GUTIERREZ Admitting Unavailable LENNY ESQUIVEL Consulting Unavailable LENNY ESQUIVEL Attending Unavailable LENNY [...] DR ANGELA Attending Unavailable YIN, DR ANGELA Admpushpa Unavailable ZIEBER, DR MONO Pereyra Consulting Unavailable [...] DR Des Pereyra Admitting Unavailable Julio César Esqueda MD Primary Care Provider [phone] MD Mario Manuel Attending Provider [phone] Mario Manuel Attending Unavailable Mario Manuel Admitting Unavailable NO FAMILY, PHYSICIAN Primary Care Unavailable Julio César Esqueda MD Primary Care Provider [phone] JULIO CÉSAR ESQUEDA Primary Care Unavailable MARIO MANUEL Referring Unavailable NO FAMILY, PHYSICIAN Primary Care Provider Unava Amy Jones APRN Attending Provider MARIO MANUEL Referring Unavailable JULIO CÉSAR ESQUEDA Primary Care Unavailable LORENA WILKES Referring Unavailable JULIO CÉSAR ESQUEDA Primary Care Unavailable JULIO CÉSAR ESQUEDA Primary Care Unavailable LORENA WILKES Attending Unavailable JULIO CÉSAR ESQUEDA Primary Care Unavailable Allergies Allergy ClassificationReported Allergen(s)Allergy TypeDate of OnsetReaction(s) Facility (6 sources)Acetaminophen / HYDROcodoneDrug AllergyCommunity Hospital [facility] Other (3 sources)HYDROcodoneDrug Pkpbodg24-87-6455shojgbqReg[facility] Rep[facility] (1 source)AcetaminophenDrug Vwjsmfa87-91-4156euhiwlbOur Lady of [facility] Medications Current Medications MedicationDrug Class(es)DatesSig (Normalized)Sig (Original)[id number] 200 actuat albuterol 0.09 mg/actuat metered dose inhaler (1 source)beta2-Adrenergic AgonistStart: 28-62-2029stny 1 puff(s) by inhalation every four hours as needed for wheezingAlbuterol Sulfate 90 mcg/actuation HFA aerosol inhaler Active 2 PUFF INHALATION Every 4 hours as needed for shortness of breath or wheezing 6.7 August 26, 2025 12:00am Complies with drug therapy amoxicillin 875 mg / clavulanate 125 mg oral tablet (1 source)Penicillin-class AntibacterialStart: 72-68-7642dpzp 1 tablet by mouth every twelve hoursAmoxicillin-Pot Clavulanate 875-125 mg tablet Active 1 TAB PO Every 12 hours 14 August 26, 2025 12:00am Complies with drug therapy calcium/magnesium/vit B comp (BPRNIEX-QUMFXOCPN-V COMPLEX ORAL) (5 sources)calcium/magnesium/vit B comp (VKTPROQ-AULYRVYIE-X COMPLEX ORAL) Take by mouth. Activeenteric contrast (will be provided with radiology test) (1 source)Start: 07-31-2023 End: 49-32-7567znqyrni contrast (will be provided with radiology test) Indications: Crohn's disease without complication, unspecified gastrointestinal tract location (HCC) For CT ENTEROGRAPHY W IVCON order Administer, As Directed One Time Only, via Oral, Rectal, both Oral and Rectal, Enteric Tube, Stoma or Indwelling Catheter, Enteric Contrast as designated per enteric contrast guidelines. 1 Each 0 07/31/2023 08/01/2023 ActiveComment on above:For CT ENTEROGRAPHY W IVCON order Administer, As Directed One Time Only, via Oral, Rectal, both Oral and Rectal, Enteric Tube, Stoma or Indwelling Catheter, Enteric Contrast as designated per entericcontrast guidelines.inFLIXimab-dyyb 100 mg injection (6 sources)Tumor Necrosis Factor BlockerStart: 04-12-6837Xjmzsodama-Dyyb (Inflectra) 100 mg recon soln Active IV August 26, 2025 12:00am Complies with drug therapyinFLIXimab-dyyb (INFLECTRA) 100 mg injection Inject intravenously. Activeiv contrast (will be provided with radiology test) (1 source)Start: 07-31-2023 End: 75-42-5754bh contrast (will be provided with radiology test) Indications: Crohn's disease without complication, unspecified gastrointestinal tract location (HCC) CT Enterography W Inject, intravenously, once for 1 dose.No IV access, insert saline lock prior to the beginning of sedation, infusion, injection of imaging exam. Discontinue saline lock post exam. If Pt. has a central line or IVAD, may access foradministration according to line specific nursing protocol. Once exam is complete flush line and de-access according to line specific nursing protocol in the CT contrast administration guidelines link . 1 Each 0 07/31/2023 08/01/2023 ActiveComment on above:CT Enterography W Inject, intravenously, once for 1 [...] protocol in the CT contrast administration guidelines link.Multivitamin preparation (6 sources)Multivitamin Activepolyethylene glycol 3350 952187 mg / potassium chloride 2970 mg / sodium bicarbonate 6740 mg / sodium chloride 5860 mg / sodium sulfate 20563 mg powder for oral solution (5 sources)Osmotic LaxativeStart: 25-92-2063kaw 3350-Electrolytes (GOLYTELY) 236-22.74-6.74 -5.86 gram suspension Refer to printed prep instructions from your provider. 4000 mL 07/09/2025 Active Completed/Discontinued Medications MedicationDrug Class(es)DatesSig (Normalized)Sig (Original)acetaminophen 325 mg / oxyCODONE hydrochloride 5 mg oral tablet (4 sources)Opioid AgonistStart: 07-11-2022 End: 35-14-3444xtdz 1 tablet by mouth every six hours as needed for pain Oxycodone-Acetaminophen 5-325 mg tablet Discontinued 1 TAB PO Q6H as needed for Pain July 11, 2022 12:00am December 04, 2024 7:48pmStart: 56-58-0791kuuq 1 tablet by mouth every six hoursOxycodone-Acetaminophen Active 1 TAB PO Q6H July 11, 2022 12:00amamoxicillin 500 mg oral tablet (1 source)Penicillin-class AntibacterialStart: 12-04-2024 End: 20-99-5790yumm 1 tablet by mouth three times dailyAmoxicillin 500 mg tablet Discontinued 500 MG PO Three times daily 09 06December 04, 2024 1:00am August 26, 2025 1:49pmbalsalazide disodium 750 mg oral capsule (10 sources)AminosalicylateStart: 07-11-2022 End: 40-21-0738rnky 1 capsule by mouth three times dailyBalsalazide 750 mg capsule Discontinued 2250 MG PO Three times daily July 11, 2022 12:00am August 26, 2025 1:56pmStart: 15-45-4678mfyd 2250 mg by mouth three times daily Balsalazide Active 2250 MG PO Three times daily July 11, 2022 12:00amStart: 30-24-4478cjtz 2250 mg by mouth three times dailyBalsalazide Active 2250 MG PO Three times daily July 11, 2022 12:00amStart: 80-67-8977cppn 3 capsules by mouth every eight hoursBalsalazide Disodium 750 MG 3 capsules Orally tid for 30 day(s) Feb, Activeciprofloxacin 2 mg/ml / hydrocortisone 10 mg/ml otic suspension (1 source)Corticosteroid, Quinolone AntimicrobialStart: 12-04-2024 End: 65-54-3910Oimlejznzkiem-Hydrocortisone 0.2-1 % drops,suspension Discontinued 3 DROPS OTIC Twice daily 08 26December 04, 2024 1:00am August 26, 2025 1:49pm left eardicyclomine hydrochloride 20 mg oral tablet (8 sources)AnticholinergicStart: 07-11-2022 End: 96-70-3396jgap 1 tablet by mouth four times daily as needed for pain Dicyclomine 20 mg tablet Discontinued 20 MG PO Four times daily as needed for Pain July 11, 2022 12:00am December 04, 2024 7:47pmStart: 76-63-1270gkzm 20 mg by mouth four times dailyDicyclomine Active 20 MG PO Four times daily July 11, 2022 12:00amStart: 87-45-1170oziv 20 mg by mouth four times daily Dicyclomine Active 20 MG PO Four times daily 120 July 11, 2022 12:00am hydrocortisone acetate 25 mg rectal suppository (3 sources)CorticosteroidStart: 49-36-1496Tqyttxaumtfknb Acetate 25 MG 1 suppository Rectal Twice a day for 14 day(s) Jun, Not-Taking hydrocortisone acetate 10 mg/ml / pramoxine hydrochloride 10 mg/ml rectal cream (2 sources)CorticosteroidStart: 79-17-3132Reblibsy-HC 1-1 % 1 application Externally two times a day for 14 days Jul, Not-Takingmethocarbamol 750 mg oral tablet (20 sources)Muscle RelaxantStart: 07-11-2022 End: 70-90-9466gjwb 1 tablet by mouth once dailyMethocarbamol 750 mg tablet Discontinued 750 MG PO Daily July 11, 2022 12:00am December 04, 2024 7:48pm Start: 45-17-1735lnjs 750 mg by mouth once dailyMethocarbamol Active 750 MG PO Daily July 11, 2022 12:00amtake 1 tablet by mouth four times daily methocarbamol (ROBAXIN) 500 mg tablet Take 500 mg by mouth four times daily. Activetake 1 tablet by mouth once dailyMethocarbamol 750 MG take 1 tablet by mouth once daily Oral for 30 Days ActiveComment on above:Take 500 mg by mouth four times daily.pramoxine hydrochloride 10 mg/ml rectal foam (2 sources)Start: 06-75-4580Awbthujltz 1 % as directed Externally TWICE A DAY for 21 DAYS Jul, Not-TakingpredniSONE 20 mg oral tablet (20 sources)Start: 37-63-9905kkcw 40 mg by mouth once dailyPrednisone Active 40 MG PO Daily 180 90 July 11, 2022 12:00amStart: 07-11-2022 End: 83-80-2231zttv 1 tablet by mouth once dailyPrednisone 10 mg tablet Discontinued 10 MG PO Daily July 11, 2022 12:00am December 04, 2024 7:48pm Start: 69-22-1132gjqx 10 mg by mouth once dailyPrednisone Active 10 MG PO Daily July 11, 2022 12:00amStart: 07-11-2022 End: 81-27-0679fogn 2 tablets by mouth once dailyPrednisone 20 mg tablet Discontinued 40 MG PO Daily 180 90 July 11, 2022 12:00am December 04, 2024 7:48pmStart: 04-86-5928yzvp 40 mg by mouth once dailyPrednisone Active 40 MG PO Daily 180 90 July 11, 2022 12:00amStart: 58-32-3300nsoiilTTLP 10 MG 8 tabs day one then decrease by 1 tablet until finished. Orally Once a day for 8 days May, Not-Takingtake 1 tablet by mouth once dailypredniSONE (DELTASONE) 20 mg tablet Take 20 mg by mouth once daily. ActiveComment on above:Take 20 mg by mouth once daily. Problems Active Problems Problem ClassificationProblemDateDocumented DateEpisodic/ChronicAbdominal pain (6 sources)Abdominal pain; Translations: [Unspecified abdominal pain]Onset: 06-16-2022 Resolved: 18-78-0016MnqiqasiJysgq bronchitis (4 sources)Acute bronchitis, unspecified; Translations: [ACUTE BRONCHITIS UNSPECIFIED]Onset: 74-70-9253AjoguuupWkbi and rectal conditions (4 sources)Rectal pain; Translations: [Other specified diseases of anus and rectum]Onset: 28-59-5972BmrdttrbLtiuhkshtqpuckco hemorrhage (11 sources)Rectal hemorrhage; Translations: [Hemorrhage of anus and rectum] Onset: 06-16-2022 Resolved: 50-22-4954KrwqcvwzEqjpbsvifphnx gastroenteritis (4 sources)Eosinophilic colitis; 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]Onset: 30-28-3491TdjiypjZcsrpnxskhpah gastroenteritis (20 sources)Colitis; Translations: [Noninfective gastroenteritis and colitis, unspecified]Onset: 03-03-2022 Resolved: 27-73-1530OtvwfbxeHnvrj gastrointestinal disorders (5 sources)Diarrhea; Translations: [Diarrhea, unspecified]EpisodicOther liver diseases (4 sources)ALT (SGPT) level raised; Translations: [Elevated ALT measurement] 11-04-1348NeaxpircNywxm nutritional; endocrine; and metabolic disorders (1 source)Morbid (severe) obesity due to excess calories; Translations: [MORBID SEVERE OBES D/T EXCESS SIDNEY]Onset: 41-37-4574PwmbecwJdfwt nutritional; endocrine; and metabolic disorders (1 source)Body mass index (BMI) 40.0-44.9, adult; Translations: [BODY MASS INDEX BMI 40.0-44.9 ADULT]Onset: 38-51-9172KpilbbnEpvnlg media and related conditions (1 source)Acute left otitis media; Translations: [Otitis media, unspecified, left ear]51-32-1736WsclukwsEyubqgkh enteritis and ulcerative colitis (10 sources)Crohn's disease; Translations: [Crohn's disease, unspecified, without complications]Onset: 404601-52-9685MlpxytfUleefkdm codes; unclassified (1 source)Sleep apnea, unspecified; Translations: [SLEEP APNEA UNSPECIFIED] Onset: 02-77-6912HquxbwkDpcreucazlp; intervertebral disc disorders; other back problems (4 sources)Other intervertebral disc displacement, lumbar region; Translations: [OTH IV DISC DISPLACEMENT LUMBAR RGN]Onset: 45-68-1439YnexphmSvmzgwgjrjnr (3 sources)CONTACT W/AND (SUSP) EXPOS COVID-19; Translations: [CONTACT W/AND (SUSP) EXPOS COVID-19]Onset: 78-31-4916Jqslofpgrnvn (3 sources)LOW BACK PAIN, UNSPECIFIED; Translations: [LOW BACK PAIN, UNSPECIFIED]Onset: 42-53-2613Yyhtlqrlpzhn (1 source)Elevated ALT measurement; Translations: [Elevated ALT measurement] Onset: 06-28-4841Dgxic infection (1 source)COVID-19; Translations: [COVID-19]Onset: 10-23-2021 Past or Other Problems Problem ClassificationProblemDateDocumented DateEpisodic/ChronicOther aftercare (1 source)Other medical terminologist (current) drug therapy; Translations: [OTH BEHAVIOR SUPPORT SPECIALIST CURRENT DRUG THERAPY]Onset: 39-97-8501KqdczzrvBscgd gastrointestinal disorders (1 source)Diarrhea, unspecifiedOnset: 06-16-2022 Resolved: 08-98-3821MwfwfcnuEvjpz gastrointestinal disorders (4 sources)Change in bowel habit; Translations: [CHANGE IN BOWEL HABIT]Onset: 16-31-6802PqsrpiorEjwdf nervous system disorders (3 sources)Anesthesia of skin; Translations: [ANESTHESIA OF SKIN]Onset: 82-72-7237XulzgbxbIncvxehvl and history of mental health and substance abuse codes (1 source)Personal history of nicotine dependence; Translations: [PERSONAL HISTORY OF NICOTINE DEPEND]Onset: 65-95-1040HjbatzmcHabhgsxhzkp; intervertebral disc disorders; other back problems (1 source)Lumbago with sciatica, right side; Translations: [LUMBAGO WITH SCIATICA RIGHT SIDE]Onset: 07-64-1097ZennlerqIfqwcndoozmc (1 source)LOW BACK PAIN, UNSPECIFIED; Translations: [LOW BACK PAIN, UNSPECIFIED] Onset: 06-21-6866Cugzcrxojxjg (1 source)CONTACT W/AND (SUSP) EXPOS COVID-19; Translations: [CONTACT W/AND (SUSP) EXPOS COVID-19]Onset: 10-19-2021 Results Test NameValueInterpretationReference RangeFacilityC diff Tox gens Stl Ql ZEESHAN+probeon 09-17-2025. difficile toxin genes ZEESHAN+probe Ql (Stl)NegativeNormal Negative for C. difficile toxin by PCRAdena Regional Medical Center on above:Order Comment: Specimen Type: STOOL SPECIMEN Ordering Facility: [facility] Address: [address] [place], [place] [address]Performed By: #### 61279-4 #### [facility] CLIA [id number] [address] [place] [address] [place] AMERICACB W Auto Differential panel (Bld) on 34-65-4197Iojzugsdk (Bld) [#/Vol]0.06 10*3/uLNormal<0.11COhioHealth on above:Order Comment: Specimen Type: BLOOD SPECIMEN Ordering Facility: [facility] Address: [address] [place], [place] [address]Performed By: #### 07939-2, 4537-7 #### [facility] CLIA [id number] [address] [place] [address] [place] AMERICABasophils/100 WBC (Bld)0.7 %Normal [facility] on above:Order Comment: Specimen Type: BLOOD SPECIMEN Ordering Facility: [facility] Address: [address] [place], [place] [address]Performed By: #### 83479-2, 4537-7 #### [facility] CLIA [id number] [address] [place] [address] [place] AMERICADifferential cell count method Nom (Bld)AutoNormalClevelProvidence Hospital on above:Order Comment: Specimen Type: BLOOD SPECIMEN Ordering Facility: [facility] Address: [address] [place], [place] [address]Performed By: #### 59569-5, 7 #### [facility] CLIA [id number] [address] [place] [address] [place] AMERICAEosinophils (Bld) [#/Vol]0.21 10*3/uLNormal<0.46[facility] on above:Order Comment: Specimen Type: BLOOD SPECIMEN Ordering Facility: [facility] Address: [address] [place], [place] [address]Performed By: #### 67617-8, 4537-05 #### [facility] CLIA [id number] [address] [place] [address] [place] AMERICAEosinophils/100 WBC (Bld)2.4 %Normal [facility] on above:Order Comment: Specimen Type: BLOOD SPECIMEN Ordering Facility: [facility] Address: [address] [place], [place] [address]Performed By: #### 10576-2, 4537-05 #### [facility] CLIA [id number] [address] [place] [address] [place] AMERICAErythrocyte distribution width (RBC) [Ratio]13.2 %Cxhvbf20.5-15.0[facility] on above:Order Comment: Specimen Type: BLOOD SPECIMEN Ordering Facility: [facility] Address: [address] [place], [place] [address]Performed By: #### 96441-9, 4537-05 #### [facility] CLIA [id number] [address] [place] [address] [place] AMERICAHematocrit (Bld) [Volume fraction] 43.3 %Albjrk38.0-51.0[facility] on above:Order Comment: Specimen Type: BLOOD SPECIMEN Ordering Facility: [facility] Address: [address] [place], [place] [address]Performed By: #### 76748-1, 4537-05 #### [facility] CLIA [id number] [address] [place] [address] [place] AMERICAHemoglobin (Bld) [Mass/Vol]14.3 g/dL Vlyjih50.0-17.0[facility] on above:Order Comment: Specimen Type: BLOOD SPECIMEN Ordering Facility: [facility] Address: [address] [place], [place] [address]Performed By: #### 46482-7, 4537-7 #### [facility] CLIA [id number] [address] [place] [address] [place] AMERICAImmature granulocytes (Bld) [#/Vol] 10*3/uLNormal<0.10[facility] on above:Order Comment: Specimen Type: BLOOD SPECIMEN Ordering Facility: [facility] Address: [address] [place], [place] [address]Performed By: #### 13975-0, 453-7 #### [facility] CLIA [id number] [address] [place] [address] [place] AMERICAImmature granulocytes/100 WBC (Bld) 0.2 %NormalAdena Regional Medical Center on above:Order Comment: Specimen Type: BLOOD SPECIMEN Ordering Facility: [facility] Address: [address] [place], [place] [address]Performed By: #### 70177-3, 453-7 #### [facility] CLIA [id number] [address] [place] [address] [place] AMERICALymphocytes (Bld) [#/Vol]2.22 10*3/uLNormal1.00-4.00[facility] on above:Order Comment: Specimen Type: BLOOD SPECIMEN Ordering Facility: [facility] Address: [address] [place], [place] [address]Performed By: #### 27535-6, 4537-7 #### [facility] CLIA [id number] [address] [place] [address] [place] AMERICALymphocytes/100 WBC (Bld)25.3 % NormalAdena Regional Medical Center on above:Order Comment: Specimen Type: BLOOD SPECIMEN Ordering Facility: [facility] Address: [address] [place], [place] [address]Performed By: #### 39082-2, 4536-7 #### [facility] CLIA [id number] [address] [place], [place] [address]MCH (RBC) [Entitic mass]29.4 pg Pmqrep74.0-34.0[facility] on above:Order Comment: Specimen Type: BLOOD SPECIMEN Ordering Facility: [facility] Address: [address] [place], [place] [address]Performed By: #### 51028-2, 453-7 #### [facility] CLIA [id number] [address] [place], [place] [address]MCHC (RBC) [Mass/Vol]33.0 g/dLNormal 30.5-36.0[facility] on above:Order Comment: Specimen Type: BLOOD SPECIMEN Ordering Facility: [facility] Address: [address] [place], [place] [address]Performed By: #### 69162-7, 4536-7 #### [facility] CLIA [id number] [address] [place], [place] [address]V (RBC) [Entitic vol]89.1 fLNormal 80.0-100.0[facility] on above:Order Comment: Specimen Type: BLOOD SPECIMEN Ordering Facility: [facility] Address: [address] [place], [place] [address]Performed By: #### 58978-6, 4536-7 #### [facility] CLIA [id number] [address] [place] [address] [facility] HOSPITALMonocytes (Bld) [#/Vol]1.13 10*3/uL High<0.87[facility] on above:Order Comment: Specimen Type: BLOOD SPECIMEN Ordering Facility: [facility] Address: [address] [place], [place] [id number] By: #### 69689-4, 4536-7 #### [facility] CLIA [id number] [address] [place] [address] [place] AMERICAMonocytes/100 WBC (Bld)12.9 %Normal [facility] on above:Order Comment: Specimen Type: BLOOD SPECIMEN Ordering Facility: [facility] Address: [address] [place], [place] [address]Performed By: #### 34590-5, 4537-05 #### [facility] CLIA [id number] [address] [place] [address] [place] AMERICANeutrophils (Bld) [#/Vol]5.14 10*3/uLNormal1.45-7.50[facility] on above:Order Comment: Specimen Type: BLOOD SPECIMEN Ordering Facility: [facility] Address: [address] [place], [place] [address]Performed By: #### 30568-1, 4537-05 #### [facility] CLIA [id number] [address] [place] [address] [place] AMERICANeutrophils/100 WBC (Bld)58.5 % NormalAdena Regional Medical Center on above:Order Comment: Specimen Type: BLOOD SPECIMEN Ordering Facility: [facility] Address: [address] [place], [place] [address]Performed By: #### 41021-6, 4537-05 #### [facility] CLIA [id number] [address] [place] [address] [place] AMERICANucleated RBC (Bld) [#/Vol]10*3/uL Normal<0.01[facility] on above:Order Comment: Specimen Type: BLOOD SPECIMEN Ordering Facility: [facility] Address: [address] [place], [place] [address]Performed By: #### 12263-5, 7 #### [facility] CLIA [id number] [address] [place] [address] [place] AMERICANucleated RBC/100 WBC (Bld) [Ratio] 0.0 /100 WBCNormalCOhioHealth on above:Order Comment: Specimen Type: BLOOD SPECIMEN Ordering Facility: [facility] Address: [address] [place], [place] [address]Performed By: #### 93404-8, 4537-7 #### [facility] CLIA [id number] [address] [place] [address] [place] AMERICAPlatelet mean volume (Bld) [Entitic vol]11.9 fLNormal9.0-12.7COhioHealth on above:Order Comment: Specimen Type: BLOOD SPECIMEN Ordering Facility: [facility] Address: [address] [place], [place] [address]Performed By: #### 17687-1, 453-7 #### [facility] CLIA [id number] [address] [place] [address] [place] AMERICAPlatelets (Bld) [#/Vol]231 10*3/uL Nmkwui509-747GpymhitqwAdena Regional Medical Center on above:Order Comment: Specimen Type: BLOOD SPECIMEN Ordering Facility: [facility] Address: [address] [place], [place] [address]Performed By: #### 58114-1, 7 #### [facility] CLIA [id number] [address] [place] [address] [place] AMERICARBC (Bld) [#/Vol]4.86 10*6/uLNormal 4.20-6.00[facility] on above:Order Comment: Specimen Type: BLOOD SPECIMEN Ordering Facility: [facility] Address: [address] [place], [place] [address]Performed By: #### 48607-6, 4536-7 #### [facility] CLIA [id number] [address] [place] [address] [place] AMERICAWBC (Bld) [#/Vol]8.78 10*3/uLNormal 3.70-11.00[facility] on above:Order Comment: Specimen Type: BLOOD SPECIMEN Ordering Facility: [facility] Address: [address] [place], [place] [address]Performed By: #### 64670-8, 4537-7 #### [facility] CLIA [id number] [address] [place], [place] [address]CNPNon [id number] ([facility]) LATRICE RICHMOND ([id number]) 1990 M Date Time Provider Department 09/16/25 MARIO MANUEL [facility] During your visit today, we recorded the following information about you: Allergies As of Date: 09/16/2025 (No Known Allergies) Date Reviewed: 07/09/2025 Reviewed by: Luh Liu MA - Fully Assessed Prescriptions as of 09/17/2025 - inFLIXimab-dyyb (INFLECTRA) 100 mg injection Inject intravenously. - calcium/magnesium/vit B comp (TMDJNTO-KQLSFANKU-E COMPLEX ORAL) Take by mouth. - peg 3350-Electrolytes (GOLYTELY) 236-22.74-6.74 -5.86 gram suspension Refer to printed prep instructions from your provider. - predniSONE (DELTASONE) 20 mg tablet Take 20 mg by mouth once daily. - methocarbamol (ROBAXIN) 500 mg tablet Take 500 mg by mouth four times daily. Problem List As Of Date: 09/16/2025 (None) Encounter Status:Closed by ELIN SAEZ on 09/16/25NormalCProtestant Deaconess HospitalCR Tracyl-Luison 29-79-4332YZA [Mass/Vol]0.6 mg/dLNormal<0.9COhioHealth on above:Order Comment: Specimen Type: BLOOD SPECIMEN Ordering Facility: [facility] Address: [address], [place] [address]Performed By: #### #### [facility] CLIA [id number] [address] [place] [address] [place] OF AMERICAComprehensive metabolic 2000 panelon [id number] [Mass/Vol]4.2 g/dLNormal3.9-4.9CProtestant Deaconess Hospital Comment on above:Order Comment: Specimen Type: BLOOD SPECIMEN Ordering Facility: [facility] Address: [address] [place], [place] [address]Performed By: #### #### [facility] CLIA [id number] [address] [place] [address] [place] OF AMERICAALP [Catalytic activity/Vol]61 U/L Vchtyp71-194GsrojxdjiMount Carmel Health SystemComascension [facility] on above:Order Comment: Specimen Type: BLOOD SPECIMEN Ordering Facility: [facility] Address: [address] [place], [place] [address]Performed By: #### #### [facility] CLIA [id number] [address] [place] [address] [place] AMERICAALT [Catalytic activity/Vol]52 U/L Axkxap90-56XceygcovoMount Carmel Health SystemComment on above:Order Comment: Specimen Type: BLOOD SPECIMEN Ordering Facility: [facility] Address: [address] [place], [place] [address]Performed By: #### #### [facility] CLIA [id number] [address] [place] [address] [place] AMERICAAnion gap [Moles/Vol]10 mmol/LNormal 8-15Mount [facility] SystemComascension [facility] on above:Order Comment: Specimen Type: BLOOD SPECIMEN Ordering Facility: [facility] Address: [address] [place], [place] [address]Performed By: #### #### [facility] CLIA [id number] [address] [place] [address] [place] OF AMERICAAST [Catalytic activity/Vol]28 U/L Gkdhxo39-03UwottqcexAdena Regional Medical Center on above:Order Comment: Specimen Type: BLOOD SPECIMEN Ordering Facility: [facility] Address: [address] [place], [place] [address]Performed By: #### 1988-03, #### [facility] CLIA [id number] [address] [place] [address] [place] OF AMERICABilirubin [Mass/Vol]0.4 mg/dLNormal 0.2-1.3COhioHealth on above:Order Comment: Specimen Type: BLOOD SPECIMEN Ordering Facility: [facility] Address: [address] [place], [place] [address]Performed By: #### 1988-03, #### [facility] CLIA [id number] [address] [place] [address] [place] OF AMERICACalcium [Mass/Vol]9.2 mg/dLNormal 8.5-10.2COhioHealth on above:Order Comment: Specimen Type: BLOOD SPECIMEN Ordering Facility: [facility] Address: [address] [place], [place] [address]Performed By: #### 1988-03, #### [facility] CLIA [id number] [address] [place] [address] [place] AMERICAChloride [Moles/Vol]105 mmol/LNormal 98-107[facility] on above:Order Comment: Specimen Type: BLOOD SPECIMEN Ordering Facility: [facility] Address: [address] [place], [place] [address]Performed By: #### 1988-03, #### [facility] CLIA [id number] [address] [place] [address] [place] AMERICACO2 [Moles/Vol]24 mmol/ITemkin65-15 [facility] on above:Order Comment: Specimen Type: BLOOD SPECIMEN Ordering Facility: [facility] Address: [address] [place], [place] [address]Performed By: #### 1988-03, #### [facility] CLIA [id number] [address] [place] [address] [place] AMERICACreatinine [Mass/Vol]0.71 mg/dLLow 0.73-1.22[facility] on above:Order Comment: Specimen Type: BLOOD SPECIMEN Ordering Facility: [facility] Address: [address] [place], [place] [address]Performed By: #### 1988-03, #### [facility] CLIA [id number] [address] [place] [address] [place] OF AMERICAeGFRcr SerPlBld CKD-EPI [id number] mL/min/1.73m???Normal>=60[facility] on above:Order Comment: Specimen Type: BLOOD SPECIMEN Ordering Facility: [facility] Address: [address] [place], [place] [address]Result Comment: Estimated Glomerular Filtration Rate (eGFR) is calculated using the 2020 CKD-EPI cre atinine equation. This equation utilizes serum creatinine, sex, and age as parameters. The creatinine assay has traceable calibration to isotope dilution- mass spectrometry. Refer to KDIGO guidelines for clinical interpretation. In patients with unstable renal function, e.g. those with acute kidney injury, the eGFR may not accurately reflect actual GFR.Performed By: #### 1988-03, #### [facility] CLIA [id number] [address] [place] [address] [place] AMERICAGlucose [Mass/Vol]76 mg/dLNormal 74-99[facility] on above:Order Comment: Specimen Type: BLOOD SPECIMEN Ordering Facility: [facility] Address: [address] [place], [place] [address]Result Comment: The Canadian Diabetes Association (ADA) provides guidance for cutoff [...] Standards of Medical Care in Diabetes 2016, Canadian Diabetes Association. Diabetes Care. 2016.39(Suppl 1).Performed By: #### 1988-03, #### [facility] CLIA [id number] [address] [place] [address] [place] AMERICAPotassium [Moles/Vol]4.1 mmol/L Normal3.7-5.1COhioHealth on above:Order Comment: Specimen Type: BLOOD SPECIMEN Ordering Facility: [facility] Address: [address] [place], [place] [address]Performed By: #### #### [facility] CLIA [id number] [address] [place] [address] [place] AMERICAProtein [Mass/Vol]7.1 g/dLNormal 6.3-8.0[facility] on above:Order Comment: Specimen Type: BLOOD SPECIMEN Ordering Facility: [facility] Address: [address] [place], [place] [address]Performed By: #### #### [facility] CLIA [id number] [address] [place] [address] [place] AMERICASodium [Moles/Vol]139 mmol/LNormal 136-144[facility] on above:Order Comment: Specimen Type: BLOOD SPECIMEN Ordering Facility: [facility] Address: [address] [place], [place] [address]Performed By: #### #### [facility] CLIA [id number] [address] [place] [address] [place] AMERICAUrea nitrogen [Mass/Vol]11 mg/dL Normal9-24[facility] on above:Order Comment: Specimen Type: BLOOD SPECIMEN Ordering Facility: [facility] Address: [address] [place], [place] [address]Performed By: #### 1988-5, 40006-3 #### [facility] CLIA [id number] [address] [place] [address] Westergren method (Bld) [Velocity]on 96-84-0548JWZ (Bld) [Velocity]15 mm/hNormal0-15[facility]el Health SystemComment on above:Order Comment: Specimen Type: BLOOD SPECIMEN Ordering Facility: [facility] Address: [address] [place], [place] [address]Performed By: #### 42744-1, 4537-7 #### [facility] CLIA [id number] [address] [place] [address] ultrasound attenuation by transient elastographyon 37-51-3088Qhxjadsdl Report Date performed: July 15, 2025 Indication : Elevated alt measurement (primary encounter diagnosis) Patient fasted 3 hours:Yes Performed by Gris Rae LPN Result-Findings Technical difficulties: None. Result: The reading was adequate. Please refer to get images report for individual readings Number of readings: 10 IQR %: 17 E (kpa): 5.9 CAP: 291 Impression The liver stiffness is 5.9 kPa which corresponds to 97% chance of stage 0-2 fibrosis. The CAP analysis showed grade S3 of liver steatosis. Stage of liver fibrosis based on above kPa: A 97% chance of stage 0-2 fibrosis A 3% chance of stage 3-4 fibrosis (advanced fibrosis) A <1% chance of stage 4 fibrosis (cirrhosis). A kPa >20 indicates a high likelihood of stage 4 fibrosis/cirrhosis, consider further testing to confirm and refer to hepatology. Recommendations If kPa <8.0, reassess periodically Fib-4 score every 1-2 years if T2DM/Pre-T2DM OR with 2 or more metabolic risk factors Fib-4 score 2-3 years if no T2DM and <2 metabolic risk factors If kPa >8.0, refer to hepatology for further evaluation Interpreted by: Meño HARMON Fibroscan Fibrosis Risk <7 kPA = F0-F2 97%, F3+F4 3%, F4 <1% <10 kPA = F0-F2 91%, F3+F4 9%, F4 1.3% 10-15 kPA = F0-F2 56%, F3+F4 43%, F4 14% >15 kPA = F0-F2 26%, F3+F4 74%, F4 46% Grade CAP value up to 237 dB/M corresponds to S0 (< 10 % Fat) CAP value between (238 - 258 dB/M) corresponds to S1 (>/= 11 % Fat) CAP value between (259 - 289 dB/M) corresponds to S2 (>/= 33 % Fat) CAP value > 290dB/M corresponds to S3 (>/= 67 % Fat) stage 0 ( S0:< 10 % steatosis) stage 1 (>/= S1: 11%-33% steatosis) stage 2 (>/= S2: 34%-66% steatosis) stage 3 (>/= S3: > 66% steatosis) References Robinson Y, Dario Q, Robinson T, Roxie J, Robinson H, Dennis T. Controlled attenuation parameter for assessment of hepatic steatosis grades: a diagnostic meta-analysis. Int J Clin Exp Med. 2015 Aug 15;8(10):18869-76.PMID: 32355601; PMCID: [id number]. Sloan M, Robert STAN, Karolr-Sarai M, Emelia F, Kayce J, Mark O, Rhina F, Rosalia M, Rodo G, Fransico A, Germán E, Cali L, Brock G, Dinorah A, Daniel U, Pacheco S, CalesP, Katyo V, de Mikeinghen V, Jill M, Chema BROOKS. Refining the Baveno elastography criteria for the definition of compensated advanced chronic liver disease. J Hepatol. 2020;74(5):4081-3079. doi: 10.1016/j.jhep.2020.11.050. Epub 2019Oct 28. PMID: 05292452. Arturo Limon, Daniel Garcia, Frankie Limon, Martha Limon, Lu S, Antonia Cannon, Reema Cannon, Irene Pereyra.AASLD practice guidance on the clinical assessment and management of nonalcoholic fatty liver disease. Hepatology. 2022;77(5):1797- 1835. doi:10.1097/[facility].2750732135383563ZgzbuprvnHighland District HospitalRadiology Study observation (narrative)[facility] Medical CenterCNSupriya 31-14-7001HFFFTdmpficby (GASTDESI) BASILIOLATRICE ([id number]) 1990 M Date Time Provider Department 07/10/25 LORENA WILKES During your visit today, we recorded the following information about you: Sigrid Degroot 07/10/2025 9:57 AM Signed Rhonda (Pharmacist) from [facility] in [place], [place] ([phone]) calls stating that in order for patient's insurance to cover Golytely prep they need Golytely instructions for upcoming procedure. Asked if she needed the faxed and she said no. She just needs to speak with someone in the office. Attempted to transfer to nurse line; line rang busy. Please call Rhonda at the above #. Thanks. Dea Dinh LPN 07/10/2025 3:22 PM Signed I did call [facility]. I spoke with the pharmacist. Pharmacist requesting directions for the Golytely prep. Pharmacist states she needs to know how the patient is taking the prep so they will not get audited. Explained to pharmacist the evening before colonoscopy the patient will drink one 8 ounce glass of prep every 15 minutes until prep is completely gone. Pharmacist verbalized good understanding. VENKATESH Chester Melissa L RN 07/11/2025 11:34 AM Signed Per anesthesia, pt is over 350 lbs, therefore requires hospital setting for procedures. Please call pt to notify and send to schedulers for reschedule/ thanks. Dea Dinh LPN 07/11/2025 12:16 PM Signed Patient aware colonoscopy needs to be done at [facility] with Dr. Riaz murray [place] [facility] Patient verbalized good understanding. Schedulers please help reschedule patients colonoscopy. Thank You VENKATESH Chester Adm NoahtPat II 07/11/2025 4:09 PM Signed Spoke to patient, he lives over an hour away in [place], [place] but advised that we need to reschedule his colonoscopy to [place] with Dr. Manuel. Advised patient he can keep the Fibroscan here in [place] on Monday, 07/15 and I rescheduled his colon at on 10/01/25, will get a phone call the day before with arrival time. Patient verbalized understanding and has no further questions. Just FAWN Duarte and Dr. Manuel, Fibroscan to be completed next week, colon in September. Thank you, Pat Sam Admin Assist II Lety More 07/11/2025 4:14 PM Signed Patient is scheduled for 10/01 at Allergies As of Date: 07/10/2025 (No Known Allergies) Date Reviewed: 07/09/2025 Reviewed by: Luh Liu MA - Fully Assessed Reason for Visit: Golytely prep [Other] Prescriptions as of 07/14/2025 - inFLIXimab-dyyb (INFLECTRA) 100 mg injection Inject intravenously. - calcium/magnesium/vit B comp (YOEEHXO-MOHVPDNZC-Z COMPLEX ORAL) Take by mouth. - peg 3350-Electrolytes (GOLYTELY) 236-22.74-6.74 -5.86 gram suspension Refer to printed prep instructions from your provider. - predniSONE (DELTASONE) 20 mg tablet Take 20 mg by mouth once daily. - methocarbamol (ROBAXIN) 500 mg tablet Take 500 mg by mouth four times daily. Problem List As Of Date: 07/10/2025 (None) Encounter Status:Closed by DEA DINH on 07/10/25NoBlanchard Valley Health System Bluffton HospitalDane 59-18-7900FCJNLkhork Visit (GASTNO) LATRICE RICHMOND ([id number]) 1990 M Date Time Provider Department 07/09/25 1:00 PM LORENA WILKES During your visit today, we recorded the following information about you: Pulse Blood pressure Weight 67/minute 102/66 161 kg Lorena Wilkes PA-C 07/09/2025 1:22 PM Signed DEPARTMENT OF GASTROENTEROLOGY - FOLLOW UP REASON FOR VISIT Latrice Richmond is a 35 year old male who is scheduled for follow up of Crohns on IFX HISTORY OF PRESENT ILLNESS Latrice Richmond is a 35 year old male who presents today for follow up of Crohns on IFX. The patient is a 35-year-old male with Crohn?s disease, presenting for follow-up. He has been receiving Inflectra infusions every 6 weeks since November 2022, with 2 missed doses in August 2023. Since resuming regular infusions, he reports significant improvement, with resolution of rectal bleeding, abdominal pain, and cramping. He experiences occasional mild flare-ups, typically triggered by spicy foods, fresh green peppers, certain types of beer, and greasy or fatty foods. These episodes occur 1-2 times every 3 months and are characterized by increased bowel frequency (lasting 2-4 days), mild cramping, chills, lethargy, and occasionally very light rectal bleeding, all of which resolve quickly with dietary modification. Between flare-ups, he has 1-2 formed bowel movements daily without blood or pain. He denies nausea or vomiting. He reports a weight gain of approximately 50 lbs since starting Inflectra, which he attributes to decreased physical activity due to school and work, spending 12-15 hours daily at a desk. He notes that within the first week after each infusion, he experiences a single day of profound fatigue, requiring several hours of sleep, but otherwise tolerates the medication well. He denies any new rashes, vision changes, or joint pain beyond baseline from old football injuries. He reports intermittent eczema on his hands and face, which improves with infusions. He has noticed an increase in moles and skin tags. He underwent colonoscopy in August 2023 and is due for repeat colonoscopy in August. Pertinent Workup to Date: VV Dr. Manuel 08/2024 ASSESSMENT/PLAN: 1. Crohn's disease without complication, unspecified gastrointestinal tract location (HCC) - ICD9: 555.9, ICD10: K50.90 diagnosed with Crohn's disease in [facility] about 3 years ago At that [...] biologics. Importance of compliance He showed understanding COLON [facility] CTE RESULT: GI Tract: There is [...] fluid collection is identified to suggest abscess. I have personally reviewed labs, current medication, allergies, PMH, PSH, family history and social history. Pertinent information has been listed above. History reviewed. No pertinent past medical history. PAST SURGICAL HISTORY Procedure Laterality Date COLONOSCOPY SCREENING 06/2022 EXTRACTION ERUPTED TOOTH/EXR TONSILLECTOMY AND ADENOIDECTOMY Allergies: No Known Allergies Current Outpatient Medications Medication Sig Dispense Refill inFLIXimab-dyyb (INFLECTRA) 100 mg injection Inject intravenously. calcium/magnesium/vit B comp (WDEUBYK-PZLFQOCGJ-L COMPLEX ORAL) Take by mouth. peg 3350-Electrolytes (GOLYTELY) 236-22.74-6.74 -5.86 gram suspension Refer to printed prep instructions from your provider. 4000 mL 0 predniSONE (DELTASONE) 20 mg tablet Take 20 mg by mouth once daily. methocarbamol (ROBAXIN) 500 mg tablet Take 500 mg by mouth four times daily. No current facility-administered medications for this visit. SOCIAL HISTORY[1] FAMILY HISTORY Problem Relation Age of Onset Colon Cancer Maternal Grandfather REVIEW OF SYSTEMS Cardiovascular: No chest pain Respiratory: Negative for cough, wheezing and shortness of breath Gastrointest (more content not included)...NormalDayton Children's HospitalPN on 73-63-5494KTYUNiteazamh (GASTNO) BASILIOLATRICE ([id number]) 1990 M Date Time Provider Department 07/09/25 MARIO MANUEL During your visit today, we recorded the following information about you: Eleanor Reich RN 07/09/2025 9:42 AM Addendum Fax Rec from [facility] Collected 06-20-2025 Fecal Sidney 59 Inflix + Antibody Inflix drug level 5.0 Quant limit <0.4 ug/mL Anti-inflix antibibody 80 ( The above results is low antibody titer; quantitation limit <22 ng/ ml 22-200 low titer) Full documents submitted for scan in for further review Dr. Manuel please review and advise. Thanks, SONJA Ramsey Noma, MD 07/11/2025 1:48 PM Signed + neutralizing antibodies and subtherapeutic infliximab level We can add mercaptopurine pending TPMT level vs changing to skyrizi Will make a better decision after the colonoscopy which is scheduled next week Eleanor Reich RN 07/15/2025 10:43 AM Addendum Called and spoke to pt, Discussed POC, Will await Colonoscopy per Dr. Manuel to evaluate next steps in medication regimen/ change Pt demonstrated understanding No further questions at this time. Thanks, Eleanor Reich RN Allergies As of Date: 07/09/2025 (No Known Allergies) Date Reviewed: 07/09/2025 Reviewed by: Luh Liu MA - Fully Assessed Reason for Visit: Results [95] Prescriptions as of 07/15/2025 - inFLIXimab-dyyb (INFLECTRA) 100 mg injection Inject intravenously. - calcium/magnesium/vit B comp (CFKRTPV-TXLCBULGU-B COMPLEX ORAL) Take by mouth. - peg 3350-Electrolytes (GOLYTELY) 236-22.74-6.74 -5.86 gram suspension Refer to printed prep instructions from your provider. - predniSONE (DELTASONE) 20 mg tablet Take 20 mg by mouth once daily. - methocarbamol (ROBAXIN) 500 mg tablet Take 500 mg by mouth four times daily. Problem List As Of Date: 07/09/2025 (None) Encounter Status:Closed by ELEANOR REICH on 07/09/25NoBlanchard Valley Health System Bluffton HospitalTPMT PHENOTYPE/ENZYME ACTIVITYon 68-38-4795GKVV RKQIMVQI03.8 U/mLNormal 24.0-44.0Avon HospitalComment on above:Order Comment: Specimen Type: BLOOD SPECIMEN Ordering Facility: [facility] Address: [address] [place] [address] Comment: INTERPRETIVE INFORMATION: Thiopurine Methyltransferase, RBC Normal TPMT activity: 24.0-44.0 U/mL................Individuals are predicted to be at low risk of bone marrow toxicity (myelosuppression) as a consequence of standard thiopurine therapy; no dose adjustment is recommended. Intermediate TPMT activity: 17.0-23.9 U/mL................Individuals are predicted to be at intermediate risk of bone marrow toxicity (myelosuppression) as a consequence of standard thiopurine therapy; a dose reduction and therapeutic drug management is recommended. Low TPMT activity: less than 17.0 U/mL...........Individuals are predicted to be at high risk of bone marrow toxicity (myelosuppression) as a consequence of standard thiopurine dosing. It is recommended to avoid the use of thiopurine drugs. High TPMT activity: greater than 44.0 U/mL........Individuals are not predicted to be at risk for bone marrow toxicity (myelosuppression) as a consequence of standard thiopurine dosing, but may be at risk for therapeutic failure due to excessive inactivation of thiopurine drugs. Individuals may require higher than the normal standard dose. Therapeutic drug management is recommended. The TPMT, RBC assay is used as a screen to detect individuals with low and intermediate TPMT activity who may be at risk for myelosuppression when exposed to standard doses of thiopurines, including azathioprine (Imuran) and 6-mercaptopurine (Purinethol). TPMT is the primary metabolic route for inactivation of thiopurine drugs in the bone marrow. When TPMT activity is low, it is predicted that proportionately more 6-mercaptopurine can be converted into the cytotoxic 6-thioguanine nucleotides that accumulate in the bone marrow causing excessive toxicity. The activity of TPMT is measured by the nanomoles of 6-methylmercaptopurine (inactive metabolite) produced per 1 mL of packed red blood cells, (U/mL). TPMT phenotype testing does not replace the need for clinical monitoring of patients treated with thiopurine drugs. Genotype for TPMT cannot be inferred from TPMT activity (phenotype). Phenotype testing should not be requested for patients currently treated with thiopurine drugs. Current TPMT phenotype may not reflect future TPMT phenotype, particularly in patients who received blood transfusion within 30-60 days of testing. TPMT enzyme activity can be inhibited by several drugs such as: naproxen (Aleve), ibuprofen (Advil, Motrin), ketoprofen (Orudis), furosemide (Lasix), sulfasalazine (Azulfidine), mesalamine (Asacol), olsalazine (Dipentum), mefenamic acid (Ponstel), thiazide diuretics, and benzoic acid inhibitors. TPMT inhibitors may contribute to falsely low results; patients should abstain from these drugs for at least 48 hours prior to TPMT testing. Falsely low results may also occur as a result of inappropriate specimen handling and hemolysis. This test was developed and its performance characteristics determined by [facility]. It has not been cleared or approved by the US Food and Drug Administration. This test was performed in a CLIA certified laboratory and is intended for clinical purposes. Performed By: [facility] [address] [place] [id number] Ultrasonic Cleaner: Logan Randhawa MD, PhD CLIA Number: [id number] By: #### PPRENZ #### [facility] CLIA [id number] [address] [place], [place] [address]FPQVxs [id number] (GASTNO) BASILIOLATRICE ([id number]) 1990 M Date Time Provider Department 06/12/25 MARIO AMNUEL During your visit today, we recorded the following information about you: Ingris Hernández RN 06/12/2025 12:09 PM Signed Beth Geovanny from [facility] is calling. She would like to know if orders were received for Inflectra renewal and SHANTI Kit. She needs the orders faxed back to [phone]. Please call her back at [phone]. Thank you, SONJA Rosario Kaytee, RN 06/12/2025 12:20 PM Signed Received paperwork yesterday evening, Will complete and fax to [facility], Explained to rep yesterday that this would need completed/ prescriber signature- and pt has incomplete labs. Dr. Manuel, Please review and sign labs for TB [...] you ask the patient to repeat Eleanor Reich RN 06/13/2025 9:17 AM Signed Lab Requisites faxed to [phone] [facility] per pt request. Confirmation fax received. Thanks, SONJA Ramsey Debra 06/13/2025 3:26 PM Signed Please confirm the Shanti Kit was also faxed over. Thank you, Eleanor Reich RN 06/13/2025 3:34 PM Signed Fecal Sidney was faxed (stool study) as well. Eleanor Miller RN Callahan, Kaytee, RN 06/17/2025 10:08 AM Signed Lab results received via fax from [facility] DOS 06-13-25 Dr. Manuel please review and sign abnormal results, Full doc submitted for scan in Eleanor Miller RN CBC WNL CMP GLUC 111 H ALT 93 H ALBUMIN 3.3 L ESR 19 H HEP B SURG <3.5 L HEP B CORE NEG HBsAG SCRN NEG Mario Manuel MD 06/17/2025 1:27 PM Signed Noted I don't see TB? Repeat labs in 6 months Hepatitis B and TB in one year Eleanor Reich RN 06/17/2025 1:35 PM Signed TB up to date in scanned docs Reviewed previously- Awaiting up dated TB, pt stated he may wait until next lab work is due for completion. Eleanor Miller RN Callahan, Kaytee, RN 06/17/2025 1:36 PM Signed Addended by: ELEANOR REICH on: 06/17/2025 01:36 PM Modules accepted: Orders Mario Manuel MD 06/17/2025 3:57 PM Signed Mario Mccray MD 06/17/2025 3:57 PM Signed Addended by: MARIO MANUEL on: 06/17/2025 03:57 PM Modules accepted: Dea Tate LPN 06/19/2025 3:58 PM Addendum Bonnie CASILLAS from [facility] regarding SHANTI kit orders. Bonnie states SHANTI orders were faxed to the office a few days ago. Patient is scheduled to have infusion on Saturday 06/23. Bonnie CASILLAS states if SHANTI orders are not received by tomorrow patient will need to be cancelled for Mondays infusion. Bonnie CASILLAS will refax SHANTI kit orders to the office today. Bonnie CASILLAS # [phone] Fax # [phone] Please see Ingris CASILLAS message from 06/12/25. Thank You VENKATESH Chester Dawn, RN 06/19/2025 3:59 PM Signed Orders received, signed by Dr. Manuel and faxed to [facility] [place]. SONJA Rosario Doreen 06/23/2025 10:29 AM Addendum Patient wanted scheduled before August. Scheduled with Lorena on 07/09. Please advise if patient needs to be scheduled with Eleanor Ambriz RN 06/23/2025 11:14 AM Signed Ok to schedule with Lorena for Follow up, Pt has been stable. Thanks, Eleanor Reich RN Allergies As of Date: 06/12/2025 (No Known Allergies) Date Reviewed: 08/18/2023 Reviewed by: Orquidea Grady RN - Fully Assessed Reason for Visit: Orders [681] Cmt: Inflectra renewal and SHANTI Kit Primary Visit Diagnosis:Crohn's disease without complication, unspecified gastrointestinal tract location (HCC) [K50.90] Order(s):BLOOD TB SCREEN [SQINFTBP] Order #: [id number] FUTURE HEPATITIS B CORE ANTIBODY TOTAL [SQAHBCOT] Order #: [id number] FUTURE HEPATITIS B SURFACE ANTIGEN [SQHBSAG] Order #: [id number] FUTURE HEPATITIS B SURFACE ANTIBODY [SQAHBSAG] Order #: [id number] FUTURE C-REACTIVE PROTEIN [SQCRP] Order #: [id number] FUTURE COMPREHENSIVE METABOLIC PANEL [SQCMP] Order #: [id number] FUTURE COMPLETE BLOOD COUNT AND DIFFERENTIAL [SQCBCDIF] Order #: [id number] FUTURE SEDIMENTATION RATE, WESTERGREN [SQWSR] Order #: [id number] FUTURE Prescriptions as of 06/23/2025 - predniSONE (DELTASONE) 20 mg tablet Take 20 mg by mouth once daily. - methocarbamol (ROBAXIN) 500 mg tablet Take 500 mg by mouth four times daily. Problem List As Of Date: 06/12/2025 (None) Encounter Status:Closed by ELEANOR REICH on 06/12/25NoElyria Memorial HospitalSupriya [id number] ([facility]) CADYLATRICE DORADO ([id number]) 1990 M Date Time Provider Department 05/02/25 MRAIO MANUEL During your visit today, we recorded the following information about you: Eleanor Reich RN 05/02/2025 2:40 PM Signed [facility] called in Pt Due for Inflectra on 05-15-25 Pt having breakthrough symptoms, Asking to Infuse early on 05-05-25 Direct call back to approve request [phone] Attempted to call pt, LVM to c/b out office to discuss symptoms further, Eleanor Miller RN Callahan, Kaytee, RN 05/05/2025 10:26 AM Signed Called received from [facility] [place], Asking for update regarding pt req of [...] labs, Increased symptoms per incoming call from [facility] nurse, however nurse could not give details to what symptoms other than the pt stated severe breakthrough symptoms. Second incoming call received today from [facility] [place] [facility], requesting earlier infusion for pt, Declined at this time as Pt needs triaged for specifity of symptoms and is due for labs. Second attempt to call pt, LVM. Dr. Manuel, Added orders for INFLMB Serum, Fecal sidney, and routine labs. If agree, Please review and sign./ Eleanor Miller RN Callahan, Kaytee, RN 05/05/2025 12:11 PM Signed Addended by: ELEANOR REICH on: 05/05/2025 12:11 PM Modules accepted: Orders Mario Manuel MD 05/06/2025 3:38 PM Signed Will not change treatment plan until patient return RN call an get ordered labs and stool studies done Mario Manuel MD 05/06/2025 3:38 PM Signed Addended by: MARIO MANUEL on: 05/06/2025 03:38 PM Modules accepted: Orders Eleanor Reich RN 05/07/2025 10:06 AM Signed Third attempt to call pt, Phone number left for call back. Eleanor Miller RN Kasubinski, Paige 09/17/2025 4:49 PM Signed Addended by: DORIE VEGA on: 09/17/2025 04:49 PM Modules accepted: Orders Allergies As of Date: 05/02/2025 (No Known Allergies) Date Reviewed: 08/18/2023 Reviewed by: Orquidea Grady RN - Fully Assessed Primary Visit Diagnosis:Crohn's disease without complication, unspecified gastrointestinal tract location (HCC) [K50.90] Order(s):EXTRA ECOFIX CONTAINER PERFORMABLE [[id number]] Order #: [id number] FUTURE EXTRA LAUREL-PRANAY CONTAINER PERFORMABLE [[id number]] Order #: [id number] FUTURE EXTRA ECOFIX CONTAINER PERFORMABLE [[id number]] Order #: [id number]. #:[id number] EXTRA LAUREL-PRANAY CONTAINER PERFORMABLE [[id number]] Order #: [id number]. #:[id number] Prescriptions as of 09/17/2025 - inFLIXimab-dyyb (INFLECTRA) 100 mg injection Inject intravenously. - calcium/magnesium/vit B comp (HDVGMDO-BOIYUZKCM-I COMPLEX ORAL) Take by mouth. - peg 3350-Electrolytes (GOLYTELY) 236-22.74-6.74 -5.86 gram suspension Refer to printed prep instructions from your provider. - predniSONE (DELTASONE) 20 mg tablet Take 20 mg by mouth once daily. - methocarbamol (ROBAXIN) 500 mg tablet Take 500 mg by mouth four times daily. Problem List As Of Date: 05/02/2025 (None) Encounter Status:Closed by ELEANOR REICH on 05/02/25NoBlanchard Valley Health System Bluffton HospitalCalprotectin, Fecalon 00-59-6153Sqohuplqlbhm, [id number] Newark HospitalComment on above:Result Comment: Results verified by repeat testing Concentration Interpretation Follow-Up < 5 - 50 ug/g Normal None >50 -120 ug/g Borderline Re-evaluate in 4-6 weeks >120 ug/g Abnormal Repeat as clinically indicated Performed at: [facility] [id number] Flight Attendant Inflight Services: Cierra Bell MD, Phone: [phone] PERFORMED BY: [place] [address] PATHOLOGIST LEAD DENTAL ASSISTANT KURT TONG M.D.Performed By: #### CDT #### [facility] [address] [place] [address] #### CALPROTECT #### [facility] ,Clostridioides difficile toxin B tcdB gene [Presence] in Stool by ZEESHAN with probe deteOrdered By: Mario Manuel on 08-03-2023. difficile toxin B tcdB gene ZEESHAN+probe Ql (Stl)NegativeNegativeNewark HospitalComment on above:Testing performed by RT-PCRClostridium Difficileon 33-29-5951Ffhfuwtbiid DifficileNegativeNormalNegativeNewark HospitalComment on above:Result Comment: Testing performed by RT-PCR PERFORMED BY: [place] [address] PATHOLOGIST LEAD DENTAL ASSISTANT KURT TONG M.D.Performed By: #### CDT #### [facility] [address] [place] [address] #### CALPROTECT #### [facility] ,C-REACTIVE PROTEIN (CRP)on 11-06-5741CSM [Mass/Vol]1.0 mg/dLHigh<0.9 mg/dL [facility] W Auto Differential panel (Bld)on 68-39-0207Pbrvefuxe (Bld) [#/Vol]0.06 10*3/uL<0.11 k/uLKettering Health Behavioral Medical CenterBasophils/100 WBC (Bld)0.6 % [facility] CenterDifferential cell count method Nom (Bld)AutoClevelMercy Memorial Hospital Eosinophils (Bld) [#/Vol]0.14 10*3/uL<0.46 k/uLKettering Health Behavioral Medical CenterEosinophils/100 WBC (Bld)1.4 %[facility] Medical CenterErythrocyte distribution width (RBC) [Ratio]13.3 % 11.5 - 15.0 %[facility] Medical CenterHematocrit (Bld) [Volume fraction]40.5 %39.0 - 51.0 %[facility] CenterHemoglobin (Bld) [Mass/Vol]12.7 g/dLLow13.0 - 17.0 g/dL [facility] CenterImmature granulocytes (Bld) [#/Vol]0.05 10*3/uL<0.10 k/uL [facility] CenterImmature granulocytes/100 WBC (Bld)0.5 %[facility] Lymphocytes (Bld) [#/Vol]2.35 10*3/uL1.00 - 4.00 k/uLKettering Health Behavioral Medical Center Lymphocytes/100 WBC (Bld)23.7 %[facility] CenterH (RBC) [Entitic mass]28.1 pg 26.0 - 34.0 pgCGerman HospitalMCHC (RBC) [Mass/Vol]31.4 g/dL30.5 - 36.0 g/dL [facility] Health CenterV (RBC) [Entitic vol]89.6 fL80.0 - 100.0 fLCGerman Hospital Monocytes (Bld) [#/Vol]1.00 10*3/uLHigh<0.87 k/uLKettering Health Behavioral Medical CenterMonocytes/100 WBC (Bld)10.1 %[facility] Medical CenterNeutrophils (Bld) [#/Vol]6.33 10*3/uL1.45 - 7.50 k/uLKettering Health Behavioral Medical CenterNeutrophils/100 WBC (Bld)63.7 %[facility] CenterNucleated RBC (Bld) [#/Vol]<0.01 k/uLKettering Health Behavioral Medical CenterNucleated RBC/100 WBC (Bld) [Ratio]0.0 /100 WBCKettering Health Behavioral Medical CenterPlatelet mean volume (Bld) [Entitic vol]11.1 fL9.0 - 12.7 fLCleveland ClinicPlatelets (Bld) [#/Vol]241 10*3/uL150 - 400 k/uLSouth Williamson ClinicRBC (Bld) [#/Vol]4.52 10*6/uL4.20 - 6.00 m/uLSouth Williamson ClinicWBC (Bld) [#/Vol]9.93 10*3/uL3.70 - 11.00 k/uLKettering Health Behavioral Medical CenterComprehensive metabolic 2000 panelon 50-14-4704Dozbovi [Mass/Vol]4.0 g/dL3.9 - 4.9 g/dLSouth Williamson ClinicALP [Catalytic activity/Vol]63 U/L38 - 113 U/LCleveland ClinicALT [Catalytic activity/Vol]19 U/L10 - 54 U/LCleveland ClinicAnion gap [Moles/Vol]8 mmol/LLow9 - 18 mmol/LCleveland ClinicAST [Catalytic activity/Vol]21 U/L14 - 40 U/L [facility] CenterBilirubin [Mass/Vol]0.5 mg/dL0.2 - 1.3 mg/dLKettering Health Behavioral Medical Center Calcium [Mass/Vol]9.3 mg/dL8.5 - 10.2 mg/dLKettering Health Behavioral Medical CenterChloride [Moles/Vol] 106 mmol/LHigh97 - 105 mmol/LCleveland ClinicCO2 [Moles/Vol]26 mmol/L22 - 30 mmol/LCleveland ClinicCreatinine [Mass/Vol]0.74 mg/dL0.73 - 1.22 mg/dLKettering Health Behavioral Medical CenterEstimated Glomerular Filtration Zqia205 mL/min/1.73m>=60 mL/min/1.73m [facility] CenterGlucose [Mass/Vol]87 mg/dL74 - 99 mg/dLKettering Health Behavioral Medical CenterPotassium [Moles/Vol]3.9 mmol/L3.7 - 5.1 mmol/LCleveland ClinicProtein [Mass/Vol]7.2 g/dL 6.3 - 8.0 g/dLSouth Williamson ClinicSodium [Moles/Vol]140 mmol/L136 - 144 mmol/L [facility] CenterUrea nitrogen [Mass/Vol]13 mg/dL9 - 24 mg/dLKettering Health Behavioral Medical CenterESR Westergren method (Bld) [Velocity]on 59-66-2820AMY (Bld) [Velocity]32 mm/hHigh0 - 15 mm/hrCleMarietta Osteopathic ClinicHBV surface Ab Ql (S)on 38-25-7428MKP surface Ab Qn (S)JavierSt. Francis Hospital B CORE AB TOTALon 11-93-0638HQS core Ab Ql (S)Negative NegativeCleMarietta Osteopathic ClinicHEP B SURF ABon 97-88-9530QHN surface Ab Ql (S)Negative JavierTrumbull Memorial HospitalP B SURF AG SCRNon 15-41-4238HJG surface Ag Ql (S)Negative NegativeKettering Health Behavioral Medical CenterCovid-19 PCR (CVDTBH)on 21-56-5715SAJP-CoV-2 (COVID-19) RNA ZEESHAN+probe Ql (Unsp spec)Not detectedNormalNOT DETECTEDKettering Health – Soin Medical Center Comment on above:Result Comment: This test is not yet approved or cleared by the [place] FDA. When there are no FDA-approved or cleared tests available, and other criteria are met, FDA can make tests available under an emergency access mechanism called an Emergency Use Authorization (EUA). The EUA for this test is supported by the [place] of Health and Human Service's (HHS's) declaration that circumstances exist to justify the emergency use of in vitro diagnostics for the detection and/or diagnosis of the virus that causes COVID- 19. This EUA will remain in effect (meaning [...] of clinical signs and symptoms consistent with SARS-CoV-2.Performed By: #### OVAPE #### [facility] [address] [place] [address] Dr. Flaquita HernandezINFLUENZA A AND B AGon 72-88-5224KUKBIWPVOBMOBOhioHealth Dublin Methodist HospitalComment on above:Result Comment: Negative for Flu A protein angiten. Infection due to Flu A cannot be ruled out. FluA angiten in the sample may be below the detection limit of the test.Performed By: #### INFLUAB #### [facility] [address] [place] [address] Dr. Flaquita Mcgowan [facility] Medical CenterComment on above: Result Comment: Negative for Flu B protein antigen. Infection due to Flu B cannot be ruled out. FluB antigen in the sample may be below the detection limit of the test.Performed By: #### INFLUAB #### [facility] [address] [place] [address] Dr. Flaquita Andrew AGNegativeNormalNEGATIVE SEE COMMENTThe [facility] HospitalComment on above:Performed By: #### INFLUAB #### [place] [address] Dr. Flaquita Garcia AGNegativeNormalNEGATIVE SEE COMMENTThe [facility] HospitalComment on above:Performed By: #### INFLUAB #### [facility] [address] [place] [address] Dr. Flaquita HernandezINTERNAL CONTROLSWithin Normal LimitsNormalWithin Normal Limits The [facility] HospitalComment on above:Performed By: #### INFLUAB #### [facility] [address] [place] [address] Dr. Flaquita Alexander TB GOLD PLUSon 58-82-6790AbyploIVNWK CriteriaComment NormalBucyrus Community Hospital on above:Result Comment: QuantiFERON-TB Gold Plus is a qualitative indirect test for M tuberculosis infection (including disease) and is intended for use in conjunction with risk assessment, radiography, and other medical and diagnostic evaluations. The QuantiFERON-TB Gold Plus result is determined by subtracting the Nil value from either TB antigen (Ag) value. The Mitogen tube serves as a control for the test.Performed By: #### QNTTB #### [facility] [address] [place] [address] Dr. Flaquita Alexander IncubationIncubation performed.NormalThe [facility] HospitalComment on above:Performed By: #### QNTTB #### [facility] [address] [place] [address] Dr. Flaquita Alexander Mitogen Value>10.00NoShelby Memorial HospitalComment on above:Performed By: #### QNTTB #### [facility] [address] [place] [address] Dr. Flaquita Alexander Nil Value0.02 IU/mLNMarymount HospitalComment on above:Performed By: #### QNTTB #### [facility] [address] [place] [address] Dr. Flaquita Alexander TB1 Ag Value0.02 IU/mLNMarymount Hospital Comment on above:Performed By: #### QNTTB #### [facility] [address] [place] [address] Dr. Flaquita Alexander TB2 Ag Value0.03 IU/mLNMarymount Hospital Comment on above:Performed By: #### QNTTB #### [facility] [address] [place] [address] Dr. Flaquita Alexander-TB Gold PlusNegativeNormalNegativeKettering Health – Soin Medical CenterComment on above:Result Comment: No response to M tuberculosis antigens detected. Infection with M tuberculosis is unlikely, but high risk individuals should be considered for additional testing (ATS/IDSA/CDC Clinical Practice Guidelines, 2017). The reference range is an Antigen minus Nil result of <0.35 IU/mL. Chemiluminescence immunoassay methodologyPerformed By: #### QNTTB #### [facility] [address] [place] [address] Dr. Flaquita Duggan B SURFACE AGon 34-37-3369WNrIu ScreenNegativeNormalNegative [facility] So[facility] Medical CenterComascension mac[facility] on above:Performed By: #### HEPBSUR #### [facility] [address] [place] [address] Dr. Flaquita Camara DISORDERS EVALUATION RULE-OUT CASCon 28-03-5811Flmystvk pANCANegativeNormalNegativeKettering Health – Soin Medical CenterComment on above:Performed By: #### OVAPE #### [facility] [address] [place] [address] Dr. Flaquita Ricks:CommentMercy Health Kings Mills HospitalComment on above:Result Comment: Suggestive of Crohn's disease. Subsequent testing with the Crohn's Disease Prognostic Profile (632511) that includes antiglycan antibodies AMCA, ALCA, ACCA, and Manda may aid in the differentiation of clinical forms of CD and prognosis of disease progression.Performed By: #### OVAPE #### [facility] [address] [place] [address] Dr. Flaquita HernandezSaccharomyces Cer. IgG43.0 UnitsCritically high0.0-24.9The [facility] HospitalComment on above:Result Comment: Negative <20.0 Equivocal 20.1 - 24.9 Positive >or= 25.0Performed By: #### OVAPE #### [facility] [address] [place] [address] Dr. Flaquita Duong/KERWIN SCRNegativeNormalNegativeThe [facility] HospitalComment on above:Performed By: #### OVAPE #### [facility] [address] [place] [address] Dr. Flaquita HernandezLACTOFERRIN FECAL QUANTon 63-84-9699Ueunpszhyoh, Fecal, Quant. 33.88 ug/mL(g)Critically high0.00-7.24The [facility] on above: Result Comment: Results verified by repeat testing . Baseline (normal) [...] from those with non-inflammatory irritable bowel syndrome (IBS).Performed By: #### ERUR #### [facility] [address] [place] [address] Dr. Flaquita Malone-19 SOFIAOrdered By: Elkin Lake on 07-07-2022 SARS-CoV+SARS-CoV-2 (COVID-19) Ag IA.rapid Ql (Resp)NegativeNegativeNewark HospitalComment on above:This is a duplicate [place] SARS Antigen (XIN) result to be used for statistical tracking purpose only.No Panel InformationOrdered By: Elkin Lake on 31-15-0436NQGO Antigen (LFIA) Newark HospitalCRPon 77-40-0660APK3.5 mg/dLNormal<=1.0The [facility] HospitalComment on above:Performed By: #### OVAPE #### [facility] [address] [place] [address] Dr. Flaquita Clinton 14(COMP METB)on 16-22-8350Uilxdso [Mass/Vol]3.6 g/dLNormal 3.4-5.0The [facility] HospitalComment on above:Performed By: #### OVAPE #### [facility] [address] [place] [address] Dr. Flaquita HernandezAlbumin/Globulin [Mass ratio]0.9 {ratio}NormalThe [facility] HospitalComment on above:Performed By: #### OVAPE #### [facility] [address] [place] [address] Dr. Flaquita Kapadia [Catalytic activity/Vol]61 U/IJyeizn42-336Ufw [facility] HospitalComment on above:Performed By: #### OVAPE #### [facility] [address] [place] [address] Dr. Flaquita Cox [Catalytic activity/Vol]18 U/FYigatj34-82Umv [facility] HospitalComment on above:Performed By: #### OVAPE #### [facility] [address] [place] [address] Dr. Flaquita Ness gap [Moles/Vol]12.6 mmol/LNormalThe [facility] Comment on above:Performed By: #### OVAPE #### [facility] [address] [place] [address] Dr. Flaquita HernandezAST [Catalytic activity/Vol]6 U/LCritically zjl84-42Ccm [facility] HospitalComment on above:Performed By: #### OVAPE #### [facility] [address] [place] [address] Dr. Flaquita HernandezBilirubin [Mass/Vol]0.7 mg/dLNormal0.2-1.0[facility] Comment on above:Performed By: #### OVAPE #### [facility] [address] [place] [address] Dr. Flaquita HernandezCalcium [Mass/Vol]9.0 mg/dLNormal8.5-10.1[facility] Comment on above:Performed By: #### OVAPE #### [facility] [address] [place] [address] Dr. Flaquita HernandezChloride [Moles/Vol]102 mmol/RBmlptt55-559NumKettering Health – Soin Medical Center Comment on above:Performed By: #### OVAPE #### [facility] [address] [place] [address] Dr. Flaquita HernandezCO2 [Moles/Vol]27.2 mmol/VPdnlzg93.0-32.0[facility] Comment on above:Performed By: #### OVAPE #### [facility] [address] [place] [address] Dr. Flaquita HernandezCreatinine [Mass/Vol]0.83 mg/dLNormal0.70-1.30The [facility] HospitalComment on above:Performed By: #### OVAPE #### [facility] [address] [place] [address] Dr. Flaquita ArdonGFR-AF AMERICANNormal>=60The [facility] HospitalComment on above: Performed By: #### OVAPE #### [facility] [address] [place] [address] Dr. Flaquita ArdonGFR-NON AF AMERICANNormal>=60[facility] Medical CenterComment on above:Performed By: #### OVAPE #### [facility] [address] [place] [address] Dr. Flaquita HernandezGlobulin (S) [Mass/Vol]3.9 g/dLNormalThe [facility] HospitalComment on above:Performed By: #### OVAPE #### [facility] [address] [place] [address] Dr. Flaquita HernandezGlucose [Mass/Vol]90 mg/oWVukdum83-591WpnKettering Health – [facility] Medical Center Comment on above:Performed By: #### OVAPE #### [facility] [address] [address] [address] Flaquita HernandezPotassium [Moles/Vol]3.8 mmol/LNormal3.5-5.1The [facility] Comment on above:Performed By: #### OVAPE #### [facility] [address] [place] [address] Dr. Flaquita HernandezProtein [Mass/Vol]7.5 g/dLNormal6.4-8.2The [facility] Comment on above:Performed By: #### OVAPE #### [facility] [address] [place] [address] Dr. Flaquita Bolañosdium [Moles/Vol]138 mmol/QUpdpxj773-325Bct [facility] Comment on above:Performed By: #### OVAPE #### [facility] [address] [place] [address] Dr. Flaquita HernandezUrea nitrogen [Mass/Vol]15.0 mg/dLNormal7.0-18.0The [facility] HospitalComment on above:Performed By: #### OVAPE #### [facility] [address] [place] [address] Dr. Flaquita Nguyen nitrogen/Creatinine [Mass ratio]18.1 mg/mgNormalThe [facility] HospitalComment on above:Performed By: #### OVAPE #### [facility] [address] [place] [address] Dr. Flaquita Gay RATE WESTERGRENon 29-08-5309QBT RATE41 mm/hrCritically high <=15[facility] Medical CenterComment on above:Performed By: #### SEDR #### [facility] [address] [place] [address] Dr. Flaquita Navarro AUTO DIFFon 09-23-6067CYXG #0.1 103/ulNormal0.0-0.1The [facility] HospitalComment on above:Performed By: #### ERUR #### [facility] [address] [place] [address] Dr. Yilan ChangBasophils/100 WBC (Bld)0.5 %Normal0.2-2.0[facility] Comment on above:Performed By: #### ERUR #### [facility] [address] [place] [address] Dr. Flaquita Blakely #0.2 103/ulNormal0.0-0.7The [facility] HospitalComment on above: Performed By: #### ERUR #### [facility] [address] [place] [address] Dr. Flaquita Ardonosinophils/100 WBC (Bld)1.5 %Normal0.9-7.0[facility] Comment on above:Performed By: #### ERUR #### [facility] [address] [place] [address] Dr. Flaquita Ardonrythrocyte distribution width (RBC) [Ratio]15.1 %Critically high 11.0-15.0[facility] So[facility] Medical CenterComment on above:Performed By: #### ERUR #### [facility] [address] [place] [address] Dr. Flaquita HernandezHematocrit (Bld) [Volume fraction]41.9 %Critically low42.0-54.0 [facility] Medical CenterComment on above:Performed By: #### ERUR #### [facility] [address] [place] [address] Dr. Flaquita HernandezHemoglobin (Bld) [Mass/Vol]13.4 g/dLCritically low14.0-18.0[facility] Medical CenterComment on above:Performed By: #### ERUR #### [facility] [address] [place] [address] Dr. Flaquita Tanner #0.06 10e3/ulCritically high0.00-0.03The [facility] Comment on above:Performed By: #### ERUR #### [facility] [address] [place] [address] Dr. Flaquita Tanner %0.5 %Normal0.0-0.5The [facility] HospitalComment on above: Performed By: #### ERUR #### [facility] [address] [address] [address] Flaquita Rebollar #2.0 103/ulNormal1.2-3.8The [facility] HospitalComment on above:Performed By: #### ERUR #### [facility] [address] [place] [address] Dr. Flaquita Cruzmphocytes/100 WBC (Bld)15.0 %Critically low20.5-60.0The [facility] City HospitalComment on above:Performed By: #### ERUR #### [facility] [address] [place] [address] Dr. Flaquita Radford DIFF REQNONormalThe [facility] City HospitalComment on above: Performed By: #### ERUR #### [facility] [address] [place] [address] Dr. Flaquita Mojica (RBC) [Entitic mass]27.1 riEuodsj22.9-34.0The [facility] HospitalComment on above:Performed By: #### ERUR #### [facility] [address] [place] [address] Dr. Flaquita Mojica (RBC) [Mass/Vol]32.0 g/zYFqhqvn75.9-35.2The [facility] HospitalComment on above:Performed By: #### ERUR #### [facility] [address] [place] [address] Dr. Flaquita Mojica (RBC) [Entitic vol]84.6 aFXhnynr29.0-94.0The [facility] HospitalComment on above:Performed By: #### ERUR #### [facility] [address] [place] [address] Dr. Flaquita Mcneal #1.2 103/ulCritically high0.3-0.8The [facility] Comment on above:Performed By: #### ERUR #### [facility] [address] [place] [address] Dr. Flaquita Pratherocytes/100 WBC (Bld)9.0 %Normal1.7-12.0[facility] Comment on above:Performed By: #### ERUR #### [facility] [address] [address] [address] Flaquita Villareal #9.6 103/ulCritically high1.4-6.5The [facility] Comment on above:Performed By: #### ERUR #### [facility] [address] [place] [address] Dr. Flaquita Slaughterutrophils/100 WBC (Bld)73.5 %Bzxvft74.0-75.0The [facility] HospitalComment on above:Performed By: #### ERUR #### [facility] [address] [place] [address] Dr. Flaquita Llaneslet mean volume (Bld) [Entitic vol]10.9 fLNormal9.5-13.5The [facility] HospitalComment on above:Performed By: #### ERUR #### [facility] [address] [place] [address] Dr. Flaquita HernandezPLT265 103/wgGnteph364-800Brm [facility] HospitalComment on above: Performed By: #### ERUR #### [facility] [address] [place] [address] Dr. Flaquita HernandezRBC4.95 106/ulNormal4.70-6.10The [facility] HospitalComment on above:Performed By: #### ERUR #### [facility] [address] [place] [address] Dr. Flaquita HernandezWBC13.1 103/ulCritically high4.0-11.0The [facility] HospitalComment on above:Performed By: #### ERUR #### [facility] [address] [place] [address] Dr. Flaquita Jon 02-61-6650SUR7.2 mg/dLCritically high<=1.0The [facility] HospitalComment on above:Performed By: #### CRP #### [facility] [address] [place] [address] Dr. Flaquita HernandezCT ABD/PELV W CONon 70-31-5071KN ABD/PELV W CONEXAMINATION: CT ABD/PELV W CON HISTORY: Colitis COMPARISON: [...] Electronically authenticated by: JUDD EPSTEIN Date: 2022-06-27 19:26[facility] URINE PROFILEon 63-07-7116Dkfvphydo Ql (U)NegativeNormal NEGATIVEKettering Health – Soin Medical CenterComment on above:Performed By: #### ERUR #### [facility] [address] [place] [address] Dr. Flaquita Rojas (U)CLEARNormalCLEARKettering Health – Soin Medical CenterComment on above: Performed By: #### ERUR #### [facility] [address] [place] [address] Dr. Flaquita Reis (U)YELLOWNormalYELLOWKettering Health – Soin Medical CenterComment on above: Performed By: #### ERUR #### [facility] [address] [place] [address] Dr. Flaquita Carmichael micrscopic examination will be performed if indicated. NormalKettering Health – Soin Medical CenterComment on above:Performed By: #### ERUR #### [facility] [address] [place] [address] Dr. Flaquita HernandezGlucose Ql (U)NegativeNormalNEGATIVEKettering Health – Soin Medical CenterComment on above:Performed By: #### ERUR #### [facility] [address] [place] [address] Dr. Flaquita HernandezHemoglobin Ql (U)NegativeNormalNEGATIVEPeoples Hospital on above:Performed By: #### ERUR #### [facility] [address] [place] [address] Dr. Flaquita Johnson Ql (U)NegativeNormalNEGATIVEThe [facility] HospitalComment on above:Performed By: #### ERUR #### [facility] [address] [place] [address] Dr. Flaquita HernandezLEUKOCYTESNegativeNormalNEGATIVEThe [facility] HospitalComment on above:Performed By: #### ERUR #### [facility] [address] [place] [address] Dr. Flaquita Beantrite Ql (U)NegativeNormalNEGATIVEThe [facility] HospitalComment on above:Performed By: #### ERUR #### [facility] [address] [place] [address] Dr. Flaquita HernandezpH (U)6.5 [pH]Normal5-9The [facility] HospitalComment on above: Performed By: #### ERUR #### [facility] [address] [place] [address] Dr. Flaquita HernandezSPEC GRAVITY1.620Edexfg2.005-<=1.025The [facility] HospitalComment on above:Performed By: #### ERUR #### [facility] [address] [place] [address] Dr. Flaquita Delvalle PROTEINNegativeNormalNEGATIVE/ TRACEThe [facility] Comment on above:Performed By: #### ERUR #### [facility] [address] [place] [address] Dr. Flaquita Awad MICRO INDNOT INDICATEDNormalThe [facility] HospitalComment on above:Performed By: #### ERUR #### [facility] [address] [place] [address] Dr. Flaquita Seymourbilinogen Qn (U)0.2 {Marcellus'U}/dLNormal0.2 - 1.0The [facility] HospitalComment on above:Performed By: #### ERUR #### [facility] [address] [place] [address] Dr. Flaquita KhouryCTATE/LACTIC ACIDon 71-32-9779Dszndfb [Moles/Vol]0.9 mmol/L Normal0.4-1.9The [facility] HospitalComment on above:Performed By: #### OVAPE #### [facility] [address] [place] [address] Dr. Flaquita Clinton 14(COMP METB)on 46-87-1532Qfctdxt [Mass/Vol]3.6 g/dLNormal 3.4-5.0The [facility] HospitalComment on above:Performed By: #### ERUR #### [facility] [address] [place] [address] Dr. Flaquita HernandezAlbumin/Globulin [Mass ratio]0.9 {ratio}NormalThe [facility] HospitalComment on above:Performed By: #### ERUR #### [facility] [address] [place] [address] Dr. Flaquita LaresP [Catalytic activity/Vol]68 U/OHgwrhs25-364Ghs [facility] HospitalComment on above:Performed By: #### ERUR #### [facility] [address] [place] [address] Dr. Flaquita Cox [Catalytic activity/Vol]17 U/IQcglfs82-86Ebr [facility] HospitalComment on above:Performed By: #### ERUR #### [facility] [address] [place] [address] Dr. Flaquita Ness gap [Moles/Vol]12.0 mmol/LNormalThe [facility] Comment on above:Performed By: #### ERUR #### [facility] [address] [place] [address] Dr. Flaquita HernandezAST [Catalytic activity/Vol]8 U/LCritically hji38-92Vtg [facility] HospitalComment on above:Performed By: #### ERUR #### [facility] [address] [place] [address] Dr. Flaquita HernandezBilirubin [Mass/Vol]0.7 mg/dLNormal0.2-1.0The [facility] Comment on above:Performed By: #### ERUR #### [facility] [address] [address] [address] Flaquita HernandezCalcium [Mass/Vol]8.7 mg/dLNormal8.5-10.1The [facility] Comment on above:Performed By: #### ERUR #### [facility] [address] [place] [address] Dr. Flaquita HernandezChloride [Moles/Vol]103 mmol/AErgzww69-250Juc [facility] Comment on above:Performed By: #### ERUR #### [facility] [address] [place] [address] Dr. Flaquita HernandezCO2 [Moles/Vol]26.9 mmol/LBwxbcn73.0-32.0The [facility] Comment on above:Performed By: #### ERUR #### [facility] [address] [place] [address] Dr. Flaquita HernandezCreatinine [Mass/Vol]0.75 mg/dLNormal0.70-1.30The [facility] HospitalComment on above:Performed By: #### ERUR #### [facility] [address] [place] [address] Dr. Flaquita ArdonGFR-AF MONEGASQUE>60Normal>=60The [facility] HospitalComment on above:Performed By: #### ERUR #### [facility] [address] [place] [address] Dr. Flaquita ArdonGFR-NON AF MONEGASQUE>60Normal>=60The [facility] HospitalComment on above:Performed By: #### ERUR #### [facility] [address] [place] [address] Dr. Flaquita HernandezGlobulin (S) [Mass/Vol]3.9 g/dLNormalThe [facility] HospitalComment on above:Performed By: #### ERUR #### [facility] [address] [place] [address] Dr. Flaquita HernandezGlucose [Mass/Vol]103 mg/dXKzgpsi37-091Szt [facility] Comment on above:Performed By: #### ERUR #### [facility] [address] [place] [address] Dr. Flaquita HernandezPotassium [Moles/Vol]3.9 mmol/LNormal3.5-5.1The [facility] Comment on above:Performed By: #### ERUR #### [facility] [address] [address] [address] Flaquita HernandezProtein [Mass/Vol]7.5 g/dLNormal6.4-8.2The [facility] Comment on above:Performed By: #### ERUR #### [facility] [address] [address] [address] Flaquita HernandezSodium [Moles/Vol]138 mmol/BXdjgwb802-219Enp [facility] Comment on above:Performed By: #### ERUR #### [facility] [address] [place] [address] Dr. Flaquita HernandezUrea nitrogen [Mass/Vol]11.0 mg/dLNormal7.0-18.0The [facility] HospitalComment on above:Performed By: #### ERUR #### [facility] [address] [place] [address] Dr. Flaquita Nguyen nitrogen/Creatinine [Mass ratio]14.7 mg/mgMercy Health Kings Mills HospitalComment on above:Performed By: #### ERUR #### [facility] [address] [place] [address] Dr. Flaquita GranadosIMEhanna 57-42-4954PQF Coag (PPP) [Relative time]0.95 {INR} NormalThe [facility] HospitalComment on above:Performed By: #### ERUR #### [facility] [address] [place] [address] Dr. Flaquita Perdue GUIDELINESSEE BELOWMercy Health Kings Mills HospitalComment on above:Result Comment: DESIRED INR: 2.0 - 3.0 CONDITIONS NOT LISTED BELOW 2.5 - 3.5 FOR PROSTHETIC HEART VALVE REPLACEMENT 2.5 - 3.5 RECURRENT THROMBOSIS Performed By: #### ERUR #### [facility] [address] [place] [address] Dr. Flaquita HernandezPT Coag (PPP) [Time]10.3 sNormal9.0-11.6The [facility] Comment on above:Performed By: #### ERUR #### [facility] [address] [address] [address] Flaquita Valdovinos 15-87-1863bSNK Coag (Bld) [Time]26.5 cJnsedj62.3-36.2The [facility] HospitalComment on above:Performed By: #### ERUR #### [facility] [address] [address] [address] Flaquita Gay RATE WESTERGRENon 88-73-1433DIK RATE44 mm/hrCritically high <=15The [facility] HospitalComment on above:Performed By: #### ERUR #### [facility] [address] [address] [address] Flaquita HernandezMRI LSPINE WO CONon 79-42-4108FKO LSPINE WO CONEXAMINATION: MRI LSPINE WO CON HISTORY: Prolapsed lumbar [...] Electronically authenticated by: MONO TAN Date: 2022-05-27 16:15NormalThe [facility] AUTO DIFFon 26-84-2597IDJF #0.1 103/ulNormal0.0-0.1[facility] CenterComment on above:Performed By: #### CBC #### [facility] [address] [address] [address] Flaquita HernandezBasophils/100 WBC (Bld)0.6 %Normal0.2-2.0[facility] Comment on above:Performed By: #### CBC #### [facility] [address] [address] [address] Flaquita Blakely #0.2 103/ulNormal0.0-0.7The [facility] HospitalComment on above: Performed By: #### CBC #### [facility] [address] [address] [address] Flaquita Ardonosinophils/100 WBC (Bld)2.1 %Normal0.9-7.0[facility] Comment on above:Performed By: #### CBC #### [facility] [address] [address] [address] Flaquita Ardonrythrocyte distribution width (RBC) [Ratio]14.2 %Riawlt88.0-15.0 [facility] Medical CenterComment on above:Performed By: #### CBC #### [facility] [address] [address] [address] Flaquita HernandezHematocrit (Bld) [Volume fraction]39.1 %Critically low42.0-54.0 [facility] CenterComment on above:Performed By: #### CBC #### [facility] [address] [address] [address] Flaquita HernandezHemoglobin (Bld) [Mass/Vol]12.6 g/dLCritically low14.0-18.0[facility] CenterComment on above:Performed By: #### CBC #### [facility] [address] [address] [address] Flaquita Tanner #0.03 10e3/ulNormal0.00-0.03The [facility] HospitalComment on above:Performed By: #### CBC #### [facility] [address] [place] [address] Dr. Flaquita Tanner %0.3 %Normal0.0-0.5The [facility] HospitalComascension [facility] on above: Performed By: #### CBC #### [facility] [address] [place] [address] Dr. Flaquita Rebollar #2.3 103/ulNormal1.2-3.8The [facility] HospitalComment on above:Performed By: #### CBC #### [facility] [address] [place] [address] Dr. Flaquita Lehmanhocytes/100 WBC (Bld)21.4 %Rezxfi29.5-60.0The [facility] HospitalComascension [facility] on above:Performed By: #### CBC #### [facility] [address] [place] [address] Dr. Flaquita Radofrd DIFF REQNONormalThe [facility] HospitalComment on above: Performed By: #### CBC #### [facility] [address] [place] [address] Dr. Flaquita Yu (RBC) [Entitic mass]27.2 leRzafds03.9-34.0The [facility] HospitalComment on above:Performed By: #### CBC #### [facility] [address] [place] [address] Dr. Flaquita Mojica (RBC) [Mass/Vol]32.2 g/wKXtxspq84.9-35.2The [facility] HospitalComment on above:Performed By: #### CBC #### [facility] [address] [place] [address] Dr. Flaquita Mojica (RBC) [Entitic vol]84.4 mOSrohbu69.0-94.0The [facility] HospitalComment on above:Performed By: #### CBC #### [facility] [address] [place] [address] Dr. Flaquita Mcneal #0.9 103/ulCritically high0.3-0.8The [facility] Comment on above:Performed By: #### CBC #### [facility] [address] [place] [address] Dr. Flaquita Pratherocytes/100 WBC (Bld)8.3 %Normal1.7-12.0[facility] Comment on above:Performed By: #### CBC #### [facility] [address] [place] [address] Dr. Flaquita Villareal #7.1 103/ulCritically high1.4-6.5The [facility] Comment on above:Performed By: #### CBC #### [facility] [address] [place] [address] Dr. Flaquita Slaughterutrophils/100 WBC (Bld)67.3 %Zbqowo50.0-75.0The [facility] HospitalComment on above:Performed By: #### CBC #### [facility] [address] [place] [address] Dr. Flaquita Llaneslet mean volume (Bld) [Entitic vol]10.9 fLNormal9.5-13.5The [facility] HospitalComment on above:Performed By: #### CBC #### [facility] [address] [place] [address] Dr. Flaquita Del CastilloT290 103/olUivmbu670-812Sgu [facility] HospitalComment on above: Performed By: #### CBC #### [facility] [address] [place] [address] Dr. Flaquita HernandezRBC4.63 106/ulCritically low4.70-6.10The [facility] HospitalComment on above:Performed By: #### CBC #### [facility] [address] [place] [address] Dr. Flaquita HernandezWBC10.6 103/ulNormal4.0-11.0The [facility] HospitalComment on above:Performed By: #### CBC #### [facility] [address] [place] [address] Dr. Flaquita Jon 78-64-2582RHZ8.8 mg/dLCritically high<=1.0[facility] Centerment on above:Performed By: #### OVAPE #### [facility] [address] [place] [address] Dr. Flaquita Almeida URINE PROFILEon 59-36-6799Qzlgvisdx Ql (U)NegativeNormal NEGATIVEKettering Health – Soin Medical CenterComment on above:Performed By: #### ERUR #### [facility] [address] [place] [address] Dr. Flaquita HernandezClarity (U)CLEARNormalCLEARKettering Health – Soin Medical CenterComment on above: Performed By: #### ERUR #### [facility] [address] [place] [address] Dr. Flaquita Reis (U)YELLOWNormalYELLOWKettering Health – Soin Medical CenterComment on above: Performed By: #### ERUR #### [facility] [address] [place] [address] Dr. Flaquita CotaMILADYS micrscopic examination will be performed if indicated. NormalThe [facility] HospitalComment on above:Performed By: #### ERUR #### [facility] [address] [place] [address] Dr. Flaquita HernandezGlucose Ql (U)NegativeNormalNEGATIVEKettering Health [facility] Soin Medical CenterComment on above:Performed By: #### ERUR #### [facility] [address] [place] [address] Dr. Flaquita HernandezHemoglobin Ql (U)NegativeNormalNEGATIVEPeoples Hospital on above:Performed By: #### ERUR #### [facility] [address] [place] [address] Dr. Flaquita HernandezKetones Ql (U)NegativeNormalNEGATIVEKettering Health [facility] Soin Medical CenterComment on above:Performed By: #### ERUR #### [facility] [address] [place] [address] Dr. Flaquita HernandezLEUKOCYTESNegativeNormalNEGATIVEKettering Health [facility] Soin Medical CenterComment on above:Performed By: #### ERUR #### [facility] [address] [place] [address] Dr. Flaquita Jacobs Ql (U)NegativeNormalNEGATIVEThe [facility] HospitalComment on above:Performed By: #### ERUR #### [facility] [address] [place] [address] Dr. Flaquita HernandezpH (U)5.5 [pH]Normal5-9The [facility] HospitalComment on above: Performed By: #### ERUR #### [facility] [address] [place] [address] Dr. Flaquita HernandezSPEC GRAVITY1.147Mpkwznck0.005-<=1.025The [facility] Comment on above:Performed By: #### ERUR #### [facility] [address] [place] [address] Dr. Flaquita Delvalle PROTEINNegativeNormalNEGATIVE/ TRACEThe [facility] Comment on above:Performed By: #### ERUR #### [facility] [address] [place] [address] Dr. Flaquita Awad MICRO INDNOT INDICATEDNormalThe [facility] HospitalComment on above:Performed By: #### ERUR #### [facility] [address] [place] [address] Dr. Flaquita Frost Qn (U)0.2 {Marcellus'U}/dLNormal0.2 - 1.0The [facility] HospitalComment on above:Performed By: #### ERUR #### [facility] [address] [place] [address] Dr. Flaquita CharlesF 14(COMP METB)on 62-63-2045Gybzimq [Mass/Vol]3.5 g/dLNormal 3.4-5.0The [facility] HospitalComment on above:Performed By: #### OVAPE #### [facility] [address] [place] [address] Dr. Flaquita HernandezAlbumin/Globulin [Mass ratio]0.8 {ratio}NormalThe [facility] HospitalComment on above:Performed By: #### OVAPE #### [facility] [address] [place] [address] Dr. Flaquita Kapadia [Catalytic activity/Vol]62 U/ZTwobuo81-207Uad [facility] HospitalComment on above:Performed By: #### OVAPE #### [facility] [address] [place] [address] Dr. Flaquita Cox [Catalytic activity/Vol]20 U/JHgyvng51-36Ckt [facility] HospitalComment on above:Performed By: #### OVAPE #### [facility] [address] [place] [address] Dr. Flaquita Ness gap [Moles/Vol]14.4 mmol/LNormalThe [facility] Comment on above:Performed By: #### OVAPE #### [facility] [address] [place] [address] Dr. Flaquita HernandezAST [Catalytic activity/Vol]11 U/LCritically dpz03-94Tjw [facility] HospitalComment on above:Performed By: #### OVAPE #### [facility] [address] [place] [address] Dr. Flaquita HernandezCalcium [Mass/Vol]8.8 mg/dLNormal8.5-10.1The [facility] Comment on above:Performed By: #### OVAPE #### [facility] [address] [place] [address] Dr. Flaquita HernandezChloride [Moles/Vol]103 mmol/ZGhytrc58-556JkpKettering Health – [facility] Center Comment on above:Performed By: #### OVAPE #### [facility] [address] [place] [address] Dr. Flaquita HernandezCO2 [Moles/Vol]25.5 mmol/HLgffjl47.0-32.0The [facility] Comment on above:Performed By: #### OVAPE #### [facility] [address] [place] [address] Dr. Flaquita HernandezCreatinine [Mass/Vol]0.87 mg/dLNormal0.70-1.30The [facility] HospitalComment on above:Performed By: #### OVAPE #### [facility] [address] [place] [address] Dr. Yilan ChangEGFR-AF MONEGASQUE>60Normal>=60The [facility] HospitalComment on above:Performed By: #### OVAPE #### [facility] [address] [place] [address] Dr. Flaquita ArdonGFR-NON AF MONEGASQUE>60Normal>=60[facility] CenterComment on above:Performed By: #### OVAPE #### [facility] [address] [address] [address] Flaquita HernandezGlobulin (S) [Mass/Vol]4.6 g/dLNormalThe [facility] HospitalComment on above:Performed By: #### OVAPE #### [facility] [address] [place] [address] Dr. Flaquita HernandezGlucose [Mass/Vol]88 mg/fVYqpjnm37-381GbrKettering Health – [facility] Medical Center Comment on above:Performed By: #### OVAPE #### [facility] [address] [place] [address] Dr. Flaquita HernandezPotassium [Moles/Vol]3.9 mmol/LNormal3.5-5.1[facility] Comment on above:Performed By: #### OVAPE #### [facility] [address] [place] [address] Dr. Flaquita HernandezProtein [Mass/Vol]8.1 g/dLNormal6.4-8.2[facility] Comment on above:Performed By: #### OVAPE #### [facility] [address] [place] [address] Dr. Flaquita HernandezSodium [Moles/Vol]139 mmol/OTacfxk246-266FvmKettering Health – [facility]in Medical Center Comment on above:Performed By: #### OVAPE #### [facility] [address] [place] [address] Dr. Flaquita HernandezUrea nitrogen [Mass/Vol]7.0 mg/dLNormal7.0-18.0The [facility] HospitalComment on above:Performed By: #### OVAPE #### [facility] [address] [place] [address] Dr. Flaquita HernandezUrea nitrogen/Creatinine [Mass ratio]8.0 mg/mgNoShelby Memorial HospitalComment on above:Performed By: #### OVAPE #### [facility] [address] [address] [address] Flaquita Gay RATE WESTERGRENon 40-03-9224JKA RATE59 mm/hrCritically high <=15The [facility] HospitalComascension [facility] on above:Performed By: #### SEDR #### [facility] [address] [address] [address] Flaquita HernandezConsultation Noteon 12-72-7150Btlqztfukded Note [id number]#1.00CD:127[facility] CenterGeneral Surgery Office/Clinic Noteon 76-52-6532Lnnqvej Surgery Office/Clinic NoteChief Complaint post operative follow up HPI Staff 9 day post operative follow up post colonoscopy with multiple biopsies. 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 Review of Systems ROS [...] Bipolar: Sister. Hypertension: Mother. Irritable bowel syndrome: Mother.[facility] Medical CenterComment on above:Result Comment: Electronically Signed By: IMANI SEARS, Matt Newberry\Date and Time Signed: 01/10/22 16:58 ESTLab Reportson 03-13-8230Jhf Reports [id number]:127NoCleveland Clinic Avon HospitalOVA AND PARASITE EXAMINATIONon 34-26-5379Mxn + Parasite ExamFinal report [facility] HospitalComment on above:Result Comment: These results were obtained using wet preparation(s) and trichrome stained smear. This test does not include testing for Cryptosporidium parvum, Cyclospora, or Microsporidia.Performed By: #### OVAPE #### [facility] [address] [place] [address] Dr. Flaquita Perez 1COhioHealth Mansfield HospitalComment on above:Result Comment: No ova, cysts, or parasites seen. . One negative specimen does not rule out the possibility of a parasitic infection.Performed By: #### OVAPE #### [facility] [address] [place] [address] Dr. Flaquita Sinha Reportson 98-94-7857Rkz Reports [id number]:[address] [place], [place] [address]GI PANEL (PCR)on 32-49-4949Etbednzkdy F 40/41Not detectedNormalNOT DETECTEDThe [facility] City HospitalComment on above:Performed By: #### OVAPE #### [facility] [address] [place] [address] Dr. Flaquita HernandezAstrovirusNot detectedNormalNOT DETECTEDKettering Health [facility] Comment on above:Performed By: #### OVAPE #### [facility] [address] [place] [address] Dr. Flaquita Spivey. Diff toxin A/BNot detectedNormalNOT DETECTEDThe [facility] HospitalComment on above:Performed By: #### OVAPE #### [facility] [address] [place] [address] Dr. Flaquita BolañospylobacterNot detectedNormalNOT DETECTEDKettering Health [facility] Comment on above:Performed By: #### OVAPE #### [facility] [address] [place] [address] Dr. Flaquita HernandezCryptosporidiumNot detectedNormalNOT DETECTEDKettering Health – Soin Medical CenterComment on above:Performed By: #### OVAPE #### [facility] [address] [place] [address] Dr. Flaquita Velasquezos. CayetanensisNot detectedNormalNOT DETECTEDThe [facility] HospitalComment on above:Performed By: #### OVAPE #### [facility] [address] [address] [address] Flaquita Lemus Coli Q458Mow ApplicableNormalNot ApplicableThe [facility] HospitalComascension [facility] on above:Performed By: #### OVAPE #### [facility] [address] [address] [address] Flaquita Lemus histolyticaNot detectedNormalNOT DETECTEDThe [facility] Comment on above:Performed By: #### OVAPE #### [facility] [address] [address] [address] Flaquita ArdonAECNot detectedNormalNOT DETECTEDThe [facility] HospitalComment on above:Performed By: #### OVAPE #### [facility] [address] [place] [address] Dr. Flaquita ArdonIECNot detectedNormalNOT DETECTEDThe [facility] HospitalComasc[facility] on above:Performed By: #### OVAPE #### [facility] [address] [place] [address] Dr. Flaquita ArdonPECNot detectedNormalNOT DETECTEDThe [facility] HospitalComment on above:Performed By: #### OVAPE #### [facility] [address] [place] [address] Dr. Flaquita ArdonTECNot detectedNormalNOT DETECTEDThe [facility] HospitalComasc[facility] on above:Performed By: #### OVAPE #### [facility] [address] [place] [address] Dr. Flaquita Simon. LambliaNot detectedNormalNOT DETECTEDThe [facility] Comment on above:Performed By: #### OVAPE #### [facility] [address] [place] [address] Dr. Flaquita Kamara CONTROLSPASSEDMercy Health Kings Mills HospitalComment on above:Performed By: #### OVAPE #### [facility] [address] [place] [address] Dr. Flaquita Brooke EMILIE HEADERGI PANEL BACTERIAMercy Health Kings Mills Hospital Comment on above:Performed By: #### OVAPE #### [facility] [address] [place] [address] Dr. Flaquita BrookeHD ECOLIGI PANEL DIARRHEAGENIC E.COLI / SHIGELLAMercy Health Kings Mills HospitalComment on above:Performed By: #### OVAPE #### [facility] [address] [address] [address] Flaquita Dalal INFOSEE [facility] CenterComment on above: Result Comment: EAEC- Enteroaggregative E. Coli EPEC- Enteropathogenic E. Coli ETEC- Enterotoxigenic E. Coli lt/st STEC- Shigella-like toxin-producing E. Coli stx1/stx2 EIEC- Shigella/Enteroinvasive E. ColiPerformed By: #### OVAPE #### [facility] [address] [place] [address] Dr. Flaquita Dalal PARASITESGI PANEL PARASITESMercy Health Kings Mills Hospital Comment on above:Performed By: #### OVAPE #### [facility] [address] [place] [address] Dr. Flaquita Dalal VIRUSGI PANEL VIRUSESMercy Health Kings Mills HospitalComment on above:Performed By: #### OVAPE #### [facility] [address] [place] [address] Dr. Flaquita Gutiérrezrovirus GI/GIINot detectedNormalNOT DETECTEDThe [facility] City HospitalComment on above:Performed By: #### OVAPE #### [facility] [address] [place] [address] Dr. Flaquita Lundberg ShigelloidesNot detectedNormalNOT DETECTEDThe [facility] HospitalComment on above:Performed By: #### OVAPE #### [facility] [address] [address] [address] Flaquita HernandezRotavirus ANot detectedNormalNOT DETECTEDK[facility] Comment on above:Performed By: #### OVAPE #### [facility] [address] [address] [address] Flaquita HernandezSalmonellaNot detectedNormalNOT DETECTEDKettering Health [facility] Comment on above:Performed By: #### OVAPE #### [facility] [address] [place] [address] Dr. Flaquita HernandezSapovirusNot detectedNormalNOT DETECTEDThe [facility] Comment on above:Performed By: #### OVAPE #### [facility] [address] [address] [address] Flaquita HernandezSTECNot detectedNormalNOT DETECTEDThe [facility] HospitalComment on above:Performed By: #### OVAPE #### [facility] [address] [address] [address] Flaquita CintronioNot detectedNormalNOT DETECTEDThe [facility] HospitalComment on above:Performed By: #### OVAPE #### [facility] [address] [address] [address] Flaquita Cintronio CholeraNot detectedNormalNOT DETECTEDThe [facility] Comment on above:Performed By: #### OVAPE #### [facility] [address] [address] [address] Flaquita Campbell. EnterocoliticaNot detectedNormalNOT DETECTEDThe [facility] HospitalComment on above:Performed By: #### OVAPE #### [facility] [address] [address] [address] Flaquita HernandezAmbulatory Visit Summaryon 67-71-2449Lhvjmeeexu Visit Summary BASILIO LATRICE J :1990 Visit Date:12/17/2021 Ambulatory Visit Instructions Your Diagnosis Eosinophilic colitis Your Care Team Attending Physician - IMANI SEARS, Matt Pereyra Primary Care Physician - Julio César Esqueda MD This Is Your Medications List naproxen (Naprosyn [...] with diarrhea Lumbar disc herniation Rectal bleeding [facility] CenterOutside Colonoscopyon 12-17-2021 Outside [id number]:127[facility] DaytonPathology Noteon 53-47-3744Sirayzgam Note [id number]:127NoCleveland Clinic Avon HospitalProvider Letter FTon 02-79-2540Nlbgnmms Letter [facility] [place] Julio César Esqueda, [address] [place] [address] Re: LATRICE RICHMOND Date of : 1990 Thank you for your referral of Latrice Richmond who was seen on consultation on 11/23/2021 for diarrhea with mucus and blood. A colonoscopy is planned for further evaluation. I have enclosed my consultation letter for your review. I will be happy to follow Latrice. Sincerely, Matt Diallo MD General SurgeryNoCleveland Clinic Avon HospitalConsent for Procedure/Surgeryon 74-76-0907Yhjkdqa for Procedure/Surgery [id number]#[id number]:127[facility] Medical CenterAmbulatory Clinical Summaryon 76-62-7624Fvzovkzvcx Clinical Summary {19-m8-b2-0d-g8-o8-26-92-m9-35-29-2q-93-9b-39-82}CD:[id number] Clinic Avon HospitalPhysician Referralon 52-12-4680Xirnmxihr Referral [id number]#[id number]:127[facility] Medical CenterCovid-19 PCR (CVDTBH)on 78-32-5671UDGB-CoV-2 (COVID-19) RNA ZEESHAN+probe Ql (Unsp spec)DetectedCritically abnormalNOT DETECTEDThe [facility] City HospitalComment on above:Result Comment: This test is not yet approved or cleared by the [place] FDA. When there are no FDA-approved or cleared tests available, and other criteria are met, FDA can make tests available under an emergency access mechanism called an Emergency Use Authorization (EUA). The EUA for this test is supported by the Fun House Attendant of Health and Human Service's (HHS's) declaration [...] which the test may no longer be used).Performed By: #### CVDTBH #### [facility] [address] [place] [address] Dr. Flaquita Hernandez Vital Signs Date TimeVital SignValuePerforming WyisdkizoIbqcyxyi14-94-2973 13:57-0400Body ufvjja916.42 cmPHYSICIAN [facility]10-07-2025 13:57-0400Body mass index (BMI) [Ratio]47.5 kg/y5DIQDDPVEH [facility]10-07-2025 13:57-0400Body .3 [degF]PHYSICIAN [facility]10-07-2025 13:57-0400Body weight 163.52 kgPHYSICIAN [facility]10-07-2025 13:57-0400Diastolic blood vbgomwnz49 mm[Hg]PHYSICIAN [facility]10-07-2025 13:57-0400Heart rate78 /minPHYSICIAN [facility]10-07-2025 13:57-0400Respiratory rate18 /min PHYSICIAN [facility]10-07-2025 13:57-8454CyE3% (BldA) [Mass fraction]96 %PHYSICIAN [facility] 08-26-2025 13:57-0400Systolic blood bzluvzzk662 mm[Hg]PHYSICIAN [facility]08-20-2025 12:55-0400Body gevdnp996 kgLorena Wilkes PA-C Work Phone: cGerman HospitalNlemau99-34-9457 12:55-0400Diastolic blood gxxkmnes13 mm[Hg]Lorena Wilkes PA-C Work Phone: cGerman HospitalMxonou24-16-1681 12:55-0400Heart rate67 /min Lorena Wilkes PA-C Work Phone: [facility] Ykjhwm39-84-1354 12:55-0400Systolic blood mm[Hg]Lorena Wilkes PA-C Work Phone: [facility] Ittkrd55-44-3363 11:08-0400Body frxqei250.79 kgMario Manuel MD Work Phone: [facility] Vuhgrg50-93-3825 11:08-0400Diastolic blood bynkbrdl42 mm[Hg]Mario Manuel MD Work Phone: [facility] Mrgnbn98-94-2606 11:08-0400Heart rate71 /min Mario Manuel MD Work Phone: cGerman HospitalCkixex74-78-5069 11:08-0400Systolic blood wfpqgvvi679 mm[Hg]Mario Manuel MD Work Phone: [facility] hospitaland Edkrou40-87-3333 13:00-0400Body ejrsxo911.42 [place] Other [facility] Other 06-15-2023 13:00-0400Body mass index (BMI) [Ratio] 42.21 kg/j1EbeminciElkin Lake Other [facility] Other 06-15-2023 13:00-0400Body nyywuq635.15 kgLaambrose [place] Other [facility] Other 06-15-2023 13:00-0400Diastolic blood hbnpsfsa27 mm[Hg] [place] Other 606.242.4982[facility] Other 06-15-2023 13:00-0400Systolic blood ocimpjeu796 mm[Hg] [place] Other [facility] Other 08-22-2022 13:54-0400Diastolic blood poksxhyv65 mm[Hg] MD [place] Work Phone: 1(661)359-[address] [place], [place] 2182908-22-2022 13:54-0400 Heart rate79 /minMD [place] Work Phone: 6(239)942-[address] [place], [place] 5451508-22-2022 13:54-0400 Respiratory rate16 /minMD [place] Work Phone: 3(175)155-[address] [place], [place] 5451508-22-2022 13:54-0400 SaO2% (BldA) [Mass fraction]97 %MD [place] Work Phone: 6(113)147-[address] [place], [place] 2182908-22-2022 13:54-0400 Systolic blood eruhmgym499 mm[Hg]MD [place] Work Phone: 6(272)753-[address] [place], [place] 2182908-22-2022 11:59-0400 Body mwetvb050.42 cmMD [place] Work Phone: 0(555)303-[address] [place], [place] 2182908-22-2022 11:59-0400 Body qpfjveymizc94.5 [degF]MD [place] Work Phone: 0(622)811-[address] [place], [place] 2182908-22-2022 11:59-0400 Body .07 kgMD [place] Work Phone: 9(174)727-9[address] [place], [place] 2182904-14-2022 16:15-0400 Body hskrmi459.42 [place] Other [facility] Other 04-14-2022 16:15-0400Body mass index (BMI) [Ratio]40.9 kg/k0Juzatertambrose Lake Other [facility] Other 04-14-2022 16:15-0400Body ltlyzw672.62 kgLaambrose [place] Other [facility] Other Encounters Encounter DateEncounter TypeCare ProviderFacilityStart: 09-17-2025 End: 51-16-2832xqumycgjxaGMGYGBB M HOYFacility:[facility] Hospitaltart: 09-16-2025 End: 61-10-5546dvlwavmpydLKZF DAKHILFacility:[facility] Hospitaltart: 08-26-2025 End: 85-46-8011agowldieeoEGXABJRVT DESI [facility] Work Phone: Start: 08-26-2025 End: 24-55-9392Vabhjhl encounter procedurePatricdariana Wilks [employer]EL[employer] Work Phone: Start: 07-29-2025 End: 53-51-6129tcnoqguywvQwat Dakhil MD Work Phone: GastroenterologyComment on above:[facility] awaiting approvalStart: 07-15-2025 End: 24-33-0644Rfdoqdm encounter procedureHepatology Procedures Nog Work Phone: GastroenterologyStart: 07-15-2025 End: 55-65-7078zmmfrttacwRBGQGC YACAPRAROGastroenterologyStart: 07-14-2025 End: 36-60-2603Chezrw OnlyLaamanda Wilkes PA-C Work Phone: GastroenterologyComment on above:Elevated ALT measurement (Primary Dx)Start: 07-10-2025 End: 66-13-1719Jdeayuzhz encounterLaamanda Wilkes PA-C Work Phone: GastroenterologyComment on above:Golytely prepStart: 07-09-2025 End: 80-14-8068Xgqnddjwm encounterMario Manuel MD Work Phone: GastroenterologyComment on above:ResultsStart: 07-09-2025 End: 60-50-7836abzeuakhsbRNXQWCY M HOYFacility:[facility] HospitalStart: 07-09-2025 End: 82-63-7418Zgatlq outpatient visit 25 minutesLaamanda Wilkes PA-C Work Phone: GastroenterologyComment on above:Crohn's disease without complication, unspecified gastrointestinal tract location (HCC) (Primary Dx); Elevated ALT measurementStart: 07-09-2025 End: 83-44-3519kkvdjsndiaBOFPVDW M HOYFacility:[facility] Hospitaltart: 06-12-2025 End: 87-22-2709Bpwwbwumz Luz Manuel MD Work Phone: GastroenterologyComment on above:Orders (Inflectra renewal and SHANTI Kit)Start: 05-02-2025 End: 20-93-1754Qbmadcvyr encounterMario Manuel MD Work Phone: [facility] CStart: 08-28-2024 End: 49-75-2173SN Get Medical AdviceMario Manuel MD Work Phone: GastroenterologyComment on above:Lab Results / Infusion ordersStart: 08-23-2024 End: 78-03-4639cobtfifuyzNkkz Dakhil MD Work Phone: GastroenterologyComment on above:Crohn's disease without complication, unspecified gastrointestinal tract location (HCC) (Primary Dx)Start: 08-23-2024 End: 31-85-8254Oszcxzpecyyf consultation with Marcin Manuel MD Work Phone: [facility] hospitalologyStart: 08-01-2024 End: 27-57-0890upzunenrbmZzqc Dakhil MD Work Phone: GastroenterologyComment on above:Need to reschedule Start: 82-69-9860Qvyuqwrnd encounterMario Manuel MD Work Phone: GastroenterologyComment on above:OrdersStart: 16-21-7605Dfgfoevnc encounterMario Manuel MD Work Phone: GastroenterologyComment on above:Patient Update (Pt needs to reschedule Inflectra infusion for one week out)Start: 08-22-2023 Telephone Luz Manuel MD Work Phone: GastroenterologyComment on above:ResultsStart: 08-18-2023 End: 30-46-2336Jitmxypetw hospital visit by physicianAmy Campbell [facility] Work Phone: [facility] Radiology CT ScanStart: 08-03-2023 End: 90-61-5860gnrdcbztfxOdkb DakhilFacility:[facility] Start: 08-03-2023 End: 85-86-4764tnqsezowcgCA Mario Manuel Work Phone: [facility] Work Phone: Start: 08-03-2023 End: 12-28-4138Yfuwnyqf ReferredMD Mario Manuel Work Phone: [facility]-Lab Main [place] Work Phone: Start: 94-00-8624wnfmywnhhjIxuz Dakhil MD Work Phone: [facility] MCStart: 07-31-2023 End: 91-68-3151Cpbgtcm encounter Rogerio Manuel MD Work Phone: GastroenterologyComment on above:Crohn's disease without complication, unspecified gastrointestinal tract location (HCC) (Primary Dx); Crohn's disease with complication, unspecified gastrointestinal tract location (HCC)CT Enterography appointmentStart: 54-36-2458Avybeuiyz encounterMario Manuel MD Work Phone: GastroenterologyComment on above:AppointmentStart: 05-04-2023 End: 15-86-2178yffjfebdczRhvxyjlj [facility] Other [employer] Other Start: 76-35-8560Xssind outpatient visit 15 minutes [place] LakeFPG GastroenterologyStart: 09-28-2022 End: 99-02-3245lwybgmefnhIJ DOUGLAS HOYFacility:H0Szwrn: 09-03-2022 End: 92-24-3755ctghapsrfcFD Des LAKEFacility:A5Biswh: 81-84-7951pomnfaxgfn DR JULIO CÉSAR ESQUEDAFacility:W0Zolti: 07-12-2022 End: 23-51-7237tkdwvmksexBxbtmdby [facility] Other [facility] Other Start: 08-37-6315Jmjhhcjyg encounterLawrpamella Lake [facility]PG GastroenterologyStart: 07-11-2022 End: 17-90-6976Heqvkirlo to same day surgery centerMD Elkin Jaya Work Phone: [facility]-Digestive HealthStart: 07-07-2022 End: 76-40-5494Lzaxifb encounter procedureMD [place] Work Phone: [facility]-Pre-Surgical Testing Start: 07-05-2022 End: 55-41-0320glmkcnbhzzGZ L R MCCORMCINTHIAFacility:D8Ystlu: 2022 End: 35-92-2006jrvnlreznyWL L R MANUELORMACKFacility:E0Rcgcs: 06-27-2022 End: 19-66-8572utioxjonscBN NATALIE GRECHNYFacility:Q3Frpzj: 06-23-2022 End: 41-46-9677tbhqxpodwbDsrgwhvs [facility] Other [employer] Other Start: 11-51-2929Qfxjgvfpv encounterLawrpamella Lake [facility] GastroenterologyStart: 06-16-2022 End: 97-75-0278jhfkhoppwdYpucbnzz [place] Other [employer] Other Start: 01-54-1401Mumstwzio encounterElkin Lake [facility]PG GastroenterologyStart: 06-06-2022 End: 99-16-5996lexacvsvepKQ JULIO CÉSAR HOYFacility:Z8Llwmz: 05-27-2022 End: 79-57-7812oprhyzqqbeHP JULIO CÉSAR HOYFacility:I5Kyvwu: 04-23-2022 End: 72-94-9269ettajypssqBWYSK PARKERFacility:X1Hliaf: 83-54-3729wjzuicbguaKM L R MCCORMACKFacility:X1Frpum: 14-25-7095yfkqeamjdzOT L R MCCORMACKFacility:H1 Start: 03-03-2022 End: 86-68-9238rotqraenaqVzkprwfy [place] Other [facility] Other Start: 29-80-1144Jirull outpatient new 45 minutes [place] LakeFPG GastroenterologyStart: 01-01-2022 End: 96-87-8678bigusugbivHH MATT NILLFacility:D2Vcyff: 12-07-2021 End: 58-49-0641vapipvpzjvGX JULIO CÉSAR HOYFacility:O5Idota: 47-92-2689qajzihylpaAM MATT NILLFacility:V8Jngvm: 64-80-2325zirspaopnfOS MATT NILLFacility:H1 Start: 10-19-2021 End: 04-24-1348ikgfyfmiqsID JULIO CÉSAR HOYFacility:H1 Procedures DateProcedureProcedure DetailPerforming ClinicianStart: 95-97-1723Gkfei elastography w/o imag w/i&rLkathryn Wilkes PA-C Work Phone: start: 85-57-7524Rtjtnjonvd endoscopic examination on colonMD [place] Work Phone: SARS Antigen (LFIA)MD [place] Work Phone: Plan of Treatment DateCare ActivityDetailAutrStart: 55-52-2297MQEAPRWIK B (1 of 3 - Risk 3-dose series)HEPATITIS B (1 of 3 - Risk 3-dose series)[facility]: 16-13-4404Hnujnzahx B Vaccine (1 of 3 - Risk 3-dose series)Hepatitis B Vaccine (1 of 3 - Risk 3-dose series)[facility]: 10-01-2025 End: 32-21-4955Mjsmfhz encounter qvavvwrau99/12/2025 8:45 AM EST Appointment [facility] - ENDO [address] [id number] [place] [id number] [place] [address] [place] [address] *needs hospital setting per phone encounter*[facility] - ENDOComment on above:*needs hospital setting per phone encounter*Start: 35-46-9047Tgrupslel vaccinationSelect [facility], [facility]: 07-15-2025 End: 17-13-1862luaaweirgkWdnahhvjhadgncyzKkdldvv on above:fibroscan with colonoscopyfibroscan *colonoscopy moved to on 10/[address] Manuel ()* Start: 07-15-2025 End: 38-42-5657Eyycxwf encounter fpiworbdv66/26/2025 11:00 AM EDT Appointment Ambulatory Surgery [facility] [id number] [place] [address] [place] [phone] also scheduled for fibroscan same day, Dx: Crohn's disease without complication, unspecified gastrointestinal tract location (HCC) [K50.90] Ambulatory SurgeryComment on above:also scheduled for fibroscan same day, Dx: Crohn's disease without complication, unspecified gastrointestinal tract location (HCC) [K50.90]Start: 07-10-2025 End: 50-58-6218Bfukwaoivj consultationAmbulatory SurgeryStart: 07-09-2025 End: 30-04-5998NGXQ PHENOTYPE/ENZYME ACTIVITYFlower Hospital Work Phone: comment on above:Expected: 07/09/2025, Expires: 10/08/2025Start: 06-12-2025 End: 60-10-8945EVRZR TB SCREENBLOOD TB SCREEN Lab Routine Crohn's disease without complication, unspecified gastrointestinal tract location (HCC) Expected: 06/12/2025 (Approximate), Expires: 09/11/2025[facility] Work Phone: comment on above:Expected: 06/12/2025 (Approximate), Expires: 09/11/2025Start: 06-12-2025 End: 97-78-3429Mydqyfwsz B virus core Ab [Presence] in SerumHEPATITIS B CORE ANTIBODY TOTAL Lab Routine Crohn's disease without complication, unspecified gastrointestinal tract location (HCC) Expected: 06/12/2025 (Approximate), Expires: 09/11/2025leveland ClinicComment on above:Expected: 06/12/2025 (Approximate), Expires: 09/11/2025Start: 06-12-2025 End: 75-51-3532Tngnghnjh B virus surface Ab [Presence] in SerumHEPATITIS B SURFACE ANTIBODY Lab Routine Crohn's disease without complication, unspecified gastrointestinal tract location (HCC) Expected: 06/12/2025 (Approximate), Expires: 09/11/2025leveland ClinicComment on above:Expected: 06/12/2025 (Approximate), Expires: 09/11/2025Start: 06-12-2025 End: 98-96-7317Lylxrgkob B virus surface Ag [Presence] in SerumHEPATITIS B SURFACE ANTIGEN Lab Routine Crohn's disease without complication, unspecified gastrointestinal tract location (HCC) Expected: 06/12/2025 (Approximate), Expires: 09/11/2025leveland ClinicComment on above:Expected: 06/12/2025 (Approximate), Expires: 09/11/2025Start: 08-23-2024 End: 73-15-4277vhequcuwml75/04/2024 9:00 AM [facility] Gastroenterology [address] [place] [address] [place] [address] [place] [phone] f/u GastroenterologyComment on above:f/uStart: 82-74-2041Tdbvx-19 Vaccine ( season)Covid-19 Vaccine ()[facility]: 07-21-2024 Covid-19 Vaccine ()Covid-19 Vaccine () [facility]: 99-05-3296Dmqwsfnol vaccinationSelect [facility], [facility]: 20-94-4150Taizmqocjc Health ScreeningBehavioral Health ScreeningKettering Health Behavioral Medical Center Start: 30-19-5765Mkzqjxsmpm AssessmentDepression AssessmentKettering Health Behavioral Medical Center Start: 07-31-2023 End: 90-29-6635KHNIZ TB SCREENFlower Hospital Work Phone: comment on above:Expected: 07/31/2023, Expires: 09/30/2023Start: 57-75-2152Xkytb-19 Vaccine ()Covid-19 Vaccine ()[facility]: 94-61-0078Zjzfubply vaccination [facility]: 61-15-7026HHDHWSNYEW ASSESSMENTDEPRESSION ASSESSMENT [facility]: 15-28-8805Qegldmcrwl endoscopic examination on colonDH Colonoscopy Diagnostic (Not Applicable)[facility]: 49-16-1243KfdygjbgpBarberton [facility] Work Phone: Start: 07-11-2022 End: 90-23-9801Korhtpeyh to same day surgery centerCoRegional [facility]-Digestive HealthStart: 31-96-8737Fpfxe microalbumin profile DTaP,Tdap,Td Vaccine (7 - Td or Tdap)[facility]: 09-61-9796ZCT Vaccine (1 - 3-dose SCDM series)HPV Vaccine (1 - 3-dose SCDM series)[facility]: 90-41-4414THMNRGMPY A (1 of 2 - Risk 2-dose series)HEPATITIS A (1 of 2 - Risk 2-dose series)[facility]: 50-57-0791Gnbromifh A Vaccine (1 of 2 - Risk 2-dose series)Hepatitis A Vaccine (1 of 2 - Risk 2-dose series) [facility]: 66-41-5998Foachxtjbsta vaccinationPneumococcal Vaccine (1 of 2 - PCV)[facility]: 89-24-4952Oldywkuz Vaccine (1 of 2)Shingrix Vaccine (1 of 2)[facility]: 50-11-7646Csltz microalbumin profile [facility]: 72-19-3204Wjvqcym ScreeningAnxiety ScreeningSelect [facility]ty [facility], [facility]: 66-51-8333Slqzrjyklx ScreeningDepression ScreeningKettering Health Behavioral Medical Center Start: 60-06-6200ECRIMERTW C SCREENINGHEPATITIS C SCREENINGKettering Health Behavioral Medical Center Start: 60-05-5185Vbvkrivoe C screeningHepatitis C ScreeningKettering Health Behavioral Medical Center Start: 19-90-7741IHE SCREENINGHIV SCREENINGSelect [facility]: 96-41-6491EHA screeningHIV ScreeningSelect [facility]: 30-88-6561ZFA (1 of 2 - Risk 2-dose series)MMR (1 of 2 - Risk 2-dose series)[facility]: 66-41-7647ZDK Vaccine (1 of 2 - Risk 2-dose series)MMR Vaccine (1 of 2 - Risk 2-dose series) [facility]: 28-49-6403Jpofvlmszlcht B Vaccine: Consider Based On Risk (1 of 4 - Increased Risk)Meningococcal B Vaccine: Consider Based On Risk (1 of 4 - Increased Risk)[facility]: 15-86-7531TJPTTRXTQONIZ B: Consider based on risk (1 of 4 - Increased Risk)MENINGOCOCCAL B: Consider based on risk (1 of 4 - Increased Risk)[facility]: 98-70-6859Kteznpasdtfk vaccinationPneumococcal Vaccine (1 of 2 - PCV)[facility]: 01-04-1991 COVID-19 VACCINE (#1)COVID-19 VACCINE (#1)[facility], [facility]: 1990 HEPATITIS B (1 of 3 - 3-dose series)HEPATITIS B (1 of 3 - 3-dose series) [facility] Medical CenterCalprotectin [Mass/mass] in StoolCALPROTECTIN,FECAL Lab Routine Crohn's disease without complication, unspecified gastrointestinal tract location (HCC) Ordered: 07/31/2023[facility] Work Phone: comment on above:Ordered: 07/31/2023lostridioides difficile toxin genes [Presence] in Stool by ZEESHAN with probe detectionC. DIFFICILE PCR Lab Routine Crohn's disease without complication, unspecified gastrointestinal tract location (HCC) Ordered: 07/31/2023[facility] Work Phone: comugwz on above:Ordered: 07/31/2023 End: 66-11-0752Ns abdomen & pelvis w/contrast materialCT ENTEROGRAPHY W IVCON Radiology Routine Crohn's disease without complication, unspecified gastroin testinal tract location (HCC) Crohn's disease with complication, unspecified gastrointestinal tractlocation (HCC) 1 Occurrences starting 07/31/2023 until 08/29/2024[facility] Work Phone: comment on above:1 Occurrences starting 07/31/2023 until 08/29/2024 End: 74-98-8472Addemooj sigmoidoscopy studyCOLONOSCOPY DIAGNOSTIC Endoscopy Routine Crohn's disease without complication, unspecified gastrointestinal tract location (HCC) 1 Occurrences starting 07/09/2025 until 07/09/2026[facility] ClinicComment on above:1 Occurrences starting 07/09/2025 until 07/09/2026Liver ultrasound attenuation by transient elastographyDDI VIBRATION CONTROLLED TRANSIENT ELASTOGRAPHY (VCTE) Endoscopy Routine Elevated ALT measurement Or dered: 07/09/2025[facility] HospitalComment [facility] above:Ordered: 07/09/2025Liver ultrasound attenuation by transient elastographyVIBRATION CONTROLLED TRANSIENT ELASTOGRAPHY (POC) Imaging Diagnostic Routine Elevated ALT measurement Ordered: 07/14/2025[facility] Work Phone: comcuow on above:Ordered: 07/14/2025Patient Education Colon Polyps Crohn's Disease (DC)[facility] Work Phone: [facility] Immunizations Immunization DateImmunizationNotesCare DzlavgeyArfjitwm04-03-3652dojuluiax virus vaccine, unspecified formulationMario Manuel MD Work Phone: c[facility] Payers DatePayer CategoryPayerPolicy [id number] Health Insurance [id number] 2.16.840.1.082046.3.57[id number] 2.840.1.572536.3.57[id number] 2.840.1.622631.3.57[id number] 2.840.1.692841.3.57[id number] 2.16.840.1.970181.3.57[id number] 2..840.1.071707.3.57[id number] 2.16.840.1.760539.3.57[id number] 2.840.1.406481.3.57[id number] 2..840.1.349072.3.57[id number] 2.16840.1.851838.3.57[id number] 2.16.840.1.048047.3.57[id number] 2.16840.1.492204.3.57[id number] 2.16.840.1.756022.3.57[id number] 2.16.840.1.545537.3.57[id number] 2.16.840.1.153244.3.57[id number] 2.16.840.1.803005.3.579.2.68893-97-7937Oabasgq Health [id number] 2..0.8.113148.60054660-85-5034Ffqx-[id number] 2.16.840.1.308953.3.579.2.531 Social History DateTypeDetailFacilityStart: 07-31-2023 End: 71-96-0395Itm Assigned At [facility] Jotky Other Start: 07-11-2022 End: 62-50-5518Ymxkgmk smoking status NHISEx-smoker (finding)[facility]art: 00-29-2793Iwe Assigned At [facility] CenterTobafairfax [facility] [place] smoking status NHISTobacco smoking consumption unknown [facility]: 92-91-4677Lpm Assigned At [facility] HospitalNot on fileKettering Health Behavioral Medical CenterHistory of tobacco useCurrent smokerKettering Health Behavioral Medical CenterHistory of tobacco use Cigarette SmokerSouth Williamson ClinicStart: 99-68-1635Nirgdbs use and exposure Smokeless tobacco non-userSelect [facility]ty [facility], [facility]: 07-31-2023 End: 62-74-3370Tfjpuvx intakeCurrent drinker of alcohol (finding)[facility]: 07-31-2023 End: 92-34-1408Fackkgx of Social functionSelect Medical Specialty [facility], [facility]: 05-02-2023 National Score (1-100), lower number is lower ckog16Xrhbciope ClinicStart: 43-92-5200Spxphun CommentsocialSouth Williamson ClinicStart: 07-18-4851Mfkmrv orientationHeterosexual (finding)[facility] CenterHow often to you have a drink containing alcohol?2-4 times a monthKettering Health Behavioral Medical CenterHow many standard drinks containing alcohol do you have on a typical day?1 or 2C[facility] ClinicSexMale (finding)[facility] Goals DatePatient GoalDesired Activity/State Functional Status DateAssessmentResultFacilityKettering Health Behavioral Medical Center Clinical Notes 11-23-2021 to 07-15-2025 Note Date & MvkzYknoYuzbujlj12-47-9812 NoteHNO ID: [id number] Author: MEÑO TORRES PA-C Service: ? Author Type: Physician Licensed Mental Health Counselor Type: Progress Notes Filed: 07/15/2025 12:38 Note Text: Fibroscan Report Date performed: July 15, 2025 Indication : Elevated alt measurement (primary encounter diagnosis) Patient fasted 3 hours:Yes Performed by Gris Rae LPN Result-Findings Technical difficulties: None. Result: The reading was adequate. Please refer to get images report for individual readings Number of readings: 10 IQR %: 17 E (kpa): 5.9 CAP: 291 Impression The liver stiffness is 5.9 kPa which corresponds to 97% chance of stage 0-2 fibrosis. The CAP analysis showed grade S3 of liver steatosis. Stage of liver fibrosis based on above kPa: A 97% chance of stage 0-2 fibrosis A 3% chance of stage 3-4 fibrosis (advanced fibrosis) A <1% chance of stage 4 fibrosis (cirrhosis). A kPa >20 indicates a high likelihood of stage 4 fibrosis/cirrhosis, consider further testing to confirm and refer to hepatology. Recommendations If kPa <8.0, reassess periodically Fib-4 score every 1-2 years if T2DM/Pre-T2DM OR with 2 or more metabolic risk factors Fib-4 score 2-3 years if no T2DM and <2 metabolic risk factors If kPa >8.0, refer to hepatology for further evaluation Interpreted by: Meño HARMON Fibroscan Fibrosis Risk <7 kPA = F0-F2 97%, F3+F4 3%, F4 <1% <10 kPA = F0-F2 91%, F3+F4 9%, F4 1.3% 10-15 kPA = F0-F2 56%, F3+F4 43%, F4 14% >15 kPA = F0-F2 26%, F3+F4 74%, F4 46% Grade CAP value up to 237 dB/M corresponds to S0 (< 10 % Fat) CAP value between (238 - 258 dB/M) corresponds to S1 (>/= 11 % Fat) CAP value between (259 - 289 dB/M) corresponds to S2 (>/= 33 % Fat) CAP value > 290dB/M corresponds to S3 (>/= 67 % Fat) stage 0 ( S0:< 10 % steatosis) stage 1 (>/= S1: 11%-33% steatosis) stage 2 (>/= S2: 34%-66% steatosis) stage 3 (>/= S3: > 66% steatosis) References Robinson Y, Dario Q, Bowers T, Roxie J, Bowers H, Dennis T. Controlled attenuation parameter for assessment of hepatic steatosis grades: a diagnostic meta-analysis. Int J Clin Exp Med. 2015 Sep 03;8(10):98097-80. PMID: 52002822; PMCID: NEP3936242. Sloan Limon, Robert STAN, Alecia M, Emelia F, Kayce J, Mark O, Rhina F, Rosalia M, Rodo G, Fransico A, Broanniein E, Cali L, Brock G, Dinorah A, Daniel U, Tara S, Lottie P, Ganesh V, de Katina V, Jill M, Chema EA. Refining the Baveno elastography criteria for the definition of compensated advanced chronic liver disease. J Hepatol. 2020;74(5):1870-8774. doi: 10.1016/j.jhep.2020.11.050. Epub 2019Oct 28. PMID: 14371415. Arturo Limon, Dnaiel B, Frankie Limon, Martha Limon, Lu S, Antonia Cannon, Reema Cannon, Irene Pereyra. AASLD practice guidance on the clinical assessment and management of nonalcoholic fatty liver disease. Hepatology. 2022;77(5):9737-6486. doi:10.1097/HEP.5241327526370072IjxvgulbkMount Carmel Health System 07-15-2025 History of Present illness Narrative* Oakley, Meño, PA-C - 07/15/2025 11:42 AM EDT Fibroscan Report Date performed: July 15, 2025 Indication : Elevated alt measurement (primary encounter diagnosis) Patient fasted 3 hours:Yes Performed by Gris Rae LPN Result-Findings Technical difficulties: None. Result: The reading was adequate. Please refer to get images report for individual readings Number of readings: 10 IQR %: 17 E (kpa): 5.9 CAP: 291 Impression The liver stiffness is 5.9 kPa which corresponds to 97% chance of stage 0-2 fibrosis. The CAP analysis showed grade S3 of liver steatosis. Stage of liver fibrosis based on above kPa: A 97% chance of stage 0-2 fibrosis A 3% chance of stage 3-4 fibrosis (advanced fibrosis) A <1% chance of stage 4 fibrosis (cirrhosis). A kPa >20 indicates a high likelihood of stage 4 fibrosis/cirrhosis, consider further testing to confirm and refer to hepatology. Recommendations If kPa <8.0, reassess periodically Fib-4 score every 1-2 years if T2DM/Pre-T2DM OR with 2 or more metabolic risk factors Fib-4 score 2-3 years if no T2DM and <2 metabolic risk factors If kPa >8.0, refer to hepatology for further evaluation Interpreted by: Meño HARMON Fibroscan Fibrosis Risk <7 kPA = F0-F2 97%, F3+F4 3%, F4 <1% <10 kPA = F0-F2 91%, F3+F4 9%, F4 1.3% 10-15 kPA = F0-F2 56%, F3+F4 43%, F4 14% >15 kPA = F0-F2 26%, F3+F4 74%, F4 46% Grade CAP value up to 237 dB/M corresponds to S0 (< 10 % Fat) CAP value between (238 - 258 dB/M) corresponds to S1 (>/= 11 % Fat) CAP value between (259 - 289 dB/M) corresponds to S2 (>/= 33 % Fat) CAP value > 290dB/M corresponds to S3 (>/= 67 % Fat) stage 0 ( S0:< 10 % steatosis) stage 1 (>/= S1: 11%-33% steatosis) stage 2 (>/= S2: 34%-66% steatosis) stage 3 (>/= S3: > 66% steatosis) References Bowers Y, Dario Q, Bowers T, Roxie J, Bowers H, Collins T. Controlled attenuation parameter for assessment of hepatic steatosis grades: a diagnostic meta-analysis. Int J Clin Exp Med. 2015 Aug 15;8(10):80914-03.PMID: 51895293; PMCID: DLR5411093. Sloan Limon, Robert STAN, Alecia M, Emelia F, Kayce J, Mark O, Rhina F, Rosalia M, Rodo G, Fransico A, Germán E, Cali L, Brock G, Dinorah A, Daniel U, Tara S, [place], Ganesh V, Chapa V, Jill M, Chema BROOKS. Refining the Baveno elastography criteria for the definition of compensated advanced chronic liver disease. J Hepatol. 2020;74(5):7277-2760. doi: 10.1016/j.jhep.2020.11.050. Epub 2019Oct 28. PMID: 02722154. Arturo M, Daniel B, Frankie M, Martha M, Lu S, Antonia D, Reema D, Irene Pereyra.AASLD practice guidance on the clinical assessment and management of nonalcoholic fatty liver disease. Hepatology. 2022;77(5):1797- 1835. doi:10.1097/HEP.8072717447091045 documented in this encounterKettering Health Behavioral Medical Center08-21-2025 Telephone encounter Note * Telephone Encounter - Dea Dinh LPN - 07/10/2025 3:18 PM EDT I did call [facility]. I spoke with the pharmacist. Pharmacist requesting directions for the Golytely prep. Pharmacist states she needs to know how thepatient is taking the prep so they will not get audited. Explained to pharmacist the evening before colonoscopy the patient will drink one 8 ounce glass of prep every 15 minutes until prep is completely gone. Pharmacist verbalized good understanding. Dea Dinh LPN [facility]08-21-2025 Miscellaneous Notes* Telephone Encounter - Dea Dinh LPN - 07/10/2025 3:18 PM EDT [facility] I spoke with the pharmacist. Pharmacist requesting directions for the Golytely prep. Pharmacist states she needs to know how thepatient is taking the prep so they will not get audited. Explained to pharmacist the evening before colonoscopy the patient will drink one 8 ounce glass of prep every 15 minutes until prep is completely gone. Pharmacist verbalized good understanding. Dea Dinh LPN * Telephone Encounter - Sigrid Degroot - 07/10/2025 9:53 AM EDT Rhonda (Pharmacist[facility] [place], [place] ([phone]) calls stating that in order for patient's insurance to cover Golytely prep they need Golytely instructions for upcoming procedure. Asked if she needed the faxed and she said no. She just needs to speak with someone in the office. Attempted to transfer to nurse line; line rang busy. Please call Rhonda at the above #. Thanks. documented in this encounterKettering Health Behavioral Medical Center08-21-2025 Telephone encounter Note * Telephone Encounter - Sigrid Degroot - 07/10/2025 9:53 AM EDT [facility]Ph[facility]ist[facility] [place] [place] ([phone]) calls stating that in order for patient's insurance to cover Golytely prep they need Golytely instructions for upcoming procedure. Asked if she needed the faxed and she said no. She just needs to speak with someone in the office. Attempted to transfer to nurse line; line rang busy. Please call Rhodna at the above #. Thanks. [facility]08-20-2025 Instructions* Patient Instructions* Lorena Wilkes PA-C - 07/09/2025 1:10 PM EDT Thank you for seeing me in clinic today. It was very nice to meet you! As we discussed, my recommendations are as follows: Hepatitis B vaccination series with primary care Continue inflectra every 6 weeks TPMT enzymes which will tell us if we can start medication to try and get the antibodies under control on the inflectra Consult to dermatology for skin check Fibroscan of liver for elevated ALT level on labs Colonoscopy with Dr. Manuel in August 2025 If you have any questions about the above treatment plan, please do not hesitate to send me a Awesomi message or call. Lorena Wilkes PA-C documented in this encounterKettering Health Behavioral Medical Center08-20-2025 History of Present illness Narrative* Lorena Wilkes PA-C - 07/09/2025 1:00 PM EDT Images from the original note were not included. DEPARTMENT OF GASTROENTEROLOGY - FOLLOW UP REASON FOR VISIT Latrice Richmond is a 35 year old male who is scheduled for follow up of Crohns on IFX HISTORY OF PRESENT ILLNESS Latrice Richmond is a 35 year old male who presents today for follow up of Crohns on IFX. The patient is a 35-year-old male with Crohn s disease, presenting for follow-up. He has been receiving Inflectra infusions every 6 weeks since November 2022, with 2 missed doses in August 2023. Since resuming regular infusions, he reports significant improvement, with resolution of rectal bleeding, abdominal pain, and cramping. He experiences occasional mild flare-ups, typically triggered by spicy foods, fresh green peppers, certain types of beer, and greasy or fatty foods. These episodes occur 1-2 times every 3 months and are characterized by increased bowel frequency (lasting 2-4 days), mild cramping, chills, lethargy, and occasionally very light rectal bleeding, all ofwhich resolve quickly with dietary modification. Between flare-ups, he has 1-2 formed bowel movements daily without blood or pain. He denies nausea or vomiting. He reports a weight gain of approximately 50 lbs since starting Inflectra, which he attributes to decreased physical activity due to school and work, spending 12-15 hours daily at a desk. He notes that within the first week after each infusion, he experiences a single day of profound fatigue, requiring several hours of sleep, but otherwise tolerates the medication well. He denies any new rashes, vision changes, or joint pain beyond baseline from old football injuries. He reports intermittent eczema on his hands and face, which improves with infusions. He has noticed an increase in moles and skin tags. He underwent colonoscopy in August 2023 and is due for repeat colonoscopy in August. Pertinent Workup to Date: [facility] Dr. Manuel 08/2024 ASSESSMENT/PLAN: 1. Crohn's disease without complication, unspecified gastrointestinal tract location (HCC) - ICD9: 555.9, ICD10: K50.90 diagnosed with Crohn's disease in [facility] about 3 years ago At that time, his main issues were fatigue, cold like symptoms, abdominal cramps, diarrhea 6-10 a day, rectal bleeding, nausea Had 3-4 colonoscopies since end 2020 On inflectra every 8 weeks which [...] biologics. Importance of compliance He showed understanding [facility] CTE RESULT: GI Tract: There is [...] fluid collection is identified to suggest abscess. I have personally reviewed labs, current medication, allergies, PMH, PSH, family history and socialhistory. Pertinent information has been listed above. History reviewed. No pertinent past medical history. PAST SURGICAL HISTORY Procedure Laterality Date COLONOSCOPY SCREENING 06/2022 EXTRACTION ERUPTED TOOTH/EXR TONSILLECTOMY & ADENOIDECTOMY <AGE 13 Allergies: No Known Allergies Current Outpatient Medications Medication Sig Dispense Refill inFLIXimab-dyyb (INFLECTRA) 100 mg injection Inject intravenously. calcium/magnesium/vit B comp (QIYXZYL-NXHVURTPB-L COMPLEX ORAL) Take by mouth. peg 3350-Electrolytes (GOLYTELY) 236-22.74-6.74 -5.86 gram suspension Refer to printed prep instructions from your provider. 4000 mL 0 predniSONE (DELTASONE) 20 mg tablet Take 20 mg by mouth once daily. methocarbamol (ROBAXIN) 500 mg tablet Take 500 mg by mouth four times daily. No current facility-administered medications for this visit. SOCIAL HISTORY[1] FAMILY HISTORY Problem Relation Age of Onset Colon Cancer Maternal Grandfather REVIEW OF SYSTEMS Cardiovascular: No chest pain Respiratory: Negative for cough, wheezing and shortness of breath Gastrointestinal : See above Psychiatric: No problems PHYSICAL EXAMINATION BP 102/66 Pulse 67 Wt (!) 161 kg (354 lb 15.1 oz) Constitutional: well nourished, well appearing. NAD. Alert and cooperative Skin: no jaundice Eyes: anicteric, normal conjunctiva ENT: MMM Pulmonary: easy and nonlabored on RA Abdomen: soft, NT, ND. No ascites. MSK: MAEx4 Extremities: no edema Neuro: aaox3. No asterixis. Psych: appropriate mood and behavior Lab Results Component Value Date WBC 9.93 07/31/2023 HCT 40.5 07/31/2023 MCV 89.6 07/31/2023 PLT 241 07/31/2023 Lab Results Component Value Date NA 140 07/31/2023 K 3.9 07/31/2023 CO2 26 07/31/2023 BUN 13 07/31/2023 Lab Results Component Value Date ALT 19 07/31/2023 AST 21 07/31/2023 ALKPHOS 63 07/31/2023 Assessment IMPRESSION/PLAN 1. Crohn's disease without complication, unspecified gastrointestinal tract location (HCC) (K50.90) Currently well-controlled on Inflectra every 6 weeks since November 2022, with only occasional mild flare-ups triggered by specific foods (possibly IBS flares) Recent labs show low drug levels and low-titer antibodies to Inflectra, indicating possible early resistance. ESR slightly elevated, but no evidence of active flare. - Continue Inflectra every 6 weeks. - Order TPMT enzyme - Discussed potential need to add azathioprine if TPMT results are favorable - Educated patient on importance of avoiding known dietary triggers - Colonoscopy due in August [address] Manuel 2. Elevated ALT measurement (R74.01) ALT mildly elevated on recent CMP, likely related to fatty liver disease given weight gain and sedentary lifestyle. - Order FibroScan to further evaluate liver status. - Advised patient to ensure 3-hour fasting prior to FibroScan. Lorena Wilkes PA-C Recording using Tracksmith software for draft documentation of the visit was discussed with the patient/authorized data entry representative; all questions welcomed and answered. Patient/authorized data entry representative agreed to proceed [1] Social History Tobacco Use Smoking status: Former Types: Cigarettes Smokeless tobacco: Never Vaping Use Vaping status: current everyday user Substances: Nicotine Substance Use Topics Alcohol use: Yes Comment: social Drug use: Not Currently documented in this encounterKettering Health Behavioral Medical Center08-20-2025 NoteHNO ID: [id number] Author: LORENA WILKES PA-C Service: ? Author Type: Physician Licensed Mental Health Counselor Type: Progress Notes Filed: 07/09/2025 13:22 Note Text: DEPARTMENT OF GASTROENTEROLOGY - FOLLOW UP REASON FOR VISIT Latrice Richmond is a 35 year old male who is scheduled for follow up of Crohns on IFX HISTORY OF PRESENT ILLNESS Latrice Richmond is a 35 year old male who presents today for follow up of Crohns on IFX. The patient is a 35-year-old male with Crohn?s disease, presenting for follow-up. He has been receiving Inflectra infusions every 6 weeks since November 2022, with 2 missed doses in August 2023. Since resuming regular infusions, he reports significant improvement, with resolution of rectal bleeding, abdominal pain, and cramping. He experiences occasional mild flare-ups, typically triggered by spicy foods, fresh green peppers, certain types of beer, and greasy or fatty foods. These episodes occur 1-2 times every 3 months and are characterized by increased bowel frequency (lasting 2-4 days), mild cramping, chills, lethargy, and occasionally very light rectal bleeding, all of which resolve quickly with dietary modification. Between flare-ups, he has 1-2 formed bowel movements dailywithout blood or pain. He denies nausea or vomiting. He reports a weight gain of approximately 50 lbs since starting Inflectra, which he attributes to decreased physical activity due to school and work, spending 12-15 hours daily at a desk. He notes that within the first week after each infusion, he experiences a single day of profound fatigue, requiring several hours of sleep, but otherwise tolerates the medication well. He denies any new rashes, vision changes, or joint pain beyond baseline from old football injuries. He reports intermittent eczema on his hands and face, which improves with infusions. He has noticed an increase in moles and skin tags. He underwent colonoscopy in August 2023 and is due for repeat colonoscopy in August. Pertinent Workup to Date: VV Dr. Manuel 08/2024 ASSESSMENT/PLAN: 1. Crohn's disease without complication, unspecified gastrointestinal tract location (HCC) - ICD9: 555.9, ICD10: K50.90 diagnosed with Crohn's disease in [facility] about 3 years ago At that time, his main issues were fatigue, cold like symptoms, abdominal cramps, diarrhea 6-10 a day, rectal bleeding, nausea Had 3-4 colonoscopies since end 2020 On inflectra every 8 weeks which [...] biologics. Importance of compliance He showed understanding [facility] CTE RESULT: GI Tract: There is [...] fluid collection is identified to suggest abscess. I have personally reviewed labs, current medication, allergies, PMH, PSH, family history and social history. Pertinent information has been listed above. History reviewed. No pertinent past medical history. PAST SURGICAL HISTORY Procedure Laterality Date COLONOSCOPY SCREENING 06/2022 EXTRACTION ERUPTED TOOTH/EXR TONSILLECTOMY AND ADENOIDECTOMY Allergies: No Known Allergies Current Outpatient Medications Medication Sig Dispense Refill inFLIXimab-dyyb (INFLECTRA) 100 mg injection Inject intravenously. calcium/magnesium/vit B comp (KAJUKUM-DVUVLMGCH-T COMPLEX ORAL) Take by mouth. peg 3350-Electrolytes (GOLYTELY) 236-22.74-6.74 -5.86 gram suspension Refer to printed prep instructions from your provider. 4000 mL 0 predniSONE (DELTASONE) 20 mg tablet Take 20 mg by mouth once daily. methocarbamol (ROBAXIN) 500 mg tablet Take 500 mg by mouth four times daily. No current facility-administered medications for this visit. SOCIAL HISTORY[1] FAMILY HISTORY Problem Relation Age of Onset Colon Cancer Maternal Grandfather REVIEW OF SYSTEMS Cardiovascular: No chest pain Respiratory: Negative for cough, wheezing and shortness of breath Gastrointestinal : See above Psychiatric: No problems PHYSICAL EXAMINATION BP 102/66 Pulse 67 Wt (!) 161 kg (354 lb 15.1 oz) Constitutional: well nourished, well appearing. NAD. Alert and cooperative Skin: no jaundice Eyes: anicteric, norm (more content not included)...[facility] 07-09-2025 Telephone encounter Note* Telephone Encounter - Eleanor Reich RN - 07/09/2025 9:35 AM EDT [facility] 06-20-2025 Fecal Sidney 59 Inflix + Antibody Inflix drug level 5.0 Quant limit <0.4 ug/mL Anti-inflix antibibody 80 ( The above results is low antibody titer; quantitation limit <22 ng/ ml 22-200 low titer) Full documents submitted for scan in for further review Dr. Manuel please review and advise. Thanks, Eleanor Reich RN [facility]08-20-2025 Miscellaneous Notes* Telephone Encounter - Eleanor Reich RN - 07/09/2025 9:35 AM EDT Fax Rec from [facility] 06-20-2025 Fecal [place] 59 Inflix + Antibody Inflix drug level 5.0 Quant limit <0.4 ug/mL Anti-inflix antibibody 80 ( The above results is low antibody titer; quantitation limit <22 ng/ ml 22-200 low titer) Full documents submitted for scan in for further review Dr. Manuel please review and advise. Thanks, Eleanor Reich RN documented in this encounterK[facility]07-24-2025 Telephone encounter Note * Telephone Encounter - Mario Manuel MD - 06/12/2025 2:15 PM EDT Patient has TB test that was negative and scanned in Aug 2024 Why does he need a repeated one? Normal labs at that time I don't see hep B I'm sure all were done at the same time Please try to get before you ask the patient to repeat [facility]07-24-2025 Miscellaneous Notes* Telephone Encounter - Mario Manuel MD - 06/12/2025 2:15 PM EDT Patient has TB test that was negative and scanned in Aug 2024 Why does he need a repeated one? Normal labs at that time I don't see hep B I'm sure all were done at the same time Please try to get before you ask the patient to repeat * Telephone Encounter - Eleanor Reich RN - 06/12/2025 12:11 PM EDT Received paperwork yesterday evening, Will complete and fax to [employer], Explained to rep yesterday that this would need completed/ prescriber signature- and pt has incomplete labs. Dr. Manuel, Please review and sign labs for TB hep, Other labs active. Thanks, Eleanor Reich RN * Telephone Encounter - Ingris Hernández RN - 06/12/2025 12:04 PM EDT Beth Small from [facility] is calling. She would like to know if orders were received for Inflectra renewal and SHANTI Kit. She needs the orders faxed back to [phone]. Please call her back at [phone]. Thank you, Ingris Hernández RN documented in this encounterKet[facility]07-24-2025 Telephone encounter Note * Telephone Encounter - Eleanor Reich RN - 06/12/2025 12:11 PM EDT Received paperwork yesterday evening, Will complete and fax to [employer], Explained to rep yesterday that this would need completed/ prescriber signature- and pt has incomplete labs. Dr. Manuel, Please review and sign labs for TB hep, Other labs active. Thanks, Eleanor Reich RN [facility]07-24-2025 Telephone encounter Note* Telephone Encounter - Ingris Hernández RN - 06/12/2025 12:04 PM EDT Beth Small from [facility] is calling. She would like to know if orders were received for Inflectra renewal and SHANTI Kit. She needs the orders faxed back to [phone]. Please call her back at [phone]. Thank you, Ingris Hernández, RN [facility] Work Phone: [phone]) 520-117106-13-2025 Telephone encounter Note* Telephone Encounter - Eleanor Reich RN - 05/02/2025 2:35 PM EDT [facility] called in Pt Due for Inflectra on 05-15-25 Pt having breakthrough symptoms, Asking to Infuse early on 05-05-25 Direct call back to approve request [phone] Attempted to call pt, LVM to c/b out office to discuss symptoms further, Eleanor Miller, RN [facility]06-13-2025 Miscellaneous Notes* Telephone Encounter - Eleanor Reich RN - 05/02/2025 2:35 PM EDT [facility] called in Pt Due for Inflectra on 05-15-25 Pt having breakthrough symptoms, Asking to Infuse early on 05-05-25 Direct call back to approve request [phone] Attempted to call pt, LVM to c/b out office to discuss symptoms further, Eleanor Miller, RN documented in this encounterK[facility]10-10-2024 Telephone encounter Note * Telephone Encounter - Eleanor Easley RN - 08/29/2024 2:36 PM EDT Called and spoke with patient Assured orders were sent to [facility], and will reach out to [facility] for update. Called Rep at [facility] and verbalized that orders were received, and Rep stated that will call pt to schedule, Eleanor Miller RN [facility]10-10-2024 Miscellaneous Notes* Telephone Encounter - Eleanor Easley RN - 08/29/2024 2:36 PM EDT Called and spoke with patient Assured orders were sent to [facility], and will reach out to [facility] for update. Called Rep at [facility] and verbalized that orders were received, and Rep stated that will call pt to schedule, Eleanor Miller RN documented in this encounterKet[facility]10-04-2024 History of Present illness Narrative* Mario Manuel MD - 08/23/2024 9:00 AM EDT Images from the original note were [...] including labs and Colonoscopy with pathology Mario Manuel MD [facility] CTE RESULT: GI Tract: There is [...] Abs Lymph 1.00 - 4.00 k/uL 2.35 [place]% % 10.1 Abs [place] <0.87 k/uL 1.00 (H) Eosin% % 1.4 [...] false negative results. In case of a contactinvestigation, please repeat 8-12 weeks after a known [...] ICD10: K50.90 diagnosed with Crohn's disease in [facility] about 3 years ago At that time, his main issues were fatigue, cold like symptoms, abdominal cramps, diarrhea 6-10 a day, rectal bleeding, nausea Had 3-4 colonoscopies since end 2020 On inflectra every 8 weeks which [...] Importance of compliance He showed understanding Mario Manuel MD documented in this encounterKet[facility]09-12-2024 Telephone encounter Note * Telephone Encounter - Haydee Smiley - 08/01/2024 4:16 PM EDT LVM for patient to contact [facility] to schedule. Thank you Haydee Smiley PSS [facility]09-12-2024 Miscellaneous Notes* Telephone Encounter - Haydee Smiley - 08/01/2024 4:16 PM EDT LVM for patient to contact [facility] to schedule. Thank you Haydee Smiley PSS * Telephone Encounter - Eleanor Easley RN - 08/01/2024 12:05 PM EDT Schedulers, Pt needs scheduled with Lorena ORTIZ, Did not attend VV this morning with Dr. Manuel, Pt informed needs labs completed (fax number to [facility] needed and pt stated that he will call the office with info or send via MYC) And F/U OV needs completed Both criteria needs completed prior to renewing biologic, Pt non-compliant with follow up criteria to date. Thanks, Eleanor Easley RN documented in this encounterKet[facility]09-12-2024 Telephone encounter Note * Telephone Encounter - Eleanor Easley RN - 08/01/2024 12:05 PM EDT Schedulers, Pt needs scheduled with Lorena ORTIZ, Did not attend VV this morning with Dr. Manuel, Pt informed needs labs completed (fax number to [facility] needed and pt stated that he will call the office with info or send via MYC) And F/U OV needs completed Both criteria needs completed prior to renewing biologic, Pt non-compliant with follow up criteria to date. Eleanor Miller RN [facility]06-10-2024 Telephone encounter Note* Telephone Encounter - Eleanor Easley RN - 04/29/2024 10:38 AM EDT Received form/ order, Needs signed by Dr. Manuel, When she returns from [facility], will send back via fax Eleanor Miller RN [facility]06-10-2024 Miscellaneous Notes* Telephone Encounter - Eleanor Easley RN - 04/29/2024 10:38 AM EDT Received form/ order, Needs signed by Dr. Manuel, When she returns from [employer], will send back via fax Eleanor Miller RN * Telephone Encounter - Gris Rae LPN - 04/29/2024 9:32 AM EDT Call received from [facility] stating they faxed over order and were calling to confirm orders were received and requesting they be signed and faxed back to [phone]. Rep states if orders have not been received requesting a call back to [phone]. Gris Rae LPN documented in this encounterKettering [facility] Center06-10-2024 Telephone encounter Note * Telephone Encounter - Gris Rae LPN - 04/29/2024 9:32 AM EDT Call received from [facility] stating they faxed over order and were calling to confirm orders were received and requesting they be signed and faxed back to [phone]. Rep states if orders have not been received requesting a call back to [phone]. Gris Rae LPN [facility]02-15-2024 Miscellaneous Notes* Telephone Encounter - Ingris Hernández RN - 01/04/2024 11:31 AM EST Pt called. He is due for his 3rd Inflectra infusion today. 2 hours ago he started having massive chills, body aches, headache, fatigue and a little difficulty breathing. Discussed with Dr. Manuel. Pt to rescheduled for 1 week out and reassess. Pt notified of recommendations. Advised to call in 1 week if still having symptoms. Also advised to call his PCP. Pt verbalized understanding and agreed. Ingris Hernández RN documented in this encounterKettering [facility]10-26-2023 Miscellaneous Notes* Telephone Encounter - Sana Tracey RN - 09/14/2023 2:36 PM EDT [facility] appealing infusion denial. Letter signed and faxed back * Telephone Encounter - Sana Tracey RN - 08/22/2023 12:13 PM EDT 07-11-[address] Elkin Lake Postoperative Dx- Granulomatous colitis. Path- Chronic active colitis with acute crypt abscess No dysplasia Sigmoid polyp= pseudopolyp * Telephone Encounter - Sana Tracey RN - 08/22/2023 12:13 PM EDT ----- Message from Rensselaer Dakhil, MD sent at 08/22/2023 11:00 AM EDT ----- Hi Latrice, your CT enterography didn't show any inflammation in the small bowels or the colon No stricture No fistula No abscess Overall no active disease per this CT scan Small bilateral kidney stones Please Sana get me patient's last colonoscopy with path report to review documented in this encounterKettering Health [facility]09-11-2023 History of Present illness Narrative* Mario Manuel MD - 07/31/2023 10:15 AM EDT Chief Compliant: Latrice Richmond, 33 year old male, presents in the office today at the request ofJulio César Esqueda for Crohns and IBD Flare. My final recommendations will be communicated back to the requesting physician by the way of the shared medical record, fax, or via US Mail. HPI: Latrice Richmond is a 33 year old male who presents for Crohn's disease Patient was diagnosed with Crohn's disease in [facility] about 1-2 years ago At that time, his main issues were fatigue, cold like symptoms, abdominal cramps, diarrhea 6-10 a day, rectal bleeding, nausea No weight loss Had 3-4 colonoscopies since end of 2020 Last one was a year ago [...] including labs and Colonoscopy with pathology Mario Manuel MD Follow Up: No follow-ups on file. documented in this encounterKet[facility]08-14-2023 Miscellaneous Notes* Telephone Encounter - Julio César Price - 07/03/2023 10:41 AM EDT LVM to call to reschedule O/V with Dr. Manuel that was cx'd on 08/21/2023. There are slots on hold for Mon08/07/23 1 attempt José Miguel Miller documented in this encounterKettering Health [facility]06-15-2023 Evaluation note* Encounter Date Diagnosis Assessment Notes Treatment Notes Treatment Clinical Notes Apr, Colitis (ICD-10 - K52.9) Pt is currently on entyvio and will change to every 6 weeks to help control flare up, he is having bouts of diarrhea wiht blood labs ordered today [facility] Other 08-22-2022 Procedure [facility]07-28-2022 Evaluation note* Encounter Date Diagnosis Assessment Notes Treatment Notes Treatment Clinical Notes May, Abdominal pain (ICD-10 - R10.9) May,ectal bleeding (ICD-10 - K62.5) May,2Diarrhea (ICD-10 - R19.7) [facility] Other 04-14-2022 Evaluation note* Encounter Date Diagnosis Assessment Notes Treatment Notes Treatment Clinical Notes Feb, Colitis (ICD-10 - K52.9) Obtain images from colonoscopy performed by Dr. Diallo Labs and stool studies as indicated above Start Balsalazide 3 po tid Encouraged pt to avoid dairy products and roughage Follow up 6 weeks [facility] Other 01-18-2022 [place]The [place] NAME: LATRICE RICHMOND DATE OF : MEDICAL REC#: [id number] WIRE TWISTING MACHINE OPERATOR: Yamile MEJIA, TRANSADMIT DATE: 12/07/2021 19:25:00 CERTIFIED NUTRITIONIST DATE: 12/14/2021 06:00 DICTATING PHYSICIAN: MATT DIALLO DICTATION DATE: 12/13/2021 12:00 OPERATIVE NOTE PREOPERATIVE [...] physician Electronically Authenticated and Edited by: Matt Diallo MD on 12/15/2021 06:03 PM [facility] Signed and Approved by: DR MATT DIALLO . 12/15/2021 18:03:00[facility]01-04-2022 NoteChief Complaint consultation for diarrhea HPI Staff 31 year old male presents on consultation from Dr. Esqueda for diarrhea with mucus and blood for [...] Illness 31 yo male referred by Dr Esqueda for rectal bleeding, change in bowel habits; [...] Bipolar: Sister. Hypertension: Mother. Irritable bowel syndrome: Mother.[facility] DaytonComment on above: Result Comment: Electronically Signed By: Matt DIALLO MD\Date and Time Signed: 11/23/21 16:23 ESTEvaluation noteNo InformationNortThomas Jefferson University Hospital [employer] Other Evmhdation note* Diagnosis Onset Date Resolution Status Colitis acute [facility] Work Phone: evaluation note* Diagnosis Crohn's disease without complication, unspecified gastrointestinal tract location (HCC)- Primary Crohn's disease with complication, unspecified gastrointestinal tract location (HCC) documented in this encounter [facility] Columbusaluation noteNo assessment information availablePremier Health [facility] Work Phone: evaluation note* Diagnosis Crohn's disease without complication, unspecified gastrointestinal tract location (HCC)- Primary [facility]* Diagnosis Crohn's disease without complication, unspecified gastrointestinal tract location (HCC)- Primary documented in this encounter [facility] CenterEvalunemours foundation note* Diagnosis Crohn's disease without complication, unspecified gastrointestinal tract location (HCC)- Primary Elevated ALT measurement Nonspecific elevation of levels of transaminase or lactic acid dehydrogenase (LDH) documented in this encounter [facility] CenterEvaluation note* Diagnosis Elevated ALT measurement- Primary Nonspecific elevation of levels of transaminase or lactic acid dehydrogenase (LDH) documented in this encounter [facility] ClinicEvalunemours foundation note* Diagnosis Elevated ALT measurement- Primary Nonspecific elevation of levels of transaminase or lactic acid dehydrogenase (LDH) documented in this encounter [facility] general Narrative - Reported* Type Description Date Surgical History wisdom teeth extraction Surgical Historyingrown toe nail removal [facility] [employer] Other Reason for referral (narrative)No reason for referral information availableHocking Valley Community Hospital Work Phone: Reoozs for visit Narrative* Outpatient Procedure (Routine) - ClosedSpecialtyDiagnoses / ProceduresReferred By ContactReferred To ContactDIGESTIVE DISEASE INSTITUTE Diagnoses Elevated ALT measurement Procedures DDI VIBRATION CONTROLLED TRANSIENT ELASTOGRAPHY (VCTE) LIVER ELASTOGRAPHY W/O IMAG W/I&R Lorena Wilkes PA-C [address] [place] [address] Phone: tel: fax: [facility] [address] [address] Referral IDStatusReasonStart DateExpiration DateVisits RequestedVisits [id number] Auto-Generated Referral [facility] Summary Purpose Family History No Family History Records Found Relationship Condition Age at Onset Recorded Date/T tamia Not Specified Seizures Unknown Migraine headacheUnknown Relationship Condition Age at Onset Recorded Date/T tamia mother Seizures Unknown Migraine headacheUnknownfatherHypertensionUnknownDiabetes mellitusUnknownmother HypertensionUnknownHistory of strokeUnknownFibromyalgiaUnknown Advance Directives No Advanced Directives Records Found Advance Directive Response Recorded Date/ Time Advance Directives No July 06, 2022 4:19pm Chief Complaint and Reason for Visit Chief Complaint Abdominal Pain, Diar diana, Rectal Pain Abdominal Pain, Diarrhea, Rectal PainReason for VisitColitis Chief Complaint Admit Date Cough August 26, 2025 1: 48pm Reason for Referral SpecialtyDiagnoses / ProceduresReferred By ContactReferred To ContactDermatology Diagnoses Crohn's disease without complication, unspecified gastrointestinal tract location (HCC) Procedures [place] [address] [place] [address] Referral IDStatusReasonStart DateExpiration DateVisits RequestedVisits [id number] Not Required PCP Requested Referral /[id number] / ProceduresReferred By ContactReferred To ContactCT IMAGING Diagnoses Crohn's disease without complication, unspecified gastrointestinal tract location (HCC) Crohn's disease with complication, unspecified gastrointestinal tract location (HCC) Procedures CT ENTEROGRAPHY W IVCON CT ABD & P[place] W/[place] [address] [place] [address] [place] [address] Referral IDStatusReasonStart DateExpiration DateVisits RequestedVisits [id number] Auto-Generated Referral Additional Source Comments (unrecognized sect ion and content) No Status Records FoundNo Status Records FoundNo Status Records FoundNo Status Records FoundNo Status Records Found INFORMATION SOURCE (unrecogn ized section and content) DATE CREATED AUTHOR 03/26/2022 [facility] DATE CREATED AUTHOR AUTHOR'S ORGANIZ ATION 10/02/2022 [facility] DATE CREATED AUTHOR AUTHOR'S ORGANIZ ATION 08/12/2023 [facility] DATE CREATED AUTHOR AUTHOR'S ORGANIZ ATION 07/14/2025 [facility] DATE CREATED AUTHOR AUTHOR'S ORGANIZ ATION 09/17/2025 [facility] REASON FOR VISIT (unrecogniz ed section and content) ReasonCommentsAppointmentReasonCommentsCrohnsIBD FlareReasonCommentsResults SpecialtyDiagnoses / ProceduresReferred By ContactReferred To ContactCT IMAGING Diagnoses Crohn's disease without complication, unspecified gastrointestinal tract location (HCC) Crohn's disease with complication, unspecified gastrointestinal tract location (HCC) Procedures CT ENTEROGRAPHY W IVCON CT ABD & PELVIS W/[place] [address] [place] [address] [address] [facility] Referral IDStatusReasonStart DateExpiration DateVisits RequestedVisits [id number] Auto-Generated Referral [id number] UpdatePt needs to reschedule Inflectra infusion for one week outReasonCommentsRecheckReasonCommentsOrders ReasonCommentsOrdersInflectra renewal and SHANTI KitReasonCommentsCrohnsReason CommentsGolytely prep Care Teams (unrecognized sec tion and content) Team Status: Inactive Member Role Status Dates Elkin Lake MD Attending Provider Active Vivien Burns Care ProviderActive Team Status: Active Member Role Status Dates Julio César Esqueda MD Primary Care Provider Active Team MemberRelationshipSpecialtyStart DateEnd Date JulioC ésar Esqueda MD [address] [place] [facility] [address] [facility]23Team MemberRelationshipSpecialtyStart DateEnd Date Julio César Esqueda MD [address] [place] [facility] [address] [facility] - [facility]05/02/23Team MemberRelationshipSpecialtyStart DateEnd Date Julio César Esqueda MD [address] [place] [facility] [address] PCP - [facility]05/02/23 Team Status: Inactive Member Role Status J Carlos Manuel MD Attending Provider Active Team MemberRelationshipSpecialtyStart DateEnd Date Julio César Esqueda MD [address] [place] [facility] [address] [facility]05/02/23Team MemberRelationshipSpecialtyStart DateEnd Date Julio César Esqueda MD [address] [place] [facility] [address] [facility] - [facility]05/02/23Team MemberRelationshipSpecialtyStart DateEnd Date Julio César Esqueda MD [address] [place] [address] PCP - [facility]05/02/23Team MemberRelationshipSpecialtyStart DateEnd Date Julio César Esqueda MD [address] [place] [address] PCP - GeneralFamily Medicine05/02/23Team MemberRelationshipSpecialtyStart DateEnd Date Julio César Esqueda MD [address] [facility] [place] [address] PCP - GeneralFamily Medicine05/02/23Team MemberRelationshipSpecialtyStart DateEnd Date Julio César Esqueda MD [address] [place] [address] PCP - GeneralFamily Medicine05/02/23Team MemberRelationshipSpecialtyStart DateEnd Date Julio César Esqueda MD [address] [place] [address] PCP - GeneralFamily Medicine05/02/23Team MemberRelationshipSpecialtyStart DateEnd Date Julio César Esqueda MD [address] [place] [address] PCP - GeneralFamily Medicine05/02/23Team MemberRelationshipSpecialtyStart DateEnd Date Julio César Esqueda MD [address] [place] [address] PCP - GeneralFamily Medicine05/02/23Team MemberRelationshipSpecialtyStart DateEnd Date Julio César Esqueda MD [address] [place] [address] PCP - GeneralFamily Medicine05/02/23Team MemberRelationshipSpecialtyStart DateEnd Date Julio César Esqueda MD [address] [facility] [place] [address] PCP - GeneralFamily Medicine05/02/23Team MemberRelationshipSpecialtyStart DateEnd Julio César Esqueda MD [address] [facility] [place] [address] PCP - GeneralFamily Medicine05/02/23 Team Status: Active Member Role Status Dates PHYSICIAN NO FAMILY Primary Care Provider Active Team Status: Inactive Member Role Status Dates PHYSICIAN NO FAMILY Primary Care Provider Active Start: August 26, 2025 End: August 26, 2025Amy Wilks APRN HONEY GRADER AND BLENDER-CAttending Provider ActiveStart: August 26, 2025 End: August 26, 2025 Source Comments (unrecognize d section and content) In the event this informatio n is protected by the Federal Confidentiality of Alcohol and Drug Abuse Patient Records regulations: The Federal rules restrict any use of the information to criminally investigate or prosecute any alcohol or drug abuse patient.[facility] CenterIn the event this information is protected by the Federal Confidentiality of Alcohol and Drug Abuse Patient Records regulations: The Federal rules restrict any use of the information to criminally investigate or prosecute any alcohol or drug abuse patient.[facility] CenterIn the event this information is protected by the Federal Confidentiality of Alcohol and Drug Abuse Patient Records regulations: The Federal rules restrict any use of the information to criminally investigate or prosecute any alcohol or drug abuse patient.[facility] CenterIn the event this information is protected by the Federal Confidentiality of Alcohol and Drug Abuse Patient Records regulations: The Federal rules restrict any use of the information to criminally investigate or prosecute any alcohol or drug abuse patient.[facility] CenterIn the event this information is protected by the Federal Confidentiality of Alcohol and Drug Abuse Patient Records regulations: The Federal rules restrict any use of the information to criminally investigate or prosecute any alcohol or drug abuse patient.[facility] CenterIn the event this information is protected by the Federal Confidentiality of Alcohol and Drug Abuse Patient Records regulations: The Federal rules restrict any use of the information to criminally investigate or prosecute any alcohol or drug abuse patient.[facility] CenterIn the event this information is protected by the Federal Confidentiality of Alcohol and Drug Abuse Patient Records regulations: The Federal rules restrict any use of the information to criminally investigate or prosecute any alcohol or drug abuse patient.[facility] CenterIn the event this information is protected by the Federal Confidentiality of Alcohol and Drug Abuse Patient Records regulations: The Federal rules restrict any use of the information to criminally investigate or prosecute any alcohol or drug abuse patient.[facility] CenterIn the event this information is protected by the Federal Confidentiality of Alcohol and Drug Abuse Patient Records regulations: The Federal rules restrict any use of the information to criminally investigate or prosecute any alcohol or drug abuse patient.[facility] CenterIn the event this information is protected by the Federal Confidentiality of Alcohol and Drug Abuse Patient Records regulations: The Federal rules restrict any use of the information to criminally investigate or prosecute any alcohol or drug abuse patient.[facility] CenterIn the event this information is protected by the Federal Confidentiality of Alcohol and Drug Abuse Patient Records regulations: The Federal rules restrict any use of the information to criminally investigate or prosecute any alcohol or drug abuse patient.[facility] CenterIn the event this information is protected by the Federal Confidentiality of Alcohol and Drug Abuse Patient Records regulations: The Federal rules restrict any use of the information to criminally investigate or prosecute any alcohol or drug abuse patient.[facility] CenterIn the event this information is protected by the Federal Confidentiality of Alcohol and Drug Abuse Patient Records regulations: The Federal rules restrict any use of the information to criminally investigate or prosecute any alcohol or drug abuse patient.[facility] CenterIn the event this information is protected by the Federal Confidentiality of Alcohol and Drug Abuse Patient Records regulations: The Federal rules restrict any use of the information to criminally investigate or prosecute any alcohol or drug abuse patient.[facility] CenterIn the event this information is protected by the Federal Confidentiality of Alcohol and Drug Abuse Patient Records regulations: The Federal rules restrict any use of the information to criminally investigate or prosecute any alcohol or drug abuse patient.[facility] CenterIn the event this information is protected by the Federal Confidentiality of Alcohol and Drug Abuse Patient Records regulations: The Federal rules restrict any use of the information to criminally investigate or prosecute any alcohol or drug abuse patient.[facility] CenterIn the event this information is protected by the Federal Confidentiality of Alcohol and Drug Abuse Patient Records regulations: The Federal rules restrict any use of the information to criminally investigate or prosecute any alcohol or drug abuse patient.[facility] CenterIn the event this information is protected by the Federal Confidentiality of Alcohol and Drug Abuse Patient Records regulations: The Federal rules restrict any use of the information to criminally investigate or prosecute any alcohol or drug abuse patient.[facility] Goals (unrecognized section and content) Goals may [...] BE BASED ON THE PRIMARY CLINICAL RECORDS. [facility] [employer] [facility]. provides no warranty or guarantee of the accuracy or completeness of information in this document.
--- OUTSIDE RECORDS SUMMARY | 2025-09-19 17:53 | XMS_ITS | Encounter Summary ---
Author Organization [facility] Address [address] [place], [place] [id number] Care Team Providers Care Stenotype Machine Operator Name Role Phone Celestine Bynum MD Primary Care Provider [phone] Source Comments In the event this information is protected by the Federal Confidentiality of Alcohol and Drug AbusePatient Records regulations: The Federal rules restrict any use of the information to criminally investigate or prosecute any alcohol or drug abuse patient.[facility] Encounter Details DateTypeDepartmentCare Team (Latest Contact Info)Sbhyadmhied56/13/2025Telephone [facility] [address] [place], [place] [id number] [place] [address] [place] [phone] Social History Tobacco UseTypesPacks/DayYears UsedDateSmoking Tobacco: FormerCigarettes Smokeless Tobacco: NeverAlcohol UseStandard Drinks/WeekCommentsYes0 (1 standard drink = 0.6 oz pure alcohol)socialAUDIT-CAnswerDate RecordedQ1: How often do you have a drink containing alcohol?2-4 times a month08/20/2025Q2: How many drinks containing alcohol do you have on a typical day when you are drinking?1 or 2 07/09/2025Frequency of Binge DrinkingNot on file07/09/2025rea Deprivation Index AnswerDate RecordedNational Score (1-100), lower number is lower risk64 07/31/2023State Score (1-10), lower number is lower kdyu547ata from: https://www.neighborhoodatlas.[facility]/. Last address used for [id number]07/31/2023Sex and Gender InformationValueDate Recorded Sex Assigned at BirthNot on fileLegal UvoXdpa0105/02/2023 2:39 PM EDTGender IdentityNot on fileSexual LzhgsluooclAbythknn88/11/2023 2:31 PM EDTdocumented as of this encounter Functional Status documented as of this encounter Miscellaneous Notes * Addendum Note - Shaye Fitzgerald - 09/17/2025 4:49 PM EDTAddended by: SHAYE FITZGERALD on: 09/17/2025 04:49 PM Modules accepted: Orders * Telephone Encounter - Eleanor Fofana RN - 05/07/2025 10:05 AM EDT Third attempt to call pt, Phone number left for call back. ThanksEleanor RN * Addendum Note - Mario Mello MD - 05/06/2025 3:38 PM EDTAddended by: MARIO MELLO on: 05/06/2025 03:38 PM Modules accepted: Orders * Telephone Encounter - Mario Mello MD - 05/06/2025 3:37 PM EDT Will not change treatment plan until patient return RN call an get ordered labs and stool studies done * Addendum Note - Eleanor Fofana RN - 05/05/2025 12:11 PM EDTAddended by: ELEANOR FOFANA on: 05/05/2025 12:11 PM Modules accepted: Orders * Telephone Encounter - Eleanor Fofana RN - 05/05/2025 12:05 PM EDT Pt currently on Inflectra, Crohn's disease without complication, unspecified gastrointestinal tractlocation (HCC) Past due for labs, Increased symptoms per incoming call from [facility] [place], however nurse could not give details to whatsymptoms other than the pt stated severe breakthrough symptoms. Second incoming call received today from [facility], requesting earlier infusion for pt, Declined at this time as Pt needs triaged for specifity of symptoms and is due for labs. Second attempt to call pt, LVM. Dr. Mello, Added orders for INFLMB Serum, Fecal brenden, and routine labs. If agree, Please review and sign./ Thanks, Eleanor Fofana RN * Telephone Encounter - Eleanor Fofana RN - 05/05/2025 10:20 AM EDT Called received from [facility], Asking for update regarding pt req of [...] office to discuss symptoms. Eleanor Miller RN * Telephone Encounter - Eleanor Fofana RN - 05/02/2025 2:35 PM EDT [facility] called in Pt Due for Inflectra on 05-15-25 Pt having breakthrough symptoms, Asking to Infuse early on 05-05-25 Direct call back to approve request [phone] Attempted to call pt, LVM to c/b out office to discuss symptoms further, Eleanor Miller, RN documented in this encounter Plan of Treatment DateTypeDepartmentCare Team (Latest Contact Info)Nhvblcbqmwv54/21/2025 11:59 PM EDTAnesthesia Event [facility] - ENDO [address] [place] [address] Jane Peters, AREN.LEAD SOFTWARE QA ENGINEER [address] [place] [address] [address] [place] [address] 10/01/2025 8:45 AM ESTAppointment [facility] - ENDO [address] [place] [address] [place] [address] [place] [address] *needs hospital setting per phone encounter*NameTypePriorityAssociated Diagnoses Date/TimeEXTRA ECOFIX CONTAINER PERFORMABLELabRoutine Crohn's disease without complication, unspecified gastrointestinal tract location (HCC) 09/17/2025 8:48 AM EDTEXTRA LAUREL-PRANAY CONTAINER PERFORMABLELabRoutine Crohn's disease without complication, unspecified gastrointestinal tract location (HCC) 09/17/2025 8:48 AM EDTNameTypePriorityAssociated DiagnosesOrder ScheduleEXTRA ECOFIX CONTAINER PERFORMABLELabRoutine Crohn's disease without complication, unspecified gastrointestinal tract location (HCC) Expected: 09/17/2025, Expires: 12/17/2025EXTRA LAUREL-PRANAY CONTAINER PERFORMABLE LabRoutine Crohn's disease without complication, unspecified gastrointestinal tract location (HCC) Expected: 09/17/2025, Expires: 12/17/2025documented as of this encounter Visit Diagnoses Diagnosis Crohn's disease without complication, unspecified gastrointestinal tract location (HCC)- Primary documented in this encounter Care Teams Team MemberRelationshipSpecialtyStart DateEnd Date Celestine Bynum MD [address] [place] [address] PCP - GeneralFamily Medicine05/02/23documented as of this encounter
--- OUTSIDE RECORDS SUMMARY | 2025-09-19 17:53 | XMS_ITS | Encounter Summary ---
Author Organization [facility] Address [address] [place] [address] Care Team Providers Care Flight Attendant Name Role Phone Celestine Bynum MD Primary Care Provider [phone] Source Comments In the event this information is protected by the Federal Confidentiality of Alcohol and Drug AbusePatient Records regulations: The Federal rules restrict any use of the information to criminally investigate or prosecute any alcohol or drug abuse patient.[facility] Encounter Details DateTypeDepartmentCare Team (Latest Contact Info)Rhmmbpcmrru60/28/2025Travel Social History Tobacco UseTypesPacks/DayYears UsedDateSmoking Tobacco: FormerCigarettes Smokeless Tobacco: NeverAlcohol UseStandard Drinks/WeekCommentsYes0 (1 standard drink = 0.6 oz pure alcohol)socialAUDIT-CAnswerDate RecordedQ1: How often do you have a drink containing alcohol?2-4 times a month07/09/2025Q2: How many drinks containing alcohol do you have on a typical day when you are drinking?1 or 2 07/09/2025Frequency of Binge DrinkingNot on file07/09/2025rea Deprivation Index AnswerDate RecordedNational Score (1-100), lower number is lower risk64 07/31/2023State Score (1-10), lower number is lower mizm938ata from: https://www.neighborhoodatlas.medicine.[facility].edu/. Last address used for [address]07/31/[address]23Sex and Gender InformationValueDate Recorded Sex Assigned at BirthNot on fileLegal FnpThhi8305/02/2023 2:39 PM EDTGender IdentityNot on fileSexual TjmaoakudwjKgjahklz90/11/2023 2:31 PM EDTdocumented as of this encounter Plan of Treatment DateTypeDepartmentCare Team (Latest Contact Info)Nhwokjjzxho40/21/2025 11:59 PM EDTAnesthesia Event [facility] End[facility] - ENDO [address] [place], [place] [id number] Jane Peters, AREN.VP DATA [address] [place] [address] 10/01/2025 8:45 AM ESTAppointment [facility] - ENDO [address] [place] [address] [place] [address] [place] [phone] *needs hospital setting per phone encounter*documented as of this encounter Visit Diagnoses Not on filedocumented in this encounter Care Teams Team MemberRelationshipSpecialtyStart DateEnd Date Celestine Bynum MD [address] [place] [address] PCP - GeneralFamily Medicine05/02/23documented as of this encounter
--- OUTSIDE RECORDS SUMMARY | 2025-09-19 17:53 | XMS_ITS | Clinical Summary ---
Author Organization [facility] Address [address] [place], [place] [address] Care Team Providers Care Relish Blender Name Role Phone Celestine Bynum MD Primary Care Provider [phone] Allergies No known active allergies Medications MedicationSigDispense QuantityRefillsLast FilledStart DateEnd DateStatus predniSONE (DELTASONE) 20 mg tablet Take 20 mg by mouth once daily.Active methocarbamol (ROBAXIN) 500 mg tablet Take 500 mg by mouth four times daily.Active inFLIXimab-dyyb (INFLECTRA) 100 mg injection Inject intravenously.Active calcium/magnesium/vit B comp (WDWCQKC-RIKVWFECF-F COMPLEX ORAL) Take by mouth.Active peg 3350-Electrolytes (GOLYTELY) 236-22.74-6.74 -5.86 gram suspension Refer to printed prep instructions from your provider. 4000 mL 5Active Active Problems No known active problems Encounters DateTypeDepartmentCare YfgiDnoxfztprtt30/31/2025Telephone Gastroenterology [address] [place] [address] Cassie Mello MD Erroneous encounter-/30/2025Results Follow-Up Ambulatory Surgery [address] [place] [address] Cassie Mello MD 09/16/20254385Qtrfaw82/28/2025Telephone Gastroenterology [facility] [address] [place] [address] Cassie Mello MD Rectal Problem (Blood in stools)07/29/2025 Get Medical Advice Gastroenterology [address] [place] [address] Cassie Mello MD [facility] awaiting azkdejfu00/26/2025 12:00 PM EDTProcedure Gastroenterology [id number] [place], [place] [address] [address] 07/14/2025Orders Only [facility]enter[facility] [address] [place] [address] Felicia Wheeler PA-C Elevated ALT measurement (Primary Dx)07/13/2025Results Follow-Up [facility] Provider Adult [address] [place] [address] Felicia Wheeler PA-C 07/10/2025Telephone Gastroenterology [address] [place], [place] [address] [address] Felicia Wheeler PA-C Golytely prep07/10/2025GI Preprocedure Call Ambulatory Surgery [address] [place], [place] [address] [place] [address] [facility] 07/09/2025 1:00 PM EDTOffice Visit Gastroenterology [address] [place] [address] Felicia Wheeler PA-C Crohn's disease without complication, unspecified gastrointestinal tract location (HCC) (Primary Dx); Elevated ALT fzecqybigqx56/20/6014Ljkxsi70/20/2025Telephone Gastroenterology [address] [place] [address] [place] [address] Cassie Mello MD Resultsfrom Last 3 Months Family History Medical HistoryRelationCommentsColon CancerMaternal GrandfatherRelationStatus CommentsMaternal Grandfather Social History Tobacco UseTypesPacks/DayYears UsedDateSmoking Tobacco: FormerCigarettes Smokeless Tobacco: Never Tobacco Cessation:Counseling Given: Not Answered Alcohol UseStandard Drinks/WeekCommentsYes0 (1 standard drink = 0.6 oz pure alcohol)socialAUDIT-CAnswerDate RecordedQ1: How often do you have a drink containing alcohol?2-4 times a month07/09/2025Q2: How many drinks containing alcohol do you have on a typical day when you are drinking?1 or Frequency of Binge DrinkingNot on file07/09/2025rea Deprivation IndexAnswerDate RecordedNational Score (1-100), lower number is lower nzqt457707/31/2023State Score (1-10), lower number is lower qfzt698ata from: https://www.neighborhoodatlas.[facility].edu/. Last address used for gawkxiivsqs[address]07/31/2023Sex and Gender InformationValueDate Recorded Sex Assigned at BirthNot on fileLegal PzxDkqr0205/02/2023 2:39 PM EDTGender IdentityNot on fileSexual ScopomrangbYwnkhnyp63/11/2023 2:31 PM EDT Last Filed Vital Signs Vital SignReadingTime TakenCommentsBlood Fixuogxk941/66007/09/2025 12:55 PM EDT Mlwok316307/09/2025 12:55 PM EDTTemperature--Respiratory Rate--Oxygen Saturation-- Inhaled Oxygen Concentration--Wjreih919 kg (354 lb 15.1 oz)07/09/2025 12:55 PM EDTHeight--Body Mass Index-- Plan of Treatment DateTypeDepartmentCare Team (Latest Contact Info)Pufsohcukxy39/21/2025 11:59 PM EDTAnesthesia Event [facility] - ENDO [address] [place], [place] [id number] Jane Peters, AREN.REHABILITATION SERVICES AIDE [address] [place] [address] 10/01/2025 8:45 AM ESTAppointment [facility] - ENDO [address] [place], [place] [id number] [place] [address] [place] [address] *needs hospital setting per phone encounter*Health MaintenanceDue DateLast Done CommentsCovid-19 Vaccine (#1)1996Anxiety Gcurilukg93/15/2009Depression Dxmyavzot58/15/2009HIV Vlaioytou18/15/2009Hepatitis C Xtgcktlbz30/15/2009 Pneumococcal Vaccine (1 of 2 - PCV)2010Shingrix Vaccine (1 of 2)2010 HPV Vaccine (1 - Risk 3-dose SCDM series)2018DTaP,Tdap,Td Vaccine (7 - Td or Tdap), 05/11/2007, 07/21/1995, Additional history exists Influenza Vaccine (#1)Hepatitis B VaccineCompleted 11/15/2007, 06/15/2007, 05/11/2007 Procedures Procedure NamePriorityDate/TimeAssociated DiagnosisCommentsCALPROTECTIN,FECAL Oranvou6109/17/2025 8:46 AM EDT Crohn's disease without complication, unspecified gastrointestinal tract location (HCC) CLOSTRIDIUM DIFFICILE TOXIN BY GNGBeeksxj50/29/2025 8:46 AM EDT Crohn's disease without complication, unspecified gastrointestinal tract location (HCC) C-REACTIVE PROTEIN (CRP)Tkljhok1109/16/2025 5:22 PM EDT Crohn's disease without complication, unspecified gastrointestinal tract location (HCC) SEDIMENTATION EJYYTuqbcly53/28/2025 5:22 PM EDT Crohn's disease without complication, unspecified gastrointestinal tract location (HCC) COMPREHENSIVE METABOLIC UAFQHNybgcxi97/28/2025 5:22 PM EDT Crohn's disease without complication, unspecified gastrointestinal tract location (HCC) CBC + GIXKNaipnct16/28/2025 5:22 PM EDT Crohn's disease without complication, unspecified gastrointestinal tract location (HCC) EXTERNAL LAB07/18/2025 2:54 PM EDT EXTERNAL LAB07/18/2025 11:42 AM EDT VIBRATION CONTROLLED TRANSIENT ELASTOGRAPHY (POC)Nvtkjkg9307/15/2025 11:19 AM EDT Elevated ALT measurement DDI VIBRATION CONTROLLED TRANSIENT ELASTOGRAPHY (VCTE)Uvtbkjz4007/15/2025 Elevated ALT measurement EXTERNAL LAB07/10/2025 11:38 AM EDT PT ED DIGESTIVE NFCLIBL8307/10/2025 TPMT ASY THIOPURIN S-HJIUNOMOZURRZzkvjws40/20/2025 1:53 PM EDT Crohn's disease without complication, unspecified gastrointestinal tract location (HCC) PT ED PATIENT YZHQWIKNEZK53/05/2025 from Last 3 Months Results * (ABNORMAL) CALPROTECTIN,FECAL (09/17/2025 8:46 AM EDT)ComponentValueRef Range Test MethodAnalysis TimePerformed AtPathologist SignatureCALPROTECTIN, FECAL FJTEDZMYFBST760(H)<50 ug/g1 8:44 PM EDTCLEVELAND [facility]IN[facility] CALPROTECTIN, FECAL INTERPElevated(A)Zcmhad9909/18/2025 8:44 PM EDTCLEVELAND CLINIC MAIN LABComment: Interpretation: <50.0 ug/g: Normal 50.0 ug/g - 120.0 ug/g: Borderline elevated. Re-evaluation in 4-6 weeks is recommended if clinically indicated. >120.0 ug/g: Elevated Specimen (Source)Anatomical Location / LateralityCollection Method / Volume Collection TimeReceived TimeStoolSTOOL SPECIMEN / UnknownNon Blood / Unknown 09/17/2025 8:46 AM EDT1 8:48 AM EDT Narrative Authorizing ProviderResult TypeResult StatusNojohana Mello MDLABORATORYFinal Result Performing OrganizationAddressCity/State/ZIP CodePhone Number [facility] [address] * CLOSTRIDIUM DIFFICILE TOXIN BY PCR (09/17/2025 8:46 AM EDT)ComponentValueRef RangeTest MethodAnalysis TimePerformed AtPathologist SignatureC. difficile PCR Negative for C. difficile toxin by PCRNegative for C. difficile toxin by PCR AssayMetrics GENEXPERT COVID19 09/17/2025 8:04 PM EDTCST. VINCENT [facility] MAIN LABSpecimen (Source)Anatomical Location / LateralityCollection Method / VolumeCollection TimeReceived TimeStool STOOL SPECIMEN / UnknownNon Blood / Kvyjxaa8509/17/2025 8:46 AM EDT1 8:48 AM EDT Narrative Authorizing ProviderResult TypeResult StatusNoma Riaz MDLABORATORYFinal Result Performing OrganizationAddressCity/State/ZIP CodePhone Number [facility] [address] [place] [address], * SEDIMENTATION RATE, WESTERGREN (09/16/2025 5:22 PM EDT)ComponentValueRef Range Test MethodAnalysis TimePerformed AtPathologist SignatureSed Rate, Westergren 150 - 15 mm/hr09/16/2025 11:46 PM EDFAIR[facility] MAIN LABSpecimen (Source)Anatomical Location / LateralityCollection Method / VolumeCollection TimeReceived TimeBloodBLOOD SPECIMEN / UnknownVenipuncture / Zrcglrq7009/16/2025 5:22 PM EDT1 5:22 PM EDT Narrative Authorizing ProviderResult TypeResult StatusNoma Riaz MDLABORATORYFinal Result Performing OrganizationAddressCity/State/ZIP CodePhone Number [facility] [address] [place] [address], * (ABNORMAL) COMPREHENSIVE METABOLIC PANEL (09/16/2025 5:22 PM EDT)Component ValueRef RangeTest MethodAnalysis TimePerformed AtPathologist Signature Protein, Total7.16.3 - 8.0 g/dL09/17/2025 12:08 PM EDTCST. VINCENT HOSPITAL MAIN LABAlbumin4.23.9 - 4.9 g/dL09/17/2025 12:08 PM EDFAIRFIELD [facility] LAB Calcium, Total9.28.5 - 10.2 mg/dL09/17/2025 12:08 PM EDFAIRFIELD [facility] MAIN LABBilirubin, Total0.40.2 - 1.3 mg/dL09/17/2025 12:08 PM EDTCST. VINCENT HOS[facility]ITAL MAIN LABAlkaline Rjabsbxtrjw8388 - 113 U/L1 12:08 PM EDTCST. VINCENT [facility] XQXPOF7190 - 40 U/L1 12:08 PM [facility] PQDUZA1841 - 54 U/L1 12:08 PM [facility] RKGXuhcvck4072 - 99 mg/dL09/17/2025 12:08 PM [facility] LABComment: The [place] Diabetes Association (ADA) provides guidance for cutoff values for fasting glucose andrandom glucose. The ADA defines fasting as no [...] Standards of Medical Care in Diabetes 2016, [place] [employer]. Diabetes Care. 2016.39(Suppl 1). TQV638 - 24 mg/dL09/17/2025 12:08 PM [facility] MA[facility] LABCreatinine0.71 (L)0.73 - 1.22 mg/dL09/17/2025 12:08 PM [facility] YWUUuuybs942993 - 144 mmol/L1 12:08 PM [facility] LABPotassium4.13.7 - 5.1 mmol/L1 12:08 PM [facility] GEBIwusgbdy26206 - 107 mmol/L1 12:08 PM [facility] LHJPV61506 - 30 mmol/L 09/17/2025 12:08 PM [facility] LABAnion Nrd334 - 15 mmol/L 09/17/2025 12:08 PM [facility] LABEstimated Glomerular Filtration Gsgu403>=60 mL/min/1.73m 09/17/2025 12:08 PM [facility] LABComment:Estimated Glomerular Filtration Rate (eGFR) is calculated using the 2020 CKD-EPI creatinine equation. This equation utilizes serum creatinine, sex, and age as parameters. The creatinine assay has traceable calibration to isotope dilution-mass spectrometry. Refer to KDIGO guidelines for clinical interpretation. In patients with unstable renal function, e.g. those with acute kidney injury, the eGFRmay not accurately reflect actual GFR.Specimen (Source)Anatomical Location / LateralityCollection Method / VolumeCollection TimeReceived TimeBloodBLOOD SPECIMEN / UnknownVenipuncture / Ekdgraa4509/16/2025 5:22 PM EDT1 5:22 PM EDT Narrative Authorizing ProviderResult TypeResult StatusNoma Riaz SEARSLABORATORYFinal Result Performing OrganizationAddressCity/State/ZIP CodePhone Number [facility] [address] * (ABNORMAL) COMPLETE BLOOD COUNT AND DIFFERENTIAL (09/16/2025 5:22 PM EDT) ComponentValueRef RangeTest MethodAnalysis TimePerformed AtPathologist SignatureWBC8.783.70 - 11.00 k/uL09/16/2025 10:39 PM EDTCST. VINCENT HOSPITAL MAIN LABRBC4.864.20 - 6.00 m/uL09/16/2025 10:39 PM EDTCST. [facility] LAB Eqgjoioynv86.313.0 - 17.0 g/dL09/16/2025 10:39 PM EDTCST. [facility] Xughlyrkwk77.339.0 - 51.0 %09/16/2025 10:39 PM EDTCST. VINCENT H[facility] MAIN LABMCV 89.180.0 - 100.0 fL09/16/2025 10:39 PM EDTCHOLZER [facility] PXPVZW81.426.0 - 34.0 pg09/16/2025 10:39 PM EDTCHOLZER [facility] RINDPAK58.030.5 - 36.0 g/dL09/16/2025 10:39 PM EDTCST. VINCENT [facility] MAIN LABRDW-CV13.211.5 - 15.0 % 09/16/2025 10:39 PM EDTCHOLZER [facility]ITAL[facility] MAIN LABPlatelet Iritw245368 - 400 k/uL09/16/2025 10:39 PM EDTCST. [facility]INCENT [facility] KTUGQU95.99.0 - 12.7 fL 09/16/2025 10:39 PM EDTCHOLZER [facility]ITAL[facility] MAIN LABNeutrophils %58.5%09/16/2025 10:39 PM EDTCLEVELAND CLINIC MAIN LABAbs Neut5.141.45 - 7.50 k/uL09/16/2025 10:39 PM EDTCLEVELAND CLINIC MAIN LABLymphocytes %25.3%09/16/2025 10:39 PM EDT [facility] LABAbs Lymph2.221.00 - 4.00 k/uL09/16/2025 10:39 PM EDT [facility] LABMonocytes %12.9%09/16/2025 10:39 PM EDTCHOLZER [facility]ITAL[facility] MAIN LABAbs Mono1.13(H)<0.87 k/uL09/16/2025 10:39 PM EDTCLEVELAND CLINIC MAIN LABEosinophils %2.4%09/16/2025 10:39 PM EDTCHOLZER [facility]ITALAND [facility] MAIN LABAbs Eosin0.21<0.46 k/uL09/16/2025 10:39 PM EDTCLEVELAND CLIN[facility] LAB Basophils %0.7%09/16/2025 10:39 PM EDTCHOLZER [facility]ITAL[facility] MAIN LABAbs Baso0.06 <0.11 k/uL09/16/2025 10:39 PM EDTCLEVELAND CLINIC MAIN LABImmature Granulocytes %0.2%09/16/2025 10:39 PM EDTCLEVELAND CLINIC MAIN LABAbs Immature Gran<0.03<0.10 k/uL09/16/2025 10:39 PM EDTCHOLZER [facility]ITALAND [facility] MAIN LABNRBC0.0/100 WBC09/16/2025 10:39 PM EDTCHOLZER [facility]ITALAND [facility] MAIN LABAbsolute nRBC<0.01<0.01 k/uL09/16/2025 10:39 PM EDTCHOLZER HOSPITALAND CLINIC MAIN LABDiff SqafVctw69/28/2025 10:39 PM EDTCLEVELAND CLINIC MAIN LABSpecimen (Source)Anatomical Location / LateralityCollection Method / VolumeCollection TimeReceived TimeBloodBLOOD SPECIMEN / UnknownVenipuncture / Rxoayzx9209/16/2025 5:22 PM EDT1 5:22 PM EDT Narrative Authorizing ProviderResult TypeResult StatusNojohana Mello MDLABORATORYFinal Result Performing OrganizationAddressCity/State/ZIP CodePhone Number [facility] [address] [place] [id number], [place] * C-REACTIVE PROTEIN (09/16/2025 5:22 PM EDT)ComponentValueRef RangeTest Method Analysis TimePerformed AtPathologist SignatureCRP0.6<0.9 mg/dL09/17/2025 12:08 PM EDTCPROMED[facility] LABSpecimen (Source)Anatomical Location / LateralityCollection Method / VolumeCollection TimeReceived TimeBloodBLOOD SPECIMEN / UnknownVenipuncture / Dhkrlcv1209/16/2025 5:22 PM EDT1 5:22 PM EDT Narrative Authorizing ProviderResult TypeResult StatusCassie Mello MDLABORATORYFinal Result Performing OrganizationAddressCity/State/ZIP CodePhone Number [facility] [address] [place] [phone], * EXTERNAL LAB (07/18/2025 2:54 PM EDT) Only the most recent of3 resultswithin the time period is included. Narrative Authorizing ProviderResult TypeResult StatusExternal Provider PA-CLABORATORY Final Result * VIBRATION CONTROLLED TRANSIENT ELASTOGRAPHY (POC) (07/15/2025 11:19 AM EDT) Anatomical RegionLateralityModalityOtherSpecimen (Source)Anatomical Location / LateralityCollection Method / VolumeCollection TimeReceived Time07/15/2025 11:19 AM EDT Narrative Authorizing ProviderResult TypeResult StatusLauren Katrin PA-CIMAGESFinal Result * DDI VIBRATION CONTROLLED TRANSIENT ELASTOGRAPHY (VCTE) (07/15/2025)Anatomical RegionLateralityModalityOther Narrative 07/15/2025 Fibroscan Report Date performed: July 15, 2025 Indication : Elevated alt measurement ??(primary encounter diagnosis) Patient fasted 3 hours:Yes Performed by Gris Rae LPN Result-Findings Technical difficulties: None. Result: The reading was adequate. ??Please refer to get images report for individual readings Number of readings: 10 IQR %: 17 E (kpa):??5.9 CAP: 291 ?? Impression The liver stiffness is 5.9 kPa [...] to hepatology for further evaluation Interpreted by: Aleida HARMON Fibroscan Fibrosis Risk <7 kPA = F0-F2 97%, F3+F4 3%, F4 <1% <10 kPA = F0-F2 91%, F3+F4 9%, F4 1.3% 10-15 kPA = F0-F2 56%, F3+F4 43%, F4 14% >15 kPA = F0-F2 26%, F3+F4 74%, F4 46% ?? Grade CAP value up to 237 dB/M [...] Int J Clin Exp Med. 2015 Aug 15;8(10):16676-71.PMID: [id number]; PMCID: [id number]. Sloan Limon, Robert PIERCE, Alecia M, Emelia F, Kayce J, Mark O, Rhina F, Rosalia M, Rodo G, Fransico A, Germán E, Cali L, Brock G, Dinorah A, Daniel U, Pacheco S, [place], Ganesh V, de Katina V, Jill M, Chema BROOKS. Refining the Baveno elastography criteria for the definition of compensated advanced chronic liver disease. J Hepatol. 2020;74(5):9725-5368. doi: 10.1016/j.jhep.2020.11.050. Epub 2019Oct 28. PMID: 86540933. Arturo Limon, Daniel Garcia, Frankie Limon, Martha Limon, Lu S, Antonia Cannon, Reema Cannon, Irene Pereyra.AASLD practice guidance on the clinical assessment and management of nonalcoholic fatty liver disease. Hepatology. 2022;77(5):1797- 1835. doi:10.1097/HEP.6484913678066906 ?? Authorizing ProviderResult TypeResult StatusLauren Katrin ORTIZ-CSCHEDULED PROCEDURESFinal Result * PT ED DIGESTIVE DISEASE (07/10/2025)Specimen (Source)Anatomical Location / LateralityCollection Method / VolumeCollection TimeReceived Time07/10/2025 Narrative [facility] - 08/10/2025 Provider RIAZ your patient LATRICE RICHMOND has not started their Parker program, time has . Parker program: COLONOSCOPY Authorizing ProviderResult TypeResult StatusNoma Riaz MDEMMIFinal Result Performing OrganizationAddressCity/State/ZIP CodePhone Number [facility] * TPMT PHENOTYPE/ENZYME ACTIVITY (07/09/2025 1:53 PM EDT)ComponentValueRef Range Test MethodAnalysis TimePerformed AtPathologist SignatureTPMT Lmwndffg74.824.0 - 44.0 U/mL07/12/2025 10:43 PM EDTARUP LABORATORIESComment: INTERPRETIVE INFORMATION: Thiopurine Methyltransferase, RBC Normal TPMT [...] blood transfusion within 30-60 days of testing. ??TPMT enzyme activity can be inhibited by several [...] developed and its performance characteristics determined by [facility]. It has not been cleared or approved by the US Food and Drug Administration. This test was performed in a CLIA certified laboratory and is intended for clinical purposes. Performed By: [facility] [address] [place] [address] Physical Therapist Center Manager: Logan Randhawa MD, PhD CLIA Number: [id number] Specimen (Source)Anatomical Location / LateralityCollection Method / Volume Collection TimeReceived TimeBloodBLOOD SPECIMEN / UnknownVenipuncture / Unknown 07/09/2025 1:53 PM EDT07/09/2025 1:53 PM EDT Narrative Authorizing ProviderResult TypeResult StatusLaamanda ORTIZ-CLABORATORYFinal ResultPerforming OrganizationAddressCity/State/ZIP CodePhone Number [address] [address] * PT ED PATIENT INFORMATION (06/24/2025)Specimen (Source)Anatomical Location / LateralityCollection Method / VolumeCollection TimeReceived Time06/24/2025 Narrative [facility] - 07/25/2025 Provider KATRIN noonan patient LATRICE LAZARESTRADA has not started their Parker program, time has . Parker program: PATIENT SAFETY INSTRUCTIONS FOR HEALTHCARE SETTINGS Authorizing ProviderResult TypeResult StatusLaamanda ORTIZ-CEMMIFinal ResultPerforming OrganizationAddressCity/State/ZIP CodePhone Number [facility] from [place] [address] [place] [address] [place] [address] Care Teams Team MemberRelationshipSpecialtyStart DateEnd Celestine Bynum MD [address] [place] [address] [facility]05/02/23
--- OUTSIDE RECORDS SUMMARY | 2025-09-19 17:53 | XMS_ITS | Encounter Summary ---
Author Organization [facility] Address [address] [place] [address] Care Team Providers Care Document Photographer Name Role Phone Celestine Bynum MD Primary Care Provider [phone] Source Comments In the event this information is protected by the Federal Confidentiality of Alcohol and Drug AbusePatient Records regulations: The Federal rules restrict any use of the information to criminally investigate or prosecute any alcohol or drug abuse patient.[facility] Encounter Details DateTypeDepartmentCare Team (Latest Contact Info)Qyraldaiqmy56/24/2025Results Follow-Up [facility] Provider Adult [address] [place], [place] [phone] Felicia Wheeler PA-C [address] [place] [address] Social History Tobacco UseTypesPacks/DayYears UsedDateSmoking Tobacco: FormerCigarettes [...] 07/31/2023State Score (1-10), lower number is lower impd689ata from: https://www.neighborhoodatlas.medicine.[facility].edu/. Last address used for stgzvfmunof[address]07/31/[address]23Sex and Gender InformationValueDate Recorded Sex Assigned at BirthNot on fileLegal XybLufc0405/02/2023 2:39 PM EDTGender IdentityNot on fileSexual OgglqxnqkctPxaxusqh54/11/2023 2:31 PM EDTdocumented as of this encounter Plan of Treatment DateTypeDepartmentCare Team (Latest Contact Info)Tjrvkubbdhw29/21/2025 11:59 PM EDTAnesthesia Event [facility] - ENDO [address] [place] [address] Jane Peters, MARKETING ANALYTICS SPECIALIST.SECURITY CONTROL CENTER OPERATOR [address] [place] [address] 10/01/2025 8:45 AM ESTAppointment [facility] Endoscopy - ENDO [address] [place] [address] [place] [address] [place] [phone] *needs hospital setting per phone encounter*documented as of this encounter Visit Diagnoses Not on filedocumented in this encounter Care Teams Team MemberRelationshipSpecialtyStart DateEnd Date Celestine Bynum MD [address] [place] [address] PCP - GeneralFamily Medicine05/02/23documented as of this encounter
--- OUTSIDE RECORDS SUMMARY | 2025-09-19 17:53 | XMS_ITS | Clinical Summary ---
Author Organization [employer] Address [facility] [address] [place] [address] Care Team Providers Care Auctioneer Automobile Name Role Phone Celestine Bynum MD Primary Care Provider [phone] Allergies Active AllergyReactionsCriticalityNoted DateCommentsHydrocodone-Acetaminophen Uojlln7303/11/2021 Medications No known medications Social History Tobacco UseTypesPacks/DayYears UsedDateSmoking Tobacco: Some Days Vaping/E-cigarettesSmokeless Tobacco: NeverAlcohol UseStandard Drinks/Week CommentsYes0 (1 standard drink = 0.6 oz pure alcohol)ChildcareAnswerDate MlidgrmiBzxhqpbmrSutznle42/12/2019EmploymentAnswerDate RecordedEmploymentUnknown 05/01/2019Sex and Gender InformationValueDate RecordedSex Assigned at BirthNot on fileLegal MxcDbif5206/25/2015 12:01 PM EDTGender IdentityNot on fileSexual OrientationNot on file Last Filed Vital Signs Vital SignReadingTime TakenCommentsBlood Pmeihlwx066/7404 5:00 PM EDT Apkcr1237 5:00 PM CCALynkpuyykon73.1 ??C (98.7 ??F)03/11/2021 4:56 PM EDTRespiratory Xdzu057703/11/2021 4:56 PM EDTOxygen Gfapvfngdg073%03/11/2021 5:00 PM EDTInhaled Oxygen Concentration--Ufikjs671.8 kg (295 lb)03/11/2021 4:56 PM YZTCysvcd558.4 cm (6' 1 )03/11/2021 4:56 PM EDTBody Mass Index38.9203/11/2021 4:56 PM EDT Plan of Treatment Not on file Medical Devices Not on file Insurance Care Teams Team MemberRelationshipSpecialtyStart DateEnd Celestine Bynum MD PCP - GeneralFamily Medicine03/11/21
--- OUTSIDE RECORDS SUMMARY | 2025-09-19 17:53 | XMS_ITS | Encounter Summary ---
Author Organization [facility] Address [address] [place], [place] [id number] Care Team Providers Care Global Regulatory Lead Name Role Phone Celestine Bynum MD Primary Care Provider [phone] Source Comments In the event this information is protected by the Federal Confidentiality of Alcohol and Drug AbusePatient Records regulations: The Federal rules restrict any use of the information to criminally investigate or prosecute any alcohol or drug abuse patient.[facility] Encounter Details DateTypeDepartmentCare Team (Latest Contact Info)Fooejpfphqa49/30/2025Results Follow-Up Ambulatory Surgery [address] [place] [address] [place] [address] [place] [address] Social History Tobacco UseTypesPacks/DayYears UsedDateSmoking Tobacco: FormerCigarettes [...] 07/31/2023State Score (1-10), lower number is lower [id number] from: https://www.neighborhoodatlas.[facility]/. Last address used for [address] 07/31/2023Sex and Gender InformationValueDate Recorded Sex Assigned at BirthNot on fileLegal VliBhce3805/02/2023 2:39 PM EDTGender IdentityNot on fileSexual GjzzwmyklfxQcirnkqo68/11/2023 2:31 PM EDTdocumented as of this encounter Miscellaneous Notes * Telephone Encounter - Bonnie Pryor RN - 09/18/2025 10:[address] Mello, I pended his lab orders for review. Zane Calderon, your blood work showed slightly elevated percentage of one type of the white blood cellsbut the white blood cells number is within normal This has been chronic for more than a year Will repeat labs in 3 months I will refer you to hematology if this persists Thank you, Leana documented in this encounter Plan of Treatment DateTypeDepartmentCare Team (Latest Contact Info)Nvukqgyqdjc43/21/2025 11:59 PM EDTAnesthesia Event [facility] [place] [address] Jane Peters, AREN.REGIONAL VICE PRESIDENT [employer] SALES [address] [place] [address] 10/01/2025 8:45 AM ESTAppointment [facility] End[facility] - ENDO [address] [place] [address] [place] [address] [place] [phone] *needs hospital setting per phone encounter*documented as of this encounter Visit Diagnoses Diagnosis Crohn's colitis, without complications (HCC)- Primary documented in this encounter Care Teams Team MemberRelationshipSpecialtyStart DateEnd Date Celestine Bynum MD [address] [place] [address] PCP - GeneralFamily Medicine05/02/23documented as of this encounter
--- OUTSIDE RECORDS SUMMARY | 2025-09-19 17:53 | XMS_ITS | Encounter Summary ---
Author Organization [facility] Address [address] [place], [place] [address] Care Team Providers Care Bread Oven Operator Name Role Phone Celestine Bynum MD Primary Care Provider [phone] Source Comments In the event this information is protected by the Federal Confidentiality of Alcohol and Drug AbusePatient Records regulations: The Federal rules restrict any use of the information to criminally investigate or prosecute any alcohol or drug abuse patient.[facility] Reason for Visit * ReasonCommentsRectal ProblemBlood in stools Encounter Details DateTypeDepartmentCare Team (Latest Contact Info)Jzwnmsqrjjq74/28/2025Telephone Gastroenterology [facility] [address] [place], [place] [phone] [place] [address] [place] [address] Rectal Problem (Blood in stools) Social History Tobacco UseTypesPacks/DayYears UsedDateSmoking Tobacco: FormerCigarettes [...] 07/31/2023State Score (1-10), lower number is lower [id number] from: https://www.neighborhoodatlas.[facility]/. Last address used for [address]07/31/2023Sex and Gender InformationValueDate Recorded Sex Assigned at BirthNot on fileLegal VvxRonw4205/02/2023 2:39 PM EDTGender IdentityNot on fileSexual YorzkszaonlElophtkl41/11/2023 2:31 PM EDTdocumented as of this encounter Miscellaneous Notes * Telephone Encounter - Ana Dinh LPN - 09/19/2025 4:[address] Escobedo please review message below. Dr. Mello is not in clinic. Patient calling office. c/o bright red blood and blood clots in stools and on toilet paper. Patient sent images in [employer]. 2 stools today. second stool had more blood. C/o abdominal cramping, chills, body aches and fatigue. Denies dizziness, light headedness, chest pain and Shortness of Breath Patient said he is not sure if he has a fever, he has not taken his temperature because he is at work. Patient aware if symptoms of dizziness, light headedness, cp and Shortness of Breath develop to go to the ER. Patient verbalized good understanding. Last Infliximab infusion was on Monday09/17/25 Please advise Ana Dinh LPN documented in this encounter Plan of Treatment DateTypeDepartmentCare Team (Latest Contact Info)Bsbuxbkfvyi83/21/2025 11:59 PM EDTAnesthesia Event [facility] Endoscopy - ENDO [address] [place] [address] Jane Peters APRN.CNC MACHINE PROGRAMMER [address] [facility] [address] [place] [address] 10/01/2025 8:45 AM ESTAppointment [facility] Endoscopy - ENDO [address] [place] [address] [place] [address] [place] [phone] *needs hospital setting per phone encounter*documented as of this encounter Visit Diagnoses Not on filedocumented in this encounter Care Teams Team MemberRelationshipSpecialtyStart DateEnd Date Celestine Bynum MD [address] [place] [address] PCP - GeneralFamily Medicine05/02/23documented as of this encounter
--- OUTSIDE RECORDS SUMMARY | 2025-09-19 17:53 | XMS_ITS | Encounter Summary ---
Author Organization [facility] Address [address] [place], [place] [address] Care Team Providers Care Microsoft Bi Consultant Name Role Phone Celestine Bynum MD Primary Care Provider [phone] Source Comments In the event this information is protected by the Federal Confidentiality of Alcohol and Drug AbusePatient Records regulations: The Federal rules restrict any use of the information to criminally investigate or prosecute any alcohol or drug abuse patient.[facility] Reason for Visit * ReasonCommentsErroneous encounter-disregard Encounter Details DateTypeDepartmentCare Team (Latest Contact Info)Dqqwuoedizr16/31/2025Telephone Gastroenterology [address] [place] [address] [place] [address] [place] [phone] Erroneous encounter-disregard Social History Tobacco UseTypesPacks/DayYears UsedDateSmoking Tobacco: FormerCigarettes [...] 07/31/2023State Score (1-10), lower number is lower [id number] from: https://www.neighborhoodatlas.medicine.[facility]/. Last address used for jm[address]vareg[address]07/31/2023Sex and Gender InformationValueDate Recorded Sex Assigned at BirthNot on fileLegal WlwVwce2105/02/2023 2:39 PM EDTGender IdentityNot on fileSexual WvbxdyvoxelGqxiiotx27/11/2023 2:31 PM EDTdocumented as of this encounter Miscellaneous Notes * Telephone Encounter - Ana Dinh LPN - 09/19/2025 4:08 PM EDT error in opening documented in this encounter Plan of Treatment DateTypeDepartmentCare Team (Latest Contact Info)Rmrnmfdtcnw90/21/2025 11:59 PM EDTAnesthesia Event [facility] Endoscopy - ENDO [address] [place] [address] Jane Peters, AREN.ETHANOL QUALITY LEADER [address] [place], [place] [phone] 10/01/2025 8:45 AM ESTAppointment [facility] Endoscopy - ENDO [address] [place], [place] [phone] [place] [address] [place] [address] *needs hospital setting per phone encounter*documented as of this encounter Visit Diagnoses Not on filedocumented in this encounter Care Teams Team MemberRelationshipSpecialtyStart DateEnd Date Celestine Bynum MD [address] [place] [address] PCP - GeneralFamily Medicine05/02/23documented as of this encounter
--- NOTE | 2025-09-19 18:16 | CT_ITS ---
The [address] [address] Patient Name: LATRICE RICHMOND MRN: [id number] date: 1990 Sex: M Assigned Patient Location: ER Current Patient Location: .MAIN Accession/Order Number: [id number] Exam Date: 09/19/2025 18:14 Report Date: 09/19/2025 18:39 At the request of: CANDE CASTAÑEDA MD Procedure: CT abdomen pelvis wo con CT ABDOMEN AND PELVIS WITHOUT INTRAVENOUS CONTRAST: CLINICAL HISTORY: RUQ pain COMPARISON: 06/27/2022 TECHNIQUE: Spiral images were obtained through the abdomen and pelvis without intravenous contrast. This CT exam was performed using one or more following dose reduction techniques: Automated exposure control, adjustment of the mA and/or kV according to patient size, or use of iterative reconstruction technique. FINDINGS: Lung bases are clear. Fatty liver. Spleen, adrenals, pancreas and gallbladder unremarkable. Punctate bilateral nonobstructive nephrolithiasis. No hydronephrosis. No definite ureterolithiasis. Otherwise kidneys unremarkable. Mild retained stool without bowel obstruction. Appendix is normal. Bladder and prostate are unremarkable. No free air or free fluid. 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 No suspicious osseous lesions. Tiny fat-containing umbilical hernia. CT/CT abdomen pelvis wo con IMPRESSION: Nonobstructive nephrolithiasis. No hydronephrosis or obstructive uropathy. Fatty liver. Impression dictated by: Edi Reyes M.D. 09/19/2025 6:39 PM Dictation Location: [place] [address] Electronically authenticated by: [id number] Y Date: 09/19/2025 18:39
--- NOTE | 2025-09-19 18:23 | ED.GENADUL1 ---
HPI HPI - General Adult General Chief complaint: GI Bleed Stated complaint: RECTAL BLEEDING Time Seen by Provider: 09/19/25 17:46 Source: patient Mode of arrival: walk-in Limitations: no limitations History of Present Illness HPI narrative: Patient have a history of Crohn's disease presenting to the ER with rectal bleeding that started almost few hours ago, that the pain associate with abdominal pain mostly in the right upper quadrant, no nausea no vomiting feeling of chills Patient mentioned that he supposed to follow-up with the [facility] with a colonoscopy in the beginning of September the patient also had a blood workup recently done that showed no acute significant pathology Related Data Home Medications ?Medication ?Instructions ?Recorded ?Confirmed No Known Home Medications 09/19/25 09/19/25 Allergies Allergy/AdvReac Type Severity Reaction Status Date / Time No Known Drug Allergies Allergy Verified 09/19/25 17:14 Opioid HPI Opioid Management Most Recent Opioid Data: Last Pain Scale 5 Today, 17:14 Review of Systems ROS Status of ROS 10 or more systems reviewed and unremarkable except as noted in history and below PFSH PFSH Social History Little interest or pleasure in doing things: not at all Feeling down, depressed, or hopeless: not at all Exam Narrative Exam Narrative: Nurses notes and vital signs reviewed and patient is not hypoxic. General: Well-appearing and in no apparent distress. Skin: Warm, dry, no pallor noted. No rash. Head: Normocephalic, atraumatic. Neck: Supple, non-tender. Eye: Pupils are equal, round and EOMI. No scleral icterus. Ears, Nose, Mouth, and Throat: TM are clear, no nasal mucosal hypertrophy. Oral mucosa is moist, no posterior oropharynx erythema, uvula is mid-line Cardiovascular: Regular Rate and Rhythm without murmur, gallop or rub. Respiratory: No accessory muscle use or respiratory distress. Lungs are clear to auscultation, no wheezing, rales or rhonchi Chest Wall: no tenderness Back: No midline thoracic or lumbar vertebral tenderness. No CVA tenderness Musculoskeletal: normal ROM, no calf or popliteal tenderness, no lower extremity edema/swelling GI: Abdomen is soft, mildly distended, with upper quadrant tenderness to palpation on rectal examination the patient have a small hemorrhoid at 6:00 measuring almost 2 mm and no active bleeding but there is tenderness Neurological: A&O x4. No cranial nerve dysfunction observed. No truncal ataxia. Moves all extremities. Sensation intact. Psychiatric: Cooperative and interactive. Normal mood and affect. Constitutional Vital Signs, click to edit/add: Last Vital Signs Temp 98.9 F 09/19/25 17:14 Pulse 84 09/19/25 17:14 Resp 19 09/19/25 17:14 BP 115/66 09/19/25 17:14 Pulse Ox 96 09/19/25 17:14 O2 Del Method Room Air 09/19/25 17:14 Course Vital Signs Vital signs: Vital Signs Temperature 98.9 F 09/19/25 17:14 Pulse Rate 84 09/19/25 17:14 Respiratory Rate 19 09/19/25 17:14 Blood Pressure 115/66 09/19/25 17:14 Pulse Oximetry 96 09/19/25 17:14 Oxygen Delivery Method Room Air 09/19/25 17:14 Temperature 98.9 F 09/19/25 17:14 Pulse Rate 84 09/19/25 17:14 Respiratory Rate 19 09/19/25 17:14 Blood Pressure 115/66 09/19/25 17:14 Pulse Oximetry 96 09/19/25 17:14 Oxygen Delivery Method Room Air 09/19/25 17:14 Medical Decision Making MDM Narrative Medical decision making narrative: History of Crohn disease presenting to us with abdominal pain with right upper quadrant this presentation could be secondary to exacerbation of chronic disease The patient was started on CBC and chemistry as well as pain medication with morphine and CAT scan right upper quadrant Discharge Plan Discharge Patient Disposition: Still a Patient
[2025-09-19 18:36] LABS: Hematocrit 41.4 % (42.0-54.0); Hemoglobin 14.0 g/dL (14.0-18.0); Immature Granulocytes Abs Auto 0.02 10^3/uL (0.00-0.03); Immature Granulocytes Pct Auto 0.2 % (0.0-0.5); Lymphocytes Absolute Auto 2.7 10^3/uL (1.2-3.8); Mean Corpuscular HGB Conc 33.8 g/dL (29.9-35.2); Mean Corpuscular Hemoglobin 29.9 pg (25.9-34.0); Mean Corpuscular Volume 88.5 fL (80.0-94.0); Platelet Count 238 10^3/uL (150-450); Red Blood Count 4.68 10^6/uL (4.70-6.10); White Blood Count 9.2 10^3/uL (4.0-11.0)
[2025-09-19] MEDS: MORPHINE SULFATE 4 MG/ML VIAL IV (18:46)
[2025-09-19 18:50] LABS: Alanine Aminotransferase 70 U/L (16-63); Albumin Globulin Ratio 1.0; Albumin Level 3.8 g/dL (3.4-5.0); Alkaline Phosphatase 70 U/L (46-116); Anion Gap 12.8; Blood Urea Nitrogen 10.0 mg/dL (7.0-18.0); Calcium 9.2 mg/dL (8.5-10.1); Carbon Dioxide 26.0 mmol/L (21.0-32.0); Chloride 106 mmol/L (98-107); Estimated GFR (African America >60 (>=60 mL/min/1.73m^2); Estimated GFR (Non-African Ame >60 (>=60 mL/min/1.73m^2); Globulin 3.8 g/dL; Glucose 92 mg/dL (74-106); Potassium 3.8 mmol/L (3.5-5.1); Sodium 141 mmol/L (136-145); Total Protein 7.6 g/dL (6.4-8.2)
[2025-09-19 18:52] VITALS: BP 116/70; PULSE 78; O2SAT 99
[2025-09-19 19:05] LABS: Aspartate Amino Transferase 26 U/L (15-37)
[2025-09-19] MEDS: PREDNISONE 20 MG TABLET 40 MG PO (19:28)
== END 2025-09-19 19:33 | disposition home or self-care (01) ==
PROVIDERS: Emergency Provider Emergency Medicine; PCP Family Medicine
DX: K50.90 Crohn's disease, unspecified, without complications (principal); K62.5 Hemorrhage of anus and rectum; R10.11 Right upper quadrant pain
CPT/HCPCS: 36415; 74176; 80053; 85025; 96374; 99284; J2270; J7512

== ENCOUNTER 2025-10-13 17:07 | Outpatient (RCR) | payer OTHER, SELFPAY | END 2025-10-25 16:43 | disposition home or self-care (01) | LOC: PT 17:07 | PROVIDERS: PCP Family Medicine; Visit Provider Family Medicine | DX: M54.16 Radiculopathy, lumbar region (principal) | CPT/HCPCS: 97110; 97112; 97162 ==